=== PATIENT | female | born 1960 | race Two or more races ===

== ENCOUNTER → 2020-06-29 15:37 | Outpatient (BNVA) | payer MEDICAID, SELFPAY | PROVIDERS: PCP Nurse Practitioner Family; Referring Provider Nurse Practitioner Family; Visit Provider Nurse Practitioner | DX: Z76.89 Persons encountering health services in other specified circumstances (principal) | CPT/HCPCS: 99213 ==

== ENCOUNTER 2020-06-30 14:38 | Outpatient (REF) | payer MEDICAID, SELFPAY ==
[2020-06-30 15:57] LABS: Anion Gap 14 (12-20); Blood Urea Nitrogen 25 mg/dL (9-16); C Reactive Protein 0.94 mg/dL (< or = 0.50); Carbon Dioxide 29 mmol/L (22-29); Chloride 101 mmol/L (96-108); Estimated Glomerular Filt Rate > 60; Glucose Random 116 mg/dL (60-115); Potassium 4.1 mmol/l (3.3-5.1); Sodium 140 mmol/L (135-145)
[2020-06-30 16:19] LABS: Thyroid Stimulating Hormone 0.96 mIU/mL (0.32-4.0)
[2020-06-30 16:48] LABS: Erythrocyte Sedimentation Rate 19 MM/HR (0-20)
== END 2020-06-30 14:39 | disposition home or self-care (01) ==
LOC: HO.LAB 14:38
PROVIDERS: Visit Provider Psychiatry & Neurology Neurology
DX: G62.9 Polyneuropathy, unspecified (principal)
CPT/HCPCS: 36415; 80051; 82550; 82565; 82947; 84443; 84520; 85652; 86140

== ENCOUNTER 2020-07-09 20:34 | Emergency (ER) | payer MEDICAID, SELFPAY ==
--- NOTE | 2020-07-09 | ECG_ITS ---
Test Reason : CHEST PAIN Blood Pressure : / mmHG Vent. Rate : 061 BPM Atrial Rate : 061 BPM P-R Int : 160 ms QRS Dur : 084 ms QT Int : 454 ms P-R-T Axes : 026 043 034 degrees QTc Int : 457 ms Normal sinus rhythm Nonspecific ST abnormality Abnormal ECG When compared with ECG of 20-NOV-2014 05:20, No significant change was found Referred By: Eran Yanes Electronically Signed By:CURLY SANZ MD
[2020-07-09 21:04] VITALS: BP 119/56; PULSE 54; RESP 16; TEMP 36.6; O2SAT 99; BMI 39.7
--- NOTE | 2020-07-09 21:46 | ED_ITS ---
HPI - Chest Pain General Chief Complaint: Chest Pain Stated Complaint: CHEST PAIN Time Seen by Provider: 07/09/20 21:46 Source: patient Mode of arrival: ambulatory Limitations: no limitations History of Present Illness HPI narrative: while cooking dinner patient developed sharp chest pain. the pain lasted 30 minutes. MD complaint: chest pain Onset (ago): hour(s) Pain location: substernal Severity: mild Quality: sharp Related Data Home Medications Medication Instructions Recorded Confirmed hydrochlorothiazide 25 mg tablet 25 mg PO DAILY 06/29/20 06/29/20 levothyroxine 50 mcg tablet 50 mcg PO DAILY 06/29/20 06/29/20 lisinopril 40 mg tablet 40 mg PO DAILY 06/29/20 06/29/20 Previous Rx's Medication Instructions Recorded sennosides 8.6 mg capsule 17.2 mg PO BEDTIME 30 Days #60 cap 06/29/20 simethicone 180 mg capsule 180 mg PO TID-QID #120 cap 06/29/20 Allergies Allergy/AdvReac Type Severity Reaction Status Date / Time Penicillins [PENICILLINS] Allergy Intermediate RASH, Unverified 06/11/20 18:23 SWELLING penicillin V Allergy Unknown swelling Unverified 05/21/20 00:00 Review of Systems Constitutional: Constitutional: Reports no additional constitutional complaints Eyes: Eyes: Reports no additional eye complaints ENT: Denies dizziness Cardiovascular: Cardiovascular: Reports no additional cardiovascular complaints Respiratory: Respiratory: Reports as per HPI Gastrointestinal: Gastrointestinal: Reports no additional gastrointestinal complaints Genitourinary: Genitourinary: Reports no additional female genitourinary complaints Musculoskeletal: Musculoskeletal: Reports no additional musculoskeletal complaints Integumentary/Breasts: Skin/Breast: Denies rash Neurologic: Reports system reviewed and no additional complaints, except as documented, Denies dizziness and Denies Sensory deficit (Neuro) Psychiatric: Psychiatric: Denies anxiety [facility] Past Medical History Medical History (Updated 06/29/20 @ 16:22 by DON Lynn) Esophageal candidiasis H/O coronary angiogram History of diverticulitis Pruritus ani Rectal bleeding Surgical History (Updated 06/26/20 @ 10:53 by DON Lynn) H/O cerebral aneurysm repair H/O section H/O left breast biopsy History of hernia repair History of left-sided carotid endarterectomy Family History Family History (Updated 06/26/20 @ 10:56 by DON Lynn) Father Skin cancer Prostate cancer Mother CHF (congestive heart failure) Hypertension NIDDY (non-insulin dependent diabetes mellitus in young) Sister Thyroid cancer Social History Social History (Updated 06/26/20 @ 10:56 by DON Lynn) Alcohol intake: never Smoking Status: Never smoker Use of substances other than those prescribed or required for medical reasons: No Advance Directives: No Advance Directives Information Provided: Yes Physical Exam Vital Signs: Vital Signs: Vital Signs Temp Pulse Resp BP Pulse Ox 07/09/20 21:04 98 F 54 16 119/56 L 99 Body Mass Index 39.7 Const: General: healthy appearing Nutritional Appearance: average body habitus Orientation/consciousness: oriented to person and patient oriented x3 Limitations: no limitations HENMT: Head: Yes normal to inspection Ears: external ears normal General nose exam: Normal external nose present Mouth: Normal oral and palatal mucosa present and oropharynx normal Throat: Yes posterior oropharynx normal Eyes: General: appearance normal, both eyes and all related structures Neck: Other: supple Neck: Yes normal visual inspection Chest: Chest palpation & inspection: normal inspection of the chest Resp: Auscultation: clear to auscultation bilaterally Cardio: Jugular venous distension: no JVD Rate: regular rate Rhythm: regular rhythm Heart sounds: S1 normal heart sound present and S2 normal heart sound present GI: Inspection: Yes normal to inspection Palpation (GI): Soft to palpation, nontender and No hepatosplenomegaly present Auscultation: normal bowel sounds : General: Yes no CVA tenderness Back/Spine/Pelvis: Back: no CVA tenderness Skin: General skin exam: no rashes or lesions noted Neuro: General: oriented to person and patient oriented x3 Cranial nerves: Yes CN's II-XII intact bilaterally Motor exam (neuro): 5/5 motor strength present throughout Sensory Exam: No Sensory deficit (Neuro) Extrem: General: Yes normal to inspection Psych: Appearance: grossly normal Course Course Course Narrative: resting comfortably MDM - Chest Pain MDM Narrative Medical decision making narrative: impression is atypical chest pain Differential Diagnosis Differential diagnosis: Likely atypical chest pain Lab Data Result diagrams: 07/09/20 22:27 07/09/20 22:27 Labs: Lab Results 07/09/20 07/09/20 07/09/20 Range/Units 22:27 22:27 22:27 WBC 8.0 (4.8-10.8) X10*3/uL RBC 4.54 (4.20-5.50) X10*6/uL Hgb 12.3 (12.0-16.0) g/dl Hct 38.0 (37-47) % MCV 83.7 (80-98) fL MCH 27.1 (27.0-33.0) pg MCHC 32.4 (31.0-35.0) g/dl RDW 15.4 (11.0-16.0) % Plt Count 339 (160-400) X10*3/uL MPV 9.1 L (9.4-12.3) fL Immature Gran % (Auto) 0.4 (0.0-0.4) % Neut % (Auto) 67.6 (45-73) % Lymph % (Auto) 25.5 (20-40) % [place] % (Auto) 5.5 (2-11) % Eos % (Auto) 0.6 (0-4) % Baso % (Auto) 0.4 (0-2) % Lymph # (Auto) 2.0 (1.2-4.9) X10*3/uL [place] # (Auto) 0.4 (0.1-1.2) X10*3/uL Eos # (Auto) 0.1 (0.0-0.4) X10*3/uL Baso # (Auto) 0.0 (0.0-0.2) X10*3/uL Abs Immat Gran (auto) 0.03 (0.00-0.03) X10*3/uL Absolute Neuts (auto) 5.4 (2.0-8.3) X10*3/uL Absolute Nucleated RBC 0.000 (0.0-0.012) X10*3/uL Nucleated RBC % (auto) 0.0 (0.0-0.2) /100WBC Sodium 139 (135-145) mmol/L Potassium 4.0 (3.3-5.1) mmol/l Chloride 102 (96-108) mmol/L Carbon Dioxide 29 (22-29) mmol/L Anion Gap 12 (12-20) BUN 25 H (9-16) mg/dL Creatinine 0.90 (0.5-1.4) mg/dL Estim Creat Clear Calc 66.3 Estimated GFR > 60 Random Glucose 106 (60-115) mg/dL Calcium 8.7 (8.4-10.2) mg/dL Troponin I High Sens 4.4 (<3.5-17.0) ng/L ECG Data ECG #1: Interpretation: normal sinus no st or twave changes, rate of 60 Discharge Plan Discharge Patient Disposition: Home, Self-Care Instructions: Chest Pain (ED) Additional Instructions: follow up with your doctor in the next couple of days Prescriptions: No Action levothyroxine 50 mcg tablet 50 mcg PO DAILY RF: 0 lisinopril 40 mg tablet 40 mg PO DAILY RF: 0 hydrochlorothiazide 25 mg tablet 25 mg PO DAILY RF: 0 senna 8.6 mg capsule 17.2 mg PO BEDTIME 30 Days Qty: 60 RF: 3 simethicone [Gas Relief (simethicone)] 180 mg capsule 180 mg PO TID-QID Qty: 120 RF: 3
[2020-07-09 22:31] LABS: MANUAL DIFF FLAG NO
[2020-07-09 22:34] LABS: Basophils Percent Auto 0.4 % (0-2); Eosinophils Absolute Auto 0.1 X10*3/uL (0.0-0.4); Eosinophils Percent Auto 0.6 % (0-4); Hemoglobin 12.3 g/dl (12.0-16.0); Imm Gran Abs Auto 0.03 X10*3/uL (0.00-0.03); Imm Gran Pct Auto 0.4 % (0.0-0.4); Lymphocytes Percent Auto 25.5 % (20-40); Mean Corpuscular HGB Conc 32.4 g/dl (31.0-35.0); Mean Corpuscular Hemoglobin 27.1 pg (27.0-33.0); Mean Corpuscular Volume 83.7 fL (80-98); Mean Platelet Volume 9.1 fL (9.4-12.3); Monocytes Absolute Auto 0.4 X10*3/uL (0.1-1.2); Monocytes Percent Auto 5.5 % (2-11); Neutrophils Absolute Auto 5.4 X10*3/uL (2.0-8.3); Neutrophils Percent Auto 67.6 % (45-73); Platelet Count 339 X10*3/uL (160-400); Red Blood Count 4.54 X10*6/uL (4.20-5.50); Red Cell Distribution Width 15.4 % (11.0-16.0)
[2020-07-09 23:07] LABS: Anion Gap 12 (12-20); Blood Urea Nitrogen 25 mg/dL (9-16); Calcium 8.7 mg/dL (8.4-10.2); Carbon Dioxide 29 mmol/L (22-29); Chloride 102 mmol/L (96-108); Creatinine Clr Calc Pharmacy 66.3; Estimated Glomerular Filt Rate > 60; Glucose Random 106 mg/dL (60-115); Sodium 139 mmol/L (135-145)
[2020-07-09 23:14] LABS: Troponin-I High Sensitivity 4.4 ng/L (<3.5-17.0)
== END 2020-07-09 23:41 | disposition home or self-care (01) ==
PROVIDERS: Emergency Provider Emergency Medicine; PCP Nurse Practitioner Family
DX: R07.9 Chest pain, unspecified (principal)
CPT/HCPCS: 36415; 80048; 84484; 85025; 93005; 99284

== ENCOUNTER 2020-07-21 11:18 | Day surgery (SDC) | payer MEDICAID, SELFPAY ==
[2020-07-16 11:44] VITALS: BMI 39.7
--- NOTE | 2020-07-16 15:07 | P.CONAN_ITS ---
Documented by User: Rayna Kiah 07/20/20 11:59 HPI - Anesthesia Eval Consult details Narrative: 60yo F for EGD Seen in ED for atypical CP 06/2020. ACS ruled out/neg w/u and discharged home. Seen by cardiology with stable testing 05/2020. [facility]LY [facility], [facility] Past Medical History Medical History (Updated 07/21/20 @ 12:50 by Shana Nash) Esophageal candidiasis H/O coronary angiogram History of diverticulitis Hx of renal calculi Hypertension Lab test negative for COVID-19 virus Lab test positive for detection of COVID-19 virus Pruritus ani Rectal bleeding Thyroid disease Family History Family History (Updated 06/26/20 @ 10:56 by DON Lynn) Father Skin cancer Prostate cancer Mother CHF (congestive heart failure) Hypertension NIDDY (non-insulin dependent diabetes mellitus in young) Sister Thyroid cancer Surgical History Surgical History (Updated 07/16/20 @ 11:56 by Brisa Myers) H/O cerebral aneurysm repair H/O section H/O colonoscopy H/O left breast biopsy History of hernia repair Hx of lithotripsy Social History Social History (Updated 06/26/20 @ 10:56 by DON Lynn) Alcohol intake: never Smoking Status: Former smoker Smoked in Last 30 Days: No Smoking Quit Date: 2015 Use of substances other than those prescribed or required for medical reasons: No Advance Directives Information Provided: No Recently lost weight without trying: No Meds Allergies Allergy/AdvReac Type Severity Reaction Status Date / Time Penicillins [PENICILLINS] Allergy Intermediate RASH, Verified 07/16/20 11:56 SWELLING Home Medications Medication Instructions Recorded Confirmed Type hydrochlorothiazide 25 mg tablet 25 mg PO DAILY 06/29/20 07/16/20 History levothyroxine 50 mcg tablet 50 mcg PO DAILY 06/29/20 07/16/20 History lisinopril 40 mg tablet 40 mg PO DAILY 06/29/20 07/16/20 History cholecalciferol (vitamin D3) 50 mcg PO DAILY 07/16/20 07/16/20 History [Vitamin D3] famotidine [Pepcid] 40 mg PO DAILY 07/16/20 07/16/20 History gabapentin 100 mg PO BEDTIME 07/16/20 07/16/20 History Exam Exam Date and Time: July 16, 2020 1507 Height,Weight and Vital Signs: Height 4 ft 11 in Weight 89.358 kg Pertinent Lab Results Pertinent Lab Results: Laboratory Tests 07/09/20 07/09/20 07/09/20 22:27 22:27 22:27 WBC 8.0 Hgb 12.3 Hct 38.0 Plt Count 339 Sodium 139 Potassium 4.0 Chloride 102 Carbon Dioxide 29 BUN 25 H Creatinine 0.90 Troponin I High Sens 4.4 Narrative Narrative: EKG 07/09/20: NSR@61, Nonspecific ST abn ECHO: 05/2020: Nml LV func, EF 60-65%, nml diastolic filling patter, mild pulm htn Carotid US 05/2020: Right ICA plaque complex and irregular, Right ICA 16-49% stenosis, L ICA 0-15% Assessment and Plan Assessment Anesthesia Assessment: Chart Reviewed Documented by User: Shana Nash 07/21/20 13:16 [facility] Past Medical History Medical History (Updated 07/21/20 @ 12:50 by Shana Nash) Esophageal candidiasis H/O coronary angiogram History of diverticulitis Hx of renal calculi Hypertension Lab test negative for COVID-19 virus Lab test positive for detection of COVID-19 virus Pruritus ani Rectal bleeding Thyroid disease Family History Family History (Updated 06/26/20 @ 10:56 by DON Lynn) Father Skin cancer Prostate cancer Mother CHF (congestive heart failure) Hypertension NIDDY (non-insulin dependent diabetes mellitus in young) Sister Thyroid cancer Family history of problems with anesthesia: No Surgical History Surgical History (Updated 07/16/20 @ 11:56 by Brisa Myers) H/O cerebral aneurysm repair H/O section H/O colonoscopy H/O left breast biopsy History of hernia repair Hx of lithotripsy History of Problems with Anesthesia: No Social History Social History (Updated 06/26/20 @ 10:56 by DON Lynn) Alcohol intake: never Smoking Status: Former smoker Smoked in Last 30 Days: No Smoking Quit Date: 2015 Use of substances other than those prescribed or required for medical reasons: No Advance Directives Information Provided: No Recently lost weight without trying: No Meds Allergies Allergy/AdvReac Type Severity Reaction Status Date / Time Penicillins [PENICILLINS] Allergy Intermediate RASH, Verified 07/16/20 11:56 SWELLING Home Medications Medication Instructions Recorded Confirmed Type hydrochlorothiazide 25 mg tablet 25 mg PO DAILY 06/29/20 07/16/20 History levothyroxine 50 mcg tablet 50 mcg PO DAILY 06/29/20 07/16/20 History lisinopril 40 mg tablet 40 mg PO DAILY 06/29/20 07/16/20 History cholecalciferol (vitamin D3) 50 mcg PO DAILY 07/16/20 07/16/20 History [Vitamin D3] famotidine [Pepcid] 40 mg PO DAILY 07/16/20 07/16/20 History gabapentin 100 mg PO BEDTIME 07/16/20 07/16/20 History Exam Height,Weight and Vital Signs: Vital Signs Temp Pulse Resp BP Pulse Ox 07/21/20 12:11 97.1 F 58 16 146/65 H 99 Airway Mallampati Class: II TM Dist: >3cm Neck ROM: Full Loose/Missing/Broken Teeth: Yes (Broken, loose bottom) Heart: RRR Lungs: CTAB Assessment and Plan Assessment Anesthesia Assessment: Anesthesia Plan Discussed and Chart Reviewed Final Anesthetic Review NPO: Yes ASA Class: III Final Preanesthetic Review: No Changes in Pt Med Stat, Meds/Allgs Chart Reviewed, Consent Obtained/Reviewed and Anes Risks/Benef Reviewed Patient Risk: Intermediate Procedure Risk: Low Anesthetic Plan Anesthetic Plan: MAC: Disposition: Standard PACU
[2020-07-21 12:11] VITALS: BP 146/65; PULSE 58; RESP 16; TEMP 36.2; O2SAT 99
[2020-07-21] MEDS: Lactated Ringers 1,000 ML 100 ML IVCONT (12:22)
--- NOTE | 2020-07-21 15:38 | PM.PROC ---
Brief Operative Note Date of procedure: 07/21/20 Pre-op diagnosis: ABDOMINAL PAIN Post-op diagnosis: other (GASTRIC ULCER, ANTRAL; HIATAL HERNIA) Procedure: EGD WITH BX Anesthesia: MAC (KEVIN PABLO) Surgeon: Nela Leblanc Estimated blood loss (mL): 5 Pathology: other (RANDOM GASTRIC BX) Condition: stable Disposition: PACU
[2020-07-21 15:39] VITALS: BP 116/67; PULSE 78; RESP 12; TEMP 36.2; O2SAT 97
[2020-07-21 15:54] VITALS: BP 123/71; PULSE 57; RESP 16; O2SAT 96
--- NOTE | 2020-07-21 17:13 | OP_ITS ---
SURGEON: Nela Leblanc MD PROCEDURE PERFORMED: EGD with biopsy. ESTIMATED BLOOD LOSS: Minimal blood loss. COMPLICATIONS: No complications. ANESTHESIA: Monitored. ANESTHESIOLOGIST: Royer Robertson CRNA. ASSISTANTS: No teachers' assistant. SPECIMENS: Specimens removed; random gastric. PREOPERATIVE DIAGNOSES: Abdominal pain, mid epigastrium, has been present purportedly since COVID infection which she had in December. She has a tendency for constipation. POSTOPERATIVE DIAGNOSES: Gastric ulcer surrounding superficial gastritis, small hiatal hernia. CARDROOM WORKER: Dr. Leblanc. FINDINGS: Video endoscope was introduced without difficulty. It was navigated into the posterior pharynx and into the esophagus. Esophageal mucosa was normal down to the level of the GE junction. Distal to this, was a small hiatal hernia. On entering the stomach, fundus and upper body appeared normal. There was a mildly edematous fold in the pre-pyloric area of the antrum. Directly under the fold, was 0.5 cm gastric ulcer with smooth perimeter. I was able to intubate the pylorus. Duodenal bulb and duodenum appeared endoscopically normal with endoscopically normal villi. Random gastric biopsies were obtained. PLAN AND CURRENT RECOMMENDATIONS: Will be dictated by Histology. We will increase her acid blockade to twice daily and if there is evidence for H pylori that will be treated as well. She will be followed up in our office as previously scheduled. GRAFT OR IMPLANTS: No grafts or implants. CONDITION: Postprocedure, stable. MD KAMERON Yang/ALTAGRACIA / [phone] [facility]
== END 2020-07-21 16:30 | disposition home or self-care (01) ==
PROVIDERS: PCP Nurse Practitioner Family; Visit Provider Internal Medicine Gastroenterology
PROC: 0DJ08ZZ Inspection of Upper Intestinal Tract, Via Natural or Artificial Opening Endoscopic (ICD-10-PCS; CPT 43235; principal; 2020-07-21 12:30)
DX: K25.9 Gastric ulcer, unspecified as acute or chronic, without hemorrhage or perforation (principal); K29.30 Chronic superficial gastritis without bleeding; K44.9 Diaphragmatic hernia without obstruction or gangrene; K21.9 Gastro-esophageal reflux disease without esophagitis; K75.81 Nonalcoholic steatohepatitis (NASH); I10 Essential (primary) hypertension; Z79.899 Other long term (current) drug therapy; Z88.0 Allergy status to penicillin; Z88.8 Allergy status to other drugs, medicaments and biological substances; Z86.19 Personal history of other infectious and parasitic diseases; Z87.891 Personal history of nicotine dependence
CPT/HCPCS: 43239; 88305; 88342; J3010

== ENCOUNTER → 2020-07-28 15:21 | Outpatient (BNVA) | payer MEDICAID, SELFPAY | PROVIDERS: PCP Nurse Practitioner Family; Referring Provider Nurse Practitioner Family; Visit Provider Nurse Practitioner | DX: K21.9 Gastro-esophageal reflux disease without esophagitis (principal); K59.04 Chronic idiopathic constipation; K75.81 Nonalcoholic steatohepatitis (NASH); R14.0 Abdominal distension (gaseous); K64.0 First degree hemorrhoids; R10.10 Upper abdominal pain, unspecified; K25.9 Gastric ulcer, unspecified as acute or chronic, without hemorrhage or perforation; Z87.891 Personal history of nicotine dependence; Z86.19 Personal history of other infectious and parasitic diseases; Z79.899 Other long term (current) drug therapy | CPT/HCPCS: 99212 ==

== ENCOUNTER 2020-08-10 08:24 | Outpatient (REF) | payer MEDICAID, SELFPAY ==
--- NOTE | 2020-08-10 08:29 | US_ITS ---
EXAMINATION: US ABDOMEN LIMITED CLINICAL INFORMATION: VELARDE. COMPARISON: Abdominal ultrasound dated 10/16/2019. Renal ultrasound dated 09/30/2019. TECHNIQUE: Real-time imaging of the right upper quadrant abdominal viscera. FINDINGS: PANCREAS: Normal. LIVER: The liver is normal in size. The liver contour is normal. There is diffuse increased liver parenchymal echogenicity, consistent with hepatic steatosis. There are areas of focal fatty sparing. No focal hepatic lesion. There is no intrahepatic biliary duct dilatation seen. GALLBLADDER: Normal. The gallbladder is physiologically distended without evidence of stones, sludge, polyps, wall thickening or pericholecystic fluid. COMMON BILE DUCT: Normal in caliber measuring 0.5 cm in diameter. RIGHT KIDNEY: No hydronephrosis. No focal parenchymal lesions. The kidney measures 12.9 cm in maximum dimension. Small foci of increased echogenicity with clinical artifact suggesting tiny calculi at the lower and mid pole. FREE FLUID: None. US/US abdomen limited IMPRESSION: Hepatic steatosis. No focal liver lesion. Suspect tiny renal calculi.
== END 2020-08-10 08:25 | disposition home or self-care (01) ==
LOC: HO.US 08:24
PROVIDERS: Visit Provider Nurse Practitioner
DX: K75.81 Nonalcoholic steatohepatitis (NASH) (principal)
CPT/HCPCS: 76705

== ENCOUNTER → 2020-08-12 15:16 | Outpatient (BNVA) | payer MEDICAID, SELFPAY | PROVIDERS: PCP Nurse Practitioner Family; Referring Provider Nurse Practitioner Family; Visit Provider Nurse Practitioner Family | DX: M54.16 Radiculopathy, lumbar region (principal); M53.3 Sacrococcygeal disorders, not elsewhere classified | CPT/HCPCS: 99202 ==

== ENCOUNTER 2020-08-19 15:51 | Outpatient (REF) | payer MEDICAID, SELFPAY ==
--- NOTE | 2020-08-19 15:56 | MR_ITS ---
EXAMINATION: MR LUMBAR SPINE WITHOUT CONTRAST CLINICAL INFORMATION: Lower back pain. Bilateral leg pain and numbness. COMPARISON: Lumbar spine radiographs dated 05/25/2020. TECHNIQUE: MRI of the lumbar spine was obtained using routine sequences without contrast. FINDINGS: VERTEBRAL BODIES AND PARASPINAL STRUCTURES: Normal vertebral body alignment. The lumbar lordosis is maintained. No acute fracture or subluxation. No loss of vertebral body height. Loss of intervertebral disc height with disc desiccation at L2-L3. Additional disc desiccation at L4-L5. No abnormal marrow signal. The visualized paraspinal soft tissues are unremarkable. CONUS MEDULLARIS AND CAUDA EQUINA: Normal, terminating at the level of the L1-L2 intervertebral disc. SPINAL LEVELS: T12-L1: No significant disc bulge. No central canal or neural foraminal stenosis. L1-L2: No significant disc bulge. No central canal or neural foraminal stenosis. L2-L3: Broad-based disc bulge with mild bilateral facet arthropathy. No significant central canal or neural foraminal stenosis. L3-L4: No significant disc bulge. Bilateral facet arthropathy without significant central canal or neural foraminal stenosis. L4-L5: Shallow broad-based disc bulge with a superimposed left subarticular disc protrusion which abuts the exiting left L4 nerve root. Bilateral facet arthropathy with moderate left and mild right neural foraminal stenosis. L5-S1: No significant disc bulge. Bilateral facet arthropathy. No significant central canal or neural foraminal stenosis. MR/MR lumbar spine wo con IMPRESSION: 1. L4-L5 shallow broad-based disc bulge with superimposed left subarticular disc protrusion which abuts the exiting left L4 nerve root. Bilateral facet arthropathy with moderate left and mild right neural foraminal stenosis. 2. L2-L3 broad-based disc bulge with mild bilateral facet arthropathy. No central canal or neural foraminal stenosis. 3. Bilateral facet arthropathy at L3-L4 and L5-S1 without significant central canal or neural foraminal stenosis.
== END 2020-08-19 15:52 | disposition home or self-care (01) ==
LOC: HO.MRI 15:51
PROVIDERS: Visit Provider Anesthesiology
DX: M54.16 Radiculopathy, lumbar region (principal)
CPT/HCPCS: 72148

== ENCOUNTER 2020-08-24 16:29 | Outpatient (REF) | payer MEDICAID, SELFPAY ==
--- NOTE | 2020-08-24 16:45 | MR_ITS ---
EXAMINATION: MR PELVIS WITHOUT CONTRAST CLINICAL INFORMATION: Sacral coccygeal disorder. Low back pain. Bilateral leg pain and numbness. Age 60. COMPARISON: MRI lumbar spine noncontrast 08/19/2020, CT abdomen and pelvis with contrast 03/14/2017 TECHNIQUE: MRI of the pelvis is performed in sagittal images as well as oblique coronal images probably old to long axis sacrum. Exam is performed without contrast. FINDINGS: There is normal marrow signal. The sacrum and coccyx show no fracture or destructive process. The SI joints show no bone marrow edema or erosive change. There is no bony destructive process or presacral coccygeal mass or soft tissue swelling. The sacral canal appears normal. Lower thecal sac ends at lower aspect of S2. There is no intrasacral meningocele or Tarlov cyst. Neural foramina are unremarkable. The visualized bowel is unremarkable. There is no obstruction or pelvic ascites. There is a ventral hernia approximately 7 cm superior to the umbilicus with mild signal change in the fat at the hernia orifice measuring 3.6 x 2.6 cm in diameter. The uterus is anteverted and measures 3.2 x 3.8 x 8.4 cm. There is normal endometrial stripe and normal junctional zone. A 0.9 cm intramural fibroid is present anterior uterine body. There is a 0.9 cm nabothian cyst upper cervix. Exophytic cyst right adnexa measures approximately 3.7 x 3.1 x 2.5 cm. Cyst is homogeneous high signal T2 with visible internal septation or solid component. The left ovary is unremarkable. No pelvic ascites. MR/MR pelvis wo con IMPRESSION: 1. Normal sacrum coccyx. No sacroiliitis, intrasacral meningocele, or Tarlov cyst. 2. Right adnexal cyst 3.7 cm. No pelvic ascites. Subcentimeter fibroid. 3. Fat-containing supraumbilical ventral hernia.
== END 2020-08-24 16:30 | disposition home or self-care (01) ==
LOC: HO.MRI 16:29
PROVIDERS: Visit Provider Anesthesiology
DX: M53.3 Sacrococcygeal disorders, not elsewhere classified (principal)
CPT/HCPCS: 72195

== ENCOUNTER 2020-09-01 07:02 | Outpatient (REF) | payer MEDICAID, SELFPAY ==
--- NOTE | 2020-09-01 07:45 | FL_ITS ---
EXAMINATION: XR FLUOROSCOPY WITH IMAGES CLINICAL INFORMATION: Sacrococcygeal disorders. COMPARISON: None. TECHNIQUE: Fluoroscopy performed by Suzi Dueñas NP. Fluoroscopy time: 0.1 minutes DAP: 0.699 Gycm2 Images: 1 FINDINGS: There is a single image of the right SI joint with the needle positioned into the joint space and contrast seen adjacent to the joint. FL/FL guidance in treatment room IMPRESSION: Single image of right SI joint was obtained for pain management.
== END 2020-09-01 07:03 | disposition home or self-care (01) ==
LOC: HO.RADIR 07:02
PROVIDERS: Visit Provider Anesthesiology
DX: M53.3 Sacrococcygeal disorders, not elsewhere classified (principal); M54.16 Radiculopathy, lumbar region
CPT/HCPCS: 27096; J3300; Q9967

== ENCOUNTER → 2020-09-08 10:43 | Outpatient (BNVA) | payer MEDICAID, SELFPAY | PROVIDERS: PCP Nurse Practitioner Family; Referring Provider Nurse Practitioner Family; Visit Provider Surgery Vascular Surgery | DX: I83.11 Varicose veins of right lower extremity with inflammation (principal); K25.9 Gastric ulcer, unspecified as acute or chronic, without hemorrhage or perforation; K64.9 Unspecified hemorrhoids; K21.9 Gastro-esophageal reflux disease without esophagitis; K59.04 Chronic idiopathic constipation; K75.81 Nonalcoholic steatohepatitis (NASH); R14.0 Abdominal distension (gaseous) | CPT/HCPCS: 99202 ==

== ENCOUNTER 2020-09-21 13:04 | Outpatient (REF) | payer MEDICAID, SELFPAY ==
--- NOTE | 2020-09-21 13:13 | US_ITS ---
EXAMINATION: RIGHT and LEFT LOWER EXTREMITY VENOUS ULTRASOUND (Reflux Exam) CLINICAL INDICATION: leg pain and varicose veins. COMPARISON: None. TECHNIQUE: Color flow triplex imaging and compression Doppler was performed to evaluate both the deep and the superficial systems bilaterally. To evaluate the superficial system, the examination was performed in the upright position. Color-flow Doppler ultrasound and compression ultrasound were utilized. In addition, maneuvers were utilized to demonstrate reflux. FINDINGS: 1. DEEP VENOUS ULTRASOUND OF THE RIGHT LOWER EXTREMITY: Respiratory variation, normal compression and augmented flow are noted in the right common femoral vein as well as the right popliteal vein and there is no evidence of deep venous thrombosis at these locations. There is no evidence of reflux in the deep system in either the common femoral vein or the popliteal vein. There is no evidence of a Monae's cyst. 2. SUPERFICIAL ULTRASOUND WITH DOPPLER OF RIGHT LOWER EXTREMITY: The right great saphenous vein at the saphenofemoral junction measures 7 mm, at the mid thigh 5 mm, [id number]-[id number]-lcus 5 mm, [id number] 4 mm, at mid calf 3 mm and at the ankle measures 3 mm. There is a lateral accessory greater saphenous vein that measures 4 mm and does not demonstrate reflux. There is no reflux demonstrated in the right great saphenous vein. The right small saphenous vein measures 2-4 mm and shows no reflux. There are varicosities in the thigh and calf that communicate with the greater saphenous vein measuring maximum 4-5 mm that do not demonstrate reflux. There is a varicosity off the lesser saphenous vein that measures 3 mm and does not demonstrate reflux. There is a spectrograph operator in the proximal calf that measures 2 mm and does not demonstrate reflux. 3. DEEP VENOUS ULTRASOUND OF THE LEFT LOWER EXTREMITY: Respiratory variation, normal compression and augmented flow are noted in the left common femoral vein as well as the left popliteal vein and there is no evidence of deep venous thrombosis at these locations. There is no evidence of reflux in the deep system in either the common femoral vein or the popliteal vein. . There is no evidence of a Monae's cyst. 4. SUPERFICIAL ULTRASOUND WITH DOPPLER OF LEFT LOWER EXTREMITY: Left great saphenous vein at the saphenofemoral junction measures 5 mm, at the mid thigh 4 mm, [id number] 4 mm, [id number] 3 mm, at mid calf 3 mm and at the ankle measures 3 mm. There is a lateral accessory greater saphenous vein that measures 4 mm and does not demonstrate reflux. There is no reflux demonstrated in the left great saphenous vein. The left small saphenous vein measures 3-6 mm and shows no reflux. There is a spectrograph operator in the mid thigh that measures 3 mm in the proximal calf that measures 2 mm and does not demonstrate reflux. There are varicosities in the thigh measuring maximum 4 mm that do not demonstrate reflux. US/US venous duplex LE BI IMPRESSION: 1. No evidence of reflux or thrombus in the common femoral veins or popliteal veins bilaterally. 2. The saphenous systems are competent bilaterally.
== END 2020-09-21 13:05 | disposition home or self-care (01) ==
LOC: HO.US 13:04
PROVIDERS: PCP Nurse Practitioner Family; Visit Provider Surgery Vascular Surgery
DX: I83.893 Varicose veins of bilateral lower extremities with other complications (principal); M79.662 Pain in left lower leg; M79.661 Pain in right lower leg
CPT/HCPCS: 93970

== ENCOUNTER 2020-09-23 14:14 | Outpatient (REF) | payer MEDICAID, SELFPAY ==
[2020-09-23 16:30] LABS: Hematocrit 40.4 % (37-47); Hemoglobin 12.9 g/dl (12.0-16.0); Mean Corpuscular HGB Conc 31.9 g/dl (31.0-35.0); Mean Corpuscular Hemoglobin 27.3 pg (27.0-33.0); Mean Corpuscular Volume 85.6 fL (80-98); Platelet Count 326 X10*3/uL (160-400); Red Blood Count 4.72 X10*6/uL (4.20-5.50); Red Cell Distribution Width 14.9 % (11.0-16.0); White Blood Count 7.8 X10*3/uL (4.8-10.8)
[2020-09-23 16:42] LABS: Estimated Average Glucose 126 mg/dL
[2020-09-23 17:04] LABS: Alanine Aminotransferase 18 U/L (0-31); Albumin Level 3.9 g/dL (3.5-5.0); Alkaline Phosphatase 119 U/L (39-117); Anion Gap 9 (12-20); Aspartate Amino Transferase 12 U/L (5-31); Bilirubin Total 0.4 mg/dL (0.0-1.0); Blood Urea Nitrogen 18 mg/dL (9-16); Calcium 8.7 mg/dL (8.4-10.2); Carbon Dioxide 33 mmol/L (22-29); Chloride 103 mmol/L (96-108); Cholesterol 197 mg/dL; Estimated Glomerular Filt Rate > 60; Glucose Random 87 mg/dL (60-115); HDL Cholesterol 38 mg/dL; LDL Cholesterol Calculated 143 mg/dl; Potassium 3.9 mmol/l (3.3-5.1); Sodium 141 mmol/L (135-145); Total Protein 6.7 g/dL (6.5-8.0); Triglycerides 81 mg/dL
[2020-09-23 17:22] LABS: Thyroid Stimulating Hormone 1.15 uIU/mL (0.32-4.0); Vitamin D 25-OH Total 46.4 ng/mL (>30)
[2020-09-24 10:17] LABS: BV Int Neg Control Negative (Negative); BV Int Pos Control Positive (Positive)
[2020-09-26 08:47] LABS: C. trachomatis RNA TMA NOT DETECTED (NOT DETECTED); N. gonorrhoeae RNA TMA NOT DETECTED (NOT DETECTED)
[2020-09-29 21:12] LABS: HPV mRNA E6/E7 rflx Not Detected (Not Detected)
== END 2020-09-23 14:15 | disposition home or self-care (01) ==
LOC: HO.LAB 14:14
PROVIDERS: Absent Provider Nurse Practitioner Family; PCP Nurse Practitioner Family; Visit Provider Advanced Practice Midwife
DX: Z12.4 Encounter for screening for malignant neoplasm of cervix (principal); N93.9 Abnormal uterine and vaginal bleeding, unspecified; E03.9 Hypothyroidism, unspecified; E55.9 Vitamin D deficiency, unspecified; I10 Essential (primary) hypertension; K25.9 Gastric ulcer, unspecified as acute or chronic, without hemorrhage or perforation; N20.0 Calculus of kidney; R73.03 Prediabetes; Z71.89 Other specified counseling
CPT/HCPCS: 36415; 58100; 80053; 80061; 82306; 83036; 84443; 85027; 87480; 87491; 87510; 87591; 87624; 87660; 88142; 99212

== ENCOUNTER → 2020-10-06 13:34 | Outpatient (BNVA) | payer MEDICAID, SELFPAY | PROVIDERS: PCP Nurse Practitioner Family; Visit Provider Surgery Vascular Surgery | DX: I83.11 Varicose veins of right lower extremity with inflammation (principal) | CPT/HCPCS: 99212 ==

== ENCOUNTER → 2020-10-07 14:11 | Outpatient (BNVA) | payer MEDICAID, SELFPAY | PROVIDERS: PCP Nurse Practitioner Family; Visit Provider Anesthesiology | DX: Z76.89 Persons encountering health services in other specified circumstances (principal) ==

== ENCOUNTER → 2020-10-08 14:12 | Outpatient (BNVA) | payer MEDICAID, SELFPAY | PROVIDERS: PCP Nurse Practitioner Family; Visit Provider Obstetrics & Gynecology | DX: N95.0 Postmenopausal bleeding (principal) | CPT/HCPCS: 99212 ==

== ENCOUNTER → 2020-10-12 14:06 | Outpatient (BNVA) | payer MEDICAID, SELFPAY | PROVIDERS: Visit Provider Advanced Practice Midwife ==

== ENCOUNTER 2020-10-15 14:03 | Outpatient (REF) | payer MEDICAID, SELFPAY ==
--- NOTE | 2020-10-15 14:08 | US_ITS ---
EXAMINATION: US PELVIS COMPLETE US PELVIS TRANSVAGINAL CLINICAL INFORMATION: Postmenopausal bleeding. COMPARISON: Pelvic MRI dated 08/24/2020 TECHNIQUE: Transabdominal and transvaginal imaging was performed. FINDINGS: The uterus is of normal size and echogenicity measuring 7.8 x 3 x 3.4 cm. Within the anterior uterine body, there is a probable fibroid measuring 0.8 x 0.7 x 0.6 cm. A regular homogeneous endometrium is identified measuring 0.4 cm. Nabothian cysts. Both ovaries are of normal size and echogenicity. The right measures 3 x 1.6 x 1.4 cm for a volume of 3.5 mL. Adjacent to the right ovary is a septated cyst measuring 4.2 x 2.6 x 3.3 cm, likely corresponding to the right adnexal cyst on the recent MRI which measured 3.7 cm. This may represent an exophytic ovarian cyst. The left measures 1.4 x 1.5 x 2.5 cm for a volume of 2.7 mL. There is no pelvic free fluid. US/US pelvic complete IMPRESSION: 1. Anterior uterine body probable fibroid measuring 0.8 cm. No additional myometrial lesion. Unremarkable endometrium. 2. Right adnexal septated cyst measuring 4.2 cm, corresponding to the cyst on the recent MRI which measured 3.7 cm. This may represent an exophytic ovarian cyst. 3. Sonographically unremarkable left ovary.
--- NOTE | 2020-10-15 14:08 | US_ITS ---
EXAMINATION: US PELVIS COMPLETE US PELVIS TRANSVAGINAL CLINICAL INFORMATION: Postmenopausal bleeding. COMPARISON: Pelvic MRI dated 08/24/2020 TECHNIQUE: Transabdominal and transvaginal imaging was performed. FINDINGS: The uterus is of normal size and echogenicity measuring 7.8 x 3 x 3.4 cm. Within the anterior uterine body, there is a probable fibroid measuring 0.8 x 0.7 x 0.6 cm. A regular homogeneous endometrium is identified measuring 0.4 cm. Nabothian cysts. Both ovaries are of normal size and echogenicity. The right measures 3 x 1.6 x 1.4 cm for a volume of 3.5 mL. Adjacent to the right ovary is a septated cyst measuring 4.2 x 2.6 x 3.3 cm, likely corresponding to the right adnexal cyst on the recent MRI which measured 3.7 cm. This may represent an exophytic ovarian cyst. The left measures 1.4 x 1.5 x 2.5 cm for a volume of 2.7 mL. There is no pelvic free fluid. US/US transvaginal IMPRESSION: 1. Anterior uterine body probable fibroid measuring 0.8 cm. No additional myometrial lesion. Unremarkable endometrium. 2. Right adnexal septated cyst measuring 4.2 cm, corresponding to the cyst on the recent MRI which measured 3.7 cm. This may represent an exophytic ovarian cyst. 3. Sonographically unremarkable left ovary.
== END 2020-10-15 14:04 | disposition home or self-care (01) ==
LOC: HO.US 14:03
PROVIDERS: Visit Provider Obstetrics & Gynecology
DX: N95.0 Postmenopausal bleeding (principal); N20.0 Calculus of kidney; N39.41 Urge incontinence
CPT/HCPCS: 76830; 76856; 99212

== ENCOUNTER 2020-10-22 13:50 | Outpatient (RCR) | payer MEDICAID, SELFPAY | END 2020-12-03 15:26 | disposition other institution (70) | LOC: HO.PT 13:50 | PROVIDERS: PCP Internal Medicine Geriatric Medicine; Visit Provider Anesthesiology | DX: M54.16 Radiculopathy, lumbar region (principal) | CPT/HCPCS: 97162; 97163 ==

== ENCOUNTER → 2020-10-29 12:02 | Outpatient (BNVA) | payer MEDICAID, SELFPAY | PROVIDERS: PCP Internal Medicine Geriatric Medicine; Visit Provider Obstetrics & Gynecology ==

== ENCOUNTER 2020-12-29 17:02 | Outpatient (REF) | payer MEDICAID, SELFPAY ==
[2020-12-30 12:37] LABS: CT PCR NOT DETECTED (Not Detect.); NG PCR NOT DETECTED (Not Detect.)
[2020-12-31 06:12] LABS: CA-125 15 U/mL (<35)
== END 2020-12-29 17:03 | disposition home or self-care (01) ==
LOC: HO.LAB 17:02
PROVIDERS: Advanced Practice Midwife; PCP Nurse Practitioner Family; Visit Provider Obstetrics & Gynecology
DX: Z11.3 Encounter for screening for infections with a predominantly sexual mode of transmission (principal); N93.9 Abnormal uterine and vaginal bleeding, unspecified; N83.291 Other ovarian cyst, right side
CPT/HCPCS: 36415; 86304; 87491; 87591

== ENCOUNTER 2021-02-11 11:28 | Outpatient (REF) | payer OTHER, SELFPAY ==
--- NOTE | ~2021-02-11 | US_ITS ---
EXAMINATION: US EXTRACRANIAL CAROTID DUPLEX, BILATERAL CLINICAL INFORMATION: This a 60-year-old female with tobacco use, hypertension, CVA. Carotid artery disease. COMPARISON: None TECHNIQUE: Real-time ultrasound and Doppler techniques (integrating B-mode 2-D vascular images, Doppler spectral analysis and color-flow Doppler imaging) were utilized to interrogate the extracranial carotid arteries, the vertebral arteries and proximal subclavian arteries bilaterally. The degree of stenosis is determined by criteria similar to NASCET. FINDINGS: Right Side: 1. There is minimal atherosclerotic plaque seen in the bifurcation/proximal ICA region. 2. The common carotid artery PSV proximally is 116 cm/s and distally 112 cm/s. 3. The proximal internal carotid artery velocities are 89 cm/s systolic and 26 cm/s diastolic. 4. The proximal external carotid artery PSV is 101 cm/s. 5. The vertebral artery shows antegrade flow. 6. The subclavian artery waveforms are normal. Left Side: 1. There is minimal atherosclerotic plaque seen in the bifurcation/proximal ICA region. 2. The common carotid artery PSV proximally is 135 cm/s and distally 86 cm/s. 3. The proximal internal carotid artery velocities are 66 cm/s systolic and 22 cm/s diastolic. 4. The proximal external carotid artery PSV is 82 cm/s. 5. The vertebral artery shows antegrade flow. 6. The subclavian artery waveforms are normal. US/US carotid duplex BI IMPRESSION: 1. RIGHT: Minimal, non-hemodynamically significant stenosis of the proximal right internal carotid artery corresponding to a 0-49% stenosis by velocity criteria. 2. LEFT: Minimal, non-hemodynamically significant stenosis of the proximal left internal carotid artery corresponding to a 0-49% stenosis by velocity criteria.
== END 2021-02-11 11:29 | disposition home or self-care (01) ==
LOC: HO.US 11:28
PROVIDERS: Visit Provider Internal Medicine Rheumatology
DX: I10 Essential (primary) hypertension (principal)
CPT/HCPCS: 93880

== ENCOUNTER 2021-09-07 11:36 | Outpatient (REF) | payer OTHER, SELFPAY ==
[2021-09-07 12:16] LABS: COVID-19 Test Negative (Negative); IDNOW Serial# 16C4AD1C
== END 2021-09-07 11:37 | disposition home or self-care (01) ==
LOC: HO.LAB 11:36
PROVIDERS: Visit Provider Internal Medicine
DX: Z20.822 Contact with and (suspected) exposure to COVID-19 (principal)
CPT/HCPCS: 36415; 87635; C9803

== ENCOUNTER 2021-11-02 14:00 | Outpatient (RCR) | payer OTHER, SELFPAY ==
[2021-09-29 14:02] VITALS: BP 139/64; PULSE 56
--- NOTE | 2021-09-29 15:07 | MHC.PT.EP ---
[facility] [place] Office [place] Office [place] Office [address] Vishnu Monteiro [address] [phone] F: [phone] F: [phone] F: [phone] F: [phone] Physical Therapy Plan of Care Date of Evaluation: Date of Surgery: 11/03/2020 Diagnosis: Low back pain Assessment: Evelia is a 61 year old female who is referred to PT for low back pain . Pt reports of having low back pain for a year following a tumor removal surgery from her upper back. She denies any trauma or fall. On PT examination she presented with TTP from T2 to T6 and L3 to L5, 8/10 with prolonged sitting, standing, bending and walking, decreased lumbar ROM, decreased muscle strength, impaired posture and gait. Due to this she is needing assistance from her to perform ADLS like dressing, showering, cleaning, cooking and grocery. She would benefit from skilled PT to address the aforementioned impairments and improve tolerance to functional activities. Frequency and Duration: The patient will be seen 2/week for 5 weeks Short Term Goals: 1.Pt will have 50% decrease in pain which will enable her to sit and eat her meals with a pain no more than 2/10 in 2 weeks. 2.Pt will be able to move trunk through all planes of motion without pain which will enable her to dress and wash her lower body in 3 weeks. Skilled Nursing Goals: 1. Pt will demonstrate an increase in muscle strength by 1 grade which will enable her to participate more in cooking, grocery and cleaning in 4 weeks. 2. Pt will be independent with all HEPs for symptom management and maintenance following d/c in 5 weeks. Treatment Plan: Modalities to reduce pain, spasms and effusion. Manual therapy to restore motion and function. Therapeutic exercise to improve strength and flexibility. Neuromuscular re-education for posture and balance. Therapeutic activities to return to functional activities of daily living. Electronically signed by: Rosie Ladd PT DPT Please sign and return to therapist. Thank you for your referral.
--- NOTE | 2021-11-04 16:01 | MHC.PT.DC ---
[facility] [place] Office [place] Office [place] Office [address] Vishnu Monteiro [address] [phone] F: [phone] F: [phone] F: [phone] F: [phone] Physical Therapy Discharge Report Diagnosis: Low back pain Date of Surgery: 11/03/2020 Date of Evaluation: 09/29/21 Date of Discharge: 11/04/21 Treatments to Date: 4 Cancellations to Date: 6 No Shows to Date: 2 Discharge Status: Visit Non-compliance Discharge Summary: Evelia no showed for her appointment today- 11/04/21. She has had 6 cancellation and 2 no shows. Pt d/c from therapy due to non compliance. Electronically signed by: Rosie Ladd PT DPT Please sign and return to therapist. Thank you for your referral.
== END 2021-11-04 16:02 | disposition home or self-care (01) ==
LOC: HO.PT 14:00
PROVIDERS: PCP Internal Medicine; Visit Provider Internal Medicine
DX: M54.50 Low back pain, unspecified (principal)
CPT/HCPCS: 97110; 97112; 97161; 97530

== ENCOUNTER → 2021-11-11 12:57 | Outpatient (BNVA) | payer OTHER, SELFPAY | PROVIDERS: Visit Provider Advanced Practice Midwife ==

== ENCOUNTER 2021-11-17 14:48 | Outpatient (REF) | payer OTHER, SELFPAY ==
--- NOTE | ~2021-11-17 | MM_ITS ---
EXAMINATION: MM SCREENING DIGITAL BREAST TOMOSYNTHESIS, BILATERAL CLINICAL INFORMATION: Screening. Asymptomatic. The lifetime risk of breast cancer based on the Tyrer-Cuzick Model is 6%. COMPARISON: Mammography: 03/12/2020, 01/31/2019, 01/17/2018 TECHNIQUE: Digital breast tomosynthesis is performed in both the craniocaudal and mediolateral oblique views along with computer-aided detection (CAD). Synthesized 2D images are generated from the tomosynthesis. Additional left CC and bilateral MLO views are provided. FINDINGS: There are scattered areas of fibroglandular density (ACR BI-RADS breast composition Category b). Parenchymal pattern is similar to prior studies. There is fine fibronodular parenchymal pattern similar to prior studies. There is no developing density or architectural abnormality. Biopsy clip marker again noted mid 9:00 left breast. The axilla and skin contours are unremarkable. No significant changes. MM/MM tomosynthesis screening BI IMPRESSION: No significant changes from prior exams. ASSESSMENT: BI-RADS 2: Benign RECOMMENDATION: Routine annual mammography screening. This patient's information was entered into a reminder system with a target due date for their next mammogram.
== END 2021-11-17 14:49 | disposition home or self-care (01) ==
LOC: HO.MAMMO 14:48
PROVIDERS: PCP Internal Medicine; Visit Provider Internal Medicine
DX: Z12.31 Encounter for screening mammogram for malignant neoplasm of breast (principal)
CPT/HCPCS: 77063; 77067

== ENCOUNTER 2021-11-24 14:13 | Outpatient (REF) | payer OTHER, SELFPAY ==
--- NOTE | ~2021-11-24 | US_ITS ---
EXAMINATION: US PELVIS CLINICAL INFORMATION: History of left ovarian cyst COMPARISON: October 15, 2020. MRI of August 25, 2020 TECHNIQUE: Ultrasound of the pelvis is performed using both transabdominal and transvaginal transducers along with Doppler. Transvaginal imaging is performed due to inadequate visualization transabdominally. FINDINGS: Uterus: The uterus is anteverted and measures 6.5 x 3.2 x 3.5 cm. Nabothian cysts are seen within the cervix with no suspicious cervical lesions. The double wall endometrial thickness is 3 mm. There is slight increase in size of an anterior heterogeneous echotexture uterine body fibroid now measuring 1.8 x 0.8 x 1.1 cm in size compared with 0.8 x 0.7 x 0.6 cm on previous study of October 15, 2020. Adnexa: Both ovaries are visualized. There is normal color flow to the adnexa. There is no ovarian torsion. There is no pelvic ascites or fluid collection. Right ovary measures 2.1 x 1.6 x 2.3 cm. Adjacent to the right ovary there is a complex hypoechoic region with some increased through sound transmission and question of solid component measuring 5.0 x 2.0 x 4.2 cm in size. This previously measured 4.2 x 2.6 x 3.3 cm in size. This was also evident on MRI of August 24, 2020. Left ovary measures 2.2 x 1.6 x 2.7 cm. No left ovarian abnormality is appreciated. US/US pelvic and transvaginal IMPRESSION: Slight increase in size of anterior uterine body 1.5 cm fibroid. Complex right adnexal cyst slightly larger than on prior study of October 15, 2020 and MRI of July 28, 2020.
== END 2021-11-24 14:14 | disposition home or self-care (01) ==
LOC: HO.HMGCX 14:13
PROVIDERS: PCP Internal Medicine; Visit Provider Advanced Practice Midwife
DX: N83.299 Other ovarian cyst, unspecified side (principal)
CPT/HCPCS: 76830; 76856

== ENCOUNTER → 2021-12-03 11:44 | Outpatient (BNVA) | payer OTHER, SELFPAY | PROVIDERS: Visit Provider Advanced Practice Midwife ==

== ENCOUNTER 2021-12-08 15:44 | Outpatient (REF) | payer OTHER, SELFPAY ==
[2021-12-08 16:47] LABS: Alanine Aminotransferase 21 U/L (0-31); Albumin Level 4.1 g/dL (3.5-5.0); Alkaline Phosphatase 107 U/L (39-117); Anion Gap 13 (12-20); Aspartate Amino Transferase 15 U/L (5-31); Bilirubin Total 0.5 mg/dL (0.0-1.0); Blood Urea Nitrogen 20 mg/dL (9-16); Calcium 9.4 mg/dL (8.4-10.2); Carbon Dioxide 27 mmol/L (22-29); Chloride 105 mmol/L (96-108); Cholesterol 209 mg/dL; Estimated Glomerular Filt Rate > 60; Glucose Fasting 126 mg/dL (60-99); HDL Cholesterol 38 mg/dL; LDL Cholesterol Calculated 139 mg/dl; Potassium 3.7 mmol/L (3.3-5.1); Sodium 141 mmol/L (135-145); Total Protein 7.2 g/dL (6.5-8.0); Triglycerides 160 mg/dL
[2021-12-08 17:07] LABS: Free T4 (Free Thyroxine) 1.15 ng/dL (0.71-1.85)
[2021-12-08 18:46] LABS: Creatinine Urine 193.42 mg/dL; Microalbum/Creatinine Ratio Ur 7.2 ug/mg cr
[2021-12-09 09:41] LABS: Thyroglobulin Antibodies <1 IU/mL (< or = 1); Thyroid Peroxidase Antibodies 1 IU/mL (<9)
[2021-12-10 13:41] LABS: CA 125 New Method 9 U/mL (<35); CA-125 9 U/mL (<35)
[2021-12-14 18:21] LABS: Vitamin D 25-OH, D2 <4 ng/mL; Vitamin D 25-OH, D3 39 ng/mL; Vitamin D 25-OH, Total 39 ng/mL (30-100)
== END 2021-12-08 15:45 | disposition home or self-care (01) ==
LOC: HO.LAB 15:44
PROVIDERS: PCP Internal Medicine; Visit Provider Advanced Practice Midwife
DX: E78.5 Hyperlipidemia, unspecified (principal); E03.9 Hypothyroidism, unspecified; E55.9 Vitamin D deficiency, unspecified; K21.9 Gastro-esophageal reflux disease without esophagitis; E11.9 Type 2 diabetes mellitus without complications
CPT/HCPCS: 36415; 80053; 80061; 82043; 82306; 84439; 84443; 86304; 86376; 86800

== ENCOUNTER 2021-12-27 11:50 | Outpatient (REF) | payer OTHER, SELFPAY ==
[2021-12-27 13:15] LABS: Alanine Aminotransferase 17 U/L (0-31); Albumin Level 4.2 g/dL (3.5-5.0); Alkaline Phosphatase 112 U/L (39-117); Anion Gap 13 (12-20); Aspartate Amino Transferase 12 U/L (5-31); Bilirubin Total 0.9 mg/dL (0.0-1.0); Blood Urea Nitrogen 16 mg/dL (9-16); Calcium 9.5 mg/dL (8.4-10.2); Carbon Dioxide 30 mmol/L (22-29); Chloride 102 mmol/L (96-108); Cholesterol 204 mg/dL; Estimated Glomerular Filt Rate > 60; Glucose Fasting 114 mg/dL (60-99); HDL Cholesterol 38 mg/dL; LDL Cholesterol Calculated 146 mg/dl; Potassium 3.8 mmol/L (3.3-5.1); Sodium 141 mmol/L (135-145); Total Protein 7.4 g/dL (6.5-8.0); Triglycerides 101 mg/dL
[2021-12-27 13:22] LABS: Thyroid Stimulating Hormone 2.65 uIU/mL (0.32-4.0)
== END 2021-12-27 11:51 | disposition home or self-care (01) ==
LOC: HO.LAB 11:50
PROVIDERS: PCP Internal Medicine; Visit Provider Internal Medicine
DX: I10 Essential (primary) hypertension (principal); E78.5 Hyperlipidemia, unspecified; E03.9 Hypothyroidism, unspecified
CPT/HCPCS: 36415; 80053; 80061; 84443

== ENCOUNTER → 2022-03-21 14:37 | Outpatient (BNVA) | payer OTHER, SELFPAY | PROVIDERS: PCP Internal Medicine; Visit Provider Internal Medicine Rheumatology | DX: R76.8 Other specified abnormal immunological findings in serum (principal); M54.50 Low back pain, unspecified; M51.36 Other intervertebral disc degeneration, lumbar region | CPT/HCPCS: 99212 ==

== ENCOUNTER 2022-04-13 08:32 | Outpatient (REF) | payer OTHER, SELFPAY ==
[2022-04-13 14:17] LABS: CT PCR NOT DETECTED (Not Detect.); NG PCR NOT DETECTED (Not Detect.)
[2022-04-14 12:33] LABS: BV Int Neg Control Negative (Negative); BV Int Pos Control Positive (Positive)
== END 2022-04-13 08:33 | disposition home or self-care (01) ==
LOC: HO.LAB 08:32
PROVIDERS: PCP Internal Medicine; Visit Provider Advanced Practice Midwife
DX: R10.2 Pelvic and perineal pain (principal); N94.10 Unspecified dyspareunia
CPT/HCPCS: 81003; 87480; 87491; 87510; 87591; 87660; 99212

== ENCOUNTER 2022-04-22 15:00 | Outpatient (RCR) | payer OTHER, SELFPAY ==
--- NOTE | 2022-03-23 15:35 | MHC.PT.EP ---
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 She presents with current impairments in decreased LE strength, decreased endurance, decreased balance, and impaired gait. Sensation and proprioception intact B LEs. She is challenged with balance activities involving narrow RICCARDO and on airex. She is limited functionally by walking in open spaces, prolonged standing/walking, walking on uneven surfaces, and stair navigation. She is an excellent candidate for skilled PT in order to address current impairments to facilitate return to PLOF. She will be seen 2x/week for 4 weeks and will be reassessed at that time. Frequency and Duration: The patient will be seen 2x/week for 4 weeks Short Term Goals: Pt will be I with HEP to promote self management of symptoms Pt will improve standing on airex for 60 sec with minimal to no LOB [employer] Goals: Pt will demonstrate ability to ambulate on even and uneven surfaces with LRAD for 20 min without LOB Pt will demonstrate improvements in balance as evidenced by statistically significant improvement in Activity Specific Balance Confidence Scale Treatment Plan: Modalities to reduce pain, spasms and effusion. Manual therapy to restore motion and function. Therapeutic exercise to improve strength and flexibility. Neuromuscular re-education for posture and balance. Therapeutic activities to return to functional activities of daily living. Electronically signed by: Alesha Monique, PT, DPT Please sign and return to therapist. Thank you for your referral.
--- NOTE | 2022-04-26 13:59 | MHC.PT.DC ---
[facility] [place] Office [place] Office [place] Office [address] Vishnu Monteiro [address] [phone] F: [phone] F: [phone] F: [phone] F: [phone] Physical Therapy Discharge Report Diagnosis: other abnormalities of gait and mobility Date of Surgery: October 2020 Date of Evaluation: 03/23/22 Date of Discharge: 04/26/22 Treatments to Date: 8 Cancellations to Date: 1 No Shows to Date: 0 Discharge Status: Achieved Goals Improved Function Independent with HEP Discharge Summary: Pt was seen for PT from 03/23/22-04/22/22. Her last attended appointment was 04/22/22. She made good progress since SOC. She has improved her LE strength and her balance. She ambulates safely without AD. She has improved her static and dynamic balance. Pt is I with HEP. She is being D/C from skilled PT at this time. Electronically signed by: Alesha Monique, PT, DPT Please sign and return to therapist. Thank you for your referral.
--- NOTE | 2022-04-26 15:02 | MHC.PT.DC ---
[facility] [place] Office [place] Office [place] Office [address] Vishnu Monteiro 140 [facility] [phone] F: [phone] F: [phone] F: [phone] F: [phone] Physical Therapy Discharge Report Diagnosis: other abnormalities of gait and mobility Date of Surgery: October 2020 Date of Evaluation: 03/23/22 Date of Discharge: 04/26/22 Treatments to Date: 8 Cancellations to Date: 1 No Shows to Date: 0 Discharge Status: Achieved Goals Improved Function Independent with HEP Discharge Summary: Pt was seen for PT from 03/23/22-04/22/22. Her last attended appointment was 04/22/22. She made good progress since SOC. She has met her STGs and made good progress toward her LTGs. She has improved her LE strength. She ambulates safely without AD. She has improved her static and dynamic balance. Pt is I with HEP. She is being D/C from skilled PT at this time. Electronically signed by: Alesha Monique, PT, DPT Please sign and return to therapist. Thank you for your referral.
== END 2022-04-26 14:00 | disposition home or self-care (01) ==
LOC: HO.PT 15:00
PROVIDERS: PCP Internal Medicine; Visit Provider Internal Medicine
DX: R26.89 Other abnormalities of gait and mobility (principal)
CPT/HCPCS: 97110; 97112; 97162; 97530

== ENCOUNTER 2022-05-02 08:40 | Outpatient (REF) | payer OTHER, SELFPAY ==
[2022-05-02 09:54] LABS: Alanine Aminotransferase 19 U/L (0-31); Albumin Level 4.1 g/dL (3.5-5.0); Alkaline Phosphatase 131 U/L (39-117); Anion Gap 14 (12-20); Aspartate Amino Transferase 13 U/L (5-31); Bilirubin Total 0.6 mg/dL (0.0-1.0); Blood Urea Nitrogen 18 mg/dL (9-16); Carbon Dioxide 29 mmol/L (22-29); Chloride 103 mmol/L (96-108); Cholesterol 172 mg/dL; Estimated Glomerular Filt Rate > 60; Glucose Fasting 124 mg/dL (60-99); HDL Cholesterol 39 mg/dL; LDL Cholesterol Calculated 115 mg/dl; Potassium 4.1 mmol/L (3.3-5.1); Sodium 142 mmol/L (135-145); Total Protein 7.2 g/dL (6.5-8.0); Triglycerides 94 mg/dL
[2022-05-02 10:17] LABS: Thyroid Stimulating Hormone 1.97 uIU/mL (0.32-4.0); Vitamin D 25-OH Total 44.1 ng/mL (>30)
[2022-05-04 08:53] LABS: CA-125 10 U/mL (<35)
== END 2022-05-02 08:41 | disposition home or self-care (01) ==
LOC: HO.LAB 08:40
PROVIDERS: Advanced Practice Midwife; PCP Internal Medicine; Visit Provider Internal Medicine
DX: N83.299 Other ovarian cyst, unspecified side (principal); E78.00 Pure hypercholesterolemia, unspecified; E03.9 Hypothyroidism, unspecified; E78.5 Hyperlipidemia, unspecified; E55.9 Vitamin D deficiency, unspecified
CPT/HCPCS: 36415; 80053; 80061; 82306; 84443; 86304

== ENCOUNTER 2022-10-26 09:47 | Outpatient (REF) | payer OTHER, SELFPAY ==
[2022-10-26 10:51] LABS: Alanine Aminotransferase 16 U/L (0-31); Alkaline Phosphatase 148 U/L (39-117); Anion Gap 12 (12-20); Aspartate Amino Transferase 13 U/L (5-31); Bilirubin Total 0.8 mg/dL (0.0-1.0); Blood Urea Nitrogen 16 mg/dL (9-16); Calcium 8.8 mg/dL (8.4-10.2); Carbon Dioxide 28 mmol/L (22-29); Chloride 108 mmol/L (96-108); Cholesterol 131 mg/dL; Estimated Glomerular Filt Rate > 60; Glucose Fasting 118 mg/dL (60-99); HDL Cholesterol 37 mg/dL; LDL Cholesterol Calculated 79 mg/dl; Potassium 3.6 mmol/L (3.3-5.1); Sodium 144 mmol/L (135-145); Total Protein 6.7 g/dL (6.5-8.0); Triglycerides 76 mg/dL
[2022-10-26 11:04] LABS: Thyroid Stimulating Hormone 1.47 uIU/mL (0.32-4.0)
== END 2022-10-26 09:48 | disposition home or self-care (01) ==
LOC: HO.LAB 09:47
PROVIDERS: PCP Internal Medicine; Visit Provider Internal Medicine
DX: E03.9 Hypothyroidism, unspecified (principal); E78.5 Hyperlipidemia, unspecified; I10 Essential (primary) hypertension
CPT/HCPCS: 36415; 80053; 80061; 84443

== ENCOUNTER 2022-11-23 14:52 | Outpatient (REF) | payer OTHER, SELFPAY ==
--- NOTE | ~2022-11-23 | MM_ITS ---
EXAMINATION: MM SCREENING DIGITAL BREAST TOMOSYNTHESIS, BILATERAL CLINICAL INFORMATION: Screening. Asymptomatic. The lifetime risk of breast cancer based on the Tyrer-Cuzick Model is 6.7%. COMPARISON: Mammography: November 17, 2021 and studies dating back to June 21, 2016 TECHNIQUE: Digital breast tomosynthesis is performed in both the craniocaudal and mediolateral oblique views along with computer-aided detection (CAD). Synthesized 2D images are generated from the tomosynthesis. FINDINGS: The breasts are almost entirely fatty (ACR BI-RADS breast composition Category a). There are no significant masses, abnormal calcifications, or other abnormalities. MM/MM tomosynthesis screening BI IMPRESSION: No significant changes from prior exam. ASSESSMENT: BI-RADS 1: Negative RECOMMENDATION: Routine annual mammography screening. This patient's information was entered into a reminder system with a target due date for their next mammogram.
== END 2022-11-23 14:53 | disposition home or self-care (01) ==
LOC: HO.MAMMO 14:52
PROVIDERS: PCP Internal Medicine; Visit Provider Internal Medicine
DX: Z12.31 Encounter for screening mammogram for malignant neoplasm of breast (principal)
CPT/HCPCS: 77063; 77067

== ENCOUNTER 2022-11-25 12:44 | Outpatient (REF) | payer OTHER, SELFPAY ==
--- NOTE | ~2022-11-25 | US_ITS ---
EXAMINATION: US RETROPERITONEAL LIMITED (RENAL ONLY) CLINICAL INFORMATION: Calculus of kidney. COMPARISON: Ultrasound abdomen limited 08/10/2020. Ultrasound abdomen complete 10/16/2019. X-ray KUB 01/09/2018 and 12/27/2017. CT abdomen and pelvis 03/14/2017. TECHNIQUE: Real-time imaging of the kidneys. FINDINGS: RIGHT KIDNEY: 12.8 x 4.6 x 4.7 cm (SAG x AP x TRV). The kidney is normal in size, contour, and echogenicity. Renal cortical thickness is normal. Probable duplex collecting system as can be seen on the 2017 CT abdomen. Two echogenic foci consistent with calculi are seen measuring 5 mm in the mid kidney and 4 mm at the lower pole. No focal parenchymal lesions or hydronephrosis. LEFT KIDNEY: 10.1 x 5.6 x 4.5 cm (SAG x AP x TRV). The kidney is normal in size, contour, and echogenicity. Renal cortical thickness is normal. There is a lower pole 5 mm echogenic focus seen consistent with a nonobstructing stone. No focal parenchymal lesions or hydronephrosis. US/US renal BI IMPRESSION: Nonobstructing bilateral renal calculi.
== END 2022-11-25 12:45 | disposition home or self-care (01) ==
LOC: HO.US 12:44
PROVIDERS: PCP Internal Medicine; Visit Provider Internal Medicine
DX: N20.0 Calculus of kidney (principal)
CPT/HCPCS: 76775

== ENCOUNTER 2022-12-26 09:53 | Outpatient (REF) | payer OTHER, SELFPAY ==
--- NOTE | ~2022-12-26 | FL_ITS ---
EXAMINATION: FL BARIUM SWALLOW CLINICAL INFORMATION: Dysphagia. COMPARISON: None available. TECHNIQUE: Barium swallow examination is performed using fluoroscopic evaluation in addition to multiple fluoroscopic spot views. The patient is imaged both upright and prone and using both thick and thin sulfate along with effervescent granules. Fluoroscopy time: 2.1 minutes. DAP: 14.37 Gy-cm2. Images: 56. FINDINGS: Following oral administration of thick barium and and barium-coated turkey, there is normal propagation of bolus from the oral cavity through the pharynx and esophagus and into the stomach without any obstruction or narrowing. A prominent cricoesophageal sphincter is noted throughout the exam. The mucosal pattern of esophagus is normal. On placing patient supine and prone lying and oral administration of thin barium, there is good distention of the esophagus without any intrinsic lesion or extrinsic compression. There is a small sliding hiatal hernia with mild gastroesophageal reflux. FL/FL barium swallow IMPRESSION: Prominent cricoesophageal sphincter without obstruction. There is a small sliding hiatal hernia in supine and prone positions. There is mild gastroesophageal reflux seen.
== END 2022-12-26 09:54 | disposition home or self-care (01) ==
LOC: HO.XRAY 09:53
PROVIDERS: Visit Provider Internal Medicine
DX: R13.10 Dysphagia, unspecified (principal)
CPT/HCPCS: 74220

== ENCOUNTER 2023-01-12 12:57 | Outpatient (REF) | payer OTHER, SELFPAY ==
[2023-01-12 16:16] LABS: Urine Cytology See Pathology rpt
== END 2023-01-12 12:58 | disposition home or self-care (01) ==
LOC: HO.LAB 12:57
PROVIDERS: Urology; PCP Internal Medicine; Visit Provider Nurse Practitioner
DX: Z01.818 Encounter for other preprocedural examination (principal); R31.0 Gross hematuria; N20.0 Calculus of kidney; M54.50 Low back pain, unspecified; Z87.891 Personal history of nicotine dependence; R13.12 Dysphagia, oropharyngeal phase; K25.9 Gastric ulcer, unspecified as acute or chronic, without hemorrhage or perforation
CPT/HCPCS: 88112; 99202; 99212

== ENCOUNTER 2023-02-16 10:44 | Outpatient (REF) | payer OTHER, SELFPAY ==
--- NOTE | ~2023-02-16 | CT_ITS ---
EXAMINATION: CT ABDOMEN AND PELVIS WITHOUT AND WITH CONTRAST CLINICAL INFORMATION: Gross hematuria. COMPARISON: CTA abdomen and pelvis 03/14/2017. TECHNIQUE: Multidetector volumetric imaging was performed of the abdomen and pelvis before and after the IV administration of 85 mL of Omnipaque 350 intravenous contrast. Sagittal and coronal reformatted images were obtained on the technologist's workstation. This CT examination was performed using dose optimization techniques as appropriate, variously including the following: *Automated exposure control *Adjustment of mA and/or kV according to patient size (this includes techniques or standardized protocols for targeted exams where dose is matched to indication/reason for exam; i.e. extremities or head) *Use of iterative reconstruction technique DLP: 976 mGy-cm FINDINGS: LUNG BASES: Minimal atelectatic changes are seen in the left lung base. LIVER, GALLBLADDER, AND BILIARY TREE: The liver is normal in size, shape, and attenuation. No focal hepatic lesion or biliary ductal dilatation is present. The gallbladder is unremarkable with no evidence of radiopaque gallstones, gallbladder wall thickening, or obvious pericholecystic inflammatory changes. PANCREAS: Unremarkable. SPLEEN: Unremarkable. ADRENAL GLANDS: Unremarkable. KIDNEYS AND URETERS: Kidneys are normal size, shape and position. There is a 5 mm nonobstructive radiopaque calculus mid pole right kidney. There is 2 mm additional small radiopaque calculus midpole right kidney better visualized on coronal images. Postcontrast, there are normal bilateral cortical nephrograms. There is a nonenhancing 6 mm hypodensity midpole right kidney probable cyst. The left kidney measures 10.0 cm in length with a small nonenhancing hypodense 8 mm lesion upper pole left kidney probable cyst. There is no caliectasis. The right kidney measures 12.1 cm in length and appears unremarkable. BLADDER: The bladder is unremarkable. GASTROINTESTINAL TRACT: There is scattered stool, diverticula, and gas seen throughout the colon. There is mild mural thickening proximal sigmoid colon with mild fat stranding suggestive of early diverticulitis. The rest the colon is nondistended. The small bowel loops are normal caliber. ABDOMINAL WALL: There is anterior abdominal wall mesh from previous hernia repair. LYMPH NODES: Normal. VASCULAR: Unremarkable. PELVIC VISCERA: The uterus is anteverted and appears unremarkable. No adnexal mass or free fluid seen. OSSEOUS STRUCTURES: There is mild ventral spondylosis lower dorsal and mid lumbar spine. No aggressive lytic or sclerotic process seen. CT/CT abdomen pelvis wo/w IV con IMPRESSION: Right renal calculi without caliectasis or hydronephrosis. Probable bilateral renal cysts. Unremarkable urinary bladder. Sigmoid colon diverticulosis with diverticulitis. No obstruction or extraluminal fluid collection or abscess. Mild constipation. Fleischner guidelines were followed.
[2023-02-16] MEDS: iohexoL 350 MG/ML 100 ML INFUS..BTL IV (11:27)
[2023-02-16 13:29] LABS: Creatinine POC 0.7 mg/dL (0.5-1.4); GFR POC > 60
== END 2023-02-16 10:45 | disposition home or self-care (01) ==
LOC: HO.CT 10:44
PROVIDERS: PCP Internal Medicine; Visit Provider Urology
DX: R31.0 Gross hematuria (principal)
CPT/HCPCS: 74178; 82565; Q9967

== ENCOUNTER → 2023-02-23 13:29 | Outpatient (BNVA) | payer OTHER, SELFPAY | PROVIDERS: PCP Internal Medicine; Visit Provider Urology | DX: R31.9 Hematuria, unspecified (principal); N20.0 Calculus of kidney | CPT/HCPCS: 51701; 52000; 99212 ==

== ENCOUNTER 2023-03-16 11:04 | Outpatient (REF) | payer OTHER, SELFPAY ==
[2023-03-16 11:58] LABS: Appearance Urine Clear; Color Urine Yellow; Glucose Urine UA Negative (Negative); Leukocyte Esterase Urine Small (1+) (Negative); Nitrite Urine Negative (Negative); PH 5.5 (5.0-9.0); Specific Gravity - Urine 1.015 (1.005-1.025); UMIC TRIGGER UA YES; Urine Blood Negative (Negative); Urine Ketones Negative (Negative); Urine Protein Negative (Neg-Trace)
[2023-03-16 12:09] LABS: Bacteria Urine None Seen (None Seen); Hyaline Casts Urine 0-2 /LPF (0-2); WBC Urine 0-5 /HPF (0-5)
[2023-03-16 12:52] LABS: Thyroid Stimulating Hormone 2.21 uIU/mL (0.32-4.0)
== END 2023-03-16 11:05 | disposition home or self-care (01) ==
LOC: HO.LAB 11:04
PROVIDERS: Absent Provider Internal Medicine; PCP Internal Medicine; Visit Provider Urology
DX: R35.0 Frequency of micturition (principal); E03.9 Hypothyroidism, unspecified; E55.9 Vitamin D deficiency, unspecified
CPT/HCPCS: 36415; 81001; 82306; 84443; 87086

== ENCOUNTER 2023-03-29 07:41 | Day surgery (SDC) | payer OTHER, SELFPAY ==
[2023-03-24 09:12] VITALS: BMI 36.6
--- NOTE | 2023-03-27 09:30 | HO.ANESPROP2 ---
Documented by User: Rayna Dupont NP 03/27/23 09:31 HPI - Anesthesia Eval Consult details Narrative: 63yo F for Right ESWL PMFSH Active Problems Active Problems: All Active Problems (Updated 02/23/23 @ 14:46 by Iva Gusman) Hematuria (Acute) Pre-op examination (Acute) Oropharyngeal dysphagia (Acute) History of nicotine use (Acute) Gross hematuria (Acute) Screen for colon cancer (Acute) Lumbar pain (Acute) Dysphagia (Acute) Physical exam (Acute) Encounter for annual routine gynecological examination (Acute) Hypovitaminosis D (Acute) Pure hypercholesterolemia (Acute) RODY positive (Acute) Low back pain (Acute) Essential hypertension (Acute) Complex cyst of right ovary (Acute) Urge incontinence (Acute) Postmenopausal bleeding (Acute) Disc degeneration, lumbar (Acute) Abnormal uterine bleeding (AUB) (Acute) Gastric ulcer (Acute) Hemorrhoids (Acute) Smoker (Acute) Obesity (Acute) Hypothyroid (Acute) Nephrolithiasis (Acute) GERD (gastroesophageal reflux disease) (Acute) Chronic idiopathic constipation (Acute) VELARDE (nonalcoholic steatohepatitis) (Acute) Past Medical History Medical History RODY positive Chronic idiopathic constipation Disc degeneration, lumbar Esophageal candidiasis Essential hypertension H/O coronary angiogram History of diverticulitis Hx of renal calculi Hypertension Lab test negative for COVID-19 virus Lab test positive for detection of COVID-19 virus Low back pain Pruritus ani Pure hypercholesterolemia Rectal bleeding Thyroid disease Urge incontinence Family History Family History Father Skin cancer Prostate cancer Mother CHF (congestive heart failure) Hypertension Diabetes Sister Thyroid cancer Family/Other Mental health disorder Unknown Uterus cancer Family history of problems with anesthesia: No Surgical History Surgical History H/O cerebral aneurysm repair H/O section H/O colonoscopy H/O left breast biopsy History of esophagogastroduodenoscopy (EGD) History of hernia repair History of hysterectomy History of salpingo-oophorectomy History of thoracic surgery Hx of lithotripsy History of Problems with Anesthesia: No Social History Social History Household Members: Spouse Housing: Apartment Alcohol intake: current Alcohol intake frequency: holidays/special occasions only Alcohol type: wine Patient Tobacco Use Status: Former Tobacco user Tobacco use type: Cigarette e-Cigarette/Vaping Use: Never Used Second Hand Smoke Exposure: No Use of substances other than those prescribed or required for medical reasons: No Are you DNR?: No Advance Directives: No Advance Directives Information Provided: Yes service: No Current occupational status: unemployed Sexual orientation: Straight/Heterosexual Gender identity: Female Cognitive needs: No Hearing needs: No Vision needs: Yes Meds Allergies Allergy/AdvReac Type Severity Reaction Status Date / Time Penicillins [PENICILLINS] Allergy Intermediate RASH, Verified 03/16/23 10:45 SWELLING diphenhydramine Allergy Facial Verified 03/16/23 10:45 Swelling gabapentin AdvReac Intermediate leg Verified 03/16/23 10:45 swelling Exam Exam Date and Time: March 27, 2023 0930 Height,Weight and Vital Signs: Height 4 ft 11 in Weight 82.1 kg Pertinent Lab Results Pertinent Lab Results: Laboratory Tests 09/23/20 10/26/22 16:10 09:54 WBC 7.8 Hgb 12.9 Hct 40.4 Plt Count 326 Sodium 144 Potassium 3.6 Chloride 108 Carbon Dioxide 28 BUN 16 Creatinine 0.87 Assessment and Plan Assessment Anesthesia Assessment: Chart Reviewed Final Anesthetic Review Family History of Problems with Anesthesia: No History of Problems with Anesthesia: No Documented by User: Jah Mendez MD 03/29/23 08:50 PMFSH Past Medical History Medical History RODY positive Chronic idiopathic constipation Disc degeneration, lumbar Esophageal candidiasis Essential hypertension H/O coronary angiogram History of diverticulitis Hx of renal calculi Hypertension Lab test negative for COVID-19 virus Lab test positive for detection of COVID-19 virus Low back pain Pruritus ani Pure hypercholesterolemia Rectal bleeding Thyroid disease Urge incontinence Family History Family History Father Skin cancer Prostate cancer Mother CHF (congestive heart failure) Hypertension Diabetes Sister Thyroid cancer Family/Other Mental health disorder Unknown Uterus cancer Surgical History Surgical History H/O cerebral aneurysm repair H/O section H/O colonoscopy H/O left breast biopsy History of esophagogastroduodenoscopy (EGD) History of hernia repair History of hysterectomy History of salpingo-oophorectomy History of thoracic surgery Hx of lithotripsy Social History Social History Household Members: Spouse Housing: Apartment Alcohol intake: current Alcohol intake frequency: holidays/special occasions only Alcohol type: wine Patient Tobacco Use Status: Former Tobacco user Tobacco use type: Cigarette e-Cigarette/Vaping Use: Never Used Second Hand Smoke Exposure: No Use of substances other than those prescribed or required for medical reasons: No Are you DNR?: No Advance Directives: No Advance Directives Information Provided: Yes service: No Current occupational status: unemployed Sexual orientation: Straight/Heterosexual Gender identity: Female Cognitive needs: No Hearing needs: No Vision needs: Yes Meds Allergies Allergy/AdvReac Type Severity Reaction Status Date / Time Penicillins [PENICILLINS] Allergy Intermediate RASH, Verified 03/16/23 10:45 SWELLING diphenhydramine Allergy Facial Verified 03/16/23 10:45 Swelling gabapentin AdvReac Intermediate leg Verified 03/16/23 10:45 swelling Exam Airway Mallampati Class: II TM Dist: <=3cm Neck ROM: Full Partial: Upper and Lower Heart: ok Lungs: ok Assessment and Plan Assessment Anesthesia Assessment: Anesthesia Plan Discussed Final Anesthetic Review NPO: Yes ASA Class: III Final Preanesthetic Review: No Changes in Pt Med Stat, Consent Obtained/Reviewed and Anes Risks/Benef Reviewed Patient Risk: Intermediate Procedure Risk: Low Anesthetic Plan Anesthetic Plan: GA and Agree w/ Assess. and Plan Disposition: Standard PACU
[2023-03-29 08:09] VITALS: BP 147/64; PULSE 56; RESP 18; TEMP 36.1; O2SAT 98; BMI 36.6
--- NOTE | 2023-03-29 09:29 | MHC.SHP ---
Pre-Procedural Eval Section A Date of Service: 03/29/23 The patient is an INPATIENT: No The History & Physical has been completed within 30 days and I have reviewed it.: No Section B Chief Complaint: Calculus of kidney Details of Present Illness: Evelia is a 63 year old bengali speaking female with right nephrolithiasis Relevant Family History (Specify if Yes): No Allergies: Allergies Allergy/AdvReac Type Severity Reaction Status Date / Time Penicillins [PENICILLINS] Allergy Intermediate RASH, Verified 03/16/23 10:45 SWELLING diphenhydramine Allergy Facial Verified 03/16/23 10:45 Swelling gabapentin AdvReac Intermediate leg Verified 03/16/23 10:45 swelling Review of Systems Review of Systems Comment: 10 point ROS negative other than noted in HPI Exam Surgical H&P Exam: Normal: HEENT, Normal: Heart, Normal: Lungs and Normal: Neurological Plan Diagnosis/Plan: Unchanged I have reviewed the history and physical and performed a pertinent physical examination on my patient. No changes have occurred unless specified. Right ESWL. Discussed risks to include but not limited to, blood in the urine, bruising to the skin, kidney hematoma, possible need for another procedure if a stone fragment obstructs the ureter while passing, possible need to repeat procedure if stone is not completely fragmented. Time Spent With Patient Time: Total time managing care of this patient today ____ minutes.
--- NOTE | 2023-03-29 10:30 | W.PM.OPN ---
Operative Note Operative Note Date of Service: 03/29/23 Narrative: PreOperative Diagnosis:? ? Right Renal stone Post Operative Diagnosis:?Right? Renal stone Procedure:?Right? ESWL Surgeon:?Dr Camila Gonzalez Anesthesia:? General Indications for procedure: The patient understands ESWL may be a staged procedure and subsequent intervention may be required based on imaging after ESWL.? They also understand? there is a risk of bleeding to the kidney, infection, damage to adjacent organs, and stone migration following the procedure. - Imaging 5 mm mid pole stone Procedure: After informed consent was verified the patient was brought to the operating room and placed in a supine position.? Anesthesia was performed per protocol. Safety pause time-out was performed. Imaging was displayed in the room and laterality confirmed. ESWL was performed.?The stone was visualized on ultrasound.? Shockwave lithotripsy was performed, after the first 300 shocks a pause for 3 minutes.? A total of 2500 shocks to a maximum of power of 18 with a maximum rate of 120 hertz.? Some fragmentation of the stone was appreciated. The patient tolerated the procedure well and was transferred to the recovery area upon completion. Complications: None
[2023-03-29 10:41] VITALS: BP 123/69; PULSE 62; RESP 16; TEMP 36.3; O2SAT 96
[2023-03-29 10:46] VITALS: BP 128/71; PULSE 55; RESP 16; O2SAT 94
[2023-03-29 10:51] VITALS: BP 121/66; PULSE 53; RESP 16; O2SAT 97
[2023-03-29 10:56] VITALS: BP 128/65; PULSE 52; RESP 16; O2SAT 96
[2023-03-29 11:11] VITALS: BP 164/78; PULSE 65; RESP 16; TEMP 36.2; O2SAT 96
== END 2023-03-29 11:37 | disposition home or self-care (01) ==
PROVIDERS: PCP Internal Medicine; Visit Provider Urology
PROC: (CPT 50590; principal; 2023-03-29 09:10)
DX: N20.0 Calculus of kidney (principal); R31.9 Hematuria, unspecified; Z87.442 Personal history of urinary calculi; M54.50 Low back pain, unspecified; N39.41 Urge incontinence; I10 Essential (primary) hypertension; E78.00 Pure hypercholesterolemia, unspecified; Z88.0 Allergy status to penicillin; Z88.8 Allergy status to other drugs, medicaments and biological substances; Z86.16 Personal history of COVID-19; Z87.891 Personal history of nicotine dependence
CPT/HCPCS: 50590; 74018; J0131; J1100; J1940; J1956; J2250; J2370; J2371; J2405; J3010

== ENCOUNTER 2023-04-14 11:37 | Outpatient (AMB) | payer OTHER, SELFPAY ==
--- NOTE | 2023-04-14 06:59 | MHC.OFFVIS ---
Intake Intake Visit Reasons: 3 wk follow up/ urine Intake Note: Patient presents today for a 3 weeks Post Op Lithotripsy follow-up: Meds- None Allergies to Antibiotic- Penicillin Blood Thinner- Aspirin Bed Maker Required: No Accompanied by: Self / Same As Patient Allergies Penicillins [PENICILLINS] Allergy (Intermediate, Verified 06/21/23 13:04) RASH, SWELLING diphenhydramine Allergy (Verified 06/21/23 13:04) Facial Swelling gabapentin Adverse Reaction (Intermediate, Verified 06/21/23 13:04) leg swelling HPI HPI Comments History of Present Illness Details Evelia is a 63-year-old female who presents today to the office for a follow-up. 04/14/2023-- The patient is status post right ESWL on 03/29/23. She states that she did pass some reji fragments, but did not bring in to the office. She denies any symptoms post the procedure of pain or hematuria. She states that she did the 24hoursurine collection. I do not see the results in her chart. CTAP results reviewed?02/16/23-- Kidney stones in the right kidney. The CAT scan is yet to be officially transcribed by the radiologist. Plan: Prescribed vitamin B6 100 mg daily. We will check with [facility] regarding her 24-hour urine results. Follow up in 4 months, KUB prior. PFSH Medical History Pure hypercholesterolemia RUBINA positive Low back pain Essential hypertension Urge incontinence Disc degeneration, lumbar Chronic idiopathic constipation Thyroid disease Hx of renal calculi Lab test negative for COVID-19 virus Lab test positive for detection of COVID-19 virus H/O coronary angiogram Rectal bleeding Pruritus ani Esophageal candidiasis History of diverticulitis Hypertension Surgical History History of hysterectomy History of salpingo-oophorectomy History of thoracic surgery History of esophagogastroduodenoscopy (EGD) H/O colonoscopy Hx of lithotripsy H/O cerebral aneurysm repair History of hernia repair H/O left breast biopsy H/O section Family History Father Skin cancer Prostate cancer Mother CHF (congestive heart failure) Hypertension Diabetes Sister Thyroid cancer Family/Other Mental health disorder Unknown Uterus cancer Family/Other No problems noted. Social History Household Members: Spouse Housing: Apartment Alcohol intake: current Alcohol intake frequency: holidays/special occasions only Alcohol type: wine Patient Tobacco Use Status: Former Tobacco user Tobacco use type: Cigarette e-Cigarette/Vaping Use: Never Used Second Hand Smoke Exposure: No service: No Current occupational status: unemployed Sexual orientation: Straight/Heterosexual Gender identity: Female Cognitive needs: No Hearing needs: No Vision needs: Yes Female Reproductive History Menstrual Age of Menarche: 14 Review of Systems Const All systems reviewed & are unremarkable except as noted in HPI and below Reports no additional complaints Eyes Reports no additional complaints ENT Reports no additional complaints Card Denies dyspnea Resp Denies cough and Denies dyspnea GI Reports no additional complaints Reports no additional complaints Musc Reports no additional complaints Skin/Breast Denies rash and Denies unusual bruising Neuro Reports no additional complaints Psych Reports no additional complaints Endo Reports no additional complaints Solitario/Lymph Reports no additional complaints Aller/Immun Reports no additional complaints Results AMB Urinalysis, Automated UA Leukoctes 15 Ariana/uL Last Edit by JANNETTE Burton on 04/14/23 12:08 UA Nitrite Negative Last Edit by JANNETTE Burton on 04/14/23 12:08 UA Urobilinogen 0.2 mg/dL Last Edit by JANNETTE Burton on 04/14/23 12:08 UA Protein 15 mg/dL Last Edit by JANNETTE Burton on 04/14/23 12:08 UA pH 6.0 Last Edit by JANNETTE Burton on 04/14/23 12:08 UA Blood 0 Ronen/uL Last Edit by JANNETTE Burton on 04/14/23 12:08 UA Specific Mcfarland 1.025 Last Edit by JANNETTE Burton on 04/14/23 12:08 UA Ketone Positive Last Edit by JANNETTE Burton on 04/14/23 12:08 5mg Jorge Jimenez 04/14/23 12:08 UA Bilirubin 0 mg/dL Last Edit by JANNETTE Burton on 04/14/23 12:08 UA Glucose 0 mg/dL Last Edit by JANNETTE Burton on 04/14/23 12:08 Results Reviewed Results Reviewed: Laboratory Last Values Urine pH (Auto) 6.0 04/14/23 12:07 Specific Mcfarland (Auto) 1.025 04/14/23 12:07 Urine Protein (Auto) 15 mg/dL 04/14/23 12:07 Glucose (UA)(Auto) 0 mg/dL 04/14/23 12:07 Urine Ketones (Auto) Positive 04/14/23 12:07 Urine Blood (Auto) 0 Ronen/uL 04/14/23 12:07 Urine Nitrite (Auto) Negative 04/14/23 12:07 Urine Bilirubin (Auto) 0 mg/dL 04/14/23 12:07 Urine Urobilinogen (Auto) 0.2 mg/dL 04/14/23 12:07 Leukocyte Esterase (Auto) 15 Ariana/uL 04/14/23 12:07 Assessment & Plan Assessment & Plan (1) Nephrolithiasis: Code(s): N20.0 - Calculus of kidney Plan Prescribed vitamin B6 100 mg daily. We will check with [facility] lab regarding her 24-hour urine results. Follow up in 4 months, KUB prior. Orders: Orders AMB Urinalysis Automated 04/14/23 Z13.9 - Encounter for screening, unspecified Medications: New pyridoxine (vitamin B6) 100 mg PO DAILY 90 tabs 3RF Patient Instructions: The patient had an opportunity to ask questions regarding treatment plan. All questions were answered. Imaging, Laboratory studies and physical exam results were discussed and reviewed in detail. No major barriers to understanding were identified. The patient expressed understanding and agreement with the above treatment plan. The patient is aware they should contact our office by phone for worsening of their current condition or the appearance of new symptoms. Compliance is encouraged with any medications and followup testing that is ordered. It is a privilege to be allowed the opportunity to participate in the urologic care of your patient. If you have any questions or concerns regarding treatment for the above conditions please do not hesitate to contact me. The office telephone contact is [phone]. This note is constructed in part using voice recognition software. While every effort has been made to ensure accuracy game programer errors may have been included. Yours sincerely, Camila Gonzalez MD Coding Level of Care Code Global (93376) Diagnoses Nephrolithiasis N20.0
== END 2023-04-14 12:20 | disposition home or self-care (01) ==
PROVIDERS: PCP Internal Medicine; Visit Provider Urology
DX: N20.0 Calculus of kidney (principal)
CPT/HCPCS: 99024

== ENCOUNTER → 2023-04-14 11:37 | Outpatient (BNVA) | payer OTHER, SELFPAY | PROVIDERS: PCP Internal Medicine; Visit Provider Urology ==

== ENCOUNTER 2023-06-21 12:57 | Outpatient (AMB) | payer OTHER, SELFPAY ==
--- NOTE | 2023-06-21 13:02 | MHC.OFFVIS ---
Intake Vital Signs 06/21/23 13:04 Height 4 ft 11 in Weight 177 lb BMI 35.7 BP 112/70 Intake Visit Reasons: Annual/keep 30 mins per KM Intake Note: The patient agreed to use of a medical technologist chief during this encounter. Scribed for BELLA Martinez by Ny Dowell medical technologist chief, on 06/21/2023 at 1:25 pm EST. Director Of Retail Operations Required: Yes Director Of Retail Operations Language: Manager Land Name: Nery Information Interpreted: non-clinical & clinical Emergency Room Specialist: Emergency Room Specialist Present (Nery) Allergies Penicillins [PENICILLINS] Allergy (Intermediate, Verified 06/21/23 13:04) RASH, SWELLING diphenhydramine Allergy (Verified 06/21/23 13:04) Facial Swelling gabapentin Adverse Reaction (Intermediate, Verified 06/21/23 13:04) leg swelling HPI HPI Comments History of Present Illness Details She is a postmenopausal woman presenting for annual exam. Doing well with no gynecology teacher concerns. Patient admits she tries to eat a healthy diet including Calcium and Vitamin D. She stays active with exercise. Currently sexually active. Denies vaginal itching and irritation. Reports vaginal dryness. STD screening offered; she declines. Denies family hx of breast, colon and ovarian cancer. Last pap smear 09/23/20. Last mammogram 11/23/22. UTD on colonoscopy. [facility] Medical History Pure hypercholesterolemia RUBINA positive Low back pain Essential hypertension Urge incontinence Disc degeneration, lumbar Chronic idiopathic constipation Thyroid disease Hx of renal calculi Lab test negative for COVID-19 virus Lab test positive for detection of COVID-19 virus H/O coronary angiogram Rectal bleeding Pruritus ani Esophageal candidiasis History of diverticulitis Hypertension Surgical History History of hysterectomy History of salpingo-oophorectomy History of thoracic surgery History of esophagogastroduodenoscopy (EGD) H/O colonoscopy Hx of lithotripsy H/O cerebral aneurysm repair History of hernia repair H/O left breast biopsy H/O section Family History Father Skin cancer Prostate cancer Mother CHF (congestive heart failure) Hypertension Diabetes Sister Thyroid cancer Family/Other Mental health disorder Unknown Uterus cancer Family/Other No problems noted. Social History Household Members: Spouse Housing: Apartment Alcohol intake: current Alcohol intake frequency: holidays/special occasions only Alcohol type: wine Patient Tobacco Use Status: Former Tobacco user Tobacco use type: Cigarette e-Cigarette/Vaping Use: Never Used Second Hand Smoke Exposure: No service: No Current occupational status: unemployed Sexual orientation: Straight/Heterosexual Gender identity: Female Cognitive needs: No Hearing needs: No Vision needs: Yes Female Reproductive History Menstrual Age of Menarche: 14 Menopause type: surgical Total pregnancies: 3 Full term: 2 Number of Living Children: 2 Ab spontaneous: 1 Date of last pap smear: 09/23/20 (neg pap and hpv) Date of Mammogram: 11/23/22 (Birad 1) Physical Exam Vital Signs: Last Vital Signs BP 112/70 06/21/23 13:04 BMI result Body Mass Index 35.7 Const General: cooperative, healthy appearing, no acute distress, well developed and alert Orientation/consciousness: patient oriented x3 HEENT Head: Yes normal to inspection Eyes General: appearance normal, both eyes and all related structures Neck Neck: Yes normal visual inspection Thyroid: Thyroid normal Chest Chest palpation & inspection: normal inspection of the chest Breast/axilla inspection: normal inspection of the breasts (no puckering, dimpling, peau de orange, retraction, discharge, masses) Breast/axilla palpation: normal palpation of the breasts Resp Effort & Inspection: normal respiratory effort GI Inspection: Yes normal to inspection and Yes obesity Palpation (GI): Soft to palpation (to palpation) Rectal Exam - Female: deferred General: Yes bladder normal to inspection External Female Exam: normal external appearance and normal appearance of the urethra Speculum Exam - Vagina: normal appearance of the vagina, normal palpation and vagina atrophic Speculum Exam - Cervix: normal appearance of the cervix and normal palpation Bimanual exam- vagina & uterus: normal palpation and normal palpation Bimanual Exam- Adnexa, other: normal adnexae and no masses Skin General skin exam: no rashes or lesions noted Neuro General: patient oriented x3 Cognition (Neuro): normal cognition Extrem General: Yes normal to inspection Psych Attitude: cooperative Thought process: Normal thought process present Assessment & Plan Assessment & Plan (1) Encounter for annual routine gynecological examination: Code(s): Z01.419 - Encounter for gynecological examination (general) (routine) without abnormal findings Plan: Discussed: Current recommendations for pap smears per ASCCP guidelines. Breast awareness and periodic self breast exams. Encouraged yearly mammograms. Maintaining a healthy lifestyle including a well balanced diet including Calcium and Vitamin D and routine exercise. Contact office with any PMB. All of her questions and concerns were addressed to the best of my ability. RTO in 1 year for AG. (2) Menopausal vaginal dryness: Code(s): N95.1 - Menopausal and female climacteric states Plan: Recommend Replens, [place] jelly, Astroglide or coconut oil for vaginal dryness. Coding Level of Care Code Est Pt Prev Care 40-64y(02628) Diagnoses Encounter for annual routine gynecological examination Z01.419 Menopausal vaginal dryness N95.1
[2023-06-21 13:04] VITALS: BP 112/70; BMI 35.7
== END 2023-06-21 13:35 | disposition home or self-care (01) ==
PROVIDERS: Visit Provider Advanced Practice Midwife
DX: Z01.419 Encounter for gynecological examination (general) (routine) without abnormal findings (principal); N95.1 Menopausal and female climacteric states
CPT/HCPCS: 99396

== ENCOUNTER → 2023-06-21 12:57 | Outpatient (BNVA) | payer OTHER, SELFPAY | PROVIDERS: Visit Provider Advanced Practice Midwife | DX: Z01.419 Encounter for gynecological examination (general) (routine) without abnormal findings (principal); N95.1 Menopausal and female climacteric states | CPT/HCPCS: 99396 ==

== ENCOUNTER 2023-08-10 07:47 | Day surgery (SDC) | payer OTHER, SELFPAY ==
[2023-08-08 09:32] VITALS: BMI 36.6
--- NOTE | 2023-08-09 10:01 | P.CONAN_ITS ---
Documented by User: Rayna Dupont NP 08/09/23 10:06 HPI - Anesthesia Eval Consult details Narrative: 63yo F for Upper Endoscopy and Colonoscopy Follows [facility] Cardiology for HTN, Carotid ds. Stable at last office visit 04/2023 COUNTS INCLUDE 234 BEDS AT THE [facility] Active Problems Active Problems: All Active Problems (Updated 05/30/23 @ 13:53 by Rody Duenas MD) Allergic reaction (Acute) Hematuria (Acute) Pre-op examination (Acute) Oropharyngeal dysphagia (Acute) History of nicotine use (Acute) Gross hematuria (Acute) Screen for colon cancer (Acute) Lumbar pain (Acute) Dysphagia (Acute) Physical exam (Acute) Encounter for annual routine gynecological examination (Acute) Hypovitaminosis D (Acute) Pure hypercholesterolemia (Acute) RODY positive (Acute) Low back pain (Acute) Essential hypertension (Acute) Complex cyst of right ovary (Acute) Urge incontinence (Acute) Postmenopausal bleeding (Acute) Disc degeneration, lumbar (Acute) Abnormal uterine bleeding (AUB) (Acute) Gastric ulcer (Acute) Hemorrhoids (Acute) Smoker (Acute) Obesity (Acute) Hypothyroid (Acute) Nephrolithiasis (Acute) GERD (gastroesophageal reflux disease) (Acute) Chronic idiopathic constipation (Acute) VELARDE (nonalcoholic steatohepatitis) (Acute) Past Medical History Medical History Pure hypercholesterolemia RODY positive Low back pain Essential hypertension Urge incontinence Disc degeneration, lumbar Chronic idiopathic constipation Thyroid disease Hx of renal calculi Lab test negative for COVID-19 virus Lab test positive for detection of COVID-19 virus H/O coronary angiogram Rectal bleeding Pruritus ani Esophageal candidiasis History of diverticulitis Hypertension Family History Family History Father Skin cancer Prostate cancer Mother CHF (congestive heart failure) Hypertension Diabetes Sister Thyroid cancer Family/Other Mental health disorder Unknown Uterus cancer Family/Other No problems noted. Family history of problems with anesthesia: No Surgical History Surgical History History of hysterectomy History of salpingo-oophorectomy History of thoracic surgery History of esophagogastroduodenoscopy (EGD) H/O colonoscopy Hx of lithotripsy H/O cerebral aneurysm repair History of hernia repair H/O left breast biopsy H/O section History of Problems with Anesthesia: No Social History Social History Household Members: Spouse Housing: Apartment Alcohol intake: current Alcohol intake frequency: holidays/special occasions only Alcohol type: wine Patient Tobacco Use Status: Former Tobacco user Tobacco use type: Cigarette e-Cigarette/Vaping Use: Never Used Second Hand Smoke Exposure: No service: No Current occupational status: unemployed Sexual orientation: Straight/Heterosexual Gender identity: Female Cognitive needs: No Hearing needs: No Vision needs: Yes Meds Allergies Allergy/AdvReac Type Severity Reaction Status Date / Time Penicillins [PENICILLINS] Allergy Intermediate RASH, Verified 06/21/23 13:04 SWELLING diphenhydramine Allergy Facial Verified 06/21/23 13:04 Swelling gabapentin AdvReac Intermediate leg Verified 06/21/23 13:04 swelling Exam Exam Date and Time: August 09, 2023 1001 Height,Weight and Vital Signs: Height 4 ft 11 in Weight 82.1 kg Narrative Narrative: Carotid US 05/2023 R ICA: 16-49% L ICA: 0-15% Assessment and Plan Assessment Anesthesia Assessment: Chart Reviewed Final Anesthetic Review Family History of Problems with Anesthesia: No History of Problems with Anesthesia: No Documented by User: Chandan Li MD 08/10/23 14:07 COUNTS INCLUDE 234 BEDS AT THE [facility] Past Medical History Medical History Pure hypercholesterolemia RDOY positive Low back pain Essential hypertension Urge incontinence Disc degeneration, lumbar Chronic idiopathic constipation Thyroid disease Hx of renal calculi Lab test negative for COVID-19 virus Lab test positive for detection of COVID-19 virus H/O coronary angiogram Rectal bleeding Pruritus ani Esophageal candidiasis History of diverticulitis Hypertension Family History Family History Father Skin cancer Prostate cancer Mother CHF (congestive heart failure) Hypertension Diabetes Sister Thyroid cancer Family/Other Mental health disorder Unknown Uterus cancer Family/Other No problems noted. Surgical History Surgical History History of hysterectomy History of salpingo-oophorectomy History of thoracic surgery History of esophagogastroduodenoscopy (EGD) H/O colonoscopy Hx of lithotripsy H/O cerebral aneurysm repair History of hernia repair H/O left breast biopsy H/O section Social History Social History Household Members: Spouse Housing: Apartment Alcohol intake: current Alcohol intake frequency: holidays/special occasions only Alcohol type: wine Patient Tobacco Use Status: Former Tobacco user Tobacco use type: Cigarette e-Cigarette/Vaping Use: Never Used Second Hand Smoke Exposure: No service: No Current occupational status: unemployed Sexual orientation: Straight/Heterosexual Gender identity: Female Cognitive needs: No Hearing needs: No Vision needs: Yes Meds Allergies Allergy/AdvReac Type Severity Reaction Status Date / Time Penicillins [PENICILLINS] Allergy Intermediate RASH, Verified 06/21/23 13:04 SWELLING diphenhydramine Allergy Facial Verified 06/21/23 13:04 Swelling gabapentin AdvReac Intermediate leg Verified 06/21/23 13:04 swelling Assessment and Plan Assessment Anesthesia Assessment: Anesthesia Plan Discussed Final Anesthetic Review NPO: Yes ASA Class: III Final Preanesthetic Review: No Changes in Pt Med Stat, Meds/Allgs Chart Reviewed, Consent Obtained/Reviewed and Anes Risks/Benef Reviewed Patient Risk: Intermediate Procedure Risk: Low Anesthetic Plan Anesthetic Plan: MAC: Disposition: Standard PACU
[2023-08-10 08:11] VITALS: BMI 36.3
[2023-08-10 08:12] VITALS: BMI 36.2
--- NOTE | 2023-08-10 08:23 | MHC.SHP ---
Pre-Procedural Eval Section A Date of Service: 08/10/23 Section B Chief Complaint: dysphagia and screening colonoscopy Relevant Family History (Specify if Yes): No Relevant Social History: None Present Medications: see Short Stay Collaborative assessment Medical History: Significant History (Pure hypercholesterolemia RUBINA positive Low back pain Essential hypertension Urge incontinence Disc degeneration, lumbar Chronic idiopathic constipation Thyroid disease Hx of renal calculi Lab test negative for COVID-19 virus Lab test positive for detection of COVID-19 virus H/O coronary angiogram Re) History of Previous Operations: Relevant previous surgery/procedure and date(s) (History of hysterectomy History of salpingo-oophorectomy History of thoracic surgery History of esophagogastroduodenoscopy (EGD) H/O colonoscopy Hx of lithotripsy H/O cerebral aneurysm repair History of hernia repair H/O left breast biopsy H/O section) Allergies: Allergies Allergy/AdvReac Type Severity Reaction Status Date / Time Penicillins [PENICILLINS] Allergy Intermediate RASH, Verified 06/21/23 13:04 SWELLING diphenhydramine Allergy Facial Verified 06/21/23 13:04 Swelling gabapentin AdvReac Intermediate leg Verified 06/21/23 13:04 swelling Review of Systems Sugical H&P ROS: Negative: Constitution, Cardiovascular, Respiratory, Neurological, Psychiatric, Hem-Onc, Allergic/Immunologic, Gastrointestinal, Genitourinary, Musculoskeletal, Integumentary, Endocrine and Eyes/Ears/Nose/Throat Exam Surgical H&P Exam: Normal: HEENT, Normal: Heart, Normal: Lungs, Normal: Extremities, Normal: Abdomen, Normal: Skin and Normal: Neurological Plan Diagnosis/Plan: Unchanged I have reviewed the history and physical and performed a pertinent physical examination on my patient. No changes have occurred unless specified. Time Spent With Patient Time: Total time managing care of this patient today ____ minutes.
[2023-08-10 08:25] VITALS: BP 137/57; PULSE 55; RESP 16; TEMP 37; O2SAT 99
[2023-08-10] MEDS: Lactated Ringers 1,000 ML 100 ML IVCONT (09:02)
--- NOTE | 2023-08-10 09:28 | W.PM.OPN ---
Operative Note Operative Note Date of Service: 08/10/23 Narrative: Operative Information Procedure Description: EGD, Colonoscopy Indication: dysphagia and screening colonoscopy Anesthesia: MAC FLEXIBLE TRANSORAL UPPER GASTROINTESTINAL ENDOSCOPY AND COLONOSCOPY PROCEDURE NOTE UPPER ENDOSCOPY Consent: Indications for the procedure and potential complications of bleeding, perforation, reaction to medications and missed diagnosis were discussed with the patient and informed consent was obtained. Instrument: Olympus GIF H 190 J mid size upper endoscope Monitoring: Vital signs and clinical assessment, continuous EKG monitoring, Pulse oximetry, Carbon Dioxide monitoring and blood pressure monitoring were done throughout the procedure. Procedure: The patient was placed in the left lateral decubitis position and pre-procedure medications were administered and a bite block was placed. The endoscope was inserted into the mouth and advanced under direct vision to the third part of duodenum. A careful inspection was made as the upper endoscope was withdrawn including a retroflexed examination of the proximal stomach; Findings and interventions are described below. Findings: Larynx:normal Esophagus: GE junction at 35 cm, diaphragm hiatus at 35 cm, dilation done at UES and LES to 19 mm, no tears seen. bx taken from GEJ, proximal and distal esophagus Stomach: 10 mm ulcer seen in pre antral area with heaped edges. Biopsies were obtained from around ulcer and random stomach. Grade 2 flap valve on retroflexed examination of the cardia. Duodenum: Normal bulb and descending duodenum, Intervention: Biopsies as noted above, balloon dilation COLONOSCOPY Instrument: Olympus variable stiffness pediatric scope 190L Colonoscopy Monitoring: Vital signs and clinical assessment, continuous EKG monitoring, Pulse oximetry, Carbon Dioxide monitoring and blood pressure monitoring were done throughout the procedure. Colon withdrawal time was 6 minutes. Procedure: The patient was placed in the left lateral decubitis position and pre-procedure medications were administered. After a digital rectal examination of the ano-rectum, the video colonoscope was inserted into the rectum and advanced through the colon to the cecum/TI. The colonoscope was slowly withdrawn in a retrograde panoramic fashion and the colon mucosa was carefully examined including a retroflexed view of the rectum. Findings and interventions are described below. Procedure Difficulty:easy Findings: Melanosis coli noted Terminal Ileum-normal Cecum:normal Ascending Colon: normal Transverse Colon -normal Descending Colon:normal Sigmoid Colon:moderate severe diverticulosis Rectum: Retroflexion with small internal hemorrhoids, grade I Anorectum - normal Colon preparation: [place] Bowel Preparation Scale Right colon; 2 Transverse colon: 3 Left colon; 3 (0 = Unprepared colon segment with mucosa not seen due to solid stool that cannot be cleared. 1 = Portion of mucosa of the colon segment seen, but other areas of the colon segment not well seen due to staining, residual stool and/or opaque liquid. 2 = Minor amount of residual staining, small fragments of stool and/or opaque liquid, but mucosa of colon segment seen well. 3 = Entire mucosa of colon segment seen well with no residual staining, small fragments of stool or opaque liquid) Impression and Post Procedure Diagnosis: Endoscopy Findings: gastric ulcer Colonoscopy Findings: internal hemorrhoids diverticular disease melanosis coli Plan: Await Pathology results Repeat Colonoscopy in 10 years or earlier if clinically indicated High fiber diet leaflet avoid straining at stool, epsom salts and sitz bath, anusol supps or cream Repeat EGD in 3 months to make sure ulcer healed, ensure compliance with omeprazole, add carafate, try to stop nsaids except aspirin Above findings were reviewed with the patient and relevant handouts were provided if indicated.
[2023-08-10 10:22] VITALS: BP 103/46; PULSE 56; RESP 16; TEMP 36.1; O2SAT 96
[2023-08-10 10:37] VITALS: BP 134/65; PULSE 57; RESP 14; TEMP 36.1; O2SAT 97
== END 2023-08-10 11:33 | disposition home or self-care (01) ==
PROVIDERS: PCP Internal Medicine; Visit Provider Internal Medicine Gastroenterology
PROC: (CPT 43249; principal; 2023-08-10 09:20)
DX: R13.12 Dysphagia, oropharyngeal phase (principal); K21.9 Gastro-esophageal reflux disease without esophagitis; K25.9 Gastric ulcer, unspecified as acute or chronic, without hemorrhage or perforation; Z12.11 Encounter for screening for malignant neoplasm of colon; K57.30 Diverticulosis of large intestine without perforation or abscess without bleeding; K64.0 First degree hemorrhoids; K63.89 Other specified diseases of intestine; I10 Essential (primary) hypertension; E78.00 Pure hypercholesterolemia, unspecified; K59.04 Chronic idiopathic constipation; K75.81 Nonalcoholic steatohepatitis (NASH); E66.9 Obesity, unspecified; Z68.37 Body mass index [BMI] 37.0-37.9, adult; Z87.891 Personal history of nicotine dependence
CPT/HCPCS: 43249; 43239; 45378; 88305; 88342; C1726; J2704

== ENCOUNTER → 2023-08-10 07:47 | Outpatient (BNV) | payer OTHER, SELFPAY | PROVIDERS: PCP Internal Medicine; Visit Provider Internal Medicine Gastroenterology | DX: Z12.11 Encounter for screening for malignant neoplasm of colon (principal); K25.9 Gastric ulcer, unspecified as acute or chronic, without hemorrhage or perforation; K64.0 First degree hemorrhoids | CPT/HCPCS: 43249; 45378 ==

== ENCOUNTER 2023-08-15 14:01 | Outpatient (REF) | payer OTHER, SELFPAY ==
--- NOTE | ~2023-08-15 | XR_ITS ---
EXAMINATION: XR ABDOMEN KUB CLINICAL INFORMATION: Calculus of kidney. COMPARISON: March 29, 2023 radiograph of the abdomen. February 16, 2023 CT abdomen and pelvis. TECHNIQUE: Two AP views of the abdomen. FINDINGS: Large amount of stool in the colon. Nonobstructive bowel gas pattern. Redemonstration of postsurgical changes characteristic of hernia repair. Redemonstration of small stone overlying the right kidney. Visualization of the bilateral kidneys remains limited due to overlying bowel. XR/XR KUB IMPRESSION: Redemonstration of small stone overlying right kidney. Visualization of the bilateral kidneys remains limited due to overlying bowel.
== END 2023-08-15 14:02 | disposition home or self-care (01) ==
LOC: HO.XRAY 14:01
PROVIDERS: Visit Provider Urology
DX: N20.0 Calculus of kidney (principal)
CPT/HCPCS: 74018

== ENCOUNTER 2023-08-24 10:55 | Outpatient (AMB) | payer OTHER, SELFPAY ==
[2023-08-24 11:02] VITALS: BP 118/58; PULSE 51; BMI 36.6
--- NOTE | 2023-08-24 11:02 | A.OFFVIS_ITS ---
Intake Vital Signs 08/24/23 11:02 Height 4 ft 11 in Weight 181 lb 3.52 oz BMI 36.6 BP 118/58 L Blood Pressure Location Lt brachial Position Sitting Pulse 51 Intake Visit Reasons: S/P Nunda and EGD; Dr. Boss Intake Note: Patient presents to in office visit today in follow up of colonoscopy and EGD. CC: She reports doing good and denies having any new concerns. She states she has been taking the Carafate BID. Allergies Penicillins [PENICILLINS] Allergy (Intermediate, Verified 08/24/23 11:07) RASH, SWELLING diphenhydramine Allergy (Verified 08/24/23 11:07) Facial Swelling gabapentin Adverse Reaction (Intermediate, Verified 08/24/23 11:07) leg swelling HPI S/P Nunda and EGD; Dr. Boss HPI Details Assessment & Plan (1) Oropharyngeal dysphagia: Code(s): R13.12 - Dysphagia, oropharyngeal phase Plan: [place]inese #[id number] She has been going through a lot of situations, but I'm ok now. I ask about her GI status, and she tells me that she has been choking when she eats and the PCP sent her for a barium swallow and told her its because I have a hernia and acid. I see that study, but it shows only a very small HH, to this is not the problem. she does have prominence of the cricopharyngeal area. Sometimes this could impinge on the esophagus and cause problems but it is of uncertain clinical significance overall. She has trouble eating meat that gets stuck in the oropharyngeal phase above/at the sternal notch. This started after a molar extraction and has become less severe since. It has happened mostly with meat, but at times also happened with liquids - which indicates more of a swallowing coordination problems However, she is due for a colonoscopy, so we will get and EGD to be thorough. I suspect she may actually need an ENT or speech therapy eval going forward. She does have a history of GERD constipation that her managed by her primary care provider. She tolerated her last scope well. There are no prior problems with anesthesia or sedation. She denies any cardiac or respiratory problems. She denies any infectious disease problems. Her sister had polyps removed, no know hx of crc. ROV after procedures (2) Pre-op examination: Code(s): Z01.818 - Encounter for other preprocedural examination (3) Gastric ulcer: Comment: 06/2020 EGD, no HP, ulcer non active on biopsy Code(s): K25.9 - Gastric ulcer, unspecified as acute or chronic, without hemorrhage or perforation Medications: New peg 3350-electroly charisse 236-22.74-6.74 -5.86 gram (Golyt hong) until feca l effluent is duke r; do not exceed a total volume of 2 ,000 mL 240 mL PO Q10M 1 day 4,000 mL 0RF Z12.11 - Encounter for screening for malignant neoplas m of colon EGD/COLONOSCOPY 08/10/23 Findings: Larynx:normal Esophagus: GE junction at 35 cm, diaphragm hiatus at 35 cm, dilation done at UES and LES to 19 mm, no tears seen. bx taken from GEJ, proximal and distal esophagus Stomach: 10 mm ulcer seen in pre antral area with heaped edges. Biopsies were obtained from around ulcer and random stomach. Grade 2 flap valve on retroflexed examination of the cardia. Duodenum: Normal bulb and descending duodenum, Findings: Melanosis coli noted Terminal Ileum-normal Cecum:normal Ascending Colon: normal Transverse Colon -normal Descending Colon:normal Sigmoid Colon:moderate severe diverticulosis Rectum: Retroflexion with small internal hemorrhoids, grade I Anorectum - normal Impression and Post Procedure Diagnosis: Endoscopy Findings: gastric ulcer Colonoscopy Findings: internal hemorrhoids diverticular disease melanosis coli Plan: Await Pathology results Repeat Colonoscopy in 10 years or earlier if clinically indicated High fiber diet leaflet avoid straining at stool, epsom salts and sitz bath, anusol supps or cream Repeat EGD in 3 months to make sure ulcer healed, ensure compliance with omeprazole, add carafate, try to stop nsaids except aspirin BIOPSY Received: 08/10/23 Diagnosis A. Gastric ulcer, biopsy: Superficial fragments gastric mucosa with hyperplasia and focal minimal chronic inactive inflammation; negative for H pylori, intestinal metaplasia and dysplasia. B. Stomach, random, biopsy: Gastric body mucosa with focal minimal chronic inactive inflammation and one fragment of hyperplastic superficial gastric mucosa; negative for H pylori, intestinal metaplasia and dysplasia. C. Gastroesophageal junction, biopsy: Columnar mucosa with mild chronic inactive inflammation; negative for intestinal metaplasia and dysplasia; no squamous component present. D. Esophagus, distal, biopsy: Squamous mucosa with no specific change; no columnar mucosa present. E. Esophagus, proximal, biopsy: Squamous mucosa with no specific change; no columnar mucosa present TODAY'S VISIT [place] #Vianney Malcolm The she tolerated the procedure well and we review all the results and biopsies. She is taking the omeprazole every day as instructed, and she did received the prescription for the Carafate is taking that without problem. She is not having any abdominal pain she is tolerating the medication regimen well. She is agreeable to a 3 month follow-up so that we can assess healing of the ulcer. I let know that there was no severe abnormality found in her soft a guess causing her dysphagia but they did dilated and she says that this resolved the problem she was having with her swallowing. She was again educated to avoid NSAID with the caveats that she continues her aspirin which she takes for any aneurysm. She is able to repeat verbalize good understanding of this. She also has senna available in case she becomes constipated. I will set her up for 6 month visit with me for her chronic follow-up and of course I will see her after the 3 month repeat of the endoscopy. [facility] Medical History Pure hypercholesterolemia RUBINA positive Low back pain Essential hypertension Urge incontinence Disc degeneration, lumbar Chronic idiopathic constipation Thyroid disease Hx of renal calculi Lab test negative for COVID-19 virus Lab test positive for detection of COVID-19 virus H/O coronary angiogram Rectal bleeding Pruritus ani Esophageal candidiasis History of diverticulitis Hypertension Surgical History History of hysterectomy History of salpingo-oophorectomy History of thoracic surgery History of esophagogastroduodenoscopy (EGD) H/O colonoscopy Hx of lithotripsy H/O cerebral aneurysm repair History of hernia repair H/O left breast biopsy H/O section Family History Father Skin cancer Prostate cancer Mother CHF (congestive heart failure) Hypertension Diabetes Sister Thyroid cancer Family/Other Mental health disorder Unknown Uterus cancer Family/Other No problems noted. Social History Household Members: Spouse Housing: Apartment Alcohol intake: current Alcohol intake frequency: holidays/special occasions only Alcohol type: wine Patient Tobacco Use Status: Former Tobacco user Tobacco use type: Cigarette e-Cigarette/Vaping Use: Never Used Second Hand Smoke Exposure: No service: No Current occupational status: unemployed Sexual orientation: Straight/Heterosexual Gender identity: Female Cognitive needs: No Hearing needs: No Vision needs: Yes Female Reproductive History Menstrual Age of Menarche: 14 Review of Systems Const Denies fatigue, Denies fever(s), Denies night sweats, Denies poor appetite and Denies weight loss ENT Reports Normal hearing present, Denies dental pain, Denies dysphagia, Denies hearing loss, Denies mouth pain, Denies odynophagia, Denies throat swelling, Denies tongue swelling and Reports other (Dentition adequate) Card Reports no additional complaints Resp Reports no additional complaints GI Denies abdominal pain, Denies melena, Denies bloating, Denies hematochezia, Denies constipation, Denies GI cramping, Denies dysphagia, Denies excessive flatus, Denies early satiety, Reports heartburn, Denies diarrhea, Denies nausea, Denies odynophagia, Denies vomiting and Denies hematemesis Skin/Breast Denies pruritus, Denies lesions, Denies rash and Denies jaundice Neuro Reports Normal hearing present and Denies Abnormal speech present Endo Denies fatigue Aller/Immun Denies throat swelling and Denies tongue swelling Physical Exam Vital Signs: Last Vital Signs Pulse 51 08/24/23 11:02 BP 118/58 L 08/24/23 11:02 BMI result Body Mass Index 36.6 Const General: cooperative, no acute distress, well developed and well groomed Nutritional Appearance: well nourished and obese Orientation/consciousness: oriented to person, oriented to place and oriented to time Limitations: language barrier HEENT Head: Yes normocephalic and Yes atraumatic Eyes General: appearance normal, both eyes and all related structures Pupils: Equal, round and reactive pupils present Neck Neck: Yes normal visual inspection and Yes no lymphadenopathy Thyroid: Thyroid normal Resp Effort & Inspection: normal respiratory effort and able to speak in complete sentences Auscultation: clear to auscultation bilaterally Cardio Rate: regular rate Rhythm: regular rhythm Heart sounds: Normal, physiologic split S2 sound present Peripheral pulses: radial pulses present and posterior tibial pulses present GI Inspection: No distended and Yes Abdominal panniculus present Palpation (GI): Soft to palpation, nontender, no guarding, not rigid and No hepatosplenomegaly present Percussion: Yes normal to percussion Auscultation: normal bowel sounds Rectal Exam - Female: deferred Skin General skin exam: no rashes or lesions noted, turgor normal, skin not dry, no jaundice, No spider nevi and no striae Rashes: no rashes Nails: normal Neuro General: oriented to person, oriented to place and oriented to time Cranial nerves: Yes Equal, round and reactive pupils present and Yes Normal hearing present Speech: No Abnormal speech present Extrem General: Yes normal to inspection, No clubbing, No cyanosis and No edema Psych Appearance: grossly normal and well kempt Mental Status: mental status grossly normal Speech and movement: Normal speech and movement present Affect: normal affect Attitude: cooperative Thought process: Normal thought process present and not confabulating Thought content: Normal thought content present Insight: Limited insight present (Psych) Judgement: Limited judgement present (Psych) Assessment & Plan Assessment & Plan (1) Gastric ulcer: Comment: 07/2023 also an EGD again inactive by biopsy; 06/2020 EGD, no HP, ulcer non active on biopsy Code(s): K25.9 - Gastric ulcer, unspecified as acute or chronic, without hemorrhage or perforation (2) Dysphagia: Code(s): R13.10 - Dysphagia, unspecified (3) GERD (gastroesophageal reflux disease): Code(s): K21.9 - Gastro-esophageal reflux disease without esophagitis (4) Chronic idiopathic constipation: Code(s): K59.04 - Chronic idiopathic constipation Plan [place] #Vianney Live The she tolerated the procedure well and we review all the results and biopsies. She is taking the omeprazole every day as instructed, and she did received the prescription for the Carafate is taking that without problem. She is not having any abdominal pain she is tolerating the medication regimen well. She is agreeable to a 3 month follow-up so that we can assess healing of the ulcer. I let know that there was no severe abnormality found in her soft a guess causing her dysphagia but they did dilated and she says that this resolved the problem she was having with her swallowing. She was again educated to avoid NSAID with the caveats that she continues her aspirin which she takes for any aneurysm. She is able to repeat verbalize good understanding of this. She also has senna available in case she becomes constipated. I will set her up for 6 month visit with me for her chronic follow-up and of course I will see her after the 3 month repeat of the endoscopy. Coding Level of Care Code Est Pt Level 3 (50930) Diagnoses Gastric ulcer K25.9 Dysphagia R13.10 GERD (gastroesophageal reflux disease) K21.9 Chronic idiopathic constipation K59.04
== END 2023-08-24 11:22 | disposition home or self-care (01) ==
PROVIDERS: PCP Internal Medicine; Visit Provider Nurse Practitioner
DX: K25.9 Gastric ulcer, unspecified as acute or chronic, without hemorrhage or perforation (principal); R13.10 Dysphagia, unspecified; K21.9 Gastro-esophageal reflux disease without esophagitis; K59.04 Chronic idiopathic constipation
CPT/HCPCS: 99213

== ENCOUNTER → 2023-08-24 10:55 | Outpatient (BNVA) | payer OTHER, SELFPAY | PROVIDERS: PCP Internal Medicine; Visit Provider Nurse Practitioner | DX: K21.9 Gastro-esophageal reflux disease without esophagitis (principal); K59.04 Chronic idiopathic constipation; K25.9 Gastric ulcer, unspecified as acute or chronic, without hemorrhage or perforation; R13.10 Dysphagia, unspecified | CPT/HCPCS: 99212 ==

== ENCOUNTER 2023-09-08 13:38 | Outpatient (AMB) | payer OTHER, SELFPAY ==
--- NOTE | 2023-09-08 13:56 | A.OFFVIS_ITS ---
Intake Vital Signs 09/08/23 13:58 Height 4 ft 11 in Weight 183 lb BMI 37.0 BP 148/70 H Blood Pressure Location Lt brachial Position Sitting Respiration 18 Pulse 64 Pulse Source Pulse Oximeter Pulse Oximetry (%) 97 Oxygen Delivery Method Room Air Intake Visit Reasons: Ongoing Chronic Back Pain Allergies Penicillins [PENICILLINS] Allergy (Intermediate, Verified 08/24/23 11:07) RASH, SWELLING diphenhydramine Allergy (Verified 08/24/23 11:07) Facial Swelling gabapentin Adverse Reaction (Intermediate, Verified 08/24/23 11:07) leg swelling PFSH Medical History Pure hypercholesterolemia RUBINA positive Low back pain Essential hypertension Urge incontinence Disc degeneration, lumbar Chronic idiopathic constipation Thyroid disease Hx of renal calculi Lab test negative for COVID-19 virus Lab test positive for detection of COVID-19 virus H/O coronary angiogram Rectal bleeding Pruritus ani Esophageal candidiasis History of diverticulitis Hypertension Surgical History History of hysterectomy History of salpingo-oophorectomy History of thoracic surgery History of esophagogastroduodenoscopy (EGD) H/O colonoscopy Hx of lithotripsy H/O cerebral aneurysm repair History of hernia repair H/O left breast biopsy H/O section Family History Father Skin cancer Prostate cancer Mother CHF (congestive heart failure) Hypertension Diabetes Sister Thyroid cancer Family/Other Mental health disorder Unknown Uterus cancer Family/Other No problems noted. Social History Household Members: Spouse Housing: Apartment Alcohol intake: current Alcohol intake frequency: holidays/special occasions only Alcohol type: wine Patient Tobacco Use Status: Former Tobacco user Tobacco use type: Cigarette e-Cigarette/Vaping Use: Never Used Second Hand Smoke Exposure: No service: No Current occupational status: unemployed Sexual orientation: Straight/Heterosexual Gender identity: Female Cognitive needs: No Hearing needs: No Vision needs: Yes Female Reproductive History Menstrual Age of Menarche: 14 Physical Exam Vital Signs: Last Vital Signs Pulse 64 09/08/23 13:58 Resp 18 09/08/23 13:58 BP 148/70 H 09/08/23 13:58 Pulse Ox 97 09/08/23 13:58 Oxygen Delivery Method Room Air 09/08/23 13:58 BMI result Body Mass Index 37.0 Coding
[2023-09-08 13:58] VITALS: BP 148/70; PULSE 64; RESP 18; O2SAT 97; BMI 37.0
--- NOTE | 2023-09-08 13:58 | A.OFFVIS_ITS ---
Intake Vital Signs 09/08/23 13:58 Height 4 ft 11 in Weight 183 lb BMI 37.0 BP 148/70 H Blood Pressure Location Lt brachial Position Sitting Respiration 18 Pulse 64 Pulse Source Pulse Oximeter Pulse Oximetry (%) 97 Oxygen Delivery Method Room Air Intake Visit Reasons: Ongoing Chronic Back Pain Allergies Penicillins [PENICILLINS] Allergy (Intermediate, Verified 08/24/23 11:07) RASH, SWELLING diphenhydramine Allergy (Verified 08/24/23 11:07) Facial Swelling gabapentin Adverse Reaction (Intermediate, Verified 08/24/23 11:07) leg swelling HPI HPI Comments History of Present Illness Details Evelia is a very pleasant Emirati-speaking only 63-year-old female who presents the office today for evaluation management of her right lower back pain. Visit is completed with Emir[place] interpretation with Sherlyn # [id number]. Patient reports that she has been suffering with right lower back pain for approximately 3 years. 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 Pain is worse with sitting and with lying on her right side. Patient denies radiation of the pain down either leg. She denies numbness, tingling or weakness of the lower extremities. Patient denies red flag symptoms including loss of bowel, bladder or saddle anesthesia. Patient has undergone diagnostic sacroiliac joint injection in May of 2022 that did not provider her relief. Patient is currently undergoing treatment at [facility] were she had right L3 through L5 facet medial branch radiofrequency ablation on 07/11/2023 which did not provide any relief. They have scheduled her for right sacroiliac joint steroid injection but patient states that she has not been called with the date of the injection yet. Patient of tried nonsteroidal anti-inflammatory medications, she had stop taking these due to gastric ulcer. She is currently taking prescribed opioid medications as needed. She is also on Lyrica. Pain today is rated as a 10/10, constant. Condition is described as stabbing, sharp, dull. Pain is negatively impacting patient's sleep and walking. 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 [facility] Medical History Pure hypercholesterolemia RUBINA positive Low back pain Essential hypertension Urge incontinence Disc degeneration, lumbar Chronic idiopathic constipation Thyroid disease Hx of renal calculi Lab test negative for COVID-19 virus Lab test positive for detection of COVID-19 virus H/O coronary angiogram Rectal bleeding Pruritus ani Esophageal candidiasis History of diverticulitis Hypertension Surgical History History of hysterectomy History of salpingo-oophorectomy History of thoracic surgery History of esophagogastroduodenoscopy (EGD) H/O colonoscopy Hx of lithotripsy H/O cerebral aneurysm repair History of hernia repair H/O left breast biopsy H/O section Family History Father Skin cancer Prostate cancer Mother CHF (congestive heart failure) Hypertension Diabetes Sister Thyroid cancer Family/Other Mental health disorder Unknown Uterus cancer Family/Other No problems noted. Social History Household Members: Spouse Housing: Apartment Alcohol intake: current Alcohol intake frequency: holidays/special occasions only Alcohol type: wine Patient Tobacco Use Status: Former Tobacco user Tobacco use type: Cigarette e-Cigarette/Vaping Use: Never Used Second Hand Smoke Exposure: No service: No Current occupational status: unemployed Sexual orientation: Straight/Heterosexual Gender identity: Female Cognitive needs: No Hearing needs: No Vision needs: Yes Female Reproductive History Menstrual Age of Menarche: 14 Review of Systems Const All systems reviewed & are unremarkable except as noted in HPI and below Physical Exam Vital Signs: Last Vital Signs Pulse 64 09/08/23 13:58 Resp 18 09/08/23 13:58 BP 148/70 H 09/08/23 13:58 Pulse Ox 97 09/08/23 13:58 Oxygen Delivery Method Room Air 09/08/23 13:58 BMI result Body Mass Index 37.0 General: awake, alert, oriented. Answers questions appropriately. Fully engaged in examination. Skin: warm, dry, intact HEENT: Normocephalic. Hearing intact. Cardiac: External chest normal in appearance. Respiratory: No cough, audible wheezing or stridor. Abdomen: without gross distension. MS: No obvious swelling or deformities. Able to stand on bilateral tiptoes and bilateral heels.? Able to transition from sit to stand unassisted. Ambulates with bilaterally normal heel strike and toe off Tender to palpation over right posterior superior iliac spine SLR with without dorsiflexion negative bilaterally Gaenslen positive on the right Thigh thrust positive on the right SI compression positive on the right Neurological: Oriented to person, place, time and situation. Thought process intact. No gait abnormalities appreciated. Psychiatric: Appropriate mood and affect. Good judgment and insight. Assessment & Plan Assessment & Plan (1) Sacroiliac joint dysfunction of right side: Code(s): M53.3 - Sacrococcygeal disorders, not elsewhere classified (2) Disc degeneration, lumbar: Code(s): M51.36 - Other intervertebral disc degeneration, lumbar region Plan Evelia presented to the office today for evaluation and management of her right lower back pain. History, physical exam and provocative testing consistent with right sacroiliac joint dysfunction. Order placed for PT eval and treat. Lidocaine patches 5%, we then most painful area up to 12 hours daily Diclofenac sodium 3% topical, apply to most painful area twice daily as needed. Patient advised not to use diclofenac and lidocaine cream at the same time. Patient has otherwise exhausted conservative therapy, she has tried prescription medications, nonsteroidal anti-inflammatory medications, home exercise program and injections without improvement of her pain. Discussed options for treatment including diagnostic interventional testing, steroid injections, peripheral nerve stimulation with Sprint, RFA and more permanent neuromodulation. Patient aware that we offer similar interventional strategies as [facility], she prefers to cancel follow-up appointments at [facility] and transition all her care or to our office. Will schedule her for fluoroscopy guided diagnostic right sacroiliac joint injection with local anesthetic. All questions and concerns have been answered and patient agrees with the plan. Follow up after injections and sooner if needed. Orders: Orders PT Evaluation and Treatment Today M53.3 - Sacrococcygeal disorders, not elsewhere classified Medications: New diclofenac sodium 3% apply to most painful area twice daily as needed 1 appl topical BID 100 grams 0RF lidocaine 5% leave on most painful area for up to 12 hrs 1 patch topical DAILY 30 ea 0RF Coding Level of Care Code New Pt Level 4 (15187) Diagnoses Sacroiliac joint dysfunction of right side M53.3 Disc degeneration, lumbar M51.36
== END 2023-09-08 15:01 | disposition home or self-care (01) ==
PROVIDERS: PCP Internal Medicine; Visit Provider Registered Nurse Emergency
DX: M53.3 Sacrococcygeal disorders, not elsewhere classified (principal); M51.36 Other intervertebral disc degeneration, lumbar region
CPT/HCPCS: 99204

== ENCOUNTER → 2023-09-08 13:38 | Outpatient (BNVA) | payer OTHER, SELFPAY | PROVIDERS: PCP Internal Medicine; Visit Provider Registered Nurse Emergency | DX: M53.3 Sacrococcygeal disorders, not elsewhere classified (principal); M51.36 Other intervertebral disc degeneration, lumbar region | CPT/HCPCS: 99202 ==

== ENCOUNTER 2023-09-22 13:34 | Outpatient (AMB) | payer OTHER, SELFPAY ==
--- NOTE | 2023-09-22 13:35 | A.OFFVIS_ITS ---
Intake Intake Visit Reasons: 4m follow up/KUB/[facility] Intake Note: Patient presents today for a 4 month follo-up with KUB Results: Meds- Vitamib B6 Allergies to Antibiotic- Penicillin Blood Thinner- Aspirin Egg Breaker Required: No Accompanied by: Self / Same As Patient Allergies Penicillins [PENICILLINS] Allergy (Intermediate, Verified 09/22/23 13:37) RASH, SWELLING diphenhydramine Allergy (Verified 09/22/23 13:37) Facial Swelling gabapentin Adverse Reaction (Intermediate, Verified 09/22/23 13:37) leg swelling HPI HPI Comments History of Present Illness Details Evelia is a 63-year-old female who presents today to the office for a follow-up. LV--04/14/2023-- 09/22/23-- Here for FU had KUB prior and 24 hour urine. She states she is doing well. She does complain of urinary urgency she states she was on Myrbetriq in the past prescribed by another urologist, she states it helped with her bladder symptoms. Past medical history includes hypertension, chronic low back pain The patient has been followed for right nephrolithiasis. The patient underwent right ESWL on 03/29/2023. I reviewed KUB 08/15/23--Redemonstration of small stone overlying the right kidney. Discussed 24 hour urine results: 03/22/23--Total volume 1.6 L, Calcium 136 mg; Oxalate 30 mg, Sodium 192, Citrate 298 mg. Instructed on importance of fluid intake, Low oxalate diet, low sodium diet. Increase citrate in diet. Review of chart: Right ESWL on 03/29/23. CTAP results reviewed?02/16/23-- Kidney stones in the right kidney. Plan: vitamin B6 100 mg daily. Low sodium diet Myrbetriq 50 mg Monitor kidneys renal ultrasound 1 year [facility] Medical History (Updated 09/22/23 @ 14:53 by Camila Gonzalez MD) Nephrolithiasis Pure hypercholesterolemia RUBINA positive Low back pain Essential hypertension Urge incontinence Disc degeneration, lumbar Chronic idiopathic constipation Thyroid disease Hx of renal calculi Lab test negative for COVID-19 virus Lab test positive for detection of COVID-19 virus H/O coronary angiogram Rectal bleeding Pruritus ani Esophageal candidiasis History of diverticulitis Hypertension Surgical History History of hysterectomy History of salpingo-oophorectomy History of thoracic surgery History of esophagogastroduodenoscopy (EGD) H/O colonoscopy Hx of lithotripsy H/O cerebral aneurysm repair History of hernia repair H/O left breast biopsy H/O section Family History Father Skin cancer Prostate cancer Mother CHF (congestive heart failure) Hypertension Diabetes Sister Thyroid cancer Family/Other Mental health disorder Unknown Uterus cancer Family/Other No problems noted. Social History Household Members: Spouse Housing: Apartment Alcohol intake: current Alcohol intake frequency: holidays/special occasions only Alcohol type: wine Patient Tobacco Use Status: Former Tobacco user Tobacco use type: Cigarette e-Cigarette/Vaping Use: Never Used Second Hand Smoke Exposure: No service: No Current occupational status: unemployed Sexual orientation: Straight/Heterosexual Gender identity: Female Cognitive needs: No Hearing needs: No Vision needs: Yes Female Reproductive History Menstrual Age of Menarche: 14 Review of Systems Const All systems reviewed & are unremarkable except as noted in HPI and below Reports no additional complaints Eyes Reports no additional complaints ENT Reports no additional complaints Card Denies dyspnea Resp Denies cough and Denies dyspnea GI Reports no additional complaints Reports no additional complaints Musc Reports no additional complaints Skin/Breast Denies rash and Denies unusual bruising Neuro Reports no additional complaints Psych Reports no additional complaints Endo Reports no additional complaints Solitario/Lymph Reports no additional complaints Aller/Immun Reports no additional complaints Results AMB Urinalysis, Automated UA Leukoctes 0 Ariana/uL Last Edit by JANNETTE Burton on 09/22/23 14:15 UA Nitrite Negative Last Edit by JANNETTE Burton on 09/22/23 14:15 UA Urobilinogen 0.2 mg/dL Last Edit by Jorge Jimenez A on 09/22/23 14:1 5 UA Protein 15 mg/dL Last Edit by Jorge Jimenez A on 09/22/23 14:15 UA pH 6.0 Last Edit by Jorge Jimenez, A on 09/22/23 14:15 UA Blood 0 Ronen/uL Last Edit by Jorge Jimenez A on 09/22/23 14:15 UA Specific [place]avia 1.020 Last Edit by Jorge Jimenez, A on 09/22/23 14: 15 UA Ketone Negative Last Edit by Jorge Jimenez A on 09/22/23 14:15 UA Bilirubin 0 mg/dL Last Edit by Jorge Jimenez A on 09/22/23 14:15 UA Glucose 0 mg/dL Last Edit by Jorge Jimenez A on 09/22/23 14:15 Results Reviewed Results Reviewed: Laboratory Last Values Urine pH (Auto) 6.0 09/22/23 14:04 Specific Ravia (Auto) 1.020 09/22/23 14:04 Urine Protein (Auto) 15 mg/dL 09/22/23 14:04 Glucose (UA)(Auto) 0 mg/dL 09/22/23 14:04 Urine Ketones (Auto) Negative 09/22/23 14:04 Urine Blood (Auto) 0 Ronen/uL 09/22/23 14:04 Urine Nitrite (Auto) Negative 09/22/23 14:04 Urine Bilirubin (Auto) 0 mg/dL 09/22/23 14:04 Urine Urobilinogen (Auto) 0.2 mg/dL 09/22/23 14:04 Leukocyte Esterase (Auto) 0 Ariana/uL 09/22/23 14:04 Date of Service: 08/15/23 EXAMINATION: XR ABDOMEN KUB CLINICAL INFORMATION: Calculus of kidney. COMPARISON: March 29, 2023 radiograph of the abdomen. February 16, 2023 CT abdomen and pelvis. TECHNIQUE: Two AP views of the abdomen. FINDINGS: Large amount of stool in the colon. Nonobstructive bowel gas pattern. Redemonstration of postsurgical changes characteristic of hernia repair. Redemonstration of small stone overlying the right kidney. Visualization of the bilateral kidneys remains limited due to overlying bowel. IMPRESSION: Redemonstration of small stone overlying right kidney. Visualization of the bilateral kidneys remains limited due to overlying bowel. Assessment & Plan Assessment & Plan (1) Nephrolithiasis: Code(s): N20.0 - Calculus of kidney (2) OAB (overactive bladder): Code(s): N32.81 - Overactive bladder Plan vitamin B6 100 mg daily. Low sodium diet Myrbetriq 50 mg Monitor kidneys renal ultrasound 1 year Orders: Orders US renal BI 10 Months N20.0 - Calculus of kidney AMB Urinalysis Automated Today Z13.9 - Encounter for screening, unspecified Medications: New mirabegron ER (Myrbetriq) 50 mg PO DAILY 90 tabs 3RF Refilled pyridoxine (vitamin B6) 100 mg PO DAILY 90 tabs 3RF Patient Instructions: The patient had an opportunity to ask questions regarding treatment plan. All questions were answered. Imaging, Laboratory studies and physical exam results were discussed and reviewed in detail. No major barriers to understanding were identified. The patient expressed understanding and agreement with the above treatment plan. The patient is aware they should contact our office by phone for worsening of their current condition or the appearance of new symptoms. Compliance is encouraged with any medications and followup testing that is ordered. It is a privilege to be allowed the opportunity to participate in the urologic care of your patient. If you have any questions or concerns regarding treatment for the above conditions please do not hesitate to contact me. The office telephone contact is [phone]. This note is constructed in part using voice recognition software. While every effort has been made to ensure accuracy salon customer experience specialist errors may have been included. Yours sincerely, Camila Gonzalez MD Coding Level of Care Code Est Pt Level 4 (91950) Diagnoses Nephrolithiasis N20.0 OAB (overactive bladder) N32.81
== END 2023-09-22 14:48 | disposition home or self-care (01) ==
PROVIDERS: PCP Internal Medicine; Visit Provider Urology
DX: N20.0 Calculus of kidney (principal); N32.81 Overactive bladder; Z13.9 Encounter for screening, unspecified
CPT/HCPCS: 99214

== ENCOUNTER → 2023-09-22 13:34 | Outpatient (BNVA) | payer OTHER, SELFPAY | PROVIDERS: PCP Internal Medicine; Visit Provider Urology | DX: N20.0 Calculus of kidney (principal); N32.81 Overactive bladder | CPT/HCPCS: 81003; 99212 ==

== ENCOUNTER 2023-11-13 15:41 | Outpatient (AMB) | payer OTHER, SELFPAY ==
[2023-11-13 15:49] VITALS: BP 130/80; BMI 36.1
--- NOTE | 2023-11-13 15:49 | A.OFFPC_ITS ---
Vital Signs 11/13/23 15:49 Height 4 ft 11 in Weight 179 lb BMI 36.1 BP 130/80 Blood Pressure Location Lt brachial Position Sitting Intake Visit Reasons: PE Intake Note: Patient here for a physical exam Marketing Specialist Required: No Accompanied by: Self / Same As Patient Allergies Penicillins [PENICILLINS] Allergy (Intermediate, Verified 11/13/23 15:50) RASH, SWELLING diphenhydramine Allergy (Verified 11/13/23 15:50) Facial Swelling gabapentin Adverse Reaction (Intermediate, Verified 11/13/23 15:50) leg swelling Medication List - Last Reconciled 11/13/23 by Rody Duenas MD aspirin (Adult Low Dose Aspirin) 81 mg PO DAILY 90 days atorvastatin 20 mg PO BEDTIME 90 days cholecalciferol (vitamin D3) 25 mcg PO DAILY 90 days diclofenac sodium 3% 1 appl topical BID hydrochlorothiazide 25 mg PO DAILY 90 days levothyroxine 50 mcg PO DAILY 90 days lidocaine 5% 1 patch topical ONCE 30 days lisinopril 40 mg PO DAILY 90 days mirabegron ER (Myrbetriq) 50 mg PO DAILY omeprazole 40 mg PO DAILY pregabalin (Lyrica) 75 mg PO DAILY 30 days pyridoxine (vitamin B6) 100 mg PO DAILY [rubber bathmat As directed] sennosides (senna) 17.2 mg (2 x 8.6 mg) PO BEDTIME sucralfate (Carafate) 10 mL PO BID tramadol 50 mg PO DAILY 30 days vitamin B complex (B Complex-Vitamin B12 tablet) 1 tab PO DAILY 90 days Tobacco use date assessed: 11/13/23 Dental Screening Dental Screen Date: 11/13/23 Did you have a dental visit in the last 12 months?: Yes Did you have a dental problem in the last 6 months where you did not have access to dental care?: No Was dental information given to patient?: Patient has dentist HPI HPI Comments History of Present Illness Details This is a 63-year-old female that comes for her physical exam. Last mammogram was 2022. Last colonoscopy was 2022. Last Pap smear was 2020 and then in 2021 she had a hysterectomy. No chest pain or shortness of breath. She is obese with a BMI of 36.2 and was advised to diet and exercise to reach BMI goal less than 30. Complains of chronic neck and low back pain. Would like breast reduction surgery but I told her that she needs a BMI less than 30 in order to be refer. [facility] Medical History Nephrolithiasis Pure hypercholesterolemia RODY positive Low back pain Essential hypertension Urge incontinence Disc degeneration, lumbar Chronic idiopathic constipation Thyroid disease Hx of renal calculi Lab test negative for COVID-19 virus Lab test positive for detection of COVID-19 virus H/O coronary angiogram Rectal bleeding Pruritus ani Esophageal candidiasis History of diverticulitis Hypertension Surgical History History of hysterectomy History of salpingo-oophorectomy History of thoracic surgery History of esophagogastroduodenoscopy (EGD) H/O colonoscopy Hx of lithotripsy H/O cerebral aneurysm repair History of hernia repair H/O left breast biopsy H/O section Family History Father Skin cancer Prostate cancer Mother CHF (congestive heart failure) Hypertension Diabetes Sister Thyroid cancer Family/Other Mental health disorder Unknown Uterus cancer Family/Other No problems noted. Social History Household Members: Spouse Housing: Apartment Alcohol intake: current Alcohol intake frequency: holidays/special occasions only Alcohol type: wine Patient Tobacco Use Status: Former Tobacco user Tobacco use type: Cigarette e-Cigarette/Vaping Use: Never Used Second Hand Smoke Exposure: No service: No Current occupational status: unemployed Sexual orientation: Straight/Heterosexual Gender identity: Female Cognitive needs: No Hearing needs: No Vision needs: Yes Female Reproductive History Menstrual Age of Menarche: 14 Questionnaire PHQ-9 Over the last 2 weeks, how often have you been bothered by any of the following problems? 1. Little interest or pleasure in doing things: not at all 2. Feeling down, depressed, or hopeless: not at all 3. Trouble falling or staying asleep, or sleeping too much: not at all 4. Feeling tired or having little energy: not at all 5. Poor appetite or overeating: not at all 6. Feeling bad about yourself - or that you are a failure or have let yourself or your family down: not at all 7. Trouble concentrating on things, such as reading the newspaper or watching television: not at all 8. Moving or speaking so slowly that other people could have noticed. Or the opposite - being so fidgety or restless that you have been moving around a lot more than usual: not at all 9. Thoughts that you would be better off or of hurting yourself in some way: not at all Total score: 0 Depression Screening Interpretation: Negative Depression Screening Done: Yes 85887 - PHQ-9 Billing: Yes Source: Developed by Drs. Musa Castillo, Alexia Szymanski, Keyur Rosa and colleagues, with an educational devyn from [employer]. Thrive Questionnaire Date Thrive assessed: 11/13/23 I am a: Patient What is your living situation today?: I have a steady place to live Within the past 12 months, did the food you bought not last and you didn't have the money to get more?: Never true Within the past 12 months, did you worry whether your food would run out before you got money to buy more?: Never true Do you have trouble paying for medicines?: No Do you have trouble getting transportation to medical appointments?: No Do you have trouble paying your heating and electricity bill?: No Do you have trouble taking care of your child, family member or friend?: No Do you have trouble with day-to-day activities such as bathing, preparing meals, shopping, managing finances, etc.?: No Are you currently unemployed and looking for a job?: No Are you interested in more education?: No Please select the resources that you would like help with: None Currently or been in a relationship where the following occur: no concerns reported THRIVE Score: 0 AUDIT C Alcohol Use Questionnaire (AUDIT-C) 1. How often do you have a drink containing alcohol?: Never Total Score: 0 MERT-7 AMB Questionnaire MERT-7 Date MERT - 7 assessed: 11/13/23 Feeling nervous, anxious, or on edge: 0 = Not at all Not being able to stop or control worryin = Not at all Worrying too much about different things: 0 = Not at all Trouble relaxin = Not at all Being so restless that it is hard to sit still: 0 = Not at all Becoming easily annoyed or irritable: 0 = Not at all Feeling afraid as if something awful might happen: 0 = Not at all Total MERT-7 score (0-4 normal; 5-9 mild; 10-14 moderate; 15-21 severe): 0 Source: Developed by Drs. Musa Castillo, Alexia Szymanski, Keyur Rosa and colleagues, with an educational devyn from [employer]. MERT-7 Assessment Billing MERT-7 Assessment Tool: MERT-7 Assessment 59925 Review of Systems Const All systems reviewed & are unremarkable except as noted in HPI and below Eyes Reports no additional complaints, Denies change in vision and Denies other visual disturbances Card Denies chest pain at rest, Denies chest pain with activity, Denies edema, Denies irregular heart rhythm, Denies claudication, Denies dyspnea, Denies dyspnea on exertion, Denies orthopnea, Denies paroxysmal nocturnal dyspnea and Denies slow heart rate Resp Denies cough, Denies dyspnea and Denies dyspnea on exertion GI Denies abdominal pain, Denies change in bowel habits, Denies excessive flatus, Denies nausea and Denies vomiting Denies urinary incontinence, Denies urinary hesitancy and Denies urinary urgency Musc Denies abnormal gait, Denies atrophy, Denies deformity and Denies limited range of motion Skin/Breast Denies bleeding lesions, Denies changing lesions and Denies rash Neuro Denies abnormal gait, Denies behavioral changes, Denies confusion and Denies lack of coordination Psych Denies behavioral changes and Denies confusion Physical exam (Primary Care) Vital Signs: Last Vital Signs BP 130/80 11/13/23 15:49 BMI result Body Mass Index 36.1 Tobacco/Smoking Status: Tobacco use Status Tobacco use date assessed 11/13/23 11/13/23 15:56 Patient Tobacco Use Status Former Tobacco user 11/13/23 15:56 Tobacco use type Cigarette 11/13/23 15:56 e-Cigarette/Vaping Use Never Used 11/13/23 15:56 PHQ-9: PHQ-9 Score PHQ-9: Total score 0 11/13/23 15:56 Depression Screening Interpretation: Negative Thrive Assessment: Date of Thrive Assessment Date Thrive assessed 11/13/23 11/13/23 15:56 Currently or been in a relationship where the following occur: no concerns reported Const General: No confusion Orientation/consciousness: patient oriented x3 and No confusion HENMT Head: Yes normal to inspection, Yes normocephalic and Yes atraumatic Ears: external ears normal Eyes General: appearance normal, both eyes and all related structures Eyelids: Yes eyelids normal Conjunctivae: conjunctivae normal Neck Neck: Yes normal visual inspection and Yes supple Resp Effort & Inspection: normal respiratory effort Auscultation: clear to auscultation bilaterally Cardio Jugular venous distension: no JVD Rate: regular rate Rhythm: regular rhythm Heart sounds: S1 normal heart sound present and S2 normal heart sound present GI Inspection: Yes normal to inspection Palpation (GI): Soft to palpation and nontender Auscultation: normal bowel sounds Skin General skin exam: no rashes or lesions noted Neuro General: patient oriented x3, no focal motor deficits and No confusion Extrem General: Yes full ROM Psych Appearance: grossly normal Assessment and Plan Assessment & Plan (1) Physical exam: Code(s): Z00.00 - Encounter for general adult medical examination without abnormal findings Plan: Repeat in a year. Orders: Orders Vitamin D 25-OH Total Today E55.9 - Vitamin D deficiency, unspecified Lipid Panel Today E78.5 - Hyperlipidemia, unspecified Thyroid Stimulating Hormone Today E03.9 - Hypothyroidism, unspecified Comprehensive [place]. Panel Fast Today N20.0 - Calculus of kidney Medications: Resumed aspirin (Adult Low Dose Aspirin) 81 mg PO DAILY 90 days 90 tabs 3RF aspirin (Adult Low Dose Aspirin) 81 mg PO DAILY 90 days 90 tabs 3RF Coding Level of Care Code Est Pt Prev Care 40-64y(18143) Diagnoses Physical exam Z00.00 Additional Codes MERT-7 Assessment Billing - MERT-7 Assessment Tool: MERT-7 Assessment 88419 ( [id number]) Time Spent (min) 34
== END 2023-11-13 16:23 | disposition home or self-care (01) ==
PROVIDERS: Visit Provider Internal Medicine
DX: Z00.00 Encounter for general adult medical examination without abnormal findings (principal)
CPT/HCPCS: 99396

== ENCOUNTER 2023-11-23 08:06 | Day surgery (SDC) | payer OTHER, SELFPAY ==
[2023-11-21 14:13] VITALS: BMI 36.1
--- NOTE | 2023-11-22 10:22 | P.CONAN_ITS ---
Documented by User: Rayna Dupont NP 11/22/23 10:23 HPI - Anesthesia Eval Consult details Narrative: 63yo F for Upper Endoscopy s/p EGD and Arvilla 07/2023 with MAC Follows [facility] for HTN, Carotid ds. Stable at last office visit 04/2023 COUNT INCLUDES THE [facility] Active Problems Active Problems: All Active Problems (Updated 11/21/23 @ 14:09 by Brisa Myers RN) OAB (overactive bladder) (Acute) Sacroiliac joint dysfunction of right side (Acute) Allergic reaction (Acute) Hematuria (Acute) Pre-op examination (Acute) Oropharyngeal dysphagia (Acute) History of nicotine use (Acute) Gross hematuria (Acute) Screen for colon cancer (Acute) Lumbar pain (Acute) Dysphagia (Acute) Physical exam (Acute) Encounter for annual routine gynecological examination (Acute) Hypovitaminosis D (Acute) Complex cyst of right ovary (Acute) Postmenopausal bleeding (Acute) Abnormal uterine bleeding (AUB) (Acute) Gastric ulcer (Acute) Hemorrhoids (Acute) VELARDE (nonalcoholic steatohepatitis) (Acute) Chronic idiopathic constipation (Acute) GERD (gastroesophageal reflux disease) (Acute) Hypothyroid (Acute) Obesity (Acute) Smoker (Acute) Nephrolithiasis (Acute) Pure hypercholesterolemia (Acute) RUBINA positive (Acute) Low back pain (Acute) Essential hypertension (Acute) Urge incontinence (Acute) Disc degeneration, lumbar (Acute) Past Medical History Medical History Pure hypercholesterolemia RUBINA positive Low back pain Essential hypertension Urge incontinence Disc degeneration, lumbar Chronic idiopathic constipation Thyroid disease Hx of renal calculi H/O coronary angiogram Rectal bleeding Pruritus ani Esophageal candidiasis History of diverticulitis Nephrolithiasis Hypertension Family History Family History Father Skin cancer Prostate cancer Mother CHF (congestive heart failure) Hypertension Diabetes Sister Thyroid cancer Family/Other Mental health disorder Unknown Uterus cancer Family/Other No problems noted. Family history of problems with anesthesia: No Surgical History Surgical History History of hysterectomy History of salpingo-oophorectomy History of thoracic surgery History of esophagogastroduodenoscopy (EGD) H/O colonoscopy Hx of lithotripsy H/O cerebral aneurysm repair History of hernia repair H/O left breast biopsy H/O section History of Problems with Anesthesia: No Social History Social History Household Members: Spouse Housing: Apartment Alcohol intake: current Alcohol intake frequency: does not drink Alcohol type: wine Patient Tobacco Use Status: Former Tobacco user Tobacco use type: Cigarette e-Cigarette/Vaping Use: Never Used Second Hand Smoke Exposure: No Are you DNR?: No Advance Directives: No Advance Directives Information Provided: Yes service: No Current occupational status: unemployed Sexual orientation: Straight/Heterosexual Gender identity: Female Cognitive needs: No Hearing needs: No Vision needs: Yes Meds Allergies Allergy/AdvReac Type Severity Reaction Status Date / Time Penicillins [PENICILLINS] Allergy Intermediate RASH, Verified 11/13/23 15:50 SWELLING diphenhydramine Allergy Facial Verified 11/13/23 15:50 Swelling gabapentin AdvReac Intermediate leg Verified 11/13/23 15:50 swelling Exam Height,Weight and Vital Signs: Height 4 ft 11 in Weight 81.193 kg Narrative Narrative: Carotid US 05/2023 R ICA: 16-49% L ICA: 0-15% Assessment and Plan Assessment Anesthesia Assessment: Chart Reviewed Final Anesthetic Review Family History of Problems with Anesthesia: No History of Problems with Anesthesia: No Documented by User: Shana Nash MD 11/23/23 10:14 COUNT INCLUDES THE [facility] Active Problems Active Problems: All Active Problems (Updated 11/23/23 @ 09:10 by Shana Nash MD) OAB (overactive bladder) (Acute) Sacroiliac joint dysfunction of right side (Acute) Allergic reaction (Acute) Hematuria (Acute) Pre-op examination (Acute) Oropharyngeal dysphagia (Acute) History of nicotine use (Acute) Gross hematuria (Acute) Screen for colon cancer (Acute) Lumbar pain (Acute) Dysphagia (Acute) Physical exam (Acute) Encounter for annual routine gynecological examination (Acute) Hypovitaminosis D (Acute) Complex cyst of right ovary (Acute) Postmenopausal bleeding (Acute) Abnormal uterine bleeding (AUB) (Acute) Gastric ulcer (Acute) Hemorrhoids (Acute) VELARDE (nonalcoholic steatohepatitis) (Acute) Chronic idiopathic constipation (Acute) GERD (gastroesophageal reflux disease) (Acute) Hypothyroid (Acute) Obesity (Acute) Smoker (Acute) Nephrolithiasis (Acute) Pure hypercholesterolemia (Acute) RUBINA positive (Acute) Low back pain (Acute) Essential hypertension (Acute) Urge incontinence (Acute) Disc degeneration, lumbar (Acute) Past Medical History Medical History Pure hypercholesterolemia RUBINA positive Low back pain Essential hypertension Urge incontinence Disc degeneration, lumbar Chronic idiopathic constipation Thyroid disease Hx of renal calculi H/O coronary angiogram Rectal bleeding Pruritus ani Esophageal candidiasis History of diverticulitis Nephrolithiasis Hypertension Family History Family History Father Skin cancer Prostate cancer Mother CHF (congestive heart failure) Hypertension Diabetes Sister Thyroid cancer Family/Other Mental health disorder Unknown Uterus cancer Family/Other No problems noted. Family history of problems with anesthesia: No Surgical History Surgical History History of hysterectomy History of salpingo-oophorectomy History of thoracic surgery History of esophagogastroduodenoscopy (EGD) H/O colonoscopy Hx of lithotripsy H/O cerebral aneurysm repair History of hernia repair H/O left breast biopsy H/O section History of Problems with Anesthesia: No Social History Social History Household Members: Spouse Housing: Apartment Alcohol intake: current Alcohol intake frequency: does not drink Alcohol type: wine Patient Tobacco Use Status: Former Tobacco user Tobacco use type: Cigarette e-Cigarette/Vaping Use: Never Used Second Hand Smoke Exposure: No Are you DNR?: No Advance Directives: No Advance Directives Information Provided: Yes service: No Current occupational status: unemployed Sexual orientation: Straight/Heterosexual Gender identity: Female Cognitive needs: No Hearing needs: No Vision needs: Yes Meds Allergies Allergy/AdvReac Type Severity Reaction Status Date / Time Penicillins [PENICILLINS] Allergy Intermediate RASH, Verified 11/13/23 15:50 SWELLING diphenhydramine Allergy Facial Verified 11/13/23 15:50 Swelling gabapentin AdvReac Intermediate leg Verified 11/13/23 15:50 swelling Exam Height,Weight and Vital Signs: Height 4 ft 11 in Weight 81.193 kg Vital Signs Temp Pulse Resp BP Pulse Ox O2 Del Method 97 F 51 18 154/59 H 96 Room Air 11/23/23 08:41 11/23/23 08:41 11/23/23 08:41 11/23/23 08:41 11/23/23 08:41 11/23/23 08:41 Airway Mallampati Class: III TM Dist: >3cm Neck ROM: Full Partial: Upper and Lower Loose/Missing/Broken Teeth: Yes (Partials. Denies broken or loose teeth) Heart: RRR Lungs: CTAB Assessment and Plan Assessment Anesthesia Assessment: Anesthesia Plan Discussed and Chart Reviewed Final Anesthetic Review Family History of Problems with Anesthesia: No History of Problems with Anesthesia: No NPO: Yes ASA Class: III Final Preanesthetic Review: No Changes in Pt Med Stat, Meds/Allgs Chart Reviewed, Consent Obtained/Reviewed and Anes Risks/Benef Reviewed Patient Risk: Intermediate Procedure Risk: Low Assessment/Block/Sedation in SS: Assess/Block/Sedation-SS Anesthetic Plan Anesthetic Plan: MAC: and TIVA Disposition: Standard PACU
[2023-11-23 08:41] VITALS: BP 154/59; PULSE 51; RESP 18; TEMP 36.1; O2SAT 96; BMI 36.3
--- NOTE | 2023-11-23 08:54 | MHC.SHP ---
Pre-Procedural Eval Section A - 24 Hr Update-Section A only Date of Service: 11/23/23 Section B - Complete if H&P > 30 days Chief Complaint: Gastric ulcer, unspecified as acute or chronic, wi Details of Present Illness: also c/o dysphagia Relevant Family History (Specify if Yes): No Relevant Social History: None Present Medications: see Short Stay Collaborative assessment Medical History: Significant History ( Pure hypercholesterolemia RUBINA positive Low back pain Essential hypertension Urge incontinence Disc degeneration, lumbar Chronic idiopathic constipation Thyroid disease Hx of renal calculi H/O coronary angiogram Rectal bleeding Pruritus ani Esophageal candidiasis History of diverticulitis Nephrolith) History of Previous Operations: Relevant previous surgery/procedure and date(s) (History of hysterectomy History of salpingo-oophorectomy History of thoracic surgery History of esophagogastroduodenoscopy (EGD) H/O colonoscopy Hx of lithotripsy H/O cerebral aneurysm repair History of hernia repair H/O left breast biopsy H/O section) Allergies: Allergies Allergy/AdvReac Type Severity Reaction Status Date / Time Penicillins [PENICILLINS] Allergy Intermediate RASH, Verified 11/13/23 15:50 SWELLING diphenhydramine Allergy Facial Verified 11/13/23 15:50 Swelling gabapentin AdvReac Intermediate leg Verified 11/13/23 15:50 swelling Review of Systems Sugical H&P ROS: Negative: Constitution, Cardiovascular, Respiratory, Neurological, Psychiatric, Hem-Onc, Allergic/Immunologic, Gastrointestinal, Genitourinary, Musculoskeletal, Integumentary, Endocrine and Eyes/Ears/Nose/Throat Exam Surgical H&P Exam: Normal: HEENT, Normal: Heart, Normal: Lungs, Normal: Extremities, Normal: Abdomen, Normal: Skin and Normal: Neurological Plan Diagnosis/Plan: Unchanged I have reviewed the history and physical and performed a pertinent physical examination on my patient. No changes have occurred unless specified. EGD with bx and balloon dilation Time Spent With Patient Time: Total time managing care of this patient today ____ minutes.
[2023-11-23] MEDS: Lactated Ringers 1,000 ML 50 ML IVCONT (08:57)
--- NOTE | 2023-11-23 09:30 | W.PM.OPN ---
Operative Note Operative Note Date of Service: 11/23/23 Narrative: Procedure Description: EGD Indication: hx of gastric ulcer, dysphagia Anesthesia: MAC FLEXIBLE TRANSORAL UPPER GASTROINTESTINAL ENDOSCOPY UPPER ENDOSCOPY Consent: Indications for the procedure and potential complications of bleeding, perforation, reaction to medications and missed diagnosis were discussed with the patient and informed consent was obtained. Instrument: Olympus GIF H 190 J mid size upper endoscope Monitoring: Vital signs and clinical assessment, continuous EKG monitoring, Pulse oximetry, Carbon Dioxide monitoring and blood pressure monitoring were done throughout the procedure. Procedure: The patient was placed in the left lateral decubitis position and pre-procedure medications were administered and a bite block was placed. The endoscope was inserted into the mouth and advanced under direct vision to the third part of duodenum. A careful inspection was made as the upper endoscope was withdrawn including a retroflexed examination of the proximal stomach; Findings and interventions are described below. Findings: Larynx:normal Esophagus: GE junction at 35 cm, diaphragm hiatus at 35 cm, mild esophagitis at the GEJ, dilation done at UES and LES to 20 mm, no tears seen. bx taken from GEJ, proximal and distal esophagus Stomach: 10 mm erosion seen in pre antral area-site of previous ulcer, still not fully healed. Biopsies were obtained from around erosion and random stomach. Grade 2 flap valve on retroflexed examination of the cardia. Duodenum: Normal bulb and descending duodenum, Intervention: Biopsies as noted above, balloon dilation Impression/Findings: erosive gastritis esophagitis PLAN: ensure compliance with PPI, avoid nsaid for meantime if H pylori pos then treat consider repeat EGD in 3-6 months
[2023-11-23 10:04] VITALS: BP 106/55; PULSE 57; RESP 16; TEMP 36.6; O2SAT 97
[2023-11-23 10:19] VITALS: BP 131/74; PULSE 58; RESP 16; TEMP 36.6; O2SAT 97
== END 2023-11-23 11:25 | disposition home or self-care (01) ==
PROVIDERS: PCP Internal Medicine; Visit Provider Internal Medicine Gastroenterology
PROC: 0DJ08ZZ Inspection of Upper Intestinal Tract, Via Natural or Artificial Opening Endoscopic (ICD-10-PCS; CPT 43235; principal; 2023-11-23 10:00)
DX: K29.60 Other gastritis without bleeding (principal); K20.80 Other esophagitis without bleeding; R13.12 Dysphagia, oropharyngeal phase; I10 Essential (primary) hypertension
CPT/HCPCS: 43249; 43239; 88305; 88313; 88342; C1726; J1596; J2704

== ENCOUNTER → 2023-11-23 08:06 | Outpatient (BNV) | payer OTHER, SELFPAY | PROVIDERS: PCP Internal Medicine; Visit Provider Internal Medicine Gastroenterology | DX: K20.90 Esophagitis, unspecified without bleeding (principal); K29.70 Gastritis, unspecified, without bleeding | CPT/HCPCS: 43239 ==

== ENCOUNTER 2023-11-27 14:38 | Outpatient (REF) | payer OTHER, SELFPAY ==
--- NOTE | ~2023-11-27 | MM_ITS ---
EXAMINATION: MM SCREENING DIGITAL BREAST TOMOSYNTHESIS, BILATERAL CLINICAL INFORMATION: Screening. Asymptomatic. COMPARISON: Mammography: This study is compared with prior exams dating back to 2019. TECHNIQUE: Digital breast tomosynthesis is performed in both the craniocaudal and mediolateral oblique views along with computer-aided detection (CAD). Synthesized 2D images are generated from the tomosynthesis. FINDINGS: There are scattered areas of fibroglandular density (ACR BI-RADS breast composition Category b). There are no significant masses, abnormal calcifications, or other abnormalities. There is a tissue marker present in the upper inner quadrant of the left breast from prior benign percutaneous biopsy. MM/MM tomosynthesis screening BI IMPRESSION: No mammographic evidence of malignancy. ASSESSMENT: BI-RADS BI-RADS 2 - Benign Findings RECOMMENDATION: Routine annual mammography screening. 1 year F/U This examination should not preclude the clinical evaluation of a suspicious palpable abnormality. This patient's information was entered into a reminder system with a target due date for their next mammogram.
== END 2023-11-27 14:39 | disposition home or self-care (01) ==
LOC: HO.MAMMO 14:38
PROVIDERS: PCP Internal Medicine; Visit Provider Internal Medicine
DX: Z12.31 Encounter for screening mammogram for malignant neoplasm of breast (principal)
CPT/HCPCS: 77063; 77067

== ENCOUNTER → 2023-11-27 15:00 | Outpatient (BNV) | payer OTHER, SELFPAY | PROVIDERS: PCP Internal Medicine; Visit Provider Radiology Diagnostic Radiology | DX: Z12.31 Encounter for screening mammogram for malignant neoplasm of breast (principal) | CPT/HCPCS: 77063; 77067 ==

== ENCOUNTER 2023-12-06 13:00 | Outpatient (RCR) | payer OTHER, SELFPAY ==
--- NOTE | 2023-10-19 16:56 | MHC.PT.EP ---
[facility] [place] [facility] [place] Office [place] [facility] [address] Vishnu Monteiro [address] [phone] F: [phone] F: [phone] F: [phone] F: [phone] Physical Therapy Plan of Care Date of Evaluation: 10/19/23 Date of Surgery: Diagnosis: sacrococcygeal disorders (MD Dx) sacroiliac joint dysfunction RIGHT side (MD Dx) MRI 2020: L4-L5 disc bulge with L protrusion, abuts L L4 nerve root Bilat facet arthropathy with Mod L and mild R neural foraminal stenosis L2-L3 disc bulge with mild bilat facet arthropathy No central canal or neural foraminal stenosis. Bilateral facet arthropathy at L3-L4 and L5-S1 Assessment: Patient is a y.o. who is referred to PT by EMELYN Nicole with Dx of sacrococcygeal disorders, sacroiliac joint dysfunction RIGHT side. MRI 2020: L4-L5 disc bulge with L protrusion, abuts L L4 nerve root. Bilat facet arthropathy with Mod L and mild R neural foraminal stenosis L2-L3 disc bulge with mild bilat facet arthropathy. No central canal or neural foraminal stenosis. Bilateral facet arthropathy at L3-L4 and L5-S1. Patient impairments include pain, poor posture, limited ROM, weakness in LEs, antalgic gait. Patient current functional limitations are prolonged sitting, difficulty lying down, prolonged standing, prolonged walking, lift/carry grandchild, vacuuming, laundry, difficulty descending stairs, putting on shoes/socks. Patient will benefit from skilled PT to address aforementioned impairments and functional limitations to meet established goals. Frequency and Duration: The patient will be seen 2x/week for 4 weeks Short Term Goals: 2 weeks Patient demonstrates consistency and independence with HEP to self manage symptoms. Multimedia Developer Goals: 4 weeks She presents with increased lumbar spine flexion 80 degrees to improve mobility for bending and performing lower body dressing. She presents with increased hip flexion 4+/5 to be able to ascend/descend stairs for home. Treatment Plan: Modalities to reduce pain, spasms and effusion. Manual therapy to restore motion and function. Therapeutic exercise to improve strength and flexibility. Neuromuscular re-education for posture and balance. Therapeutic activities to return to functional activities of daily living. Electronically signed by: Lanre Tate PT, DPT Please sign and return to therapist. Thank you for your referral.
--- NOTE | 2024-02-21 09:50 | MHC.PT.DC ---
[facility] [place] Office [place] Office [place] Office [address] Vishnu Monteiro [address] [phone] F: [phone] F: [phone] F: [phone] F: [phone] Physical Therapy Discharge Report Diagnosis: sacrococcygeal disorders (MD Otto) sacroiliac joint dysfunction RIGHT side (MD Otto) MRI 2020: L4-L5 disc bulge with L protrusion, abuts L L4 nerve root Bilat facet arthropathy with Mod L and mild R neural foraminal stenosis L2-L3 disc bulge with mild bilat facet arthropathy No central canal or neural foraminal stenosis. Bilateral facet arthropathy at L3-L4 and L5-S1 Date of Surgery: Date of Evaluation: 10/19/23 Date of Discharge: 02/21/24 Treatments to Date: 9 Cancellations to Date: No Shows to Date: Discharge Status: Improved Function Independent with HEP Patient Elected to Stop Discharge Summary: Patient completed course of PT. During her last PT session on 12/06/23 the assessment reads, Continued with exercise program to focus on strengthening and endurance for core and postural musculature to reduce strain on low back. Reduced tension in resistance band to reduce any strain. She tends to compensate UE exercises with upper trapezius muscle activation, needed cues to reduce this throughout the session. She c/o continues soreness in her entire back end of session points to UT down to sacrum so heat was utilized. She is therefore discharged from PT at this time. Electronically signed by: Lanre Tate, PT, DPT Please sign and return to therapist. Thank you for your referral.
== END 2024-02-21 09:51 | disposition home or self-care (01) ==
LOC: HO.PT 13:00
PROVIDERS: PCP Internal Medicine; Visit Provider Registered Nurse Emergency
DX: M53.3 Sacrococcygeal disorders, not elsewhere classified (principal)
CPT/HCPCS: 97014; 97110; 97140; 97162

== ENCOUNTER 2024-02-22 10:19 | Outpatient (AMB) | payer OTHER, SELFPAY ==
[2024-02-22 10:23] VITALS: BP 116/58; PULSE 50; BMI 37.6
--- NOTE | 2024-02-22 10:23 | A.OFFVIS_ITS ---
Vital Signs 02/22/24 10:23 Height 4 ft 11 in Weight 186 lb 1.122 oz BMI 37.6 BP 116/58 L Blood Pressure Location Lt brachial Position Sitting Pulse 50 Intake Visit Reasons: s/p egd Intake Note: Evelia presents to in office follow up s/p EGD. CC: Patient states that when she eats or when laying down she feels a lot of movement from her abdomen.Denies other GI symptoms today. Scheduling Specialist Required: Yes Accompanied by: Self / Same As Patient Allergies Penicillins [PENICILLINS] Allergy (Intermediate, Verified 02/22/24 10:26) RASH, SWELLING diphenhydramine Allergy (Verified 02/22/24 10:26) Facial Swelling gabapentin Adverse Reaction (Intermediate, Verified 02/22/24 10:26) leg swelling Medication List - Last Reconciled 02/22/24 by DON Lynn aspirin (Adult Low Dose Aspirin) 81 mg PO DAILY 90 days atorvastatin 20 mg PO BEDTIME 90 days celecoxib (Celebrex) 100 mg PO BID cholecalciferol (vitamin D3) 25 mcg PO DAILY 90 days diclofenac sodium 3% 1 appl topical BID hydrochlorothiazide 25 mg PO DAILY 90 days levothyroxine 50 mcg PO DAILY 90 days lidocaine 5% 1 patch topical ONCE 30 days lisinopril 40 mg PO DAILY 90 days omeprazole 40 mg PO DAILY 90 days pregabalin (Lyrica) 75 mg PO DAILY 30 days pyridoxine (vitamin B6) 100 mg PO DAILY [rubber bathmat As directed] sennosides (senna) 17.2 mg (2 x 8.6 mg) PO BEDTIME sucralfate (Carafate) 10 mL PO BID PRN tramadol 50 mg PO DAILY 30 days vitamin B complex (B Complex-Vitamin B12 tablet) 1 tab PO DAILY 90 days HPI HPI s/p egd: Details: Assessment & Plan (1) Gastric ulcer: Comment: 07/2023 also an EGD again inactive by biopsy; 06/2020 EGD, no HP, ulcer non active on biopsy Code(s): K25.9 - Gastric ulcer, unspecified as acute or chronic, without hemorrhage or perforation (2) Dysphagia: Code(s): R13.10 - Dysphagia, unspecified (3) GERD (gastroesophageal reflux disease): Code(s): K21.9 - Gastro-esophageal reflux disease without esophagitis (4) Chronic idiopathic constipation: Code(s): K59.04 - Chronic idiopathic constipation Plan Japanese #Vianney Fowler The she tolerated the procedure well and we review all the results and biopsies. She is taking the omeprazole every day as instructed, and she did received the prescription for the Carafate is taking that without problem. She is not having any abdominal pain she is tolerating the medication regimen well. She is agr eeable to a 3 month follow-up so that we can assess healing of the ulcer. I let know that there was no severe abnormality found in her soft a guess causing her dysphagia but they did dilated and she says that this resolved the problem she was having with her swallowing. She was again educated to avoid NSAID with the caveats that she continues her aspirin which she takes for any aneurysm. She is able to repeat verbalize good understanding of this. She also has senna available in case she becomes constipated. I will set her up for 6 month visit with me for her chronic follow-up and of susan loredo I will see her after the 3 month repeat of the endoscopy. TODAY'S VISIT Japanese #Malcolm Addison She continues to do well on her GI regimen. She continues omeprazole 40 mg senna needed bedtime and sucralfate. She has only occasional dysphagia and no abd pain. She is using the sucralafte intermittently.. She says she is having a sensation of something moving across the upper abd at times when she eats. This leads me to expalin the path of the colon to ease her concerns. She asks if she has to repeat the EGD, and I advise her this is optional depending on how she is feeling. If the sx return or persist we can consider this - for now she defers. SHe asks about VELARDE monitoring. Her labs are largely normal, so this likely does not need repeat survey by GI but will get some more since it has not been assessed since last summer. ROV 6 mos. [facility] Medical History Smoker Abnormal uterine bleeding (AUB) Postmenopausal bleeding Encounter for annual routine gynecological examination Physical exam Screen for colon cancer Hematuria Pre-op examination History of nicotine use Pure hypercholesterolemia RUBINA positive Low back pain Essential hypertension Urge incontinence Disc degeneration, lumbar Chronic idiopathic constipation Thyroid disease Hx of renal calculi H/O coronary angiogram Rectal bleeding Pruritus ani Esophageal candidiasis History of diverticulitis Nephrolithiasis Hypertension Surgical History History of hysterectomy History of salpingo-oophorectomy History of thoracic surgery History of esophagogastroduodenoscopy (EGD) H/O colonoscopy Hx of lithotripsy H/O cerebral aneurysm repair History of hernia repair H/O left breast biopsy H/O section Family History Father Skin cancer Prostate cancer Mother CHF (congestive heart failure) Hypertension Diabetes Sister Thyroid cancer Family/Other Mental health disorder Unknown Uterus cancer Family/Other No problems noted. Social History Household Members: Spouse Housing: Apartment Alcohol intake: current Alcohol intake frequency: does not drink Alcohol type: wine Patient Tobacco Use Status: Former Tobacco user Tobacco use type: Cigarette e-Cigarette/Vaping Use: Never Used Second Hand Smoke Exposure: No service: No Current occupational status: unemployed Sexual orientation: Straight/Heterosexual Gender identity: Female Cognitive needs: No Hearing needs: No Vision needs: Yes Female Reproductive History Menstrual Age of Menarche: 14 Review of Systems Const Denies fatigue, Denies fever(s), Denies night sweats, Denies poor appetite and Denies weight loss Eyes Details: glasses Reports requires corrective lenses ENT Reports Normal hearing present, Denies dental pain, Reports dysphagia, Denies hearing loss, Denies mouth pain, Denies odynophagia, Denies throat swelling, Denies tongue swelling and Reports other (Dentition adequate) Card Reports no additional complaints Resp Reports no additional complaints GI Details: Denies abdominal pain, Denies melena, Denies bloating, Denies hematochezia, Denies constipation, Denies GI cramping, Reports dysphagia, Denies excessive flatus, Denies early satiety, Reports heartburn, Denies diarrhea, Denies nausea, Denies odynophagia, Denies vomiting and Denies hematemesis Skin/Breast Denies pruritus, Denies lesions, Denies rash and Denies jaundice Neuro Reports Normal hearing present and Denies Abnormal speech present Endo Denies fatigue Aller/Immun Denies throat swelling and Denies tongue swelling Physical Exam Vital Signs: Last Vital Signs Pulse 50 02/22/24 10:23 BP 116/58 L 02/22/24 10:23 BMI result Body Mass Index 37.6 Const General: cooperative, no acute distress, well developed and well groomed Nutritional Appearance: well nourished and obese Orientation/consciousness: oriented to person, oriented to place and oriented to time Limitations: language barrier HEENT Head: Yes normocephalic and Yes atraumatic Eyes General: appearance normal, both eyes and all related structures Pupils: Equal, round and reactive pupils present Neck Neck: Yes normal visual inspection and Yes no lymphadenopathy Thyroid: Thyroid normal Resp Effort & Inspection: normal respiratory effort and able to speak in complete sentences Auscultation: clear to auscultation bilaterally Cardio Rate: regular rate Rhythm: regular rhythm Heart sounds: Normal, physiologic split S2 sound present Peripheral pulses: radial pulses present and posterior tibial pulses present GI Inspection: No distended, Yes Abdominal panniculus present and Yes obesity Palpation (GI): Soft to palpation, nontender, no guarding, not rigid and No hepatosplenomegaly present Percussion: Yes normal to percussion Auscultation: normal bowel sounds Rectal Exam - Female: deferred Skin General skin exam: no rashes or lesions noted, turgor normal, skin not dry, no jaundice, No spider nevi and no striae Rashes: no rashes Nails: normal Neuro General: oriented to person, oriented to place and oriented to time Cranial nerves: Yes Equal, round and reactive pupils present and Yes Normal hearing present Speech: No Abnormal speech present Extrem General: Yes normal to inspection, No clubbing, No cyanosis and No edema Psych Appearance: grossly normal and well kempt Mental Status: mental status grossly normal Speech and movement: Normal speech and movement present Affect: normal affect Attitude: cooperative Thought process: Normal thought process present and not confabulating Thought content: Normal thought content present Insight: Limited insight present (Psych) Judgement: Limited judgement present (Psych) Assessment & Plan Assessment & Plan (1) Gastric ulcer: Comment: 07/2023 also an EGD again inactive by biopsy; 06/2020 EGD, no HP, ulcer non active on biopsy Code(s): K25.9 - Gastric ulcer, unspecified as acute or chronic, without hemorrhage or perforation Category: Medical (2) Chronic idiopathic constipation: Code(s): K59.04 - Chronic idiopathic constipation Category: Medical (3) GERD (gastroesophageal reflux disease): Code(s): K21.9 - Gastro-esophageal reflux disease without esophagitis Category: Medical (4) Oropharyngeal dysphagia: Code(s): R13.12 - Dysphagia, oropharyngeal phase Category: Medical (5) VELARDE (nonalcoholic steatohepatitis): Comment: LABS; 05/2020 HP stool is negative, liver panel was normal except mildly elevated alk phos of 132, AFP 1.6, 09/2018 autoimmune workup is negative, ferritin is normal at 60, hepatitis a B and C are negative. * ULTRASOUND OF THE ABDOMEN 07/2020 IMPRESSION: Hepatic steatosis. No focal liver lesion. Suspect tiny renal calculi Code(s): K75.81 - Nonalcoholic steatohepatitis (VELARDE) Category: Medical Plan Japanese #Malcolm Addison She continues to do well on her GI regimen. She continues omeprazole 40 mg senna needed bedtime and sucralfate. She has only occasional dysphagia and no abd pain. She is using the sucralafte intermittently.. She says she is having a sensation of something moving across the upper abd at times when she eats. This leads me to explain the path of the colon to ease her concerns. She asks if she has to repeat the EGD, and I advise her this is optional depending on how she is feeling. If the sx return or persist we can consider this - for now she defers. She asks about VELARDE monitoring. Her labs are largely normal, so this likely does not need repeat survey by GI but will get some more since it has not been assessed since last summer. ROV 6 mos. Orders: Orders Alpha Fetoprotein Today K75.81 - Nonalcoholic steatohepatitis (VELARDE) Comprehensive Met. Panel Today K75.81 - Nonalcoholic steatohepatitis (VELARDE) Gamma Glutamyl Transpeptidase Today K75.81 - Nonalcoholic steatohepatitis (VELARDE) US abdomen complete Today K75.81 - Nonalcoholic steatohepatitis (VELARDE) Medications: Changed From sucralfate (Carafate) 10 mL PO BID PRN K25.9 - Gastric ulcer, unspecified as acute or chronic, without hemorrhage or perforation To sucralfate (Carafate) 10 mL PO BID 1,000 mL 3RF K25.9 - Gastric ulcer, unspecified as acute or chronic, without hemorrhage or perforation Refilled omeprazole 40 mg PO DAILY 90 caps 1RF 90 days K25.9 - Gastric ulcer, unspecified as acute or chronic, without hemorrhage or perforation sennosides (senna) 17.2 mg (2 x 8.6 mg) PO BEDTIME 60 tabs 2RF K59.04 - Chronic idiopathic constipation Coding Level of Care Code Est Pt Level 3 (79712) Diagnoses Gastric ulcer K25.9 Chronic idiopathic constipation K59.04 GERD (gastroesophageal reflux disease) K21.9 Oropharyngeal dysphagia R13.12 VELARDE (nonalcoholic steatohepatitis) K75.81
== END 2024-02-22 10:47 | disposition home or self-care (01) ==
PROVIDERS: PCP Internal Medicine; Visit Provider Nurse Practitioner
DX: K25.9 Gastric ulcer, unspecified as acute or chronic, without hemorrhage or perforation (principal); K59.04 Chronic idiopathic constipation; K21.9 Gastro-esophageal reflux disease without esophagitis; R13.12 Dysphagia, oropharyngeal phase; K75.81 Nonalcoholic steatohepatitis (NASH)
CPT/HCPCS: 99213

== ENCOUNTER → 2024-02-22 10:19 | Outpatient (BNVA) | payer OTHER, SELFPAY | PROVIDERS: PCP Internal Medicine; Visit Provider Nurse Practitioner | DX: K25.9 Gastric ulcer, unspecified as acute or chronic, without hemorrhage or perforation (principal); K59.04 Chronic idiopathic constipation; K21.9 Gastro-esophageal reflux disease without esophagitis; R13.12 Dysphagia, oropharyngeal phase; K75.81 Nonalcoholic steatohepatitis (NASH) | CPT/HCPCS: 99212 ==

== ENCOUNTER 2024-03-06 09:07 | Outpatient (REF) | payer OTHER, SELFPAY ==
--- NOTE | ~2024-03-06 | US_ITS ---
EXAMINATION: US ABDOMEN COMPLETE CLINICAL INFORMATION: Nonalcoholic steatohepatitis (VELARDE). COMPARISON: X-ray abdomen KUB 08/15/2023 and 03/29/2023. CT abdomen and pelvis 02/16/2023. Renal ultrasound 11/25/2022. Ultrasound abdomen limited 08/10/2020. TECHNIQUE: Real-time imaging of the abdominal viscera. Limited visualization due to bowel gas. FINDINGS: PANCREAS: Limited visualization of pancreatic tail and head. Imaged portion of pancreatic body is unremarkable. ABDOMINAL AORTA: Limited visualization with poor visualization of the distal abdominal aorta. INFERIOR VENA CAVA: Unremarkable. LIVER: Right hepatic lobe measures 13.8 cm in sagittal dimension. Increased hepatic parenchymal heterogeneity and echogenicity could be associated with hepatocellular disease/hepatic steatosis and substantially limits visualization. Correlation with liver function tests and clinical exam recommended to determine further management. GALLBLADDER: No gallstones. No gallbladder wall thickening. COMMON BILE DUCT: Normal in caliber measuring 0.2 cm in diameter. RIGHT KIDNEY: 0.7 cm right renal lower pole cyst with benign features. There is no indication for follow-up imaging. Limited visualization. No hydronephrosis or renal calculi. The kidney measures 12.7 cm in maximum dimension. LEFT KIDNEY: 1.0 cm upper pole cyst with benign features. There is no indication for follow-up imaging. Limited visualization. No hydronephrosis or renal calculi. The kidney measures 11.3 cm in maximum dimension. SPLEEN: Normal. The spleen measures 8.5 cm in maximum dimension. FREE FLUID: None. US/US abdomen complete IMPRESSION: Increased hepatic parenchymal heterogeneity and echogenicity could be associated with hepatocellular disease/hepatic steatosis and substantially limits visualization. Correlation with liver function tests and clinical exam recommended to determine further management.
[2024-03-06 10:37] LABS: Alanine Aminotransferase 23 U/L (0-31); Albumin Level 3.8 g/dL (3.5-5.0); Alkaline Phosphatase 131 U/L (39-117); Anion Gap 10 (12-20); Aspartate Amino Transferase 17 U/L (5-31); Bilirubin Total 0.5 mg/dL (0.0-1.0); Blood Urea Nitrogen 26 mg/dL (9-16); Calcium 9.2 mg/dL (8.4-10.2); Carbon Dioxide 32 mmol/L (22-29); Chloride 103 mmol/L (96-108); Estimated Glomerular Filt Rate 58; Gamma Glutamyl Transpeptidase 23 U/L (7-33); Glucose Random 116 mg/dL (60-115); Potassium 3.6 mmol/L (3.3-5.1); Sodium 141 mmol/L (135-145); Total Protein 7.2 g/dL (6.5-8.0)
[2024-03-08 13:19] LABS: Alpha Fetoprotein 1.9 ng/mL
== END 2024-03-06 09:08 | disposition home or self-care (01) ==
LOC: HO.US 09:07
PROVIDERS: Absent Provider Internal Medicine; PCP Internal Medicine; Visit Provider Nurse Practitioner
DX: K75.81 Nonalcoholic steatohepatitis (NASH) (principal)
CPT/HCPCS: 36415; 76700; 80053; 82105; 82977

== ENCOUNTER 2024-03-13 14:00 | Outpatient (REF) | payer OTHER, SELFPAY ==
[2024-03-13 15:56] LABS: MANUAL DIFF FLAG NO
[2024-03-13 16:26] LABS: Appearance Urine Cloudy; Color Urine Yellow; Glucose Urine UA Negative (Negative); Leukocyte Esterase Urine Negative (Negative); Nitrite Urine Negative (Negative); PH 6.5 (5.0-9.0); Specific Gravity - Urine 1.015 (1.005-1.025); Urine Blood Negative (Negative); Urine Ketones Negative (Negative); Urine Protein Negative (Neg-Trace)
[2024-03-13 16:35] LABS: Basophils Percent Auto 0.4 % (0-2); Eosinophils Absolute Auto 0.1 X10*3/uL (0.0-0.4); Eosinophils Percent Auto 0.7 % (0-4); Hematocrit 40.6 % (37.0-47.0); Hemoglobin 13.4 g/dl (12.0-16.0); Imm Gran Abs Auto 0.04 X10*3/uL (0.00-0.03); Imm Gran Pct Auto 0.4 % (0.0-0.4); Lymphocytes Absolute Auto 1.6 X10*3/uL (1.2-4.9); Lymphocytes Percent Auto 17.3 % (20-40); Mean Corpuscular Hemoglobin 27.7 pg (27.0-33.0); Mean Corpuscular Volume 83.9 fL (80.0-98.0); Monocytes Absolute Auto 0.5 X10*3/uL (0.1-1.2); Monocytes Percent Auto 5.3 % (2-11); Neutrophils Percent Auto 75.9 % (45-73); Platelet Count 340 X10*3/uL (160-400); Red Blood Count 4.84 X10*6/uL (4.20-5.50); White Blood Count 9.2 X10*3/uL (4.8-10.8)
[2024-03-13 16:56] LABS: Bacteria Urine 4+ (None Seen); Hyaline Casts Urine 0-2 /LPF (0-2); RBC Urine 0-2 /HPF (0-2); Squamous Epithelial Cell Urine >20 /HPF (0-2); WBC Urine 0-5 /HPF (0-5)
[2024-03-13 17:30] LABS: Erythrocyte Sedimentation Rate 19 MM/HR (0-20)
[2024-03-13 17:53] LABS: Alanine Aminotransferase 27 U/L (0-31); Albumin Level 4.2 g/dL (3.5-5.0); Alkaline Phosphatase 143 U/L (39-117); Anion Gap 13 (12-20); Aspartate Amino Transferase 22 U/L (5-31); Bilirubin Total 0.7 mg/dL (0.0-1.0); Blood Urea Nitrogen 15 mg/dL (9-16); C Reactive Protein 0.54 mg/dL (< or = 0.50); Calcium 9.2 mg/dL (8.4-10.2); Carbon Dioxide 29 mmol/L (22-29); Chloride 102 mmol/L (96-108); Estimated Glomerular Filt Rate > 60; Glucose Random 107 mg/dL (60-115); Potassium 3.6 mmol/L (3.3-5.1); Sodium 140 mmol/L (135-145); Total Protein 7.8 g/dL (6.5-8.0)
[2024-03-14 21:13] LABS: Anti DNA DS Antibody 3 IU/mL
[2024-03-14 22:18] LABS: Complement C3 174 mg/dL (83-193)
[2024-03-15 14:09] LABS: Anti Nuclear Antibody Screen NEGATIVE (NEGATIVE)
[2024-03-15 21:34] LABS: Prot Elec - Alpha1 0.3 g/dL (0.2-0.3); Prot Elec - Alpha2 0.9 g/dL (0.5-0.9); Prot Elec - Beta 1 0.5 g/dL (0.4-0.6); Prot Elec - Beta 2 0.5 g/dL (0.2-0.5); Prot Elec - Gamma 1.3 g/dL (0.8-1.7); Prot Elec - Total Protein 7.5 g/dL (6.1-8.1)
[2024-03-18 16:14] LABS: Anti-Centromere B Antibodies <1.0 NEG AI (<1.0 NEG)
[2024-03-18 21:18] LABS: IgA 238 mg/dL (70-320); IgG 1403 mg/dL (600-1540); IgM 95 mg/dL (50-300)
== END 2024-03-13 14:01 | disposition home or self-care (01) ==
LOC: HO.LAB 14:00
PROVIDERS: PCP Internal Medicine; Visit Provider Nurse Practitioner Family
DX: M15.9 Polyosteoarthritis, unspecified (principal); M51.36 Other intervertebral disc degeneration, lumbar region; R76.8 Other specified abnormal immunological findings in serum; M54.50 Low back pain, unspecified; M77.8 Other enthesopathies, not elsewhere classified; G89.29 Other chronic pain
CPT/HCPCS: 36415; 80053; 81001; 82784; 84165; 85025; 85652; 86038; 86140; 86160; 86225; 86235; 86334; 99212

== ENCOUNTER 2024-03-13 14:00 | Outpatient (AMB) | payer OTHER, SELFPAY ==
--- NOTE | 2024-03-13 14:50 | A.OFFVIS_ITS ---
Vital Signs 03/13/24 14:50 Weight 187 lb 13.341 oz Intake Visit Reasons: Hand Pain/CM Allergies Penicillins [PENICILLINS] Allergy (Intermediate, Verified 02/22/24 10:26) RASH, SWELLING diphenhydramine Allergy (Verified 02/22/24 10:26) Facial Swelling gabapentin Adverse Reaction (Intermediate, Verified 02/22/24 10:26) leg swelling HPI Comments Details: Ms. Moon 63yoF returns to Rheumatology for follow of her osteoarthritis. The visit is facilitated with the use of the telephone registered nurse surgical services. She had last seen rheumatology here back in 2021 and at that was determined not to hae an autoimmune or inflammatory process. About 3 months ago, she started with hand pain, back pain. The tramadol helps her back and the Celebrex offers very little help. The lower back/hip pain is worse when sitting down because it radiates down to the left thigh;also when walking. She saw pain management and received injections - June 2023; PT in Sep 2023. 03/21/2022: Dr. Wade The patient returns to Rheumatology for evaluation of her positive RUBINA. The visit is facilitated with the use of the telephone registered nurse surgical services. She had last seen rheumatology here back in 2019. At that time there was back pain and knee pain. She was thought to have degenerative arthritis. There were no significant signs to suggest an active autoimmune disease. However the back pain became more problematic in the thoracic region. This was accompanied by weakness and numbness in the legs. 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 This was treated with surgery and radiation. She had great difficulty walking for a number of months and had to be cared for in a bed. However after surgery and RT she said she was sent to rehab and has improved considerably for walking strength and stamina. She has noted a bit more knee pain than usual in the past few months. The knees are occasionally swollen. She gets lower back pain at this point. She did have a recent MRI apparently and plans to see her radiation therapist tomorrow. I was I not able to find much documentation of her surgery for the tumor and the radiation since it was done at [facility]. [facility] Medical History (Updated 03/13/24 @ 15:20 by EMELYN Curry-GRACIELA) Tendinitis of flexor tendon of right hand Smoker Abnormal uterine bleeding (AUB) Postmenopausal bleeding Encounter for annual routine gynecological examination Physical exam Screen for colon cancer Hematuria Pre-op examination History of nicotine use Pure hypercholesterolemia RUBINA positive Low back pain Essential hypertension Urge incontinence Disc degeneration, lumbar Chronic idiopathic constipation Thyroid disease Hx of renal calculi H/O coronary angiogram Rectal bleeding Pruritus ani Esophageal candidiasis History of diverticulitis Nephrolithiasis Hypertension Surgical History History of hysterectomy History of salpingo-oophorectomy History of thoracic surgery History of esophagogastroduodenoscopy (EGD) H/O colonoscopy Hx of lithotripsy H/O cerebral aneurysm repair History of hernia repair H/O left breast biopsy H/O section Family History Father Skin cancer Prostate cancer Mother CHF (congestive heart failure) Hypertension Diabetes Sister Thyroid cancer Family/Other Mental health disorder Unknown Uterus cancer Family/Other No problems noted. Social History Household Members: Spouse Housing: Apartment Alcohol intake: current Alcohol intake frequency: does not drink Alcohol type: wine Patient Tobacco Use Status: Former Tobacco user Tobacco use type: Cigarette e-Cigarette/Vaping Use: Never Used Second Hand Smoke Exposure: No service: No Current occupational status: unemployed Sexual orientation: Straight/Heterosexual Gender identity: Female Cognitive needs: No Hearing needs: No Vision needs: Yes Female Reproductive History Menstrual Age of Menarche: 14 Review of Systems Const All systems reviewed & are unremarkable except as noted in HPI and below Physical Exam APPEARANCE: Patient in no acute distress EYES no redness, eyelids normal. No temporal artery tenderness, redness or swelling. EARS: External ear normal, canal clear and tympanic membrane normal. NOSE/SINUS: Airflow through both nares, no nasal discharge, no bleeding THROAT: Oral mucosa moist, no ulcerations NECK: No thyromegaly or masses, no adenopathy, trachea midline. HEART: Regulrar rhythm, S1-S2 heard, no murmurs, rubs or gallops. LUNG: Clear to percussion and auscultation ABD: Normal bowel sounds, no organomegaly, masses or tenderness. EXTREMITIES: No edema, no calf tenderness, normal peripheral pulses. NEURO: Oriented and alert x3. No focal weakness. Reflexes symmetric. There is slight decrease in sensation over the soles of the feet. She is somewhat unsteady with walking with a wide-based gait.. SKIN: No inflammatory or neoplastic lesions. Normal color and turgor JOINT EXAM:?? Cervical Spine:.? Full range of motion without pain; no tenderness. Thoracic Spine:.? No scoliosis.? No tenderness on palpation. Lumbar Spine:.? Alignment normal.? Mild pain with extremes of motion. no tenderness. Chest Wall:.? No tenderness, swelling, increased warmth or erythema. Hands:.? Normal pain-free range of motion with tenderness to right 2nd flexor tendon, but no swelling, increased warmth or erythema. Able to make a full fist and has a good account advisor strength. Wrists:.? Normal pain-free range of motion without tenderness, swelling, increased warmth or erythema. Elbows:. Normal pain-free range of motion without tenderness, swelling, increased warmth or erythema. Shoulders:.?? Full range of motion without pain. No tenderness, weakness, swelling, increased warmth or erythema. Hips:.? Full range of motion with some pain to left buttocks and left lower back on palpation Hip bursa:.? mild tenderness. Knees:.?? Normal pain-free range of motion with mild patellofemoral crepitus. Bilaterally there is mild medial compartment tenderness but no effusion, soft tissue swelling, increased warmth or erythema.? Ankles:.? Normal pain-free range of motion without tenderness, swelling, increased warmth or erythema. Feet:.? Normal pain-free range of motion with mild 1st MTP bony enlargement bilaterally but no tenderness, soft tissue swelling, increased warmth or erythema. Tender points:.? No tenderness to digital palpation at the occiput, trapezius, second rib, lateral epicondyle, knees, greater trochanter and gluteal area bilaterally. ? Office Procedures Tendon Injection Tendon Injection Details: right 3rd flexor tendon [id number] Tendon Sheath Injection All charges added?: Procedure code (CPT) selection complete Assessment & Plan Assessment & Plan (1) Disc degeneration, lumbar: Code(s): M51.36 - Other intervertebral disc degeneration, lumbar region Category: Medical (2) RUBINA positive: Comment: 2020: 1:40; Anti MEERA negative, ds DNA indeterminate, SS-A neg, SS-B pos Code(s): R76.8 - Other specified abnormal immunological findings in serum Category: Medical (3) Generalized osteoarthritis of multiple sites: Code(s): M15.9 - Polyosteoarthritis, unspecified (4) Tendinitis of flexor tendon of right hand: Code(s): M77.8 - Other enthesopathies, not elsewhere classified Category: Medical Plan #Flexor Tendon Tendinitis/Trigger Finger: She does not have generalized hand pain However, the 2nd flexor tendon is tender with trigger . Gave Kenalog injection today. Gave her aftercare instructions. #Lumbar DD/OA/Left Sciatica pain: The patient's current set of symptoms are most consistent with osteoarthritis involving the lumbar spine. I do not think it is likely to be an inflammatory disease. I encouraged the patient to continue the PT exercises at home. She can also use the topical like the Voltaren gel and Aspercreme to help with the sciatica mainly felt on the left. She should also continue with pain management. #+RUBINA: She does not present as having an active rheumatic disease, but we will update the labs given her RUBINA was flagged as positive with no tither value, uindeterminate dsDNA and +SSB back in 2019. I spent 35 minutes reviewing history, evaluating patient and documenting. Follow-up in 6 weeks Orders: Orders Erythrocyte Sedimentation Rate 03/13/24 G89.29 - Other chronic pain, M15.9 - Polyosteoarthritis, unspecified, M54.50 - Low back pain, unspecified, R76.8 - Other specified abnormal immunological findings in serum RUBINA Reflex Titer and Pattern 03/13/24 G89.29 - Other chronic pain, M15.9 - Polyosteoarthritis, unspecified, M54.50 - Low back pain, unspecified, R76.8 - Other specified abnormal immunological findings in serum Anti DNA DS Antibody 03/13/24 G89.29 - Other chronic pain, M15.9 - Polyosteoarthritis, unspecified, M54.50 - Low back pain, unspecified, R76.8 - Other specified abnormal immunological findings in serum Complement C3 03/13/24 G89.29 - Other chronic pain, M15.9 - Polyosteoarthritis, unspecified, M54.50 - Low back pain, unspecified, R76.8 - Other specified abnormal immunological findings in serum Complement C4 03/13/24 G89.29 - Other chronic pain, M15.9 - Polyosteoarthritis, unspecified, M54.50 - Low back pain, unspecified, R76.8 - Other specified abnormal immunological findings in serum Immunofixation Pnl, Serum 03/13/24 G89.29 - Other chronic pain, M15.9 - Polyosteoarthritis, unspecified, M54.50 - Low back pain, unspecified, R76.8 - Other specified abnormal immunological findings in serum AMB Injection-Tendon 03/13/24 M77.8 - Other enthesopathies, not elsewhere classified Anti-Centromere B Antibodies 03/13/24 G89.29 - Other chronic pain, M15.9 - Polyosteoarthritis, unspecified, M54.50 - Low back pain, unspecified, R76.8 - Other specified abnormal immunological findings in serum Complete Blood Count Auto Diff 03/13/24 G89.29 - Other chronic pain, M15.9 - Polyosteoarthritis, unspecified, M54.50 - Low back pain, unspecified, R76.8 - Other specified abnormal immunological findings in serum Comprehensive Met. Panel 03/13/24 G89.29 - Other chronic pain, M15.9 - Gab yosteoarthritis, unspecified, M54.50 - Low back pain, unspecified, R76.8 - Other specified abnormal immunological findings in serum C Reactive Protein 03/13/24 G89.29 - Other chronic pain, M15.9 - Polyosteoarthritis, unspecified, M54.50 - Low back pain, unspecified, R76.8 - Other specified abnormal immunological findings in serum Immunoglobulins,IgG IgA IgM 03/13/24 G89.29 - Other chronic pain, M15.9 - Polyosteoarthritis, unspecified, M54.50 - Low back pain, unspecified, R76.8 - Other specified abnormal immunological findings in serum Protein Electrophoresis, Serum 03/13/24 G89.29 - Other chronic pain, M15.9 - Polyosteoarthritis, unspecified, M54.50 - Low back pain, unspecified, R76.8 - Other specified abnormal immunological findings in serum UA w Microscopic 03/13/24 G89.29 - Other chronic pain, M15.9 - Polyosteoarthritis, unspecified, M54.50 - Low back pain, unspecified, R76.8 - Other specified abnormal immunological findings in serum Coding Level of Care Code Est Pt Level 4 (49854) Complex EM visit Add On G2211 Diagnoses Disc degeneration, lumbar M51.36 RUBINA positive R76.8 Generalized osteoarthritis of multiple sites M15.9 Tendinitis of flexor tendon of right hand M77.8 CPT Codes Tendon Injection - Tendon Injection 1: [id number] Tendon Sheath Injection ([id number])
== END 2024-03-13 15:24 | disposition home or self-care (01) ==
PROVIDERS: PCP Internal Medicine; Visit Provider Nurse Practitioner Family
DX: M65.331 Trigger finger, right middle finger (principal); R76.8 Other specified abnormal immunological findings in serum; M77.8 Other enthesopathies, not elsewhere classified; M51.36 Other intervertebral disc degeneration, lumbar region; M15.9 Polyosteoarthritis, unspecified
CPT/HCPCS: 20550; 99214

== ENCOUNTER 2024-04-30 15:34 | Outpatient (AMB) | payer OTHER, SELFPAY ==
--- NOTE | 2024-04-30 15:44 | MHC.OFFVIS ---
Vital Signs 04/30/24 15:47 Height 4 ft 11 in Weight 187 lb 13.341 oz BMI 37.9 BP 124/72 Blood Pressure Location Rt brachial Position Sitting Pulse 60 Pulse Source Pulse Oximeter Pulse Oximetry (%) 99 Oxygen Delivery Method Room Air Intake Visit Reasons: OA/Tenosynovitis and +SSB/cm Intake Note: Patient presents for OA/Tenosynovitis and +SSB. Commercial Subcontractor Required: Yes Commercial Subcontractor Services: Commercial Subcontractor Present Commercial Subcontractor Name: Parminder [email or web address] Information Interpreted: non-clinical & clinical Allergies Penicillins [PENICILLINS] Allergy (Intermediate, Verified 02/22/24 10:26) RASH, SWELLING diphenhydramine Allergy (Verified 02/22/24 10:26) Facial Swelling gabapentin Adverse Reaction (Intermediate, Verified 02/22/24 10:26) leg swelling Medication List - Last Reconciled 04/30/24 by Fidencio Hurley MD aspirin (Adult Low Dose Aspirin) 81 mg PO DAILY 90 days atorvastatin 20 mg PO BEDTIME 90 days celecoxib (Celebrex) 100 mg PO BID cholecalciferol (vitamin D3) 25 mcg PO DAILY 90 days diclofenac sodium 3% 1 appl topical BID hydrochlorothiazide 25 mg PO DAILY 90 days levothyroxine 50 mcg PO DAILY 90 days lidocaine 5% 1 patch topical ONCE 30 days lisinopril 40 mg PO DAILY 90 days omeprazole 40 mg PO DAILY 90 days pregabalin (Lyrica) 75 mg PO DAILY 30 days pyridoxine (vitamin B6) 100 mg PO DAILY [rubber bathmat As directed] sennosides (senna) 17.2 mg (2 x 8.6 mg) PO BEDTIME sucralfate (Carafate) 10 mL PO BID tramadol 50 mg PO DAILY 30 days vitamin B complex (B Complex-Vitamin B12 tablet) 1 tab PO DAILY 90 days HPI Comments Details: This is a 64-year-old female who presents for follow-up. Patient was evaluated by Rheumatology back in 2019 for a positive RUBINA, subsequent serologies showed a positive SSB in high titers. Patient however did not fulfill any criteria for an underlying autoimmune rheumatic disease, she was monitored periodically. She presented last visit with right 3rd finger triggering, she had an injection by Mireya Hope. She states that the injection was very helpful. Denies any further triggering. She states that she has intermittent dry mouth but does not take anything for it. She has dry eyes and uses artificial tears twice a day. She denies being on any other eyedrops such as Restasis for her dry eyes [facility] Medical History Tendinitis of flexor tendon of right hand Smoker Abnormal uterine bleeding (AUB) Postmenopausal bleeding Encounter for annual routine gynecological examination Physical exam Screen for colon cancer Hematuria Pre-op examination History of nicotine use Pure hypercholesterolemia RUBINA positive Low back pain Essential hypertension Urge incontinence Disc degeneration, lumbar Chronic idiopathic constipation Thyroid disease Hx of renal calculi H/O coronary angiogram Rectal bleeding Pruritus ani Esophageal candidiasis History of diverticulitis Nephrolithiasis Hypertension Surgical History History of hysterectomy History of salpingo-oophorectomy History of thoracic surgery History of esophagogastroduodenoscopy (EGD) H/O colonoscopy Hx of lithotripsy H/O cerebral aneurysm repair History of hernia repair H/O left breast biopsy H/O section Family History Father Skin cancer Prostate cancer Mother CHF (congestive heart failure) Hypertension Diabetes Sister Thyroid cancer Family/Other Mental health disorder Unknown Uterus cancer Family/Other No problems noted. Social History Household Members: Spouse Housing: Apartment Alcohol intake: current Alcohol intake frequency: does not drink Alcohol type: wine Patient Tobacco Use Status: Former Tobacco user Tobacco use type: Cigarette e-Cigarette/Vaping Use: Never Used Second Hand Smoke Exposure: No service: No Current occupational status: unemployed Sexual orientation: Straight/Heterosexual Gender identity: Female Cognitive needs: No Hearing needs: No Vision needs: Yes Female Reproductive History Menstrual Age of Menarche: 14 Review of Systems Const Reports weakness Eyes Reports dry eyes ENT Reports dry mouth Musc Reports myalgias Neuro Reports weakness Physical Exam Vital Signs: Last Vital Signs Pulse 60 04/30/24 15:47 BP 124/72 04/30/24 15:47 Pulse Ox 99 04/30/24 15:47 Oxygen Delivery Method Room Air 04/30/24 15:47 BMI result Body Mass Index 37.9 Const General: cooperative, healthy appearing and comfortable Nutritional Appearance: obese morbidly obese Orientation/consciousness: patient oriented x3 Limitations: no limitations HEENT Head: Yes normocephalic and Yes atraumatic Mouth: moist mucous membranes Resp Effort & Inspection: normal respiratory effort and able to speak in complete sentences Auscultation: clear to auscultation bilaterally Skin General skin exam: no rashes or lesions noted Neuro General: patient oriented x3 Extrem Other: Minimal synovial thickening of the left 2nd MCP, slightly tender No active synovitis otherwise Assessment & Plan Assessment & Plan (1) RUBINA positive: Comment: 2019: 1:40; Anti MEERA negative, ds DNA indeterminate, SS-A neg, +++SSb Code(s): R76.8 - Other specified abnormal immunological findings in serum Category: Medical Plan: This is a 64-year-old female who presents for follow-up. This is her 1st visit with me. Patient was evaluated by Rheumatology back in 2019 for a positive RUBINA, subsequent serologies showed a positive SSB in high titers. Patient however did not fulfill any criteria for an underlying autoimmune rheumatic disease, she was monitored periodically. Upon evaluation today I do not see any evidence of an autoimmune rheumatic disease. Inflammatory markers are normal with normal dsDNA. Re-evaluate in 1 year (2) Generalized osteoarthritis of multiple sites: Code(s): M15.9 - Polyosteoarthritis, unspecified (3) Tendinitis of flexor tendon of right hand: Code(s): M77.8 - Other enthesopathies, not elsewhere classified Category: Medical Plan: Right 3rd finger, injected by Mireya 11/2023 with resolution. Advised patient to return to clinic if it recurs Plan I spent 17 minutes reviewing patient's chart, evaluating patient, counseling patient and documenting in the chart Coding Level of Care Code Est Pt Level 3 (42913) Diagnoses RUBINA positive R76.8 Generalized osteoarthritis of multiple sites M15.9 Tendinitis of flexor tendon of right hand M77.8
[2024-04-30 15:47] VITALS: BP 124/72; PULSE 60; O2SAT 99; BMI 37.9
== END 2024-04-30 16:11 | disposition home or self-care (01) ==
PROVIDERS: PCP Internal Medicine; Visit Provider Student in an Organized Health Care Education/Training Program
DX: R76.8 Other specified abnormal immunological findings in serum (principal); M15.9 Polyosteoarthritis, unspecified; M77.8 Other enthesopathies, not elsewhere classified
CPT/HCPCS: 99213

== ENCOUNTER → 2024-04-30 15:34 | Outpatient (BNVA) | payer OTHER, SELFPAY | PROVIDERS: PCP Internal Medicine; Visit Provider Student in an Organized Health Care Education/Training Program | DX: M15.9 Polyosteoarthritis, unspecified (principal); M77.8 Other enthesopathies, not elsewhere classified; R76.8 Other specified abnormal immunological findings in serum | CPT/HCPCS: 99212 ==

== ENCOUNTER 2024-05-13 13:19 | Outpatient (AMB) | payer OTHER, SELFPAY ==
--- NOTE | 2024-05-13 13:23 | MHC.PC.OV ---
Vital Signs 05/13/24 13:24 Height 4 ft 11 in Weight 187 lb BMI 37.8 BP 130/72 Blood Pressure Location Lt brachial Position Sitting Intake Visit Reasons: lipids Intake Note: Patient here for a follow up lipids Monitor Car Operator Required: No Accompanied by: Self / Same As Patient Allergies Penicillins [PENICILLINS] Allergy (Intermediate, Verified 05/13/24 13:41) RASH, SWELLING diphenhydramine Allergy (Verified 05/13/24 13:41) Facial Swelling gabapentin Adverse Reaction (Intermediate, Verified 05/13/24 13:41) leg swelling Medication List - Last Reconciled 05/13/24 by Rody Duenas MD aspirin (Adult Low Dose Aspirin) 81 mg PO DAILY 90 days atorvastatin 20 mg PO BEDTIME 90 days celecoxib (Celebrex) 100 mg PO BID cholecalciferol (vitamin D3) 25 mcg PO DAILY 90 days diclofenac sodium 3% 1 appl topical BID hydrochlorothiazide 25 mg PO DAILY 90 days levothyroxine 50 mcg PO DAILY 90 days lidocaine 5% 1 patch topical ONCE 30 days lisinopril 40 mg PO DAILY 90 days omeprazole 40 mg PO DAILY 90 days pregabalin (Lyrica) 75 mg PO DAILY 30 days pyridoxine (vitamin B6) 100 mg PO DAILY [rubber bathmat As directed] sennosides (senna) 17.2 mg (2 x 8.6 mg) PO BEDTIME sucralfate (Carafate) 10 mL PO BID tramadol 50 mg PO DAILY 30 days vitamin B complex (B Complex-Vitamin B12 tablet) 1 tab PO DAILY 90 days Tobacco use date assessed: 11/13/23 Dental Screening Dental Screen Date: 11/13/23 HPI HPI Comments History of Present Illness Details This is a 64-year-old female with hypertension, pure hypercholesterolemia, chronic idiopathic constipation and GERD that comes today for follow-up on her conditions. Blood pressure stable. On statins for cholesterol and reports no side effects. Constipation stable with Colace as needed. GERD stable with PPIs. Has hypothyroidism and TSH will be done today. No chest pain or shortness on breath. Complains of low back pain that has been well controlled with Lyrica and tramadol. [facility] Medical History (Updated 05/13/24 @ 13:52 by Rody Dueans MD) Tendinitis of flexor tendon of right hand Smoker Abnormal uterine bleeding (AUB) Postmenopausal bleeding Encounter for annual routine gynecological examination Physical exam Screen for colon cancer Hematuria Pre-op examination History of nicotine use Pure hypercholesterolemia RODY positive Low back pain Essential hypertension Urge incontinence Disc degeneration, lumbar Chronic idiopathic constipation Thyroid disease Hx of renal calculi H/O coronary angiogram Rectal bleeding Pruritus ani Esophageal candidiasis History of diverticulitis Nephrolithiasis Hypertension Surgical History History of hysterectomy History of salpingo-oophorectomy History of thoracic surgery History of esophagogastroduodenoscopy (EGD) H/O colonoscopy Hx of lithotripsy H/O cerebral aneurysm repair History of hernia repair H/O left breast biopsy H/O section Family History Father Skin cancer Prostate cancer Mother CHF (congestive heart failure) Hypertension Diabetes Sister Thyroid cancer Family/Other Mental health disorder Unknown Uterus cancer Family/Other No problems noted. Social History Household Members: Spouse Housing: Apartment Alcohol intake: current Alcohol intake frequency: does not drink Alcohol type: wine Patient Tobacco Use Status: Former Tobacco user Tobacco use type: Cigarette e-Cigarette/Vaping Use: Never Used Second Hand Smoke Exposure: No service: No Current occupational status: unemployed Sexual orientation: Straight/Heterosexual Gender identity: Female Cognitive needs: No Hearing needs: No Vision needs: Yes Female Reproductive History Menstrual Age of Menarche: 14 Questionnaire Thrive Questionnaire Date Thrive assessed: 11/13/23 MERT-7 AMB Questionnaire MERT-7 Date MERT - 7 assessed: 11/13/23 Source: Developed by Drs. Musa Castillo, Alexia Szymanski, Keyur Rosa and colleagues, with an educational devyn from [employer]. Review of Systems Const All systems reviewed & are unremarkable except as noted in HPI and below Card Denies chest pain at rest, Denies chest pain with activity, Denies edema, Denies irregular heart rhythm, Denies claudication, Denies dyspnea, Denies dyspnea on exertion, Denies orthopnea, Denies paroxysmal nocturnal dyspnea and Denies slow heart rate Resp Denies cough, Denies dyspnea and Denies dyspnea on exertion GI Denies abdominal pain, Denies change in bowel habits, Denies excessive flatus, Denies nausea and Denies vomiting Denies urinary incontinence, Denies urinary hesitancy and Denies urinary urgency Musc Denies abnormal gait, Denies atrophy, Denies deformity and Denies limited range of motion Skin/Breast Denies bleeding lesions, Denies changing lesions and Denies rash Neuro Denies abnormal gait and Denies lack of coordination Physical exam (Primary Care) Vital Signs: Last Vital Signs BP 130/72 05/13/24 13:24 BMI result Body Mass Index 37.8 BMI Assessment/Plan discussion: High BMI High, discussed plan: lifestyle, weight reduction, dietary and physical activity Tobacco/Smoking Status: Tobacco use Status Tobacco use date assessed 11/13/23 05/13/24 13:30 Patient Tobacco Use Status Former Tobacco user 05/13/24 13:30 Tobacco use type Cigarette 05/13/24 13:30 e-Cigarette/Vaping Use Never Used 05/13/24 13:30 Thrive Assessment: Date of Thrive Assessment Date Thrive assessed 11/13/23 05/13/24 13:30 Resp Effort & Inspection: normal respiratory effort Auscultation: clear to auscultation bilaterally Cardio Jugular venous distension: no JVD Rate: regular rate Rhythm: regular rhythm Heart sounds: S1 normal heart sound present and S2 normal heart sound present Extrem General: Yes full ROM Assessment and Plan Assessment & Plan (1) Essential hypertension: Code(s): I10 - Essential (primary) hypertension Plan: Continue lisinopril. Blood pressure goal is equal or less than 130/80. (2) Chronic idiopathic constipation: Code(s): K59.04 - Chronic idiopathic constipation Plan: Continue docusate as needed for constipation. Advised to follow a high-fiber diet. (3) GERD (gastroesophageal reflux disease): Code(s): K21.9 - Gastro-esophageal reflux disease without esophagitis Qualifiers: Esophagitis presence: esophagitis presence not specified Qualified Code(s): K21.9 - Gastro-esophageal reflux disease without esophagitis Plan: Continue PPIs. (4) Hypothyroid: Code(s): E03.9 - Hypothyroidism, unspecified Qualifiers: Hypothyroidism type: unspecified Qualified Code(s): E03.9 - Hypothyroidism, unspecified Plan: Continue levothyroxine. Monitor TSH. (5) Pure hypercholesterolemia: Code(s): E78.00 - Pure hypercholesterolemia, unspecified Plan: Continue statins. Orders: Orders Thyroid Stimulating Hormone Today E03.9 - Hypothyroidism, unspecified Coding Level of Care Code Est Pt Level 4 (53428) Complex EM visit Add On G2211 Diagnoses Essential hypertension I10 Chronic idiopathic constipation K59.04 Gastroesophageal reflux disease, unspecified whether esophagitis present K21.9 Esophagitis presence: esophagitis presence not specified Hypothyroidism, unspecified type E03.9 Hypothyroidism type: unspecified Pure hypercholesterolemia E78.00 Time Spent (min) 22
[2024-05-13 13:24] VITALS: BP 130/72; BMI 37.8
== END 2024-05-13 13:49 | disposition home or self-care (01) ==
PROVIDERS: PCP Internal Medicine; Visit Provider Internal Medicine
DX: I10 Essential (primary) hypertension (principal); K59.04 Chronic idiopathic constipation; K21.9 Gastro-esophageal reflux disease without esophagitis; E03.9 Hypothyroidism, unspecified; E78.00 Pure hypercholesterolemia, unspecified
CPT/HCPCS: 99214; G2211

== ENCOUNTER 2024-05-13 13:57 | Outpatient (REF) | payer OTHER, SELFPAY ==
[2024-05-13 15:22] LABS: Alanine Aminotransferase 23 U/L (0-31); Albumin Level 3.9 g/dL (3.5-5.0); Alkaline Phosphatase 130 U/L (39-117); Anion Gap 13 (12-20); Aspartate Amino Transferase 20 U/L (5-31); Bilirubin Total 0.6 mg/dL (0.0-1.0); Blood Urea Nitrogen 15 mg/dL (9-16); Calcium 9.6 mg/dL (8.4-10.2); Carbon Dioxide 30 mmol/L (22-29); Chloride 104 mmol/L (96-108); Cholesterol 131 mg/dL (<200); Estimated Glomerular Filt Rate > 60; Glucose Fasting 121 mg/dL (60-99); HDL Cholesterol 46 mg/dL (>40); LDL Cholesterol Calculated 66 mg/dL (<100); Potassium 3.6 mmol/L (3.3-5.1); Sodium 143 mmol/L (135-145); Total Protein 7.2 g/dL (6.5-8.0); Triglycerides 99 mg/dL (<150)
[2024-05-13 15:38] LABS: Vitamin D 25-OH Total 36.3 ng/mL (>30)
== END 2024-05-13 13:58 | disposition home or self-care (01) ==
LOC: HO.LAB 13:57
PROVIDERS: PCP Internal Medicine; Visit Provider Internal Medicine
DX: E55.9 Vitamin D deficiency, unspecified (principal); E78.5 Hyperlipidemia, unspecified; E03.9 Hypothyroidism, unspecified; N20.0 Calculus of kidney
CPT/HCPCS: 36415; 80053; 80061; 82306; 84443

== ENCOUNTER 2024-06-25 13:24 | Outpatient (AMB) | payer OTHER, SELFPAY ==
--- NOTE | 2024-06-25 13:32 | A.OFFVIS_ITS ---
Vital Signs 06/25/24 13:35 Height 4 ft 11 in Weight 180 lb BMI 36.4 BP 120/80 Intake Visit Reasons: LICENSED PHYSICAL THERAPIST ASSISTANT annual exam/30 mins Dementia Program Director Required: Yes Dementia Program Director Language: Elementary Math Tutor Name: Honey [id number] Information Interpreted: non-clinical & clinical Automation And Control Engineer: Automation And Control Engineer Present (Carlyn) Allergies Penicillins [PENICILLINS] Allergy (Intermediate, Verified 06/25/24 13:35) RASH, SWELLING diphenhydramine Allergy (Verified 06/25/24 13:35) Facial Swelling gabapentin Adverse Reaction (Intermediate, Verified 06/25/24 13:35) leg swelling HPI Comments Details: She is a postmenopausal woman presenting for her annual recorder gravity prospecting examination. She is doing well with concerns: External irritation itching over the last few days, denies any odor, discharge, pelvic pain or urinary symptoms. Attempting to eat a healthy diet with calcium and vitamin D and stays active with exercise. Currently not sexually active. Last pap smear; 2019. Last mammogram; 2023. Colonoscopy is UTD. Denies any family history of breast, ovarian or colon cancer. [facility] Medical History (Updated 06/25/24 @ 14:01 by Celia Sandoval CNM) Tendinitis of flexor tendon of right hand Smoker Encounter for annual routine gynecological examination Physical exam Screen for colon cancer Hematuria Pre-op examination History of nicotine use Pure hypercholesterolemia RUBINA positive Low back pain Essential hypertension Urge incontinence Disc degeneration, lumbar Chronic idiopathic constipation Thyroid disease Hx of renal calculi H/O coronary angiogram Rectal bleeding Pruritus ani Esophageal candidiasis History of diverticulitis Nephrolithiasis Hypertension Surgical History History of hysterectomy History of salpingo-oophorectomy History of thoracic surgery History of esophagogastroduodenoscopy (EGD) H/O colonoscopy Hx of lithotripsy H/O cerebral aneurysm repair History of hernia repair H/O left breast biopsy H/O section Family History Father Skin cancer Prostate cancer Mother CHF (congestive heart failure) Hypertension Diabetes Sister Thyroid cancer Family/Other Mental health disorder Unknown Uterus cancer Family/Other No problems noted. Social History Household Members: Spouse Housing: Apartment Alcohol intake: current Alcohol intake frequency: does not drink Alcohol type: wine Patient Tobacco Use Status: Former Tobacco user Tobacco use type: Cigarette e-Cigarette/Vaping Use: Never Used Second Hand Smoke Exposure: No service: No Current occupational status: unemployed Sexual orientation: Straight/Heterosexual Gender identity: Female Cognitive needs: No Hearing needs: No Vision needs: Yes Female Reproductive History Menstrual Age of Menarche: 14 Total pregnancies: 3 Full term: 2 Number of Living Children: 2 Ab spontaneous: 1 Date of last pap smear: 09/23/20 (neg pap and hpv) Date of Mammogram: 11/27/23 (Birad 2) Review of Systems Const All systems reviewed & are unremarkable except as noted in HPI and below Reports as per HPI Eyes Reports no additional complaints ENT Reports no additional complaints Card Reports no additional complaints Resp Reports no additional complaints GI Reports as per HPI and Reports no additional complaints Reports as per HPI Musc Reports no additional complaints Skin/Breast Reports as per HPI Neuro Reports no additional complaints Psych Reports no additional complaints Endo Reports no additional complaints Solitario/Lymph Reports no additional complaints Aller/Immun Reports no additional complaints Physical Exam Vital Signs: Last Vital Signs BP 120/80 06/25/24 13:35 BMI result Body Mass Index 36.4 Const General: cooperative, healthy appearing, no acute distress, well developed and alert Orientation/consciousness: patient oriented x3 HEENT Head: Yes normal to inspection Eyes General: appearance normal, both eyes and all related structures Neck Neck: Yes normal visual inspection Thyroid: Thyroid normal Chest Chest palpation & inspection: normal inspection of the chest and other (no puckering, dimpling, peau de orange, retraction, discharge, masses) Breast/axilla inspection: normal inspection of the breasts Breast/axilla palpation: normal palpation of the breasts Resp Effort & Inspection: normal respiratory effort GI Inspection: Yes normal to inspection Palpation (GI): Soft to palpation Rectal Exam - Female: deferred Other: External: Slight erythema in the labia minora region General: Yes bladder normal to palpation External Female Exam: normal external appearance and normal appearance of the urethra Speculum Exam - Vagina: normal appearance of the vagina, normal palpation, normal vaginal discharge and vagina atrophic Speculum Exam - Cervix: normal appearance of the cervix and normal palpation Bimanual exam- vagina & uterus: normal bimanual exam, normal palpation, bladder normal to palpation, normal palpation and uterus absent Bimanual Exam- Adnexa, other: no masses Skin General skin exam: no rashes or lesions noted Rashes: no rashes Neuro General: patient oriented x3 Cognition (Neuro): normal cognition Extrem General: Yes normal to inspection Psych Attitude: cooperative Thought process: Normal thought process present Assessment & Plan Assessment & Plan (1) Encounter for well woman exam with routine gynecological exam: Code(s): Z01.419 - Encounter for gynecological examination (general) (routine) without abnormal findings Category: Medical (2) Vulvar itching: Code(s): L29.2 - Pruritus vulvae Plan Discussed: Current recommendations for pap smears per ASCCP guidelines. Breast awareness, periodic self breast exams and yearly mammogram. Maintain a healthy lifestyle, well balanced diet including Calcium 1,200 mg and Vitamin D 600 IU daily, and routine exercise. Instructions: Clean with warm water, no soaps, scented products. Use a cool cloth to the area several times a day if swollen and/or uncomfortable. Wear loose, cotton underclothes, avoid tight outer clothing. Air when possible. Complete all medications as prescribed. Await final pending results for any changes in the plan of care. Call the office if there is no improvement in 24-48hrs., or if worsening symptoms. Contact the office with any postmenopausal bleeding. Patient verbalizes understanding and agrees to the plan of care. She was given opportunity to ask questions and all questions were answered to the best of my ability. RTO in 1 year for annual recorder gravity prospecting exam. This note is constructed using voice recognition software. While every effort has been made to ensure accuracy, greenhouse florist errors may have been included. Orders: Orders Bacterial Vaginosis Panel Today N89.8 - Other specified noninflammatory disorders of vagina Medications: New clotrimazole-betamethasone 1-0.05 % apply externally a thin coat to the area 1 appl topical BID 7 days 45 grams 0RF itching Coding Level of Care Code Est Pt Prev Care 40-64y(33643) Diagnoses Encounter for well woman exam with routine gynecological exam Z01.419 Vulvar itching L29.2
[2024-06-25 13:35] VITALS: BP 120/80; BMI 36.4
== END 2024-06-25 14:05 | disposition home or self-care (01) ==
LOC: HO.HWS 13:24
PROVIDERS: PCP Internal Medicine; Visit Provider Advanced Practice Midwife
DX: Z01.419 Encounter for gynecological examination (general) (routine) without abnormal findings (principal); L29.2 Pruritus vulvae
CPT/HCPCS: 99396

== ENCOUNTER 2024-06-25 13:24 | Outpatient (REF) | payer OTHER, SELFPAY ==
[2024-06-26 09:34] LABS: Bacterial Vaginosis PCR NEGATIVE (Negative); Candida Group PCR NOT DETECTED (Not Detect); Candida glab krusei PCR DETECTED (Not Detect); Trichomonas vaginalis PCR NOT DETECTED (Not Detect)
== END 2024-06-25 13:25 | disposition home or self-care (01) ==
LOC: HO.LAB 13:24
PROVIDERS: PCP Internal Medicine; Visit Provider Advanced Practice Midwife
DX: Z01.419 Encounter for gynecological examination (general) (routine) without abnormal findings (principal); N89.8 Other specified noninflammatory disorders of vagina; L29.2 Pruritus vulvae
CPT/HCPCS: 0352U; 99396

== ENCOUNTER 2024-07-17 15:20 | Outpatient (AMB) | payer OTHER, SELFPAY ==
--- NOTE | 2024-07-17 15:21 | MHC.OFFVIS ---
Vital Signs 07/17/24 15:32 Height 4 ft 11 in Weight 189 lb 4 oz BMI 38.2 BP 142/66 H Blood Pressure Location Lt brachial Position Sitting Respiration 16 Pulse 60 Pulse Source Pulse Oximeter Pulse Oximetry (%) 98 Oxygen Delivery Method Room Air Intake Visit Reasons: Medication review Intake Note: Patient comes in for medication review. Reports pain 8/10. Software Engineering Associate Manager Required: Yes Software Engineering Associate Manager Services: Software Engineering Associate Manager Present Software Engineering Associate Manager Name: Sherlyncassie Portillo Allergies Penicillins [PENICILLINS] Allergy (Intermediate, Verified 07/17/24 15:35) RASH, SWELLING diphenhydramine Allergy (Verified 07/17/24 15:35) Facial Swelling gabapentin Adverse Reaction (Intermediate, Verified 07/17/24 15:35) leg swelling HPI Comments Details: Evelia is a very pleasant Kyrgyz-speaking only 63-year-old female who presents the office today for evaluation management of her right lower back pain. Visit is completed with Kyrgyz interpretation with Sherlyn Portillo our office machines teacher who is certified it professional. Patient reports that she has been suffering with right lower back pain for approximately 3 years. 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 Pain is worse with sitting and with lying on her right side. Patient denies radiation of the pain down either leg. She denies numbness, tingling or weakness of the lower extremities. Patient denies red flag symptoms including loss of bowel, bladder or saddle anesthesia. Patient has undergone diagnostic sacroiliac joint injection in May of 2022 that did not provider her relief. Patient is currently undergoing treatment at [facility] were she had right L3 through L5 facet medial branch radiofrequency ablation on 07/11/2023 which did not provide any relief. They have scheduled her for right sacroiliac joint diagnostic injection but patient states that she has not been called with the date of the injection yet. Patient of tried nonsteroidal anti-inflammatory medications, she had stop taking these due to gastric ulcer. She is also on Lyrica and tramadol which helped her pain minimally to moderately. She was referred in the past to perform right-sided therapeutic sacroiliac joint injection. However she went for physical therapy instead. Unfortunately physical therapy did not help. We will schedule her for therapeutic sacroiliac joint injection to be performed in our facility.. [facility] Medical History (Updated 06/25/24 @ 14:01 by Celia Sandoval CNM) Tendinitis of flexor tendon of right hand Smoker Encounter for annual routine gynecological examination Physical exam Screen for colon cancer Hematuria Pre-op examination History of nicotine use Pure hypercholesterolemia RUBINA positive Low back pain Essential hypertension Urge incontinence Disc degeneration, lumbar Chronic idiopathic constipation Thyroid disease Hx of renal calculi H/O coronary angiogram Rectal bleeding Pruritus ani Esophageal candidiasis History of diverticulitis Nephrolithiasis Hypertension Surgical History History of hysterectomy History of salpingo-oophorectomy History of thoracic surgery History of esophagogastroduodenoscopy (EGD) H/O colonoscopy Hx of lithotripsy H/O cerebral aneurysm repair History of hernia repair H/O left breast biopsy H/O section Family History Father Skin cancer Prostate cancer Mother CHF (congestive heart failure) Hypertension Diabetes Sister Thyroid cancer Family/Other Mental health disorder Unknown Uterus cancer Family/Other No problems noted. Social History Household Members: Spouse Housing: Apartment Alcohol intake: current Alcohol intake frequency: does not drink Alcohol type: wine Patient Tobacco Use Status: Former Tobacco user Tobacco use type: Cigarette e-Cigarette/Vaping Use: Never Used Second Hand Smoke Exposure: No service: No Current occupational status: unemployed Sexual orientation: Straight/Heterosexual Gender identity: Female Cognitive needs: No Hearing needs: No Vision needs: Yes Female Reproductive History Menstrual Age of Menarche: 14 Review of Systems Const All systems reviewed & are unremarkable except as noted in HPI and below Physical Exam Vital Signs: Last Vital Signs Pulse 60 07/17/24 15:32 Resp 16 07/17/24 15:32 BP 142/66 H 07/17/24 15:32 Pulse Ox 98 07/17/24 15:32 Oxygen Delivery Method Room Air 07/17/24 15:32 BMI result Body Mass Index 38.2 General: awake, alert, oriented. Answers questions appropriately. Fully engaged in examination. Skin: warm, dry, intact HEENT: Normocephalic. Hearing intact. Cardiac: External chest normal in appearance. Respiratory: No cough, audible wheezing or stridor. Abdomen: without gross distension. MS: No obvious swelling or deformities. Able to stand on bilateral tiptoes and bilateral heels.? Able to transition from sit to stand unassisted. Ambulates with bilaterally normal heel strike and toe off Tender to palpation over right posterior superior iliac spine SLR with without dorsiflexion negative bilaterally [place] positive on the right Thigh thrust positive on the right SI compression positive on the right Neurological: Oriented to person, place, time and situation. Thought process intact. No gait abnormalities appreciated. Psychiatric: Appropriate mood and affect. Good judgment and insight. Assessment & Plan Assessment & Plan (1) Sacroiliac joint dysfunction of right side: Code(s): M53.3 - Sacrococcygeal disorders, not elsewhere classified Category: Medical (2) Disc degeneration, lumbar: Code(s): M51.36 - Other intervertebral disc degeneration, lumbar region Category: Medical Plan Evelia has otherwise exhausted conservative therapy, she has tried prescription medications, nonsteroidal anti-inflammatory medications, physical therapy home exercise program and injections without improvement of her pain. In the past we discussed options for treatment including diagnostic interventional testing, steroid injections, peripheral nerve stimulation with Sprint, RFA and more permanent neuromodulation. I will schedule her for diagnostic sacroiliac joint injection on the right. I will see her after the injection. She requested me to prescribe lidocaine patch 5% to her. I explained to her that she will be better off if she will obtain [id number] lidocaine salon Pas patch 4%. . Coding Level of Care Code Est Pt Level 3 (22548) Diagnoses Sacroiliac joint dysfunction of right side M53.3 Disc degeneration, lumbar M51.36
[2024-07-17 15:32] VITALS: BP 142/66; PULSE 60; RESP 16; O2SAT 98; BMI 38.2
== END 2024-07-17 16:03 | disposition home or self-care (01) ==
PROVIDERS: PCP Internal Medicine; Visit Provider Anesthesiology
DX: M53.3 Sacrococcygeal disorders, not elsewhere classified (principal); M51.369 Other intervertebral disc degeneration, lumbar region without mention of lumbar back pain or lower extremity pain
CPT/HCPCS: 99213

== ENCOUNTER → 2024-07-17 15:20 | Outpatient (BNVA) | payer OTHER, SELFPAY | PROVIDERS: PCP Internal Medicine; Visit Provider Anesthesiology | DX: M53.3 Sacrococcygeal disorders, not elsewhere classified (principal); M51.360 Other intervertebral disc degeneration, lumbar region with discogenic back pain only | CPT/HCPCS: 99212 ==

== ENCOUNTER 2024-07-23 15:48 | Outpatient (REF) | payer OTHER, SELFPAY | END 2024-07-23 15:49 | disposition home or self-care (01) | LOC: HO.US 15:48 | PROVIDERS: PCP Internal Medicine; Visit Provider Urology | DX: N20.0 Calculus of kidney (principal) | CPT/HCPCS: 76775 ==

== ENCOUNTER 2024-09-11 15:15 | Outpatient (AMB) | payer OTHER, SELFPAY ==
--- NOTE | 2024-09-11 15:17 | MHC.OFFVIS ---
Vital Signs 09/11/24 15:33 Height 4 ft 11 in Weight 190 lb 14.725 oz BMI 38.6 BP 138/56 L Blood Pressure Location Lt brachial Position Sitting Pulse 59 Intake Visit Reasons: 6 mnth f/u Intake Note: Evelia presents in 6 months follow up of US and labs. CC: Patient states that she learned recently the her sister was found to have cancerous polyps. 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 Accompanied by: Self / Same As Patient Allergies Penicillins [PENICILLINS] Allergy (Intermediate, Verified 09/11/24 15:48) RASH, SWELLING diphenhydramine Allergy (Verified 09/11/24 15:48) Facial Swelling gabapentin Adverse Reaction (Intermediate, Verified 09/11/24 15:48) leg swelling HPI HPI 6 mnth f/u: Details: Assessment & Plan (1) Gastric ulcer: Comment: 07/2023 also an EGD again inactive by biopsy; 06/2020 EGD, no HP, ulcer non active on biopsy Code(s): K25.9 - Gastric ulcer, unspecified as acute or chronic, without hemorrhage or perforation Category: Medical (2) Chronic idiopathic constipation: Code(s): K59.04 - Chronic idiopathic constipation Category: Medical (3) GERD (gastroesophageal reflux disease): Code(s): K21.9 - Gastro-esophageal reflux disease without esophagitis Category: Medical (4) Oropharyngeal dysphagia: Code(s): R13.12 - Dysphagia, oropharyngeal phase Category: Medical (5) VELARDE (nonalcoholic steatohepatitis): Comment: LABS; 05/2020 HP stool is negative, liver panel was normal except mildly elevated alk phos of 132, AFP 1.6, 09/2018 autoimmune workup is negative, ferritin is normal at 60, hepatitis a B and C are negative. * ULTRASOUND OF THE ABDOMEN 07/2020 IMPRESSION: Hepatic steatosis. No focal liver lesion. Suspect tiny renal calculi Code(s): K75.81 - Nonalcoholic steatohepatitis (VELARDE) Category: Medical Plan [place]ian #Cyn, Live She continues to do well on her GI regimen. She continues omeprazole 40 mg senna needed bedtime and sucralfate. She has only occasional dysphagia and no abd pain. She is using the sucralafte intermittently.. She says she is having a sensation of something moving across the upper abd at times when she eats. This leads me to explain the path of the colon to ease her concerns. She asks if she has to repeat the EGD, and I advise her this is optional depending on how she is feeling. If the sx return or persist we can consider this - for now she defers. She asks about VELARDE monitoring. Her labs are largely normal, so this likely does not need repeat survey by GI but will get some more since it has not been assessed since last summer. ROV 6 mos. Orders: Orders Alpha Fetoprotein Today K75.81 - Nonalcoholic steatohepatitis (VELARDE) Comprehensive Met. Panel Today K75.81 - Nonalcoholic steatohepatitis (VELARDE) Gamma Glutamyl Transpeptidase Today K75.81 - Nonalcoholic steatohepatitis (VELARDE) US abdomen complete Today K75.81 - Nonalcoholic steatohepatitis (VELARDE) Medications: Changed From sucralfate (Carafate) 10 mL PO BID PRN K25.9 - Gastric ulcer, unspecified as acute or chronic, without hemorrhage or perforation To sucralfate (Carafate) 10 mL PO BID 1,000 mL 3RF K25.9 - Gastric ulcer, unspecified as acute or chronic, without hemorrhage or perforation Refilled omeprazole 40 mg PO DAILY 90 caps 1RF 90 days K25.9 - Gastric ulcer, unspecified as acute or chronic, without hemorrhage or perforation sennosides (senna) 17.2 mg (2 x 8.6 mg) PO BEDTIME 60 tabs 2RF K59.04 - Chronic idiopathic constipation LABS Laboratory Tests 03/06/24 03/13/24 05/13/24 09:22 15:45 14:03 Total Bilirubin 0.7 0.6 GGT 23 AST 22 20 ALT 27 23 Alkaline Phosphatase 143 H 130 H Alpha Fetoprotein 1.9 TSH 2.00 Laboratory Tests 03/15/19 03/13/24 14:40 15:45 RODY Screen NEGATIVE Anti-Smooth Muscle Ab <20 US OF ABD FINDINGS: PANCREAS: Limited visualization of pancreatic tail and head. Imaged portion of pancreatic body is unremarkable. ABDOMINAL AORTA: Limited visualization with poor visualization of the distal abdominal aorta. INFERIOR VENA CAVA: Unremarkable. LIVER: Right hepatic lobe measures 13.8 cm in sagittal dimension. Increased hepatic parenchymal heterogeneity and echogenicity could be associated with hepatocellular disease/hepatic steatosis and substantially limits visualization. Correlation with liver function tests and clinical exam recommended to determine further management. GALLBLADDER: No gallstones. No gallbladder wall thickening. COMMON BILE DUCT: Normal in caliber measuring 0.2 cm in diameter. RIGHT KIDNEY: 0.7 cm right renal lower pole cyst with benign features. There is no indication for follow-up imaging. Limited visualization. No hydronephrosis or renal calculi. The kidney measures 12.7 cm in maximum dimension. LEFT KIDNEY: 1.0 cm upper pole cyst with benign features. There is no indication for follow-up imaging. Limited visualization. No hydronephrosis or renal calculi. The kidney measures 11.3 cm in maximum dimension. SPLEEN: Normal. The spleen measures 8.5 cm in maximum dimension. FREE FLUID: None. US/US abdomen complete IMPRESSION: Increased hepatic parenchymal heterogeneity and echogenicity could be associated with hepatocellular disease/hepatic steatosis and substantially limits visualization. Correlation with liver function tests and clinical exam recommended to determine further management. TODAY'S VISIT [place] #Rody We reviewed the labs and despite her elevated alk-phos with a negative SMA RODY and mitochondrial antibody it is very unlikely that this is anything other than a normal variant. Because she has no transaminitis or elevated bilirubin I think this does not need to be followed by Gastroenterology and I will turn this back over to her primary care provider to follow with normal monitoring. Should there be any other concerning symptoms were rise in her transaminases then she can consider referring back to our services. She DID stop the carafate which was for healing of her PUD. She continues on o2o and is using senna for CIC with good success. She is agreeable to scheduling the repeat EGD to assess healing. She denies any current cardiac or respiratory problems. There are no prior problems with anesthesia or sedation. There are no infectious disease problems. ROV 6 mos. [facility] Medical History (Updated 09/11/24 @ 17:16 by DON Lynn) Pre-op examination Gastric ulcer Allergic reaction Low back pain Lumbar pain Dysphagia VELARDE (nonalcoholic steatohepatitis) Encounter for well woman exam with routine gynecological exam Tendinitis of flexor tendon of right hand Smoker Encounter for annual routine gynecological examination Physical exam Screen for colon cancer Hematuria History of nicotine use Pure hypercholesterolemia RODY positive Essential hypertension Urge incontinence Disc degeneration, lumbar Chronic idiopathic constipation Thyroid disease Hx of renal calculi H/O coronary angiogram Rectal bleeding Pruritus ani Esophageal candidiasis History of diverticulitis Nephrolithiasis Hypertension Surgical History History of hysterectomy History of salpingo-oophorectomy History of thoracic surgery History of esophagogastroduodenoscopy (EGD) H/O colonoscopy Hx of lithotripsy H/O cerebral aneurysm repair History of hernia repair H/O left breast biopsy H/O section Family History Father Skin cancer Prostate cancer Mother CHF (congestive heart failure) Hypertension Diabetes Sister Thyroid cancer Adenomatous polyps Family/Other Mental health disorder Unknown Uterus cancer Family/Other No problems noted. Social History Household Members: Spouse Housing: Apartment Alcohol intake: current Alcohol intake frequency: does not drink Alcohol type: wine Patient Tobacco Use Status: Former Tobacco user Tobacco use type: Cigarette e-Cigarette/Vaping Use: Never Used Second Hand Smoke Exposure: No service: No Current occupational status: unemployed Sexual orientation: Straight/Heterosexual Gender identity: Female Cognitive needs: No Hearing needs: No Vision needs: Yes Female Reproductive History Menstrual Age of Menarche: 14 Review of Systems Const Denies fatigue, Denies fever(s), Denies night sweats, Denies poor appetite and Denies weight loss Eyes Details: glasses Reports requires corrective lenses ENT Reports Normal hearing present, Denies dental pain, Denies dysphagia, Denies hearing loss, Denies mouth pain, Denies odynophagia, Denies throat swelling, Denies tongue swelling and Reports other (Dentition adequate) Card Reports no additional complaints Resp Reports no additional complaints GI Details: Denies abdominal pain, Denies melena, Denies bloating, Denies hematochezia, Reports constipation, Denies GI cramping, Denies dysphagia, Denies excessive flatus, Denies early satiety, Reports heartburn, Denies diarrhea, Denies nausea, Denies odynophagia, Denies vomiting and Denies hematemesis Skin/Breast Denies pruritus, Denies lesions, Denies rash and Denies jaundice Neuro Reports Normal hearing present and Denies Abnormal speech present Endo Denies fatigue Aller/Immun Denies throat swelling and Denies tongue swelling Physical Exam Vital Signs: Last Vital Signs Pulse 59 09/11/24 15:33 BP 138/56 L 09/11/24 15:33 BMI result Body Mass Index 38.6 Const General: cooperative, no acute distress, well developed and well groomed Nutritional Appearance: well nourished and obese Orientation/consciousness: oriented to person, oriented to place and oriented to time Limitations: language barrier HEENT Head: Yes normocephalic and Yes atraumatic Eyes General: appearance normal, both eyes and all related structures Pupils: Equal, round and reactive pupils present Neck Neck: Yes normal visual inspection and Yes no lymphadenopathy Thyroid: Thyroid normal Resp Effort & Inspection: normal respiratory effort and able to speak in complete sentences Auscultation: clear to auscultation bilaterally Cardio Rate: regular rate Rhythm: regular rhythm Heart sounds: Normal, physiologic split S2 sound present Peripheral pulses: radial pulses present and posterior tibial pulses present GI Inspection: No distended, Yes Abdominal panniculus present and Yes obesity Palpation (GI): Soft to palpation, nontender, no guarding, not rigid and No hepatosplenomegaly present Percussion: Yes normal to percussion Auscultation: normal bowel sounds Rectal Exam - Female: deferred Skin General skin exam: no rashes or lesions noted, turgor normal, skin not dry, no jaundice, No spider nevi and no striae Rashes: no rashes Nails: normal Neuro General: oriented to person, oriented to place and oriented to time Cranial nerves: Yes Equal, round and reactive pupils present and Yes Normal hearing present Speech: No Abnormal speech present Extrem General: Yes normal to inspection, No clubbing, No cyanosis and No edema Psych Appearance: grossly normal and well kempt Mental Status: mental status grossly normal Speech and movement: Normal speech and movement present Affect: normal affect Attitude: cooperative Thought process: Normal thought process present and not confabulating Thought content: Normal thought content present Insight: Limited insight present (Psych) Judgement: Limited judgement present (Psych) Assessment & Plan Assessment & Plan (1) GERD (gastroesophageal reflux disease): Code(s): K21.9 - Gastro-esophageal reflux disease without esophagitis Category: Medical Qualifiers: Esophagitis presence: esophagitis presence not specified Qualified Code(s): K21.9 - Gastro-esophageal reflux disease without esophagitis (2) Chronic idiopathic constipation: Code(s): K59.04 - Chronic idiopathic constipation Category: Medical (3) Gastric ulcer: Comment: 07/2023 also an EGD again inactive by biopsy; 06/2020 EGD, no HP, ulcer non active on biopsy Code(s): K25.9 - Gastric ulcer, unspecified as acute or chronic, without hemorrhage or perforation Category: Medical (4) Pre-op examination: Code(s): Z01.818 - Encounter for other preprocedural examination Category: Medical (5) Elevated alkaline phosphatase level: Comment: Laboratory Tests 03/06/2406 [id number]:2215:[id number] Total Bilirubin 0.7 0.6 GGT 23 AST 22 20 ALT 27 23 Alkaline Phosphatase 143 H 130 H Alpha Fetoprotein 1.9 TSH 2.00 Laboratory Tests 03/15/1906/19/24 14:4015:45 RODY Screen NEGATIVE Anti-Smooth Muscle Ab <20 AMA ALSO NEGATIVE US OF ABD FINDINGS: PANCREAS: Limited visualization of pancreatic tail and head. Imaged portion of pancreatic body is unremarkable. ABDOMINAL AORTA: Limited visualization with poor visualization of the distal abdominal aorta. INFERIOR VENA CAVA: Unremarkable. LIVER: Right hepatic lobe measures 13.8 cm in sagittal dimension. Increased hepatic parenchymal heterogeneity and echogenicity could be associated with hepatocellular disease/hepatic steatosis and substantially limits visualization. Correlation with liver function tests and clinical exam recommended to determine further management. GALLBLADDER: No gallstones. No gallbladder wall thickening. COMMON BILE DUCT: Normal in caliber measuring 0.2 cm in diameter. RIGHT KIDNEY: 0.7 cm right renal lower pole cyst with benign features. There is no indication for follow-up imaging. Limited visualization. No hydronephrosis or renal calculi. The kidney measures 12.7 cm in maximum dimension. LEFT KIDNEY: 1.0 cm upper pole cyst with benign features. There is no indication for follow-up imaging. Limited visualization. No hydronephrosis or renal calculi. The kidney measures 11.3 cm in maximum dimension. SPLEEN: Normal. The spleen measures 8.5 cm in maximum dimension. FREE FLUID: None. US/US abdomen complete IMPRESSION: Increased hepatic parenchymal heterogeneity and echogenicity could be associated with hepatocellular disease/hepatic steatosis and substantially limits visualization. Correlation with liver function tests and clinical exam recommended to determine further management. Code(s): R74.8 - Abnormal levels of other serum enzymes Category: Medical Plan [place] #Rody We reviewed the labs and despite her elevated alk-phos with a negative SMA RODY and mitochondrial antibody it is very unlikely that this is anything other than a normal variant. Because she has no transaminitis or elevated bilirubin I think this does not need to be followed by Gastroenterology and I will turn this back over to her primary care provider to follow with normal monitoring. Should there be any other concerning symptoms were rise in her transaminases then she can consider referring back to our services. Certainly her primary care provider should consider whether the alk-phos is a bone elevation and could be a sign of Paget's disease. She DID stop the carafate which was for healing of her PUD. She continues on o2o and is using senna for CIC with good success. She is agreeable to scheduling the repeat EGD to assess healing. She denies any current cardiac or respiratory problems. There are no prior problems with anesthesia or sedation. There are no infectious disease problems. ROV 6 mos. Orders: Orders EGD - GI Use Only Today K25.9 - Gastric ulcer, unspecified as acute or chronic, without hemorrhage or perforation Medications: Refilled omeprazole 40 mg PO DAILY 90 caps 1RF K25.9 - Gastric ulcer, unspecified as acute or chronic, without hemorrhage or perforation sennosides (senna) 17.2 mg (2 x 8.6 mg) PO BEDTIME 180 tabs 1RF K59.04 - Chronic idiopathic constipation Coding Level of Care Code Est Pt Level 4 (45494) Diagnoses Gastroesophageal reflux disease, unspecified whether esophagitis present K21.9 Esophagitis presence: esophagitis presence not specified Chronic idiopathic constipation K59.04 Gastric ulcer K25.9 Pre-op examination Z01.818 Elevated alkaline phosphatase level R74.8
[2024-09-11 15:33] VITALS: BP 138/56; PULSE 59; BMI 38.6
== END 2024-09-11 16:43 | disposition home or self-care (01) ==
PROVIDERS: PCP Internal Medicine; Visit Provider Nurse Practitioner
DX: K21.9 Gastro-esophageal reflux disease without esophagitis (principal); K59.04 Chronic idiopathic constipation; K25.9 Gastric ulcer, unspecified as acute or chronic, without hemorrhage or perforation; R74.8 Abnormal levels of other serum enzymes
CPT/HCPCS: 99214

== ENCOUNTER → 2024-09-11 15:15 | Outpatient (BNVA) | payer OTHER, SELFPAY | PROVIDERS: PCP Internal Medicine; Visit Provider Nurse Practitioner | DX: Z01.818 Encounter for other preprocedural examination (principal); K21.9 Gastro-esophageal reflux disease without esophagitis; K59.04 Chronic idiopathic constipation; K25.9 Gastric ulcer, unspecified as acute or chronic, without hemorrhage or perforation; R74.8 Abnormal levels of other serum enzymes | CPT/HCPCS: 99212 ==

== ENCOUNTER 2024-09-20 13:02 | Outpatient (AMB) | payer OTHER, SELFPAY ==
--- NOTE | 2024-09-20 13:07 | MHC.OFFVIS ---
Intake Visit Reasons: 1y follow up-PVR Intake Note: Patient presents today for a 1Y F/U PVR Meds- Vitamib B6,VITAMIN B12 Allergies to Antibiotic- Penicillins,GABAPENTIN Blood Thinner- Aspirin TODAY'S PVR:0ML'S Pet Sitter Required: Yes Pet Sitter Language: Lead Pourer Name: [id number] Information Interpreted: non-clinical & clinical Accompanied by: Self / Same As Patient Allergies Penicillins [PENICILLINS] Allergy (Intermediate, Verified 09/20/24 13:09) RASH, SWELLING diphenhydramine Allergy (Verified 09/20/24 13:09) Facial Swelling gabapentin Adverse Reaction (Intermediate, Verified 09/20/24 13:09) leg swelling HPI Comments Details: 09/20/24--Evelia is a 63-year-old female who presents today to the office for a follow-up. LV--09/22/23-- Here for FU had renal US. discussed results. Stable right renal stones. She states she is doing well. She was on Myrbetriq stopped caused headaches problems with glaucoma. kegels, bladder retraining. Cont vit b6 fu one year Past medical history includes hypertension, chronic low back pain The patient has been followed for right nephrolithiasis. The patient underwent right ESWL on 03/29/2023. Evelia is a 63-year-old female who presents today to the office for a follow-up. LV--04/14/2023-- 09/22/23-- Here for FU had KUB prior and 24 hour urine. She states she is doing well. She does complain of urinary urgency she states she was on Myrbetriq in the past prescribed by another urologist, she states it helped with her bladder symptoms. Past medical history includes hypertension, chronic low back pain The patient has been followed for right nephrolithiasis. The patient underwent right ESWL on 03/29/2023. I reviewed KUB 08/15/23--Redemonstration of small stone overlying the right kidney. Discussed 24 hour urine results: 03/22/23--Total volume 1.6 L, Calcium 136 mg; Oxalate 30 mg, Sodium 192, Citrate 298 mg. Instructed on importance of fluid intake, Low oxalate diet, low sodium diet. Increase citrate in diet. Review of chart: Right ESWL on 03/29/23. CTAP results reviewed?02/16/23-- Kidney stones in the right kidney. Plan: vitamin B6 100 mg daily. Low sodium diet Myrbetriq 50 mg Monitor kidneys renal ultrasound 1 year [facility] Medical History Pre-op examination Gastric ulcer Allergic reaction Low back pain Lumbar pain Dysphagia VELARDE (nonalcoholic steatohepatitis) Encounter for well woman exam with routine gynecological exam Tendinitis of flexor tendon of right hand Smoker Encounter for annual routine gynecological examination Physical exam Screen for colon cancer Hematuria History of nicotine use Pure hypercholesterolemia RUBINA positive Essential hypertension Urge incontinence Disc degeneration, lumbar Chronic idiopathic constipation Thyroid disease Hx of renal calculi H/O coronary angiogram Rectal bleeding Pruritus ani Esophageal candidiasis History of diverticulitis Nephrolithiasis Hypertension Surgical History History of hysterectomy History of salpingo-oophorectomy History of thoracic surgery History of esophagogastroduodenoscopy (EGD) H/O colonoscopy Hx of lithotripsy H/O cerebral aneurysm repair History of hernia repair H/O left breast biopsy H/O section Family History Father Skin cancer Prostate cancer Mother CHF (congestive heart failure) Hypertension Diabetes Sister Thyroid cancer Adenomatous polyps Family/Other Mental health disorder Unknown Uterus cancer Family/Other No problems noted. Social History Household Members: Spouse Housing: Apartment Alcohol intake: current Alcohol intake frequency: does not drink Alcohol type: wine Patient Tobacco Use Status: Former Tobacco user Tobacco use type: Cigarette e-Cigarette/Vaping Use: Never Used Second Hand Smoke Exposure: No service: No Current occupational status: unemployed Sexual orientation: Straight/Heterosexual Gender identity: Female Cognitive needs: No Hearing needs: No Vision needs: Yes Female Reproductive History Menstrual Age of Menarche: 14 Review of Systems Const All systems reviewed & are unremarkable except as noted in HPI and below Reports no additional complaints Eyes Reports no additional complaints ENT Reports no additional complaints Card Reports no additional complaints Resp Reports no additional complaints GI Reports no additional complaints Reports as per HPI Musc Reports no additional complaints Skin/Breast Reports system reviewed and no additional complaints, except as documented Neuro Reports no additional complaints Psych Reports no additional complaints Endo Reports no additional complaints Solitario/Lymph Reports no additional complaints Aller/Immun Reports no additional complaints Office Procedures Post Void Residual Post Residual Void Post Void Residual (PVR): [id number] Void Residual by ultrasound Results AMB Urinalysis, Automated UA Leukoctes 0 Ariana/uL Last Edit by Serenity Arroyo CCM on 09/20/24 13:18 UA Nitrite Negative Last Edit by Serenity Arroyo [facility] on 09/20/24 13:18 UA Urobilinogen 0.2 mg/dL Last Edit by Serenity Arroyo [facility] on 09/20/24 13:18 UA Protein 0 mg/dL Last Edit by Serenity Arroyo [facility] on 09/20/24 13:18 UA pH 5.5 Last Edit by Serenity Arroyo [facility] on 09/20/24 13:18 UA Blood 0 Ronen/uL Last Edit by Serenity Arroyo [facility] on 09/20/24 13:18 UA Specific Electra 1.030 Last Edit by Serenity Arroyo [facility] on 09/20/24 13:18 UA Ketone Negative Last Edit by Serenity Arroyo [facility] on 09/20/24 13:18 UA Bilirubin 0 mg/dL Last Edit by Serenity Arroyo [facility] on 09/20/24 13:18 UA Glucose 0 mg/dL Last Edit by Serenity Arroyo [facility] on 09/20/24 13:18 Results Reviewed Results Reviewed: Laboratory Last Values Urine pH (Auto) 5.5 09/20/24 13:17 Specific Electra (Auto) 1.030 09/20/24 13:17 Urine Protein (Auto) 0 mg/dL 09/20/24 13:17 Glucose (UA)(Auto) 0 mg/dL 09/20/24 13:17 Urine Ketones (Auto) Negative 09/20/24 13:17 Urine Blood (Auto) 0 Ronen/uL 09/20/24 13:17 Urine Nitrite (Auto) Negative 09/20/24 13:17 Urine Bilirubin (Auto) 0 mg/dL 09/20/24 13:17 Urine Urobilinogen (Auto) 0.2 mg/dL 09/20/24 13:17 Leukocyte Esterase (Auto) 0 Ariana/uL 09/20/24 13:17 Date of Service: 07/23/24 US RETROPERITONEAL LIMITED (RENAL ONLY) CLINICAL INFORMATION: Calculus of kidney. COMPARISON: Ultrasound abdomen complete 03/06/2024. X-ray KUB 08/15/2023 and 03/29/2023. CT abdomen and pelvis 02/16/2023. Renal ultrasound 11/25/2022. TECHNIQUE: Real-time imaging of the kidneys. FINDINGS: RIGHT KIDNEY: 12.7 x 5.5 x 5.0 cm (SAG x AP x TRV). The kidney is normal in size, contour, and echogenicity. Renal cortical thickness is normal. 2 adjacent mid renal echogenic foci present measuring 3 and 4 mm in size with twinkle artifact consistent with nonobstructing calculi. Identical findings can be seen on the prior CT scan (5:268). No hydronephrosis. A benign lower pole 0.6 cm Bosniak class I renal cyst is noted which requires no additional imaging or follow up. No solid renal masses are seen. LEFT KIDNEY: 10.6 x 5.2 x 4.8 cm (SAG x AP x TRV). The kidney is normal in size, contour, and echogenicity. Renal cortical thickness is normal. No renal calculi or hydronephrosis. A benign upper pole 0.6 cm Bosniak class I renal cyst is noted which requires no additional imaging or follow up. No solid renal masses are seen. IMPRESSION: Nonobstructing right renal calculi. Date of Service: 08/15/23 EXAMINATION: XR ABDOMEN KUB CLINICAL INFORMATION: Calculus of kidney. COMPARISON: March 29, 2023 radiograph of the abdomen. February 16, 2023 CT abdomen and pelvis. TECHNIQUE: Two AP views of the abdomen. FINDINGS: Large amount of stool in the colon. Nonobstructive bowel gas pattern. Redemonstration of postsurgical changes characteristic of hernia repair. Redemonstration of small stone overlying the right kidney. Visualization of the bilateral kidneys remains limited due to overlying bowel. IMPRESSION: Redemonstration of small stone overlying right kidney. Visualization of the bilateral kidneys remains limited due to overlying bowel. Assessment & Plan Assessment & Plan (1) Nephrolithiasis: Code(s): N20.0 - Calculus of kidney Category: Medical (2) Right renal stone: Code(s): N20.0 - Calculus of kidney Category: Medical Plan vitamin B6 100 mg daily. Low sodium diet Monitor kidneys renal ultrasound 1 year Orders: Orders US renal BI 11 Months N20.0 - Calculus of kidney AMB Urinalysis Automated Today Z13.9 - Encounter for screening, unspecified Medications: Refilled pyridoxine (vitamin B6) 100 mg PO DAILY 90 tabs 3RF Coding Level of Care Code Est Pt Level 4 (46314) Diagnoses Nephrolithiasis N20.0 Right renal stone N20.0 CPT Codes Post Residual Void - PVR CPT Code: 91953-Ofam Void Residual by ultrasound ([id number])
== END 2024-09-20 13:48 | disposition home or self-care (01) ==
PROVIDERS: PCP Internal Medicine; Visit Provider Urology
DX: Z13.9 Encounter for screening, unspecified (principal)

== ENCOUNTER → 2024-09-20 13:02 | Outpatient (BNVA) | payer OTHER, SELFPAY | PROVIDERS: PCP Internal Medicine; Visit Provider Urology | DX: N20.0 Calculus of kidney (principal); N39.41 Urge incontinence; I10 Essential (primary) hypertension; M54.50 Low back pain, unspecified | CPT/HCPCS: 51798; 81003; 99212 ==

== ENCOUNTER 2024-10-22 14:48 | Outpatient (REF) | payer OTHER, SELFPAY ==
[2024-10-22 15:23] LABS: Appearance Urine Cloudy; Color Urine Dark Yellow; Glucose Urine UA Negative (Negative); Leukocyte Esterase Urine Trace (Negative); Nitrite Urine Negative (Negative); PH 5.5 (5.0-9.0); Specific Gravity - Urine >= 1.030 (1.005-1.025); UMIC TRIGGER UA YES; Urine Blood Negative (Negative); Urine Ketones Trace mg/dL (Negative); Urine Protein Negative (Neg-Trace)
--- OUTSIDE RECORDS SUMMARY | 2024-10-22 15:47 | XMS_ITS | Encounter Summary ---
Author Organization [facility] Address [address] [place] [address] Care Team Providers Care Tool Hardener Name Role Phone Unavailable Primary Care Provider Unavailabl e Encounter Details Date Type Department Care Team (Late Contact Info) Description 11/24/2022 Abstract [facility] ADULT DENTAL [address] [place] [address] Osman Carrizales DMD [address] [place] [address] Social History Tobacco Use Types Packs/Day Years Used Date Smoking Tobacco: Never Passive Smoke Exposure: Never Smokeless Tobacco: Never Alcohol Use Standard Drinks/Week Comments Never 0 (1 standard drink = 0.6 oz pur e alcohol) Comments Unknown Sex and Gender Information Value Date Recorded Sex Assigned at Female 07/25/2022 10:22 AM EDT Legal Sex Female 10:22 AM EDT Gender Identity Female 07/25/2022 10:22 AM EDT Sexual Orientation Don't know 07/25/2022 10 :22 AM EDT COVID-19 Exposure Response Date Recorded In the last 10 days, have yo u been in contact with someone who was confirmed or suspected to have Coronavirus/COVID-19? No / Unsure 11/17/2022 9:53 AM EST documented as of this encounter Plan of Treatment Upcoming Encounters Date Type Department Care Team (Late st Contact Info) Description 12/30/2024 1:00 PM EDT Office Visit [facility] ADULT DENTAL [address] [place] [address] Jiang, Chuyita documented as of this encounter Visit Diagnoses Not on filedocumented in this encounter
--- OUTSIDE RECORDS SUMMARY | 2024-10-22 15:47 | XMS_ITS | Clinical Summary ---
Author Organization [facility] Address [address] [place] [address] [address] [place] [address] Care Team Providers Care Director Of Music Therapy Name Role Phone Unavailable Primary Care Provider Unavailabl e Allergies Active Allergy Reactions Criticality Noted Date Comments Diphenhydramine 02/24/2019 Other reaction(s): Tongue swelling Gabapentin Diarrhea,Dizziness 09/14/2020 Other reaction(s): Blurred VIsion, swollen legs Penicillin G Swelling 09/28/2022 Penicillins Rash,Swelling Low 02/25/2013 throat Medications Aspirin Low Dose 81 MG EC tablet Take 81 mg by mouth Once per day. Active atorvastatin (Lipitor) 20 MG tablet Take 20 mg by mouth at bedtime. 04/22/2024 Active celecoxib (CeleBREX) 100 MG capsule Take 100 mg by mouth 2 times daily. 02/01/2024 Active D3-1000 25 MCG (1000 UT) capsule 05/06/2024 Active levothyroxine (Synthroid, Levoxyl) 50 MCG tablet Take 50 mcg by mouth Once per day. Active lidocaine (Lidoderm) 5 % patch 05/06/2024 Active omeprazole (PriLOSEC) [address] capsule Take 40 mg by mouth Once per day. Active pregabalin (Lyrica) 75 MG capsule Take 75 mg by mouth Once per day. Active pyridoxine (Vitamin B-6) 100 MG tablet 05/06/2024 Activ e Carafate 1 GM/10ML suspension GIVE 10 ML BY MOUTH TWICE DAILY 04/08/2024 Active traMADol (Ultram) 50 MG tablet Take 50 mg by mouth Once per day. 04/11/2024 Active sennosides (Senokot) 8.6 MG tablet Take 2 tablets by mouth at bedtime. Active lisinopril 40 MG tablet Take 40 mg by mouth Once per day. 05/26/2020 Active Active Problems No known active problems Encounters Date Type Department Care Team Description 08/30/2024 1:30 PM EST Office Visit [facility] ADULT [facility]AL [address] [facility] [place] [address] Osman Carrizales DMD 08/23/2024 Travel from Last 3 Months Immunizations Name Administration Dates Next Due Hep A, Adult 01/23/2014,04/02/2013 Hep B, adult 07/08/2014,01/23/2014,04/02/2013 Influenza injectable quadriv alent IIV4 with preservative 06/26/2018,06/21/2016,06/15/2015 Influenza injectable quadriv alent preservative free 08/31/2021,10/08/2019 Influenza, IIV3, injectable 07/08/2014 Influenza, Split (incl. cornelius fied surface antigen) 06/11/2012 Pfizer Covid-19 Vaccine 12+ Bivalent 11/17/2022 Tdap 06/11/2012 Zoster, Recombinant 02/09/2023,05/05/2020 Social History Tobacco Use Types Packs/Day Years Used Date Smoking Tobacco: Never Passive Smoke Exposure: Never Smokeless Tobacco: Never Tobacco Cessation:Counseling Given: Not Answered Alcohol Use Standard Drinks/Week Comments Never 0 (1 standard drink = 0.6 oz pur e alcohol) Comments Unknown Sex and Gender Information Value Date Recorded Sex Assigned at Female 07/25/2022 10:22 AM EDT Legal Sex Female 10:22 AM EDT Gender Identity Female 07/25/2022 10:22 AM EDT Sexual Orientation Don't know 07/25/2022 10 :22 AM EDT Last Filed Vital Signs Vital Sign Reading Time Taken Comments Blood Pressure 138/70 05/10/2024 10:29 AM EDT Pulse 67 2023 1:31 PM EDT Temperature - - Respiratory Rate - - Oxygen Saturation - - Inhaled Oxygen Concentration - - Weight 90 kg (198 lb 6.4 oz) 11/22/2019 12:02 AM EST Height 151.1 cm (4' 11.5 ) 11/22/2019 12:[address] Body Mass Index 39.4 11/22/2019 12:02 AM EST Plan of Treatment Upcoming Encounters Date Type Department Care Team (Late st Contact Info) Description 12/30/2024 1:00 PM EDT Office Visit [facility] [address] [facility] [place] [address] Chuyita Jiang Health Maintenance Due Date Last Done Comments CT Colonography 1962 Colonoscopy 1962 Colorectal Cancer Screening 1962 Depression Screening 1962 FIT DNA/Cologuard 1962 FIT 1962 FOBT 1962 HIV Screening 1962 Lipid Panel 1962 SDOH Screening 1962 Sigmoidoscopy 1962 Alcohol/Substance Use Screening 1974 Hepatitis C Screening 1980 Pap Smear 1983 Cervical Cancer Screening 1992 HPV/Cotest 1992 Mammogram 03/13/2022 03/13/2020, 01/23, 01/18/2018 RSV Patients and Patients Aged 60 years or older (1 - Risk 60-74 years 1-dose series) 2022 COVID-19 Vaccine ( season) 2024 11/17/2022, 09/16/2021, 12/30/2020 Influenza Vaccine (#1) 2024 , 10/08/2019, 06/26/2018, Additional history exists Dental Oral Exam 11/11/2024 05/10/2024 Dental Prophylaxis 12/31/2024 07/01/2024 Dental X-Ray: Bitewings 05/11/2025 05/10/2024 Tobacco Screening 08/30/2025 08/30/2024 Dental X-Ray: Full Mouth 05/11/2027 05/10/2024 DTaP/Tdap/Td Vaccines (3 - Td or Tdap) 03/07/2033 03/07/2023, 06/11/2012 Hepatitis A Vaccines Completed 01/23/2014, 04/02/20 13 Hepatitis B Vaccines Completed 07/08/2014, 01/23/2014, 04/02/2013 Zoster Vaccines Completed 02/09/2023, 05/05/2020 HIB Vaccines Aged Out No longer eligi ble based on patient's age to complete this topic HPV Vaccines Aged Out No longer eligi ble based on patient's age to complete this topic IPV Vaccines Aged Out No longer eligi ble based on patient's age to complete this topic Meningococcal Vaccine Aged Out No cheryl jesús eligible based on patient's age to complete this topic Pneumococcal Vaccine: Pediatrics (0 to 5 Years) and At-Risk Patients (6 to 64 Years) Aged Out No longer eligible based on patient's age to complete this topic RSV under 20 months Aged Out No longe r eligible based on patient's age to complete this topic Rotavirus Vaccines Aged Out No longer eligible based on patient's age to complete this topic Procedures Procedure Name Priority Date/Time Associated Diagnosis Comments DENTURE ADJUSTMENT Routine 08/30/2024 1: 30 PM EST PROPHYLAXIS - ADULT Routine 07/01/2024 2 :00 PM EDT Dental plaque Dental calculus DIAGNOSTIC - DIAGNOSTIC IMAGING - INTRAORAL - COMPREHENSIVE SERIES OF RADIOGRAPHIC IMAGES Routine 05/10/2024 10:00 AM EDT PERIODIC ORAL EVALUATION - ESTABLISHED PATIENT Routine 05/10/2024 10:00 AM EDT BI MAMMOGRAM SCREENING BILATERAL Routine 03/13/2020 2:26 PM EDT from Last 3 Months or Most Recently Relevant to Health Maintenance Results * 3D DIGITAL PIPE SCR MAMMO 1 (03/13/2020 2:26 PM EDT) Anatomical Region Laterality Modality Breast Bilateral Mammography 03/13/2020 2:26 PM EDT Narrative 03/13/2020 2:54 PM EDT Refer to the Notes tab for result details Legacy Procedure: 3D DIGITAL PIPE SCR MAMMO 1 Procedure Note Provider, MD Tri - 12/17/2022 Refer to the Notes tab for result details Legacy Procedure: 3D DIGITAL PIPE SCR MAMMO 1 Racheal Sky NP IMG BI PROCEDURES Final Result from Last 3 Months or Most Recently Relevant to Health Maintenance Insurance * Guarantor: Gris Thomasonarita Account Type Relation to Patient Date of Phone Billing Address Personal/Family Self [address] [place]
--- OUTSIDE RECORDS SUMMARY | 2024-10-22 15:47 | XMS_ITS | Clinical Summary ---
Author Organization [facility] Address [address] [place] [address] Care Team Providers Care Facility Engineer Name Role Phone Racheal Sky NP Primary Care Provider [phone] Social History Tobacco Use Types Packs/Day Years Used Date Smoking Tobacco: Never Assessed Sex and Gender Information Value Date Recorded Sex Assigned at Not on file Gender Identity Not on file Sexual Orientation Not on file Plan of Treatment Health Maintenance Due Date Last Done Comments Hepatitis C Screening 1962 COVID-19 Vaccine (#1) 1962 Depression Screening 1974 Preventative Health Evaluation 1980 DTap / Tdap / Td (1 - Tdap) 1981 Cervical Cancer Screening (P ap Smear) 1983 Colon Cancer Screening (Colonoscopy) 2007 Breast Cancer Screening (Mammogram) 2012 Shingrix-Zoster Vaccine (1 of 2) 2012 Influenza Vaccine (#1) 2024 RSV Adult > 60+ Yrs or Pregn ant (1 - 1-dose 75+ series) 2037 Hepatitis B Vaccines Aged Out No long er eligible based on patient's age to complete this topic Pneumococcal Vaccine Aged Out No long er eligible based on patient's age to complete this topic RSV Ped < 20 months Aged Out No longe r eligible based on patient's age to complete this topic Care Teams Facility Engineer Relationship Specialty Start Date End Date Racheal Sky NP [address] [place] [address] PCP - General Family Medicine 10/24/18
--- OUTSIDE RECORDS SUMMARY | 2024-10-22 15:47 | XMS_ITS | Clinical Summary ---
Author Organization [facility] Address [address] [place] [phone] Phone Care Team Providers Care Kosher Dietary Service Manager Name Role Phone Rody Duenas MD Primary Care Provider [phone] Allergies Active Allergy Reactions Criticality Noted Date Comments Diphenhydramine 02/24/2019 Other reaction(s): Tongue swelling Gabapentin Diarrhea,Dizziness 09/14/2020 Other reaction(s): Blurred VIsion, swollen legs Penicillins Rash,Swelling Medium 02/25/2013 throat Medications Medication Sig Dispensed Refills Start Date End Date Status acetaminophen (TYLENOL) 325 mg tablet Take 2 tablets (650 mg total) by mouth. 02/20/2019 Active aspirin 81 mg EC tablet Take 1 tablet (81 mg total) by mouth 1 (one) time each day. Active atorvastatin (LIPITOR) 20 mg tablet Take 1 tablet (20 mg total) by mouth. at bedtime. 07/15/2024 Active celecoxib (CeleBREX) 100 mg capsule Take 1 capsule (100 mg total) by mouth 2 times daily. 02/01/2024 Active chlorhexidine (PERIDEX) 0.12 % solution RINSE 15 ML IN MOUTH AND SPIT OUT THREE TIMES DAILY IN THE MORNING, AT NOON, AND AT BEDTIME NEEDED FOR UP TO 5 DAYS 05/10/2024 Active cholecalciferol (VITAMIN D-3) 50 mcg (2,000 unit) tablet Take by mouth 1 (one) time each day. Active clotrimazole-betame thasone (LOTRISONE) 1-0.05 % cream APPLY TOPICALLY TO THE AFFECTED AREA(S) TWICE DAILY FOR ITCHING FOR 7 DAYS 06/25/2024 Active cyanocobalamin (VITAMIN B-12) 2,500 mcg tablet Take 1 tablet (2,500 mcg total) by mouth. Active hydroCHLOROthiazide (HYDRODIURIL) 25 mg tablet Take 1 tablet (25 mg total) by mouth 1 (one) time each day. Active levothyroxine (SYNTHROID, LEVOTHROID) 50 mcg tablet Take 1 tablet (50 mcg total) by mouth 1 (one) time each day. Active lidocaine (LIDODERM) 5 % patch APPLY 1 PATCH TOPICALLY TO SKIN, LEAVE ON FOR 12 HOURS AND OFF FOR 12 HOURS DIRECTED Active lisinopril (PRINIVIL,ZESTRIL) 40 mg tablet Take 1 tablet (40 mg total) by mouth 1 (one) time each day. Active miconazole (MONISTAT 7) 2 % vaginal cream INSERT 1 APPLICATORFUL VAGINALLY EVERY DAY AT BEDTIME FOR 7 DAYS 06/27/2024 Active Myrbetriq 50 mg tablet extended release 24 hr 24 hr tablet Take 1 tablet (50 mg total) by mouth 1 (one) time each day. 07/15/2024 Active omeprazole (PriLOSEC) [address] capsule Take 1 capsule (40 mg total) by mouth daily. Active pregabalin (LYRICA) 75 mg capsule Take 1 capsule (75 mg total) by mouth 1 (one) time each day. Active pyridoxine (B-6) 100 mg tablet Take 1 tablet (100 mg total) by mouth 1 (one) time each day. Active senna 8.6 mg tablet Take 2 tablets (17.2 mg total) by mouth. at bedtime Active Carafate 100 mg/mL suspension GIVE 10 ML BY MOUTH TWICE DAILY 04/08/2024 Active traMADoL (ULTRAM) 50 mg tablet Take 1 tablet (50 mg total) by mouth 1 (one) time each day. Active Active Problems Problem Noted Date Diagnosed Date Meningioma, spinal 08/12/2024 Cancer Staging:Clinical:WHO G1(cM0, Modified Wong: M0) - Signed by Jose John MD on 08/12/2024 Sacroiliitis 04/08/2022 Overview (08/09/2024): Last Assessment & Plan: This exam was done in conjunction with [facility] language services staff interpreter Abida #[id number]. Ms. Shoemaker was referred back for ongoing right buttock pain that she describes as feeling like she was hit there . This is worse with sitting and only somewhat relieved by lying down. She is unable to lie on either side as both positions provoke right buttock and right hip pain. On exam, she is acutely tender at the right SI joint. Seated SLR is negative, strength 5/5, sensation light touch intact, gait is steady. Review of the lumbar spine MRI with and without gadolinium at [facility] from 03/18/2022 shows a very healthy lumbar spine with no significant degenerative changes and no tumor. There is no apparent source of radiculopathy on the lumbar MRI and I suspect this is really due to sacroiliitis. She is agreed to try a right SI joint injection and we will make the arrangements at [facility]. 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 Cerebral arterial aneurysm 11/26/2018 Encounters Date Type Department Care Team Description 08/16/2024 Telephone Neurosurgery [facility] [address] [place] [phone] Brigitte Petersen MD 08/15/2024 10:45 AM EST - 08/15/2024 11:59 PM [facility] Hospital Encounter [facility] Radiation Oncology [address] 2nd [place] [address] Jose John MD Meningioma, spinal (CMS/HCC) (Primary Dx) Discharge Disposition: Home or Self Care 08/09/2024 9:08 AM EST - 08/09/2024 11:59 PM [facility] Hospital Encounter [facility] MRI [address] [place] [phone] Benign neoplasm of spinal meninges (CMS/HCC) Discharge Disposition: Home or Self Care from Last 3 Months Immunizations Name Administration Dates Next Due Hepatitis A Adult (Havrix; V aqta) 19yo and older 01/23/2014,04/02/2013 Hepatitis B (Bwmlmat-J-Anvpu , Recombivax HB-Adult) 19yo and older 07/08/2014,01/23/2014,04/02/2013 Influenza Quadrivalent, 0.5m l, preservative free (Fluarix; FluLaval; Fluzone) ages 6mo and older (Afluria) 3yo and older 08/31/2021,10/08/2019 Influenza Quadrivalent, with preservative (Fluzone; Afluria) 6mo and older 06/26/2018,06/21/2016,06/15/2015 Influenza Split 06/11/2012 Influenza trivalent, with pr eservative (Fluzone; Afluria) 6mo and older 07/08/2014 Tdap Tetanus diptheria acell ular pertussis (Boostrix; Adacel) 7yo and older 03/07/2023,06/11/2012 Zoster recombinant (Shingrix ) 19yo and older 02/09/2023,05/05/2020 Medical History Medical History Date Comments Hypothyroidism DX:Hypothyroidis m Diverticulitis DX:Diverticuliti s Renal calculi DX:Renal calculi Essential hypertension DX:Essent ial hypertension Pre-diabetes DX:Pre-diabetes Social History Tobacco Use Types Packs/Day Years Used Date Smoking Tobacco: Never Smokeless Tobacco: Never Tobacco Cessation:Counseling Given: Not Answered Sex and Gender Information Value Date Recorded Sex Assigned at Not on file Gender Identity Not on file Sexual Orientation Not on file Job Start Date Occupation Industry Not on file Not on file Not on file Obstetrics History Last Filed Vital Signs Vital Sign Reading Time Taken Comments Blood Pressure 159/70 08/15/2024 11:01 AM EST Pulse 58 08/15/2024 11:01 AM EST Temperature - - Respiratory Rate - - Oxygen Saturation 98% 08/15/2024 11:01 AM EST Inhaled Oxygen Concentration - - Weight 87.1 kg (192 lb) 08/15/2024 11:01 AM EST Height 149.9 cm (4' 11 ) 04/08/2022 2:18 PM EDT Body Mass Index 38.78 04/08/2022 2:18 PM EDT Plan of Treatment Upcoming Encounters Date Type Department Care Team (Late st Contact Info) Description 08/15/2025 1:30 PM EST Appointment [facility] Radiation Oncology [address] [phone] Jose John MD [address] [place] [address] Health Maintenance Due Date Last Done Comments Cervical Cancer Screening: Pap Smear 1983 Breast Cancer Screening 03/13/2022 03/13/2020 Colorectal Cancer Screening: Colonoscopy 08/28/2022 Depression Screening 08/28/2022 HIV Screening 08/28/2022 Hepatitis C Screening 08/28/2022 Social Influencers of Health Screening 08/28/2022 COVID-19 Vaccine (3 - season) 2024 11/17/2022, 09/16/2021 Influenza Vaccine (#1) 2024 , 10/08/2019, 06/26/2018, Additional history exists DTaP,Tdap,and Td Vaccines (3 - Td or Tdap) 03/07/2033 03/07/2023, 06/11/2012 RSV Immunization Patients 60+ Years Old (1 - 1-dose 75+ series) 2037 Hepatitis A Vaccines Aged Out 01/23/2014, 04/02/20 13 No longer eligible based on patient's age to complete this topic Hepatitis B Vaccines Completed 07/08/2014, 01/23/2014, 04/02/2013 Zoster Vaccines Completed 02/09/2023, 05/05/2020 HIB Vaccines Aged Out No longer eligi ble based on patient's age to complete this topic HPV Vaccines Aged Out No longer eligi ble based on patient's age to complete this topic IPV Vaccines Aged Out No longer eligi ble based on patient's age to complete this topic MMR Vaccines Aged Out No longer eligi ble based on patient's age to complete this topic Meningococcal ACWY Vaccine Aged Out N o longer eligible based on patient's age to complete this topic Pneumococcal Vaccine: Pediatrics (0 to 5 Years) and At-Risk Patients (6 to 64 Years) Aged Out No longer eligible based on patient's age to complete this topic RSV Immunization Patients Under 20 months Aged Out No longer eligible based on patient's age to complete this topic Varicella Vaccines Aged Out No longer eligible based on patient's age to complete this topic Procedures Procedure Name Priority Date/Time Associated Diagnosis Comments MR THORACIC SPINE WO AND W CONTRAST Routine 08/09/2024 10:50 AM EST Benign neoplasm of spinal meninges (CMS/HCC) from Last 3 Months Results * MR Thoracic Spine wo and w Contrast (08/09/2024 10:50 AM EST) Anatomical Region Laterality Modality T-spine, Spine Magnetic Resonan ce 08/09/2024 12:3 4 PM EST Impressions 08/09/2024 1:40 PM EST Postsurgical changes in the upper thoracic region at the site of a reported meningioma resection. ??No findings to suggest a recurrent meningioma. -------- FINAL REPORT -------- Dictated By: Isaias Decker Dictated Date: 08/09/2024 12:34 ET Assigned Physician: Iasias Decker Reviewed and Electronically Signed By: Isaias Decker Signed Date: 08/09/2024 13:40 ET Workstation ID: [id number] Transcribed By: Self Edit Transcribed Date: 08/09/2024 13:15 ET Narrative 08/09/2024 1:40 PM EST MRI of the thoracic spine dated 08/09/2024. HISTORY: Thoracic meningioma follow-up. COMPARISON: 07/28/2023. ??08/01/2022. TECHNIQUE: Sagittal and axial multisequence MRI of the thoracic spine with and without intravenous contrast. IV contrast dose: 17 mL Dotarem administered from a 20 mL vial with 3 mL discarded. FINDINGS: There is postsurgical scarring in the right paraspinous soft tissues in the upper thoracic region. ??No other paraspinous soft tissue findings. Alignment is normal. ??No compression deformity. ??No concerning marrow infiltrative lesion. The posterior elements are absent from T2 through T4. Posterior ligamentous hypertrophy and hypertrophic changes of the facet joints at T5-6, with mild narrowing AP diameter of the spinal canal but without significant spinal stenosis. ??There are less prominent degenerative changes of the lower thoracic facet joints as well. ??Minimal diffuse endplate irregularity of the thoracic vertebral bodies. ??No significant spinal or foraminal stenosis. The cord is normal in caliber, contour, and signal. ??There is no abnormal cord enhancement. ??No enhancing mass to suggest a recurrent meningioma. Procedure Note Isaias Decker MD - 08/09/2024 MRI of the thoracic spine dated 08/09/2024. HISTORY: Thoracic meningioma follow-up. COMPARISON: 07/28/2023. 08/01/2022. TECHNIQUE: Sagittal and axial multisequence MRI of the thoracic spine withand without intravenous contrast. IV contrast dose: 17 mL Dotarem administered from a 20 mL vial with 3 mLdiscarded. FINDINGS: There is postsurgical scarring in the right paraspinous soft tissues inthe upper thoracic region. No other paraspinous soft tissue findings. Alignment is normal. No compression deformity. No concerning marrowinfiltrative lesion. The posterior elements are absent from T2 through T4. Posterior ligamentous hypertrophy and hypertrophic changes of the facetjoints at T5-6, with mild narrowing AP diameter of the spinal canal butwithout significant spinal stenosis. There are less prominentdegenerative changes of the lower thoracic facet joints as well. Minimaldiffuse endplate irregularity of the thoracic vertebral bodies. Nosignificant spinal or foraminal stenosis. The cord is normal in caliber, contour, and signal. There is no abnormalcord enhancement. No enhancing mass to suggest a recurrent meningioma. IMPRESSION: Postsurgical changes in the upper thoracic region at the site of areported meningioma resection. No findings to suggest a recurrentmeningioma. -------- FINAL REPORT -------- Dictated By: Isaias Decker Dictated Date: 08/09/2024 12:34 ET Assigned Physician: Isaias Decker Reviewed and Electronically Signed By: Isaias Decker Signed Date: 08/09/2024 13:40 ET Workstation ID: [id number] Transcribed By: Self Edit Transcribed Date: 08/09/2024 13:15 ET Arnold Parker MD IMG MRI PROCEDURES from Last 3 Months Care Teams Kosher Dietary Service Manager Relationship Specialty Start Date End Date Rody Duenas MD [address], [address] [facility] D[facility]A: [facility] JASWINDER Romeo PCP - General Internal Medicine 04/08/22
--- OUTSIDE RECORDS SUMMARY | 2024-10-22 15:47 | XMS_ITS | Encounter Summary ---
Author Organization [facility] Address [address]t [place] [address] Care Team Providers Care Water Taxi Ferry Operator Name Role Phone Unavailable Primary Care Provider Unavailabl e Reason for Visit * Reason Onset Date Comments Appointment 12/15/2022 Encounter Details Date Type Department Care Team ([facility] st Contact Info) Description 12/15/2022 Telephone [facility] ADULT DENTAL [address] [place] [address] Osman Carrizales, DMD [address] [place] [address] Appointment Social History Tobacco Use Types Packs/Day Years [...] suspected to have Coronavirus/COVID-19? No / Unsure 12/13/2022 10:17 AM EDT documented as of this encounter Miscellaneous Notes * Telephone Encounter - Barbara Huynh - 12/15/2022 1:07 PM EDT Partials are bothering patient and unable to wear them. No room on PAR side for scheduling. DR documented in this encounter Plan of Treatment Upcoming Encounters Date Type Department Care Team (Late st Contact Info) Description 12/30/2024 1:00 PM EDT Office Visit [facility] ADULT DENTAL [address] [place] [address] Chuyita Jiang documented as of this encounter Visit Diagnoses Not on filedocumented in this encounter
--- OUTSIDE RECORDS SUMMARY | 2024-10-22 15:47 | XMS_ITS | Encounter Summary ---
Author Organization [facility] Address [address] [place] [address] Care Team Providers Care Public Policy Analyst Name Role Phone Unavailable Primary Care Provider Unavailabl e Encounter Details Date Type Department Care Team (Latest Contact Info) Description 10/25/2021 Abstract [facility] CONVERSIONS Dental, Provider, DDS Social History Tobacco Use Types Packs/Day Years Used Date Smoking Tobacco: Never Assessed Comments Unknown Sex and Gender Information Value Date Recorded Sex Assigned at Female 07/25/2022 10:22 AM EDT Legal Sex Female 10:22 AM EDT Gender Identity Female 07/25/2022 10:22 AM EDT Sexual Orientation Don't know 07/25/2022 10 :22 AM EDT documented as of this encounter Plan of Treatment Upcoming Encounters Date Type Department Care Team (Late st Contact Info) Description 12/30/2024 1:00 PM EDT Office Visit [facility] ADULT DENTAL [address] [place] [address] Chuyita Jiang documented as of this encounter Visit Diagnoses Not on filedocumented in this encounter
[2024-10-22 16:05] LABS: Bacteria Urine Trace (None Seen); Hyaline Casts Urine 0-2 /LPF (0-2); RBC Urine 0-2 /HPF (0-2); WBC Urine 0-5 /HPF (0-5)
== END 2024-10-22 14:49 | disposition home or self-care (01) ==
LOC: HO.LAB 14:48
PROVIDERS: Visit Provider Urology
DX: N20.0 Calculus of kidney (principal); N32.81 Overactive bladder; N39.41 Urge incontinence
CPT/HCPCS: 81001; 87086

== ENCOUNTER 2024-11-05 21:28 | Emergency (ER) | payer OTHER, SELFPAY ==
--- NOTE | ~2024-11-05 | CT_ITS ---
EXAMINATION: CT ABDOMEN PELVIS WITHOUT IV CONTRAST HISTORY: R flank pain COMPARISON: Comparison is made with the prior examination dated 02/16/2023. TECHNIQUE: CT scan of the abdomen and pelvis was performed without contrast using standard departmental protocol. Coronal and sagittal reformatted images were generated and reviewed. Oral contrast material was not administered per department protocol. This CT exam was performed with one or more of the following dose reduction techniques: automated exposure control, adjustment of the mA and/or kV according to patient size, use of iterative reconstruction technique. DLP: 741 mGy-cm FINDINGS: LOWER CHEST: The visualized lung bases are clear. There is no pleural effusion. CARDIOVASCULATURE: The heart is normal in size. There is no pericardial effusion. LIVER: The liver is normal in size and contour. The liver has an unremarkable unenhanced appearance. GALLBLADDER / BILE DUCTS: The gallbladder is unremarkable. There is no intra or extrahepatic biliary ductal dilatation. SPLEEN: The spleen is normal in size and has an unremarkable unenhanced appearance. PANCREAS: The pancreas has an unremarkable unenhanced appearance. ADRENAL GLANDS: Unremarkable. KIDNEYS/RETROPERITONEUM: There is a 2 mm nonobstructing calculus at the upper pole of the right kidney and an additional 2 mm nonobstructing calculus at the lower pole. There is a partially duplicated right renal collecting system. There is mild right hydronephrosis and perinephric soft tissue stranding. There is mild dilatation of the right ureter to the level of a 2-3 mm UVJ calculus. No left renal or ureteral calculi are identified. LYMPH NODES: No retroperitoneal lymphadenopathy is identified in the abdomen or pelvis. VASCULATURE: The abdominal aorta demonstrates atherosclerotic calcification, but is normal in caliber. MESENTERY/PERITONEUM: No free fluid. No masses. There is no free intraperitoneal gas. An anterior abdominal wall mesh is again seen in place. STOMACH: The stomach is collapsed, limiting evaluation. SMALL BOWEL: The small bowel is normal in caliber. COLON: There is diverticulosis of the descending and sigmoid colon, without evidence of diverticulitis. APPENDIX: Normal. URINARY BLADDER/PELVIC ORGANS: The urinary bladder is unremarkable. The uterus has an unremarkable unenhanced appearance. BONES / SOFT TISSUES: No suspicious bony or soft tissue abnormalities. CT/CT abdomen pelvis wo IV con IMPRESSION: 1. Mild right hydroureteronephrosis to the level of a 2-3 mm UVJ calculus. Right nephrolithiasis as described. 2. Diverticulosis of the descending and sigmoid colon, without evidence of diverticulitis. Electronically signed by: Musa Rivera MD 11/06/2024 08:54 AM [facility]
[2024-11-05 21:34] VITALS: BP 148/41; PULSE 57; RESP 20; TEMP 36.9; O2SAT 100; BMI 39.1
[2024-11-05 22:07] LABS: Basophils Percent Auto 0.5 % (0-2); Eosinophils Absolute Auto 0.2 X10*3/uL (0.0-0.4); Hematocrit 38.4 % (37.0-47.0); Hemoglobin 12.8 g/dl (12.0-16.0); Imm Gran Abs Auto 0.02 X10*3/uL (0.00-0.03); Imm Gran Pct Auto 0.3 % (0.0-0.4); Lymphocytes Absolute Auto 1.7 X10*3/uL (1.2-4.9); Lymphocytes Percent Auto 22.8 % (20-40); MANUAL DIFF FLAG NO; Mean Corpuscular HGB Conc 33.3 g/dl (31.0-35.0); Mean Corpuscular Hemoglobin 27.8 pg (27.0-33.0); Mean Corpuscular Volume 83.3 fL (80.0-98.0); Monocytes Absolute Auto 0.5 X10*3/uL (0.1-1.2); Monocytes Percent Auto 7.2 % (2-11); Neutrophils Percent Auto 67.2 % (45-73); Platelet Count 280 X10*3/uL (160-400); Red Blood Count 4.61 X10*6/uL (4.20-5.50); Red Cell Distribution Width 15.7 % (11.0-16.0); White Blood Count 7.5 X10*3/uL (4.8-10.8)
[2024-11-05 22:10] LABS: Appearance Urine Clear; Color Urine Orange; Glucose Urine UA Negative (Negative); Leukocyte Esterase Urine Small (1+) (Negative); Nitrite Urine Positive (Negative); Specific Gravity - Urine 1.025 (1.005-1.025); UMIC TRIGGER UACC YES; Urine Blood Moderate (2+) (Negative); Urine Ketones Negative (Negative); Urine Protein Trace mg/dL (Neg-Trace)
[2024-11-05 22:18] LABS: Bacteria Urine None Seen (None Seen); Hyaline Casts Urine 0-2 /LPF (0-2); RBC Urine >20 /HPF (0-2); Squamous Epithelial Cell Urine 0-2 /HPF (0-2); UACC Culture Trigger YES; WBC Urine 0-5 /HPF (0-5)
[2024-11-05 22:21] LABS: Alanine Aminotransferase 40 U/L (0-31); Alkaline Phosphatase 143 U/L (39-117); Anion Gap 15 (12-20); Aspartate Amino Transferase 26 U/L (5-31); Bilirubin Total 0.4 mg/dL (0.0-1.0); Blood Urea Nitrogen 20 mg/dL (9-16); Calcium 8.5 mg/dL (8.4-10.2); Carbon Dioxide 25 mmol/L (22-29); Chloride 106 mmol/L (96-108); Creatinine Clr Calc Pharmacy 49.3; Estimated Glomerular Filt Rate 48; Glucose Random 120 mg/dL (60-115); Lipase 22 U/L (8-78); Potassium 3.7 mmol/L (3.3-5.1); Sodium 142 mmol/L (135-145); Total Protein 7.6 g/dL (6.5-8.0)
[2024-11-06 00:58] VITALS: BP 151/45; PULSE 60; RESP 17; TEMP 36.6; O2SAT 99
[2024-11-06 06:03] VITALS: BP 146/46; PULSE 57; RESP 18; TEMP 37.1; O2SAT 98
--- OUTSIDE RECORDS SUMMARY | 2024-11-06 07:09 | XMS_ITS | Encounter Summary ---
Author Organization [facility] Address [address] [place] [address] Care Team Providers Care Hazmat Cdl A Driver Name Role Phone Unavailable Primary Care Provider Unavailabl e Encounter Details Date Type Department Care Team (Late Contact Info) Description 11/24/2022 Abstract [facility] ADULT DENTAL [address] [place] [address] Osman Carrizales DMD [address] [place] [address] Social History Tobacco Use Types Packs/Day Years [...] Description 12/30/2024 1:00 PM EDT Office Visit [facility] ADULT DENTAL [address] [place] [address] Jiang, Chuyita documented as of this encounter Visit Diagnoses Not on filedocumented in this encounter
--- OUTSIDE RECORDS SUMMARY | 2024-11-06 07:09 | XMS_ITS | Encounter Summary ---
Author Organization [facility] Address [address] [place] [address] Care Team Providers Care Wildlife Refuge Specialist Name Role Phone Unavailable Primary Care Provider Unavailabl e Reason for Visit * Reason Onset Date Comments Appointment 12/15/2022 Encounter Details Date Type Department Care Team ([facility] st Contact Info) Description 12/15/2022 Telephone [facility] ADULT DENTAL [address] [place] [address] Osman Carrizales, DMD [address] [place] [address] Appointment Social History Tobacco Use Types Packs/Day [...] Description 12/30/2024 1:00 PM EDT Office Visit [facility] ADULT DENTAL [address] [place] [address] Chuyita Jiang documented as of this encounter Visit Diagnoses Not on filedocumented in this encounter
--- OUTSIDE RECORDS SUMMARY | 2024-11-06 07:09 | XMS_ITS | Encounter Summary ---
Author Organization [facility] Address [address] [place] [address] Care Team Providers Care Residential Glazier Name Role Phone Unavailable Primary Care Provider Unavailabl e Encounter Details Date Type Department Care Team (Latest Contact Info) Description 10/25/2021 Abstract [facility] CONVERSIONS Dental, Provider, DDS Social History [...] Description 12/30/2024 1:00 PM EDT Office Visit [facility] ADULT DENTAL [address] [place] [address] Chuyita Jiang documented as of this encounter Visit Diagnoses Not on filedocumented in this encounter
--- OUTSIDE RECORDS SUMMARY | 2024-11-06 07:09 | XMS_ITS | Clinical Summary ---
Author Organization [facility] Address [address] [place] [address] Care Team Providers Care Institute Scientist Name Role Phone Unavailable Primary Care Provider [...] Description 08/30/2024 1:30 PM EST Office Visit [facility] ADULT DENTAL [address] [place] [address] Osman Carrizales DMD 08/23/2024 Travel from Last [...] 12/30/2024 1:00 PM EDT Office Visit [facility] ADULT DENTAL [address] [place] [address] Chuyita Jiang Health Maintenance Due Date Last Done Comments CT Colonography 1962 Colonoscopy 1962 Colorectal Cancer Screening 1962 Depression Screening 1962 FIT DNA/Cologuard 1962 FIT 1962 FOBT 1962 HIV Screening 1962 Lipid Panel 1962 SDOH Screening 1962 Sigmoidoscopy 1962 Alcohol/Substance Use Screening 1974 Hepatitis C Screening 1980 Pap Smear 1983 Cervical Cancer Screening 1992 HPV/Cotest 1992 Pneumococcal Vaccine: 50+ Years (1 of 1 - PCV) 2012 Mammogram 03/13/2022 03/13/2020, 01/23, 01/18/2018 RSV Patients and Patients Aged 60 years or older (1 - Risk 60-74 years 1-dose series) 2022 COVID-19 Vaccine (2023- season) 2024 11/17/2022, 09/16/2021, 12/30/2020 Influenza Vaccine [...] 5 Years) and At-Risk Patients (6 to 49) Years) Aged Out No longer eligible based [...]
[2024-11-06] MEDS: levoFLOXacin 750 MG TABLET PO (07:55)
--- NOTE | 2024-11-06 08:00 | ED.FEMALEGU ---
HPI - Female Genitourinary General Chief complaint: Urogenital-Female Stated complaint: ?UTI Time Seen by Provider: 11/06/24 07:03 Source: patient, family, old records reviewed and president educational institution (declined) Mode of arrival: ambulatory Limitations: no limitations History of Present Illness ED Provider: KAREN HAMMOND Narrative: 64 yo female with PMH of renal colic, UTI, GERD, PUD, HTN, HLD just had recent UTI treated with macrobid 2 weeks ago notes she still has urinary pain and dysuria with some nausea. She has R flank pain as well. She denies vomiting/fevers. She denies any other issues at this time. She is able to eat and drink. MD elicited complaint: dysuria and UTI Pertinent past history: recurrent UTIs Onset (ago): week(s) Location of symptoms: suprapubic Severity: moderate Female Urogenital Radiation: Non-Radiating Quality of pain: burning Consistency: intermittent Vaginal discharge: none Vaginal bleeding: none Urinary symptoms: Dysuria, Urgency, Frequency and Flank Pain Exacerbating factors: urination Relieving factors: none Associated symptoms: nausea Treatment prior to arrival: none Related Data Previous Rx's ?Medication ?Instructions ?Recorded vitamin B complex (B 1 tab PO DAILY 90 days #90 tabs 10/20/21 Complex-Vitamin B12 tablet) rubber bathmat #1 ea 12/06/22 diclofenac sodium 3 % topical gel 1 appl topical BID #100 grams 10/10/23 lidocaine 5 % topical patch 1 patch topical ONCE 30 days #30 11/08/23 patches aspirin 81 mg tablet,delayed 81 mg PO DAILY 90 days #90 tabs 11/13/23 release (Adult Low Dose Aspirin) celecoxib 100 mg capsule (Celebrex) 100 mg PO BID #60 caps 11/23/23 cholecalciferol (vitamin D3) 25 25 mcg PO DAILY 90 days #90 caps 02/01/24 mcg (1,000 unit) capsule levothyroxine 50 mcg tablet 50 mcg PO DAILY 90 days #90 tabs 04/10/24 clotrimazole-betamethasone 1 1 appl topical BID itching 7 days 06/25/24 %-0.05 % topical cream #45 grams miconazole nitrate 2 % vaginal 1 appful vaginal BEDTIME 7 days 06/27/24 cream (Monistat 7) #45 grams atorvastatin 20 mg tablet 20 mg PO BEDTIME 90 days #90 tabs 07/14/24 hydrochlorothiazide 25 mg tablet 25 mg PO DAILY 90 days #90 tabs 07/28/24 omeprazole 40 mg capsule,delayed 40 mg PO DAILY #90 caps 09/11/24 release sennosides 8.6 mg tablet (senna) 17.2 mg (2 x 8.6 mg) PO BEDTIME 09/11/24 #180 tabs pyridoxine (vitamin B6) 100 mg 100 mg PO DAILY #90 tabs 09/20/24 tablet pregabalin 75 mg capsule (Lyrica) 75 mg PO DAILY 30 days #30 caps 10/16/24 tramadol 50 mg tablet 50 mg PO DAILY 30 days #30 tabs 10/16/24 nitrofurantoin 100 mg PO BID 7 days #14 caps 10/25/24 monohydrate/macrocrystals 100 mg capsule (Macrobid) lisinopril 40 mg tablet 40 mg PO DAILY 90 days #90 tabs 10/28/24 hydrocodone 5 mg-acetaminophen 325 1 tab PO Q6H PRN pain #10 tabs 11/06/24 mg tablet levofloxacin 500 mg tablet 500 mg PO DAILY #6 tabs 11/06/24 tamsulosin 0.4 mg capsule 0.4 mg PO DAILY 7 days #7 caps 11/06/24 Allergies Allergy/AdvReac Type Severity Reaction Status Date / Time Penicillins [PENICILLINS] Allergy Intermediate RASH, Verified 11/05/24 21:39 SWELLING diphenhydramine Allergy Facial Verified 11/05/24 21:39 Swelling gabapentin AdvReac Intermediate leg Verified 11/05/24 21:39 swelling Review of Systems Review of Systems: Constitutional : No Fever, No Chills, No Fatigue ENT/Mouth : No sore throat, No Rhinorrhea Eyes: No Eye Pain, No Swelling, No Redness Cardiovascular : No Chest Pain, No SOB, No Dyspnea on Exertion Respiratory : No Cough, No Sputum Gastrointestinal : pos Nausea, No Vomiting, No Diarrhea, No abdominal Pain Genitourinary : pos Dysuria, pos Urinary Frequency, No Hematuria, Musculoskeletal : No joint pain, No Myalgias, No Joint Swelling Skin : No Skin Lesions, No rash Neuro : No Weakness, No Numbness, No Dizziness, no Headache All other systems reviewed and are negative PMFSH Past Medical History Attestation statement: The following information was validated with the patient. Source: old records reviewed Medical History Pre-op examination Gastric ulcer Allergic reaction Low back pain Lumbar pain Dysphagia VELARDE (nonalcoholic steatohepatitis) Encounter for well woman exam with routine gynecological exam Tendinitis of flexor tendon of right hand Smoker Encounter for annual routine gynecological examination Physical exam Screen for colon cancer Hematuria History of nicotine use Pure hypercholesterolemia RUBINA positive Essential hypertension Urge incontinence Disc degeneration, lumbar Chronic idiopathic constipation Thyroid disease Hx of renal calculi H/O coronary angiogram Rectal bleeding Pruritus ani Esophageal candidiasis History of diverticulitis Nephrolithiasis Hypertension Surgical History History of hysterectomy History of salpingo-oophorectomy History of thoracic surgery History of esophagogastroduodenoscopy (EGD) H/O colonoscopy Hx of lithotripsy H/O cerebral aneurysm repair History of hernia repair H/O left breast biopsy H/O section Family History Family History Father Skin cancer Prostate cancer Mother CHF (congestive heart failure) Hypertension Diabetes Sister Thyroid cancer Adenomatous polyps Family/Other Mental health disorder Unknown Uterus cancer Family/Other No problems noted. Social History Social History Household Members: Spouse Housing: Apartment Alcohol intake: current Alcohol intake frequency: does not drink Alcohol type: wine Patient Tobacco Use Status: Former Tobacco user Tobacco use type: Cigarette e-Cigarette/Vaping Use: Never Used Second Hand Smoke Exposure: No Advance Directives: No Advance Directives Information Provided: Yes Do you have a plan to hurt others: No Plan service: No Current occupational status: unemployed Sexual orientation: Straight/Heterosexual Gender identity: Female Cognitive needs: No Hearing needs: No Vision needs: Yes Physical Exam Vital Signs: Vital Signs: Last Vital Signs Temp 98.7 F 11/06/24 06:03 Pulse 57 11/06/24 06:03 Resp 18 11/06/24 06:03 BP 146/46 H 11/06/24 06:03 Pulse Ox 98 11/06/24 06:03 O2 Del Method Room Air 11/06/24 06:03 BMI result Body Mass Index 39.1 Appearance: Alert. Oriented X3. No acute distress. Eyes: Pupils equal, round and reactive to light. ENT: Pharynx normal. Neck: Normal inspection. Neck supple. CVS: Normal heart rate and rhythm. Pulses normal. Respiratory: No respiratory distress. Breath sounds normal. Abdomen: Soft and non-tender. Back: mild R flank pain Skin: Skin warm and dry. Normal skin color. Normal skin turgor. Extremities: No lower extremity edema. No calf ttp Neuro: Oriented X 3. No motor deficit. No sensory deficit. CN2-12 intact Medications Administered Discontinued Medications Generic Name Dose Route Start Last Admin Trade Name Freq PRN Reason Stop Dose Admin Levofloxacin 750 mg 11/06/24 07:26 11/06/24 07:55 Levofloxacin 750 Mg Tablet PO 11/06/24 07:27 750 mg ONCE ONE Administration Medical Decision Making Medical Decision Making [facility] Narrative: 64 yo female with PMH of renal colic, UTI, GERD, PUD, HTN, HLD here with dysuria, nausea and flank pain she is not toxic and well appearing on exam will obtain labs, UA, CT scan likely switch and start on levofloxacin. I do not see prior cultures to select her antibiotics from. She has stable VS and no WBC count at this time Differential Diagnosis Differential Diagnoses: The differential diagnosis associated with the presentation includes renal colic, cystitis Admission/Observation Consideration of admission/observation: Escalation of care including admission/observation considered tolerating PO can follow up with Dr. Walker in office Consult Healthcare Provider Management of the patient was discussed with: Child And Adolescent Psychologist (Dr. Walker aware) Lab Data [facility] Lab Attestation statement: I reviewed the patient's lab results. 11/05/24 22:01 11/05/24 22:01 Labs: Lab Results 11/05/24 11/05/24 Range/Units 22:01 22:02 WBC 7.5 (4.8-10.8) X10*3/uL RBC 4.61 (4.20-5.50) X10*6/uL Hgb 12.8 (12.0-16.0) g/dl Hct 38.4 (37.0-47.0) % MCV 83.3 (80.0-98.0) fL MCH 27.8 (27.0-33.0) pg MCHC 33.3 (31.0-35.0) g/dl RDW 15.7 (11.0-16.0) % Plt Count 280 (160-400) X10*3/uL MPV 9.0 L (9.4-12.3) fL Immature Gran % (Auto) 0.3 (0.0-0.4) % Neut % (Auto) 67.2 (45-73) % Lymph % (Auto) 22.8 (20-40) % [place] % (Auto) 7.2 (2-11) % Eos % (Auto) 2.0 (0-4) % Baso % (Auto) 0.5 (0-2) % Lymph # (Auto) 1.7 (1.2-4.9) X10*3/uL [place] # (Auto) 0.5 (0.1-1.2) X10*3/uL Eos # (Auto) 0.2 (0.0-0.4) X10*3/uL Baso # (Auto) 0.0 (0.0-0.2) X10*3/uL Abs Immat Gran (auto) 0.02 (0.00-0.03) X10*3/uL Absolute Neuts (auto) 5.0 (2.0-8.3) x10*3/uL Absolute Nucleated RBC 0.000 (0.0-0.012) X10*3/uL Nucleated RBC % (auto) 0.0 (0.0-0.2) /100WBC Sodium 142 (135-145) mmol/L Potassium 3.7 (3.3-5.1) mmol/L Chloride 106 (96-108) mmol/L Carbon Dioxide 25 (22-29) mmol/L Anion Gap 15 (12-20) BUN 20 H (9-16) mg/dL Creatinine 1.14 (0.5-1.4) mg/dL Estim Creat Clear Calc 49.3 Estimated GFR 48 Random Glucose 120 H (60-115) mg/dL Calcium 8.5 D (8.4-10.2) mg/dL Total Bilirubin 0.4 (0.0-1.0) mg/dL AST 26 (5-31) U/L ALT 40 H (0-31) U/L Alkaline Phosphatase 143 H (39-117) U/L Total Protein 7.6 (6.5-8.0) g/dL Albumin 4.0 (3.5-5.0) g/dL Lipase 22 (8-78) U/L Urine Color [place] A Urine Appearance Clear Urine pH 5.0 (5.0-9.0) Ur Specific [place] 1.025 (1.005-1.025) Urine Protein Trace (Neg-Trace) mg/dL Urine Glucose (UA) Negative (Negative) mg/dL Urine Ketones Negative (Negative) mg/dL Urine Blood Moderate (2+) H (Negative) Urine Nitrite Positive H (Negative) Ur Leukocyte Esterase Small (1+) H (Negative) Urine RBC >20 H (0-2) /HPF Urine WBC 0-5 (0-5) /HPF Ur Squamous Epith Cells 0-2 (0-2) /HPF Urine Bacteria None Seen (None Seen) Hyaline Casts 0-2 (0-2) /LPF Independent Interpretation I performed an independent interpretation of an: CT Scan (ureteral stone) Radiology Impression Discussion of test interpretation with radiology: I have reviewed the radiologist's reading. Independent Historian Clinical information obtained from an independent historian. History obtained from or confirmed by: Spouse External Record Review External record reviewed: Inpatient record and Outpatient record Prescription Management I considered prescription management with: Pain Medication, Antibiotic and Other Discharge Plan Discharge Clinical Impression: Right distal ureteral calculus Patient Disposition: Home, Self-Care Instructions: Ureteral Stones (ED) Additional Instructions: return for any worsening symptoms such as pain, unable to eat or drink, fevers, or any other concerns CT/CT abdomen pelvis wo IV con IMPRESSION: 1. Mild right hydroureteronephrosis to the level of a 2-3 mm UVJ calculus. Right nephrolithiasis as described. 2. Diverticulosis of the descending and sigmoid colon, without evidence of diverticulitis. Prescriptions: New levofloxacin 500 mg tablet 500 mg PO DAILY Qty: 6 0RF Rx Instructions: 1st dose on 11/07 tamsulosin 0.4 mg capsule 0.4 mg PO DAILY 7 Days Qty: 7 0RF hydrocodone-acetaminophen 5-325 mg tablet 1 tab PO Q6H PRN (Reason: pain) Qty: 10 0RF Rx Instructions: partial fill okay; Partial Fill upon patient request. No Action vitamin B complex [B Complex-Vitamin B12] Tablet 1 tab PO DAILY 90 Days Qty: 90 3RF (DME) rubber bathmat See Rx Instructions .Route .MEDSUPPLY Qty: 1 0RF Rx Instructions: As directed diclofenac sodium 3 % gel 1 appl topical BID Qty: 100 0RF Rx Instructions: apply to most painful area twice daily as needed lidocaine 5 % adhesive patch,medicated 1 patch topical ONCE 30 Days Qty: 30 5RF cholecalciferol (vitamin D3) 25 mcg (1,000 unit) capsule 25 mcg PO DAILY 90 Days Qty: 90 3RF levothyroxine 50 mcg tablet 50 mcg PO DAILY 90 Days Qty: 90 3RF miconazole nitrate [Monistat 7] 2 % cream 1 appful vaginal BEDTIME 7 Days Qty: 45 0RF atorvastatin 20 mg tablet 20 mg PO BEDTIME 90 Days Qty: 90 1RF hydrochlorothiazide 25 mg tablet 25 mg PO DAILY 90 Days Qty: 90 3RF pregabalin [Lyrica] 75 mg capsule 75 mg PO DAILY 30 Days Qty: 30 0RF tramadol 50 mg tablet 50 mg PO DAILY 30 Days Qty: 30 0RF nitrofurantoin monohyd/m-cryst [Macrobid] 100 mg capsule 100 mg PO BID 7 Days Qty: 14 0RF Rx Instructions: must administer with a meal/food lisinopril 40 mg tablet 40 mg PO DAILY 90 Days Qty: 90 1RF celecoxib [Celebrex] 100 mg capsule 100 mg PO BID Qty: 60 2RF aspirin [Adult Low Dose Aspirin] 81 mg tablet,delayed release (DR/EC) 81 mg PO DAILY 90 Days Qty: 90 3RF omeprazole 40 mg capsule,delayed release(DR/EC) 40 mg PO DAILY Qty: 90 1RF sennosides [senna] 8.6 mg tablet 17.2 mg PO BEDTIME Qty: 180 1RF clotrimazole-betamethasone 1-0.05 % cream 1 appl topical BID 7 Days Qty: 45 0RF Rx Instructions: apply externally a thin coat to the area pyridoxine (vitamin B6) 100 mg tablet 100 mg PO DAILY Qty: 90 3RF Referrals: [facility] [place] [facility] [Provider Group] (call to schedule appointment) Print Language: Sudanese
[2024-11-06 09:39] VITALS: BP 145/67; PULSE 51; RESP 15; TEMP 36.4; O2SAT 94
[2024-11-06 09:51] VITALS: BP 145/67; PULSE 51; RESP 15; TEMP 36.4; O2SAT 94
== END 2024-11-06 09:51 | disposition home or self-care (01) ==
PROVIDERS: Emergency Provider Emergency Medicine; PCP Internal Medicine
DX: N20.0 Calculus of kidney (principal); R30.0 Dysuria; R11.0 Nausea; Z79.899 Other long term (current) drug therapy
CPT/HCPCS: 36415; 74176; 80053; 81001; 83690; 85025; 87086; 99283; 99284

== ENCOUNTER → 2024-11-06 07:25 | Outpatient (BNV) | payer OTHER, SELFPAY | PROVIDERS: Emergency Provider Emergency Medicine; PCP Internal Medicine; Visit Provider Radiology Diagnostic Radiology | DX: R10.9 Unspecified abdominal pain (principal) | CPT/HCPCS: 74176 ==

== ENCOUNTER 2024-11-20 14:11 | Outpatient (AMB) | payer OTHER, SELFPAY ==
--- NOTE | 2024-11-20 14:29 | A.OFFPC_ITS ---
Vital Signs 11/20/24 14:30 Height 4 ft 11 in Weight 194 lb 6 oz BMI 39.3 BP 100/62 Blood Pressure Location Lt brachial Position Sitting Pulse 58 Pulse Source Pulse Oximeter Temp 97.5 F Temp Source Temporal Artery Scan Pulse Oximetry (%) 98 Oxygen Delivery Method Room Air Intake Visit Reasons: Annual Exam Intake Note: Patient is here today for a physical. Hospital Laboratory Technician Required: Yes Hospital Laboratory Technician Language: Diamond Die Maker Name: Julia ([id number]) Information Interpreted: non-clinical & clinical Import/Export Analyst: Not Required per policy Accompanied by: Self / Same As Patient Allergies Penicillins [PENICILLINS] Allergy (Intermediate, Verified 11/20/24 14:57) RASH, SWELLING diphenhydramine Allergy (Verified 11/20/24 14:57) Facial Swelling gabapentin Adverse Reaction (Intermediate, Verified 11/20/24 14:57) leg swelling Medication List - Last Reconciled 11/20/24 by Rody Duenas MD aspirin (Adult Low Dose Aspirin) 81 mg PO DAILY 90 days atorvastatin 20 mg PO BEDTIME 90 days celecoxib (Celebrex) 100 mg PO BID cholecalciferol (vitamin D3) 25 mcg PO DAILY 90 days clotrimazole-betamethasone 1-0.05 % 1 appl topical BID 7 days diclofenac sodium 3% 1 appl topical BID hydrochlorothiazide 25 mg PO DAILY 90 days hydrocodone-acetaminophen 5-325 mg 1 tab PO Q6H PRN levothyroxine 50 mcg PO DAILY 90 days lidocaine 5% 1 patch topical ONCE 30 days lisinopril 40 mg PO DAILY 90 days miconazole nitrate 2% (Monistat 7) 1 appful vaginal BEDTIME 7 days omeprazole 40 mg PO DAILY pregabalin (Lyrica) 75 mg PO DAILY 30 days pyridoxine (vitamin B6) 100 mg PO DAILY [rubber bathmat As directed] sennosides (senna) 17.2 mg (2 x 8.6 mg) PO BEDTIME tamsulosin 0.4 mg PO DAILY 7 days tramadol 50 mg PO DAILY 30 days vitamin B complex (B Complex-Vitamin B12 tablet) 1 tab PO DAILY 90 days Tobacco use date assessed: 11/20/24 Dental Screening Dental Screen Date: 11/20/24 Did you have a dental visit in the last 12 months?: Yes Did you have a dental problem in the last 6 months where you did not have access to dental care?: No Was dental information given to patient?: Patient has dentist HPI HPI Comments History of Present Illness Details The patient is a 64-year-old female presenting for an annual physical examination with a focus on managing multiple chronic conditions. She has essential hypertension, managed with prescribed medications, and is awaiting cholesterol evaluation due to previous lab tests excluding it. A history of hypothyroidism and gastroesophageal reflux disease is noted, with consistent medication adherence for symptom control. There is a reported experience of chronic pain syndrome, primarily affecting the arms and legs with a recent increase in severity and frequency of numbness, indicating a potential underlying neuropathy. The patient has a documented history of kidney stones without recent progression of symptoms. Her surgical history is significant for past hysterectomy and spinal tumor excision. Family medical history details prolific cancer occurrences, providing insight into her potential genetic dispositions. - Tetanus vaccination received in 2022. - Colonoscopy completed in 2022; repeat in 2023. - Mammography appointment scheduled. - Bone density scan due potentially this year, as last completed in 2021. - Aimed for cholesterol evaluation due t o exclusion in recent labs. - Discussion regarding weight management and potential surgery, determined as unsuitable with current BMI 39. [facility] Medical History (Updated 11/20/24 @ 20:15 by Rody Duenas MD) Physical exam Pre-op examination Gastric ulcer Allergic reaction Low back pain Lumbar pain Dysphagia VELARDE (nonalcoholic steatohepatitis) Encounter for well woman exam with routine gynecological exam Tendinitis of flexor tendon of right hand Smoker Encounter for annual routine gynecological examination Screen for colon cancer Hematuria History of nicotine use Pure hypercholesterolemia RODY positive Essential hypertension Urge incontinence Disc degeneration, lumbar Chronic idiopathic constipation Thyroid disease Hx of renal calculi H/O coronary angiogram Rectal bleeding Pruritus ani Esophageal candidiasis History of diverticulitis Nephrolithiasis Hypertension Surgical History History of hysterectomy History of salpingo-oophorectomy History of thoracic surgery History of esophagogastroduodenoscopy (EGD) H/O colonoscopy Hx of lithotripsy H/O cerebral aneurysm repair History of hernia repair H/O left breast biopsy H/O section Family History (Updated 11/20/24 @ 15:05 by Rody Duenas MD) Father Skin cancer Prostate cancer Mother CHF (congestive heart failure) Hypertension Diabetes Sister Thyroid cancer Adenomatous polyps Colon cancer Family/Other Mental health disorder Unknown Uterus cancer Family/Other No problems noted. Social History (Updated 11/20/24 @ 15:04 by Rody Duenas MD) Household Members: Spouse Housing: Apartment Alcohol intake: current Alcohol intake frequency: holidays/special occasions only Alcohol type: wine Patient Tobacco Use Status: Former Tobacco user Tobacco use type: Cigarette e-Cigarette/Vaping Use: Never Used Second Hand Smoke Exposure: Yes service: No Current occupational status: unemployed Sexual orientation: Straight/Heterosexual Gender identity: Female Cognitive needs: No Hearing needs: No Vision needs: Yes (Glasses) Female Reproductive History Menstrual Age of Menarche: 14 Questionnaire PHQ-9 Over the last 2 weeks, how often have you been bothered by any of the following problems? 1. Little interest or pleasure in doing things: not at all 2. Feeling down, depressed, or hopeless: not at all 3. Trouble falling or staying asleep, or sleeping too much: not at all 4. Feeling tired or having little energy: not at all 5. Poor appetite or overeating: not at all 6. Feeling bad about yourself - or that you are a failure or have let yourself or your family down: not at all 7. Trouble concentrating on things, such as reading the newspaper or watching television: not at all 8. Moving or speaking so slowly that other people could have noticed. Or the opposite - being so fidgety or restless that you have been moving around a lot more than usual: not at all 9. Thoughts that you would be better off or of hurting yourself in some way: not at all Total score: 0 Depression Screening Interpretation: Negative Depression Screening Done: Yes 61191 - PHQ-9 Billing: Yes Source: Developed by Drs. Musa Castillo, Alexia Szymanski, Keyur Rosa and colleagues, with an educational devyn from [employer]. Thrive Questionnaire Date Thrive assessed: 11/20/24 I am a: Patient What is your living situation today?: I have a steady place to live Within the past 12 months, did the food you bought not last and you didn't have the money to get more?: Never true Within the past 12 months, did you worry whether your food would run out before you got money to buy more?: Never true Do you have trouble paying for medicines?: No Do you have trouble getting transportation to medical appointments?: No Do you have trouble paying your heating and electricity bill?: No Do you have trouble taking care of your child, family member or friend?: No Do you have trouble with day-to-day activities such as bathing, preparing meals, shopping, managing finances, etc.?: No Are you currently unemployed and looking for a job?: No Are you interested in more education?: No Please select the resources that you would like help with: None Currently or been in a relationship where the following occur: No concerns reported THRIVE Score: 0 AUDIT C Alcohol Use Questionnaire (AUDIT-C) 1. How often do you have a drink containing alcohol?: Never Total Score: 0 Score Reviewed/Action Taken: No MERT-7 AMB Questionnaire MERT-7 Date MERT - 7 assessed: 11/20/24 Feeling nervous, anxious, or on edge: 0 = Not at all Not being able to stop or control worryin = Not at all Worrying too much about different things: 0 = Not at all Trouble relaxin = Not at all Being so restless that it is hard to sit still: 0 = Not at all Becoming easily annoyed or irritable: 0 = Not at all Feeling afraid as if something awful might happen: 0 = Not at all Total MERT-7 score (0-4 normal; 5-9 mild; 10-14 moderate; 15-21 severe): 0 Source: Developed by Drs. Musa Castillo, Alexia Szymanski, Keyur Rosa and colleagues, with an educational devyn from [employer]. MERT-7 Assessment Billing MERT-7 Assessment Tool: MERT-7 Assessment 66248 Review of Systems Const All systems reviewed & are unremarkable except as noted in HPI and below Card Denies chest pain at rest, Denies chest pain with activity, Denies edema, Denies irregular heart rhythm, Denies claudication, Denies dyspnea, Denies dyspnea on exertion, Denies orthopnea, Denies paroxysmal nocturnal dyspnea and Denies slow heart rate Resp Denies cough, Denies dyspnea and Denies dyspnea on exertion GI Denies abdominal pain, Denies change in bowel habits, Denies excessive flatus, Denies nausea and Denies vomiting Physical exam (Primary Care) Vital Signs: Last Vital Signs Temp 97.5 F 11/20/24 14:30 Pulse 58 11/20/24 14:30 BP 100/62 11/20/24 14:30 Pulse Ox 98 11/20/24 14:30 Oxygen Delivery Method Room Air 11/20/24 14:30 BMI result Body Mass Index 39.3 BMI Assessment/Plan discussion: High BMI High, discussed plan: lifestyle, weight reduction, dietary and physical activity Tobacco/Smoking Status: Tobacco use Status Tobacco use date assessed 11/20/24 11/20/24 14:40 Patient Tobacco Use Status Former Tobacco user 11/20/24 15:04 Tobacco use type Cigarette 11/20/24 15:04 e-Cigarette/Vaping Use Never Used 11/20/24 15:04 PHQ-9: PHQ-9 Score PHQ-9: Total score 0 11/20/24 14:58 Depression Screening Interpretation: Negative Thrive Assessment: Date of Thrive Assessment Date Thrive assessed 11/20/24 11/20/24 14:40 Currently or been in a relationship where the following occur: No concerns reported Const Orientation/consciousness: patient oriented x3 HENMT Head: Yes normal to inspection, Yes normocephalic and Yes atraumatic Ears: external ears normal Eyes General: appearance normal, both eyes and all related structures Eyelids: Yes eyelids normal Conjunctivae: conjunctivae normal Neck Neck: Yes normal visual inspection and Yes supple Resp Effort & Inspection: normal respiratory effort Auscultation: clear to auscultation bilaterally Cardio Jugular venous distension: no JVD Rate: regular rate Rhythm: regular rhythm Heart sounds: S1 normal heart sound present and S2 normal heart sound present GI Inspection: Yes normal to inspection Palpation (GI): Soft to palpation and nontender Auscultation: normal bowel sounds Skin General skin exam: no rashes or lesions noted Neuro General: patient oriented x3 and no focal motor deficits Extrem General: Yes full ROM Psych Appearance: grossly normal Coding Level of Care Code Est Pt Level 3 (38395) Est Pt Prev Care 18-39y(16031) Diagnoses Physical exam Z00.00 Hand paresthesia R20.2 Additional Codes MERT-7 Assessment Billing - MERT-7 Assessment Tool: MERT-7 Assessment 67387 ([id number]) PHQ-9 - 70080 - PHQ-9 Billing: Yes ([id number]) Time Spent (min) 35 Assessment & Plan Assessment & Plan (1) Physical exam: Code(s): Z00.00 - Encounter for general adult medical examination without abnormal findi ngs Category: Medical (2) Hand paresthesia: Code(s): R20.2 - Paresthesia of skin Category: Medical Plan We will maintain essential hypertension management through current medications and monitor with regular readings. A planned cholesterol test will direct hyperlipidemia treatment adjustments if needed. Consistent levothyroxine use will continue for hypothyroid control while awaiting lab results. Omeprazole remains the treatment course for GERD symptoms. A nerve conduction study is scheduled to further assess chronic pain etiology, with the patient showing concerns of neuropathy. A confirmed rheumatology appointment before April is advised. Chronic kidney disease consideration guides current management strategies. Patient was informed and verbally consented to the use of an ambient scribe for clinic note documentation during this visit. Orders: Orders Vitamin D 25-OH Total Today E55.9 - Vitamin D deficiency, unspecified Vitamin B12 and Folate Today E53.8 - Deficiency of other specified B group vitamins Thyroid Stimulating Hormone Today E03.9 - Hypothyroidism, unspecified Comprehensive Excel. Panel Fast Today E78.00 - Pure hypercholesterolemia, unspecified NE nerve conduction velocity Today R20.2 - Paresthesia of skin Lipid Panel Today E78.5 - Hyperlipidemia, unspecified Referrals Medical Weight Management Referral E66.9 - Obesity, unspecified Medications: Refilled pregabalin (Lyrica) 75 mg PO DAILY 30 days 30 caps 0RF tramadol 50 mg PO DAILY 30 days 30 tabs 0RF M54.16 - Radiculopathy, lumbar region Patient Instructions: - Continue antihypertensive and thyroid medications as prescribed. - Schedule and attend cholesterol evaluation. - Proceed with nerve conduction study and monitor pain. - Maintain omeprazole for reflux control. - Monitor symptoms for any changes and report promptly. - Attend all follow-up appointments and tests, including mammography and rheumatology consult. - Engage in discussed weight management programs.
[2024-11-20 14:30] VITALS: BP 100/62; PULSE 58; TEMP 36.4; O2SAT 98; BMI 39.3
--- OUTSIDE RECORDS SUMMARY | 2024-11-20 17:28 | XMS_ITS | Encounter Summary ---
Author Organization [facility] Address [address] [place] [address] Care Team Providers Care Mold Sheet Cleaner Name Role Phone Unavailable Primary Care Provider Unavailabl e Reason for Visit * Reason Onset Date Comments Appointment 12/15/2022 Encounter Details Date Type Department Care Team ([facility] st Contact Info) Description 12/15/2022 Telephone [facility] ADULT DENTAL [address] [place] [address] Osman Carrizales, DMD [address] [place] [address] Appointment Social History Tobacco Use Types Packs/Day [...] 12/30/2024 1:00 PM EDT Office Visit [facility] ADULT DENTAL [address] [place] [address] Chuyita Jiang documented as of this encounter Visit Diagnoses Not on filedocumented in this encounter
--- OUTSIDE RECORDS SUMMARY | 2024-11-20 17:28 | XMS_ITS | Clinical Summary ---
Author Organization [employer] Address [address] [place] [address] Care Team Providers Care Collar Trimmer Name Role Phone Unavailable Primary Care Provider [...] Description 08/30/2024 1:30 PM EST Office Visit [facility] ADULT DENTAL [address] [facility] [address] Osman Carrizales DMD 08/23/2024 Travel from Last [...] Description 12/30/2024 1:00 PM EDT Office Visit [facility] ADULT DENTAL [address] [address] Chuyita Jiang Health Maintenance Due Date Last [...] :00 PM EDT Dental plaque Dental calculus INTRAORAL - COMPLETE SERIES OF RADIOGRAPHIC IMAGES Routine 05/10/2024 10:00 [...]
--- OUTSIDE RECORDS SUMMARY | 2024-11-20 17:28 | XMS_ITS | Encounter Summary ---
Author Organization [facility] Address [address] [place] [address] Care Team Providers Care Steward/Stewardess Wine Name Role Phone Unavailable Primary Care Provider Unavailabl e Encounter Details Date Type Department Care Team (Latest Contact Info) Description 10/25/2021 Abstract [facility] Dental, Provider, DDS Social History [...] Description 12/30/2024 1:00 PM EDT Office Visit [facility] ADULT DENTAL [address] [place] [address] Chuyita Jiang documented as of this encounter Visit Diagnoses Not on filedocumented in this encounter
--- OUTSIDE RECORDS SUMMARY | 2024-11-20 17:28 | XMS_ITS | Clinical Summary ---
Author Organization [facility] Address [address] [place] [address] Phone Care Team Providers Care Sports Management Intern Name Role Phone Rody Duenas MD Primary Care Provider [phone] Allergies Active Allergy Reactions Criticality Noted Date Comments Diphenhydramine 02/24/2019 Other reaction(s): Tongue swelling Gabapentin Diarrhea,Dizziness 09/14/2020 Other reaction(s): Blurred VIsion, swollen legs Penicillins Rash,Swelling Medium 02/25/2013 throat Medications acetaminophen (TYLENOL) 325 mg tablet Take 2 tablets (650 mg total) by mouth. 9 Active aspirin 81 mg EC tablet Take 1 tablet (81 mg total) by mouth 1 (one) time each day. Active atorvastatin (LIPITOR) 20 mg tablet Take 1 tablet (20 mg total) by mouth. at bedtime. 4 Active celecoxib (CeleBREX) 100 mg capsule Take 1 capsule (100 mg total) by mouth 2 times daily. 4 Active chlorhexidine (PERIDEX) 0.12 % solution RINSE 15 ML IN MOUTH AND SPIT OUT THREE TIMES DAILY IN THE MORNING, AT NOON, AND AT BEDTIME NEEDED FOR UP TO 5 DAYS 4 Active cholecalcifero l (VITAMIN D-3) 50 mcg (2,000 unit) tablet Take by mouth 1 (one) time each day. Active clotrimazole-b etamethasone (LOTRISONE) 1-0.05 % cream APPLY TOPICALLY TO THE AFFECTED AREA(S) TWICE DAILY FOR ITCHING FOR 7 DAYS 4 Active cyanocobalamin (VITAMIN B-12) 2,500 mcg tablet Take 1 tablet (2,500 mcg total) by mouth. Active hydroCHLOROthi azide (HYDRODIURIL) 25 mg tablet Take 1 tablet (25 mg total) by mouth 1 (one) time each day. Active levothyroxine (SYNTHROID, LEVOTHROID) 50 mcg tablet Take 1 tablet (50 mcg total) by mouth 1 (one) time each day. Active lidocaine (LIDODERM) 5 % patch APPLY 1 PATCH TOPICALLY TO SKIN, LEAVE ON FOR 12 HOURS AND OFF FOR 12 HOURS DIRECTED Active lisinopril (PRINIVIL,ZEST RIL) 40 mg tablet Take 1 tablet (40 mg total) by mouth 1 (one) time each day. Active miconazole (MONISTAT 7) 2 % vaginal cream INSERT 1 APPLICATORFUL VAGINALLY EVERY DAY AT BEDTIME FOR 7 DAYS 4 Active Myrbetriq 50 mg tablet extended release 24 hr 24 hr tablet Take 1 tablet (50 mg total) by mouth 1 (one) time each day. 4 Active omeprazole (PriLOSEC) [address] capsule [...] GIVE 10 ML BY MOUTH TWICE DAILY 4 Active traMADoL (ULTRAM) 50 mg tablet Take 1 tablet (50 mg total) by mouth 1 (one) time each day. Active Active Problems Problem Noted Date Diagnosed Date Meningioma, spinal 08/12/2024 Cancer Staging:Clinical:WHO G1(cM0, Modified Wong: M0) - Signed by Jose John MD on 08/12/2024 Sacroiliitis 04/08/2022 Overview (08/09/2024): Last Assessment & Plan: This exam was done in conjunction with [facility] language services fabric coating supervisor Abida #[id number]. Ms. Shoemaker was referred back for ongoing [...] spine MRI with and without gadolinium at [facility] from 03/18/2022 shows a very healthy lumbar spine with no significant degenerative changes and no tumor. There is no apparent source of radiculopathy on the lumbar MRI and I suspect this is really due to sacroiliitis. She is agreed to try a right SI joint injection and we will make the arrangements at [facility]. 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 Cerebral arterial aneurysm 11/26/2018 Immunizations Name Administration Dates Next Due Hepatitis A Adult (Havrix; V aqta) 19yo and older 01/23/2014,04/02/2013 Hepatitis B (Iizntbi-B-Ehgal , Recombivax HB-Adult) 19yo and older 07/08/2014,01/23/2014,04/02/2013 [...] Tobacco: Never Tobacco Cessation:Counseling Given: Not Answered Comments Unknown Sex and Gender Information Value Date Recorded Sex Assigned at Not on file Legal Sex Female 3:57 AM EST Gender Identity Not on file Sexual Orientation Not on file Obstetrics History Last Filed [...] Info) Description 08/15/2025 1:30 PM EST Appointment [facility] Radiation Oncology [address] [id number] Jose John MD [address] [place] [address] Health Maintenance Due Date Last Done Comments Cervical Cancer Screening: Pap Smear 1983 Pneumococcal Vaccine: 50+ Years (1 of 1 - PCV) 2012 Breast Cancer Screening 03/13/2022 03/13/2020 Colorectal Cancer Screening: Colonoscopy 08/28/2022 Depression Screening 08/28/2022 HIV Screening 08/28/2022 Hepatitis C Screening 08/28/2022 Social Influencers of Health Screening 08/28/2022 COVID-19 Vaccine ( season) 2024 11/17/2022, 09/16/2021 Influenza Vaccine (#1) [...] patient's age to complete this topic Meningococcal B Vacine Aged Out No lo nger eligible based on patient's age to complete [...] on patient's age to complete this topic Insurance [facility] Care Teams Sports Management Intern Relationship Specialty Start Date End Date Rody Duenas MD [address] [place] [address] , [address] [facility] D[facility] JASWINDER Romeo PCP - General Internal Medicine 7/15/22
--- OUTSIDE RECORDS SUMMARY | 2024-11-20 17:28 | XMS_ITS | Clinical Summary ---
Author Organization [facility] Address [address] [place] [address] Care Team Providers Care Showroom Consultant Name Role Phone Racheal Sky NP Primary Care Provider [phone] Social History Tobacco Use Types Packs/Day Years [...] age to complete this topic Care Teams Showroom Consultant Relationship Specialty Start Date End Date Racheal Sky NP [address] [facility] JASWINDER Romeo [address] PCP - General Family Medicine 10/24/18
--- OUTSIDE RECORDS SUMMARY | 2024-11-20 17:28 | XMS_ITS | Encounter Summary ---
Author Organization [employer] [facility] Address [address] [place] [address] Care Team Providers Care Net Developer Programmer Name Role Phone Unavailable Primary Care Provider Unavailabl e Encounter Details Date Type Department Care Team (Late Contact Info) Description 11/24/2022 Abstract [facility] ADULT DENTAL [address] [place] [address] Osman Carrizales DMD [address] [place] [address] Social History Tobacco Use Types Packs/Day Years [...] Description 12/30/2024 1:00 PM EDT Office Visit [facility] ADULT DENTAL [address] [place] [address] Jiang, Chuyita documented as of this encounter Visit Diagnoses Not on filedocumented in this encounter
== END 2024-11-20 15:13 | disposition home or self-care (01) ==
PROVIDERS: PCP Internal Medicine; Visit Provider Internal Medicine
DX: Z00.00 Encounter for general adult medical examination without abnormal findings (principal); R20.2 Paresthesia of skin

== ENCOUNTER → 2024-11-20 14:11 | Outpatient (BNVA) | payer OTHER, SELFPAY | PROVIDERS: PCP Internal Medicine; Visit Provider Internal Medicine | DX: Z00.00 Encounter for general adult medical examination without abnormal findings (principal); R20.2 Paresthesia of skin | CPT/HCPCS: 96127; 99212; 99396 ==

== ENCOUNTER 2024-11-26 09:40 | Outpatient (REF) | payer OTHER, SELFPAY ==
--- NOTE | 2024-11-26 09:44 | EMG_ITS ---
Bilateral median and ulnar motor and sensory studies were performed. Bilateral radial sensory study was performed, and paraspinal muscles were tested with a needle. IMPRESSION: Mild right median neuropathy across carpal tunnel. MD ASHWIN Whiting/ALTAGRACIA / [id number]
--- OUTSIDE RECORDS SUMMARY | 2024-11-26 10:58 | XMS_ITS | Encounter Summary ---
Author Organization [employer] [facility] Address [address] [place] [address] Care Team Providers Care Edger Technician Name Role Phone Unavailable Primary Care Provider Unavailabl e Reason for Visit * Reason Onset Date Comments Appointment 12/15/2022 Encounter Details Date Type Department Care Team ([facility] st Contact Info) Description 12/15/2022 Telephone [facility] ADULT DENTAL [address] [place] [address] Osman Carrizales, DMD [address] [place] [address] Appointment Social History Tobacco Use Types Packs/Day [...] Description 12/30/2024 1:00 PM EDT Office Visit [facility] ADULT DENTAL [address] [place] [address] Chuyita Jiang documented as of this encounter Visit Diagnoses Not on filedocumented in this encounter
--- OUTSIDE RECORDS SUMMARY | 2024-11-26 10:58 | XMS_ITS | Clinical Summary ---
Author Organization [facility] Address [address] [place] [address] Care Team Providers Care Marketing Strategy Lead Name Role Phone Racheal Sky NP Primary Care Provider [phone] Social History Tobacco Use Types Packs/Day Years [...] age to complete this topic Care Teams Marketing Strategy Lead Relationship Specialty Start Date End Date Racheal Sky NP [address] [facility] JASWINDER Romeo [address] PCP - General Family Medicine 10/24/18
--- OUTSIDE RECORDS SUMMARY | 2024-11-26 10:58 | XMS_ITS | Encounter Summary ---
Author Organization [employer] [facility] Address [address] [facility] 7t [place] [address] Care Team Providers Care Precision Farming Coordinator Name Role Phone Unavailable Primary Care Provider Unavailabl e Encounter Details Date Type Department Care Team (Late Contact Info) Description 11/24/2022 Abstract [facility]ULT [facility] [address] [place] [address] Osman Carrizales DMD [address] [place] [address] Social History Tobacco Use Types Packs/Day Years [...] Office Visit [facility] [address] [place] [address] Jiang, Chuyita documented as of this encounter Visit Diagnoses Not on filedocumented in this encounter
--- OUTSIDE RECORDS SUMMARY | 2024-11-26 10:58 | XMS_ITS | Encounter Summary ---
Author Organization [facility] [facility] Address [address] 7t [place] [address] Care Team Providers Care Customer Operations Specialist Name Role Phone Unavailable Primary Care Provider Unavailabl e Encounter Details Date Type Department Care Team (Latest Contact Info) Description 10/25/2021 Abstract [facility] CONVERSIONS Dental, Provider, DDS Social History [...] Description 12/30/2024 1:00 PM EDT Office Visit [facility]ULT [facility] [address] [place] [address] Chuyita Jiang documented as of this encounter Visit Diagnoses Not on filedocumented in this encounter
--- OUTSIDE RECORDS SUMMARY | 2024-11-26 10:58 | XMS_ITS | Clinical Summary ---
Author Organization [employer] Address [address] [place] [address] 7t [place] [address] Care Team Providers Care Dumpman Name Role Phone Unavailable Primary Care Provider [...] Description 08/30/2024 1:30 PM EST Office Visit [facility]ULT [facility] [address] [place] [address] Osman Carrizales DMD from Last 3 Months Immunizations Name Administration [...] Description 12/30/2024 1:00 PM EDT Office Visit [facility] AD[facility] [address] [place] [address] Chuyita Jiang Health Maintenance Due Date Last [...]
--- OUTSIDE RECORDS SUMMARY | 2024-11-26 10:58 | XMS_ITS | Clinical Summary ---
Author Organization [facility] Address [address] [place] [address] Phone Care Team Providers Care Balance Wheel Hand Filer Name Role Phone Rody Duenas MD Primary Care Provider [phone] Allergies Active Allergy Reactions Criticality Noted Date [...] with [facility] language services steamfitter supervisor Abida #[id number]. Ms. Shoemaker was referred back for ongoing [...] spine MRI with and without gadolinium at [facility] from 03/18/2022 shows a very healthy lumbar spine with no significant degenerative changes and no tumor. There is no apparent source of radiculopathy on the lumbar MRI and I suspect this is really due to sacroiliitis. She is agreed to try a right SI joint injection and we will make the arrangements at [facility]. 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 Care Teams Balance Wheel Hand Filer Relationship Specialty Start Date End Date Rody Duenas MD [address] [place] [address] , [address] [facility] D/B/A: [facility] JASWINDER Romeo PCP - General Internal Medicine 7/15/22
== END 2024-11-26 09:41 | disposition home or self-care (01) ==
LOC: HO.NEURO 09:40
PROVIDERS: PCP Internal Medicine; Visit Provider Internal Medicine
DX: R20.2 Paresthesia of skin (principal)
CPT/HCPCS: 95886; 95911

== ENCOUNTER 2024-12-03 15:10 | Outpatient (REF) | payer OTHER, SELFPAY ==
--- OUTSIDE RECORDS SUMMARY | 2024-12-03 18:27 | XMS_ITS | Clinical Summary ---
Author Organization [facility] Address [address] [place] [address] Care Team Providers Care Manager Front Office Name Role Phone Racheal Sky NP Primary Care Provider [phone] Social History Tobacco Use Types Packs/Day Years [...] age to complete this topic Care Teams Manager Front Office Relationship Specialty Start Date End Date Racheal Sky NP [address] [facility] J[place]WINDER Romeo [id number] PCP - General Family Medicine 10/24/18
--- OUTSIDE RECORDS SUMMARY | 2024-12-03 18:27 | XMS_ITS | Encounter Summary ---
Author Organization [employer] [facility] Address [address] [facility] 7t [place] [address] Care Team Providers Care Early Morning Babysitter Name Role Phone Unavailable Primary Care Provider Unavailabl e Reason for Visit * Reason Onset Date Comments Appointment 12/15/2022 Encounter Details Date Type Department Care Team ([facility] st Contact Info) Description 12/15/2022 Telephone [facility] D[facility] [address] [place] [address] Osman Carrizales, DMD [address] [place] [address] Appointment Social History Tobacco Use Types Packs/Day [...] Office Visit [facility] [address] [place] [address] Chuyita Jiang documented as of this encounter Visit Diagnoses Not on filedocumented in this encounter
--- OUTSIDE RECORDS SUMMARY | 2024-12-03 18:27 | XMS_ITS | Clinical Summary ---
Author Organization [facility] Address [address] [place] [address] Phone Care Team Providers Care Missile Mechanic Name Role Phone Rody Duenas MD Primary Care Provider [phone] Allergies Active Allergy Reactions Criticality Noted Date [...] Modified Wong: M0) - Signed by Jose oJhn MD on 08/12/2024 Sacroiliitis 04/08/2022 Overview (08/09/2024): Last Assessment & Plan: This exam was done in conjunction with [facility] language services child care centre director Abida #[id number]. Ms. Shoemaker was referred back for ongoing [...] spine MRI with and without gadolinium at [facility] from 03/18/2022 shows a very healthy lumbar spine with no significant degenerative changes and no tumor. There is no apparent source of radiculopathy on the lumbar MRI and I suspect this is really due to sacroiliitis. She is agreed to try a right SI joint injection and we will make the arrangements at [facility]. 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 Cerebral arterial aneurysm 11/26/2018 Immunizations Name Administration Dates Next Due Hepatitis A Adult (Havrix; V aqta) 19yo and older 01/23/2014,04/02/2013 Hepatitis B (Mamehhs-S-Lrwmr , Recombivax HB-Adult) 19yo and older 07/08/2014,01/23/2014,04/02/2013 [...] Info) Description 08/15/2025 1:30 PM EST Appointment [facility] Radiation Oncology [address] [phone] Jose John MD [address] [place] [address] Health Maintenance Due Date Last Done Comments [...] patient's age to complete this topic Insurance [facility] Care Teams Missile Mechanic Relationship Specialty Start Date End Date Rody Duenas MD [address] [place] [address] , [address] [facility]ician Associ D/B/A: [facility] JASWINDER Romeo PCP - General Internal Medicine 7/15/22
--- OUTSIDE RECORDS SUMMARY | 2024-12-03 18:27 | XMS_ITS | Encounter Summary ---
Author Organization [employer] [facility] Address [address] [facility] 7t [place] [address] Care Team Providers Care Business Transformation Manager Name Role Phone Unavailable Primary Care Provider Unavailabl e Encounter Details Date Type Department Care Team (Latest Contact Info) Description 10/25/2021 Abstract [facility] CONVERSIONS Dental, Provider, DDS Social History [...] Description 12/30/2024 1:00 PM EDT Office Visit [facility] ADULT DENTAL [address] [place] [address] Chuyita Jiang documented as of this encounter Visit Diagnoses Not on filedocumented in this encounter
--- OUTSIDE RECORDS SUMMARY | 2024-12-03 18:27 | XMS_ITS | Encounter Summary ---
Author Organization [facility] [facility] Address [address] [facility] 7t [place] [address] Care Team Providers Care Spectacle Truer Name Role Phone Unavailable Primary Care Provider Unavailabl e Encounter Details Date Type Department Care Team (Late Contact Info) Description 11/24/2022 Abstract [facility]ULT D[facility] [address] [place] [address] Osman Carrizales DMD [address] [place] [address] Social History Tobacco Use Types Packs/Day Years [...] Office Visit [facility] ADULT DENT[facility] [address] [place] [address] Jiang, Chuyita documented as of this encounter Visit Diagnoses Not on filedocumented in this encounter
--- OUTSIDE RECORDS SUMMARY | 2024-12-03 18:27 | XMS_ITS | Clinical Summary ---
Author Organization [employer] Address [address] [place] [address] 7t [place] [address] Care Team Providers Care Preflight Inspector Name Role Phone Unavailable Primary Care Provider [...] Active Active Problems No known active problems Immunizations Name Administration Dates Next Due Hep [...] Description 12/30/2024 1:00 PM EDT Office Visit [facility] ADULT DENTAL [address] [place] [address] Chuyita Jiang Health Maintenance Due Date Last [...] Procedure Name Priority Date/Time Associated Diagnosis Comments PROPHYLAXIS - ADULT Routine 07/01/2024 2 :00 PM EDT Dental plaque Dental calculus INTRAORAL - COMPLETE SERIES OF RADIOGRAPHIC IMAGES Routine 05/10/2024 10:00 AM EDT PERIODIC ORAL EVALUATION - ESTABLISHED PATIENT Routine 05/10/2024 10:00 AM EDT BI MAMMOGRAM SCREENING BILATERAL Routine 03/13/2020 2:26 PM EDT from Last 3 Months or Most Recently Relevant to Health Maintenance Results * 3D DIGITAL PPIE SCR MAMMO 1 (03/13/2020 2:26 PM EDT) [...] Most Recently Relevant to Health Maintenance Insurance [facility] STAND ADULT
== END 2024-12-03 15:11 | disposition home or self-care (01) ==
LOC: HO.MAMMO 15:10
PROVIDERS: PCP Internal Medicine; Visit Provider Internal Medicine
DX: Z12.31 Encounter for screening mammogram for malignant neoplasm of breast (principal)
CPT/HCPCS: 77063; 77067

== ENCOUNTER → 2024-12-03 15:15 | Outpatient (BNV) | payer OTHER, SELFPAY | PROVIDERS: PCP Internal Medicine; Visit Provider Internal Medicine | DX: Z12.31 Encounter for screening mammogram for malignant neoplasm of breast (principal) | CPT/HCPCS: 77063; 77067 ==

== ENCOUNTER 2024-12-12 12:01 | Outpatient (REF) | payer OTHER, SELFPAY ==
[2024-12-12 13:33] LABS: Influenza A PCR NEGATIVE (Negative); Influenza B PCR NEGATIVE (Negative); Resp Syncy Virus RNA Qual PCR NEGATIVE (Negative); SARS COV2 PCR INHOUSE NEGATIVE (Negative)
== END 2024-12-12 12:02 | disposition home or self-care (01) ==
LOC: HO.LAB 12:01
PROVIDERS: PCP Internal Medicine; Visit Provider Internal Medicine
DX: R09.89 Other specified symptoms and signs involving the circulatory and respiratory systems (principal); Z03.818 Encounter for observation for suspected exposure to other biological agents ruled out
CPT/HCPCS: 0241U

== ENCOUNTER → 2024-12-19 12:59 | Outpatient (BNVA) | payer OTHER, SELFPAY | PROVIDERS: PCP Internal Medicine; Visit Provider Surgery | DX: N20.0 Calculus of kidney (principal) | CPT/HCPCS: 51798; 81003; 99212 ==

== ENCOUNTER 2024-12-19 15:42 | Outpatient (AMB) | payer OTHER, SELFPAY ==
--- NOTE | 2024-12-19 11:01 | A.OFFVIS_ITS ---
Intake Visit Reasons: kidney stones/recurrent UTI Intake Note: Patient presents today for kidney stones/recurrent UTI Meds- Vitamib B6,VITAMIN B12 Allergies to Antibiotic- Penicillins,GABAPENTIN Blood Thinner- Aspirin PVR:28ml Pug Mill Operator Required: Yes Pug Mill Operator Language: Department Coordinator Name: Matthew--[id number] Information Interpreted: non-clinical & clinical Accompanied by: Self / Same As Patient Allergies Penicillins [PENICILLINS] Allergy (Intermediate, Verified 12/19/24 16:08) RASH, SWELLING diphenhydramine Allergy (Verified 12/19/24 16:08) Facial Swelling gabapentin Adverse Reaction (Intermediate, Verified 12/19/24 16:08) leg swelling HPI Comments Details: 12/19/24-- 64-year-old female presenting with nephrolithiasis. Last month, during an emergency room visit, she was diagnosed with two kidney stones, each measuring around 2 mm. One stone was seen moving toward the bladder. No recent confirmation of the stone?s passage was provided. In past evaluations, her 24- hour urine collection indicated a lower volume than recommended and low citrate levels, prompting recommendations to augment her fluid intake and consume more citrus fruits. Imaging was used during this visit to review the stone positions; emphasis on hydration was given to support stone passage. Discussion Notes During the consultation, I utilized imaging to explain the current status of the kidney stones. I reiterated the importance of increased fluid intake to facilitate the passage of the stones. I also recapped the previous assessment involving urine volume and citrate levels, advising the repetition of the urine collection test. The process for the urine collection kit delivery and usage was explained thoroughly, highlighting the need for consistency in collection timing. I assured the patient that follow-up contact would be made to coordinate this aspect and provided anticipatory guidance regarding the natural passage of the stones and dietary adjustments. Results:CTAP- 11/06/24---2 mm nonobstructing calculus at the upper pole of the right kidney and a 2 mm nonobstructing calculus at the lower pole. There is a partially duplicated right renal collecting system. There is mild right hydronephrosis and mild dilatation of the right ureter to the level of a 2-3 mm UVJ calculus. 09/20/24--Evelia is a 63-year-old female who presents today to the office for a follow-up. Past medical history includes hypertension, chronic low back pain. The patient has been followed for right nephrolithiasis. The patient underwent right ESWL on 03/29/2023. Here for FU had renal US. discussed results. Stable right renal stones. She states she is doing well. She was on Myrbetriq stopped caused headaches problems with glaucoma. kegels, bladder retraining. cont vit b6 fu one year. Evelia is a 63-year-old female who presents today to the office for a follow- up. LV--04/14/2023-- 09/22/23-- Here for FU had KUB prior and 24 hour urine. She states she is doing well. She does complain of urinary urgency she states she was on Myrbetriq in the past prescribed by another urologist, she states it helped with her bladder symptoms. Past medical history includes hypertension, chronic low back pain The patient has been followed for right nephrolithiasis. The patient underwent right ESWL on 03/29/2023. I reviewed KUB 08/15/23--Redemonstration of small stone overlying the right kidney. Discussed 24 hour urine results: 03/22/23--Total volume 1.6 L, Calcium 136 mg; Oxalate 30 mg, Sodium 192, Citrate 298 mg. Instructed on importance of fluid intake, Low oxalate diet, low sodium diet. Increase citrate in diet. Review of chart: Right ESWL on 03/29/23. CTAP results reviewed?02/16/23-- Kidney stones in the right kidney. [facility] Medical History Physical exam Pre-op examination Gastric ulcer Allergic reaction Low back pain Lumbar pain Dysphagia VELARDE (nonalcoholic steatohepatitis) Encounter for well woman exam with routine gynecological exam Tendinitis of flexor tendon of right hand Smoker Encounter for annual routine gynecological examination Screen for colon cancer Hematuria History of nicotine use Pure hypercholesterolemia RUBINA positive Essential hypertension Urge incontinence Disc degeneration, lumbar Chronic idiopathic constipation Thyroid disease Hx of renal calculi H/O coronary angiogram Rectal bleeding Pruritus ani Esophageal candidiasis History of diverticulitis Nephrolithiasis Hypertension Surgical History History of hysterectomy History of salpingo-oophorectomy History of thoracic surgery History of esophagogastroduodenoscopy (EGD) H/O colonoscopy Hx of lithotripsy H/O cerebral aneurysm repair History of hernia repair H/O left breast biopsy H/O section Family History Father Skin cancer Prostate cancer Mother CHF (congestive heart failure) Hypertension Diabetes Sister Thyroid cancer Adenomatous polyps Colon cancer Family/Other Mental health disorder Unknown Uterus cancer Family/Other No problems noted. Social History Household Members: Spouse Housing: Apartment Alcohol intake: current Alcohol intake frequency: holidays/special occasions only Alcohol type: wine Patient Tobacco Use Status: Former Tobacco user Tobacco use type: Cigarette e-Cigarette/Vaping Use: Never Used Second Hand Smoke Exposure: Yes service: No Current occupational status: unemployed Sexual orientation: Straight/Heterosexual Gender identity: Female Cognitive needs: No Hearing needs: No Vision needs: Yes (Glasses) Female Reproductive History Menstrual Age of Menarche: 14 Review of Systems Const All systems reviewed & are unremarkable except as noted in HPI and below Reports no additional complaints Eyes Reports no additional complaints ENT Reports no additional complaints Card Reports no additional complaints Resp Reports no additional complaints GI Reports no additional complaints Reports as per HPI Musc Reports no additional complaints Skin/Breast Reports system reviewed and no additional complaints, except as documented Neuro Reports no additional complaints Psych Reports no additional complaints Endo Reports no additional complaints Solitario/Lymph Reports no additional complaints Aller/Immun Reports no additional complaints Office Procedures Post Void Residual Post Residual Void Post Void Residual (PVR): 28 [id number] Void Residual by ultrasound Results AMB Urinalysis, Automated UA Leukoctes 0 Ariana/uL Last Edit by Steffany Avila on 12/19/24 16:37 UA Nitrite Negative Last Edit by Steffany Avila on 12/19/24 16:37 UA Urobilinogen 3.5 mg/dL Last Edit by Steffany Avila on 12/19/24 16:37 UA Protein 0 mg/dL Last Edit by Steffany Chungtiz on 12/19/24 16:37 UA pH 6.0 Last Edit by Steffany Avila on 12/19/24 16:37 UA Blood 0 Ronen/uL Last Edit by Crystal Avila on 12/19/24 16:37 UA Specific Mcallister 1.020 Last Edit by Crystal Avila on 12/19/24 16:37 UA Ketone Negative Last Edit by Crystal Avila on 12/19/24 16:37 UA Bilirubin 0 mg/dL Last Edit by Crystal Avila on 12/19/24 16:37 UA Glucose 0 mg/dL Last Edit by Setffany Avila on 12/19/24 16:37 Results Reviewed Results Reviewed: Laboratory Last Values Urine pH (Auto) 6.0 12/19/24 16:02 Specific Mcallister (Auto) 1.020 12/19/24 16:02 Urine Protein (Auto) 0 mg/dL 12/19/24 16:02 Glucose (UA)(Auto) 0 mg/dL 12/19/24 16:02 Urine Ketones (Auto) Negative 12/19/24 16:02 Urine Blood (Auto) 0 Ronen/uL 12/19/24 16:02 Urine Nitrite (Auto) Negative 12/19/24 16:02 Urine Bilirubin (Auto) 0 mg/dL 12/19/24 16:02 Urine Urobilinogen (Auto) 3.5 mg/dL 12/19/24 16:02 Leukocyte Esterase (Auto) 0 Ariana/uL 12/19/24 16:02 Date of Service: 11/06/24 EXAMINATION: CT ABDOMEN PELVIS WITHOUT IV CONTRAST HISTORY: R flank pain COMPARISON: Comparison is made with the prior examination dated 02/16/2023. TECHNIQUE: CT scan of the abdomen and pelvis was performed without contrast using standard departmental protocol. Coronal and sagittal reformatted images were generated and reviewed. Oral contrast material was not administered per department protocol. This CT exam was performed with one or more of the following dose reduction techniques: automated exposure control, adjustment of the mA and/or kV according to patient size, use of iterative reconstruction technique. DLP: 741 mGy-cm FINDINGS: LOWER CHEST: The visualized lung bases are clear. There is no pleural effusion. CARDIOVASCULATURE: The heart is normal in size. There is no pericardial effusion. LIVER: The liver is normal in size and contour. The liver has an unremarkable unenhanced appearance. GALLBLADDER / BILE DUCTS: The gallbladder is unremarkable. There is no intra or extrahepatic biliary ductal dilatation. SPLEEN: The spleen is normal in size and has an unremarkable unenhanced appearance. PANCREAS: The pancreas has an unremarkable unenhanced appearance. ADRENAL GLANDS: Unremarkable. KIDNEYS/RETROPERITONEUM: There is a 2 mm nonobstructing calculus at the upper pole of the right kidney and an additional 2 mm nonobstructing calculus at the lower pole. There is a partially duplicated right renal collecting system. There is mild right hydronephrosis and perinephric soft tissue stranding. There is mild dilatation of the right ureter to the level of a 2-3 mm UVJ calculus. No left renal or ureteral calculi are identified. LYMPH NODES: No retroperitoneal lymphadenopathy is identified in the abdomen or pelvis. VASCULATURE: The abdominal aorta demonstrates atherosclerotic calcification, but is normal in caliber. MESENTERY/PERITONEUM: No free fluid. No masses. There is no free intraperitoneal gas. An anterior abdominal wall mesh is again seen in place. STOMACH: The stomach is collapsed, limiting evaluation. SMALL BOWEL: The small bowel is normal in caliber. COLON: There is diverticulosis of the descending and sigmoid colon, without evidence of diverticulitis. APPENDIX: Normal. URINARY BLADDER/PELVIC ORGANS: The urinary bladder is unremarkable. The uterus has an unremarkable unenhanced appearance. BONES / SOFT TISSUES: No suspicious bony or soft tissue abnormalities. IMPRESSION: 1. Mild right hydroureteronephrosis to the level of a 2-3 mm UVJ calculus. Right nephrolithiasis as described. 2. Diverticulosis of the descending and sigmoid colon, without evidence of diverticulitis. Date of Service: 07/23/24 US RETROPERITONEAL LIMITED (RENAL ONLY) CLINICAL INFORMATION: Calculus of kidney. COMPARISON: Ultrasound abdomen complete 03/06/2024. X-ray KUB 08/15/2023 and 03/29/2023. CT abdomen and pelvis 02/16/2023. Renal ultrasound 11/25/2022. TECHNIQUE: Real-time imaging of the kidneys. FINDINGS: RIGHT KIDNEY: 12.7 x 5.5 x 5.0 cm (SAG x AP x TRV). The kidney is normal in size, contour, and echogenicity. Renal cortical thickness is normal. 2 adjacent mid renal echogenic foci present measuring 3 and 4 mm in size with twinkle artifact consistent with nonobstructing calculi. Identical findings can be seen on the prior CT scan (5:268). No hydronephrosis. A benign lower pole 0.6 cm Bosniak class I renal cyst is noted which requires no additional imaging or follow up. No solid renal masses are seen. LEFT KIDNEY: 10.6 x 5.2 x 4.8 cm (SAG x AP x TRV). The kidney is normal in size, contour, and echogenicity. Renal cortical thickness is normal. No renal calculi or hydronephrosis. A benign upper pole 0.6 cm Bosniak class I renal cyst is noted which requires no additional imaging or follow up. No solid renal masses are seen. IMPRESSION: Nonobstructing right renal calculi. Date of Service: 08/15/23 EXAMINATION: XR ABDOMEN KUB CLINICAL INFORMATION: Calculus of kidney. COMPARISON: March 29, 2023 radiograph of the abdomen. February 16, 2023 CT abdomen and pelvis. TECHNIQUE: Two AP views of the abdomen. FINDINGS: Large amount of stool in the colon. Nonobstructive bowel gas pattern. Redemonstration of postsurgical changes characteristic of hernia repair. Redemonstration of small stone overlying the right kidney. Visualization of the bilateral kidneys remains limited due to overlying bowel. IMPRESSION: Redemonstration of small stone overlying right kidney. Visualization of the bilateral kidneys remains limited due to overlying bowel. Assessment & Plan Assessment & Plan Plan Plan - Increase fluid intake to aid stone passage - Use lemon or orange juice to increase citrate intake - Follow instructions for the urine collection kit to ensure accurate testing - Expect a follow-up call to coordinate the urine test procedure - Monitor for signs of stone passage or notable symptoms, and report as necessary Orders: Orders AMB Urinalysis Automated Today Z13.9 - Encounter for screening, unspecified Patient Instructions: The patient had an opportunity to ask questions regarding treatment plan. The patient expressed understanding and agreement with the above treatment plan. The patient is aware they should contact our office by phone for worsening of their current condition or the appearance of new symptoms. Compliance is encouraged with any medications and followup testing that is ordered. It is a privilege to be allowed the opportunity to participate in the urologic care of your patient. If you have any questions or concerns regarding treatment for the above conditions please do not hesitate to contact me. The office telephone contact is [phone]. This note is constructed in part using voice recognition software. While every effort has been made to ensure accuracy cloth examiner machine errors may have been included. Yours sincerely, Camila Gonzalez MD Scribe Plan - Not visible on output: Patient was informed and verbally consented to the use of an ambient scribe for clinic note documentation during this visit. Coding CPT Codes Post Residual Void - PVR CPT Code: 73325-Eehp Void Residual by ultrasound ([id number])
--- OUTSIDE RECORDS SUMMARY | 2024-12-19 19:09 | XMS_ITS | Clinical Summary ---
Author Organization [facility] Address [address] [place] [address] Care Team Providers Care A P Manager Name Role Phone Racheal Sky NP Primary Care Provider [phone] Social History Tobacco Use Types Packs/Day Years [...] age to complete this topic Care Teams A P Manager Relationship Specialty Start Date End Date Racheal Sky NP [address] [facility] [place] [address] PCP - General Family Medicine 10/24/18
--- OUTSIDE RECORDS SUMMARY | 2024-12-19 19:09 | XMS_ITS | Clinical Summary ---
Author Organization [facility] Address [address] [place] [address] Phone Care Team Providers Care Batch Tank Controller Name Role Phone Rody Duenas MD Primary Care Provider [phone] Allergies Active Allergy Reactions Criticality Noted Date [...] exam was done in conjunction with [facility] language services proc tech Abida #[id number]. Ms. Shoemaker was referred back for ongoing [...] spine MRI with and without gadolinium at [facility] from 03/18/2022 shows a very healthy lumbar spine with no significant degenerative changes and no tumor. There is no apparent source of radiculopathy on the lumbar MRI and I suspect this is really due to sacroiliitis. She is agreed to try a right SI joint injection and we will make the arrangements at [facility]. 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 Cerebral arterial aneurysm 11/26/2018 Immunizations Name Administration Dates Next Due Hepatitis A Adult (Havrix; V aqta) 19yo and older 01/23/2014,04/02/2013 Hepatitis B (Yrxubog-W-Ugphk , Recombivax HB-Adult) 19yo and older 07/08/2014,01/23/2014,04/02/2013 [...] Info) Description 08/15/2025 1:30 PM EST Appointment [facility] Radiation Oncology [address] [id number] Jose John MD [address] [place] [address] Health Maintenance Due Date Last Done Comments [...] patient's age to complete this topic Insurance [facility] Care Teams Batch Tank Controller Relationship Specialty Start Date End Date Rody Duenas MD [address] [place] [address] , [address] [facility] D/B/A: [facility] JASWINDER Romeo PCP - General Internal Medicine 7/15/22
--- OUTSIDE RECORDS SUMMARY | 2024-12-19 19:09 | XMS_ITS | Clinical Summary ---
Author Organization [employer] Address [address] [place] [address] 7t [place] [address] Care Team Providers Care Cook Jelly Name Role Phone Unavailable Primary Care Provider [...] Description 12/30/2024 1:00 PM EDT Office Visit [facility] ADULT DENTAL [address] [place] [address] Chuyita Jiang Health Maintenance Due Date Last [...] this topic Meningococcal Vaccine Aged Out No hceryl jesús eligible based on patient's age to [...] Most Recently Relevant to Health Maintenance Insurance [facility] STANDARD
--- OUTSIDE RECORDS SUMMARY | 2024-12-19 19:09 | XMS_ITS | Encounter Summary ---
Author Organization [facility] Address [address] [facility] 7t [place] [address] Care Team Providers Care Proctologist Name Role Phone Unavailable Primary Care Provider Unavailabl e Reason for Visit * Reason Onset Date Comments Appointment 12/15/2022 Encounter Details Date Type Department Care Team ([facility] st Contact Info) Description 12/15/2022 Telephone [facility] ADULT DENTAL [address] [place] [address] Osman Carrizales, DMD [address] [place] [address] Appointment Social History Tobacco Use Types Packs/Day [...] 12/30/2024 1:00 PM EDT Office Visit [facility] ADULT DENTAL [address] [place] [address] Chuyita Jiang documented as of this encounter Visit Diagnoses Not on filedocumented in this encounter
--- OUTSIDE RECORDS SUMMARY | 2024-12-19 19:09 | XMS_ITS | Encounter Summary ---
Author Organization [facility] Address [address] [facility] 7t [place] [address] Care Team Providers Care Dye House Wheel Operator Name Role Phone Unavailable Primary Care Provider Unavailabl e Encounter Details Date Type Department Care Team (Late Contact Info) Description 11/24/2022 Abstract [facility] ADULT DENTAL [address] [place] [address] Osman Carrizales DMD [address] [place] [address] Social History Tobacco Use Types Packs/Day Years [...] 1:00 PM EDT Office Visit [facility] ADULT DENTAL [address] [place] [address] Jiang, Chuyita documented as of this encounter Visit Diagnoses Not on filedocumented in this encounter
--- OUTSIDE RECORDS SUMMARY | 2024-12-19 19:09 | XMS_ITS | Encounter Summary ---
Author Organization [facility] Address [address] [facility] 7t [place] [address] Care Team Providers Care Technology Consultant Name Role Phone Unavailable Primary Care Provider Unavailabl e Encounter Details Date Type Department Care Team (Latest Contact Info) Description 10/25/2021 Abstract [facility] CONVERSIONS Dental, Provider, DDS Social History Tobacco [...] Description 12/30/2024 1:00 PM EDT Office Visit [facility] ADULT DENTAL [address] [place] [address] Chuyita Jiang documented as of this encounter Visit Diagnoses Not on filedocumented in this encounter
== END 2024-12-19 16:38 | disposition home or self-care (01) ==
LOC: HO.HUSH 15:43
PROVIDERS: PCP Internal Medicine; Visit Provider Urology
DX: Z13.9 Encounter for screening, unspecified (principal)

== ENCOUNTER 2025-01-06 07:57 | Outpatient (AMB) | payer OTHER, SELFPAY ==
--- OUTSIDE RECORDS SUMMARY | 2025-01-06 08:02 | XMS_ITS | Encounter Summary ---
Author Organization [facility] Address [address] [facility] 7t [place] [address] Care Team Providers Care Sheet Metal Duct Installer Name Role Phone Unavailable Primary Care Provider Unavailabl e Encounter Details Date Type Department Care Team (Latest Contact Info) Description 10/25/[address] [facility] CONVERSIONS Dental, Provider, DDS Social History [...] Care Team (Late st Contact Info) Description 06/26/2025 3:00 PM EDT Office Visit [facility] ADULT DENTAL [address] [place] [address] Chuyita Jiang documented as of this encounter Visit Diagnoses Not on filedocumented in this encounter
--- OUTSIDE RECORDS SUMMARY | 2025-01-06 08:02 | XMS_ITS | Clinical Summary ---
Author Organization [facility] Address [address] [place] [phone] Phone Care Team Providers Care Corporate Technical Recruiter Name Role Phone Rody Duenas MD Primary Care Provider [phone] Allergies Active Allergy Reactions Criticality Noted Date [...] Problem Noted Date Diagnosed Date Meningioma, spinal ([facility]/HCC V24, CMS/HCC V28) Cancer Staging:Clinical:WHO G1(cM0, Modified Wong: M0) - Signed by Jose John MD on 08/12/2024 Sacroiliitis ([facility] V24) 04/08/2022 Overview (08/09/2024): Last Assessment & Plan: This exam was done in conjunction with [facility] language services assembler installer structures Abida #[id number]. Ms. Shoemaker was referred back for ongoing [...] spine MRI with and without gadolinium at [facility] from 03/18/2022 shows a very healthy lumbar spine with no significant degenerative changes and no tumor. There is no apparent source of radiculopathy on the lumbar MRI and I suspect this is really due to sacroiliitis. She is agreed to try a right SI joint injection and we will make the arrangements at [facility]. 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 Cerebral arterial aneurysm 11/26/2018 Immunizations Name Administration Dates Next Due Hepatitis A Adult (Havrix; V aqta) 19yo and older 01/23/2014,04/02/2013 Hepatitis B (Jjvcmkt-Y-Oiyfr , Recombivax HB-Adult) 19yo and older 07/08/2014,01/23/2014,04/02/2013 [...] Info) Description 08/15/2025 1:30 PM EST Appointment [facility] Radiation Oncology [address] [phone] Jose John MD [address] [place] [address] Health Maintenance Due Date Last Done Comments Cervical Cancer Screening: Pap Smear 1983 Pneumococcal Vaccine: 50+ Years (1 of 1 - PCV) 2012 Breast Cancer Screening 03/13/2022 03/13/2020 Colorectal Cancer Screening: Colonoscopy 08/28/2022 Depression Screening 08/28/2022 HIV Screening 08/28/2022 Hepatitis C Screening 08/28/2022 Social Influencers of Health Screening 08/28/2022 COVID-19 Vaccine ( season) 2024 11/17/2022, 09/16/2021 Influenza Vaccine (Season Ended) 2025 08/31/2021, 10/08/2019, 06/26/2018, Additional history exists DTaP,Tdap,and Td Vaccines (3 - Td or Tdap) 03/07/2033 03/07/2023, 06/11/2012 RSV Immunization Adult Patients (1 - 1-dose 75+ series) 2037 Hepatitis [...] age to complete this topic Meningococcal B Vaccine Aged Out No l onger eligible based on patient's age to complete [...] patient's age to complete this topic Insurance [facility] Care Teams Corporate Technical Recruiter Relationship Specialty Start Date End Date Rody Duenas MD [address] [place] [address] , [address] [facility] D/B/A: [facility] [place] PCP - General Internal Medicine 04/08/22
--- OUTSIDE RECORDS SUMMARY | 2025-01-06 08:02 | XMS_ITS | Encounter Summary ---
Author Organization [facility] Address [address] [place] [address] 7t [place] [address] Care Team Providers Care Microbiology Analyst Name Role Phone Unavailable Primary Care Provider Unavailabl e Encounter Details Date Type Department Care Team (Late Contact Info) Description 11/24/2022 Abstract [facility] ADULT DENTAL [address] [place] [address] Osman Carrizales DMD [address] [place] [address] Social History Tobacco Use Types Packs/Day Years [...] Description 06/26/2025 3:00 PM EDT Office Visit [facility] ADULT DENTAL [address] [place] [address] Jiang, Chuyita documented as of this encounter Visit Diagnoses Not on filedocumented in this encounter
--- OUTSIDE RECORDS SUMMARY | 2025-01-06 08:02 | XMS_ITS | Encounter Summary ---
Author Organization [employer] [facility] Address [address] [facility] 7t [place] [address] Care Team Providers Care Pick Up Worker Name Role Phone Unavailable Primary Care Provider Unavailabl e Reason for Visit * Reason Onset Date Comments Appointment 12/15/2022 Encounter Details Date Type Department Care Team ([facility] st Contact Info) Description 12/15/2022 Telephone [facility] ADULT DENTAL [address] [place] [address] Osman Carrizales, DMD [address] [place] [address] Appointment Social History Tobacco Use Types Packs/Day [...] Description 06/26/2025 3:00 PM EDT Office Visit [facility] ADULT DENTAL [address] [place] [address] Chuyita Jiang documented as of this encounter Visit Diagnoses Not on filedocumented in this encounter
--- OUTSIDE RECORDS SUMMARY | 2025-01-06 08:02 | XMS_ITS | Clinical Summary ---
Author Organization [facility] Address [address] [place] [address] Care Team Providers Care Manager Of Pharmacy Name Role Phone Racheal Sky NP Primary Care Provider [phone] Social History Tobacco Use Types Packs/Day Years [...] to complete this topic Care Teams Manager Of Pharmacy Relationship Specialty Start Date End Date Racheal Sky NP [address] [facility] [place] [address] PCP - General Family Medicine 10/24/18
--- OUTSIDE RECORDS SUMMARY | 2025-01-06 08:02 | XMS_ITS | Clinical Summary ---
Author Organization [employer] Address [address] [place] [address] 7t [place] [address] Care Team Providers Care Cutter Apprentice Hand Name Role Phone Unavailable Primary Care Provider [...] Description 06/26/2025 3:00 PM EDT Office Visit [facility] ADULT DENTAL [address] [place] [address] Chuyita Jiang Health Maintenance Due Date Last [...] Most Recently Relevant to Health Maintenance Insurance [facility] STANDARD
--- NOTE | 2025-01-06 09:42 | MHC.OFFVISWM ---
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* Allergies Penicillins [PENICILLINS] Allergy (Intermediate, Verified 01/06/25 09:43) RASH, SWELLING diphenhydramine Allergy (Verified 01/06/25 09:43) Facial Swelling gabapentin Adverse Reaction (Intermediate, Verified 01/06/25 09:43) leg swelling Medication List - Last Reconciled 01/06/25 by Nikolas Rodriguez MD aspirin (Adult Low Dose Aspirin) 81 mg PO DAILY 90 days atorvastatin 20 mg PO BEDTIME 90 days celecoxib (Celebrex) 100 mg PO BID cholecalciferol (vitamin D3) 25 mcg PO DAILY 90 days clotrimazole-betamethasone 1-0.05 % 1 appl topical BID 7 days hydrochlorothiazide 25 mg PO DAILY 90 days levothyroxine 50 mcg PO DAILY 90 days lidocaine 5% 1 patch topical ONCE 30 days lisinopril 40 mg PO DAILY 90 days omeprazole 40 mg PO DAILY pregabalin (Lyrica) 75 mg PO DAILY 30 days pyridoxine (vitamin B6) 100 mg PO DAILY sennosides (senna) 17.2 mg (2 x 8.6 mg) PO BEDTIME tramadol 50 mg PO DAILY 30 days vitamin B complex (B Complex-Vitamin B12 tablet) 1 tab PO DAILY 90 days HPI HPI [employer]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*: Details: Start time: 9.35am, End time: 10.35am ?I spent 55 minutes speaking with the patient on the phone plus an additional 5 minutes reviewing and updating records for a total of 60 minutes HPI Comments Details: Previous weight loss efforts: saw a boarding mother (lost 10-15lbs which she regained) Wakes up: 10am, Sleeps: 11pm Breakfast: 11am (sandwich, eggs) Lunch: 1pm (tuna) Dinner: 7pm (chicken, rice) Snacks: 4pm (cookie or fruit), 10pm (cereal, fruit, ice cream) Exercise: none Beverages: Coffee (2 cups/d with sugar), tea: none, soda: diet, juice: daily, ETOH: none PFSH Medical History (Updated 01/06/25 @ 11:10 by Nikolas Rodriguez MD) Physical exam Pre-op examination Gastric ulcer Allergic reaction Low back pain Lumbar pain Dysphagia VELARDE (nonalcoholic steatohepatitis) Encounter for well woman exam with routine gynecological exam Tendinitis of flexor tendon of right hand Smoker Encounter for annual routine gynecological examination Screen for colon cancer Hematuria History of nicotine use Pure hypercholesterolemia RUBINA positive Essential hypertension Urge incontinence Disc degeneration, lumbar Chronic idiopathic constipation Thyroid disease Hx of renal calculi H/O coronary angiogram Rectal bleeding Pruritus ani Esophageal candidiasis History of diverticulitis Nephrolithiasis Hypertension Surgical History History of hysterectomy History of salpingo-oophorectomy History of thoracic surgery History of esophagogastroduodenoscopy (EGD) H/O colonoscopy Hx of lithotripsy H/O cerebral aneurysm repair History of hernia repair H/O left breast biopsy H/O section Family History Father Skin cancer Prostate cancer Mother CHF (congestive heart failure) Hypertension Diabetes Sister Thyroid cancer Adenomatous polyps Colon cancer Family/Other Mental health disorder Unknown Uterus cancer Family/Other No problems noted. Social History Household Members: Spouse Housing: Apartment Alcohol intake: current Alcohol intake frequency: holidays/special occasions only Alcohol type: wine Patient Tobacco Use Status: Former Tobacco user Tobacco use type: Cigarette e-Cigarette/Vaping Use: Never Used Second Hand Smoke Exposure: Yes service: No Current occupational status: unemployed Sexual orientation: Straight/Heterosexual Gender identity: Female Cognitive needs: No Hearing needs: No Vision needs: Yes (Glasses) Female Reproductive History Menstrual Age of Menarche: 14 Telehealth Telehealth Telehealth Platform: Telephone Location of provider rendering services: practice address Location of patient: address on file Patient Identification confirmed using: Name, : Yes Telehealth method: voice only Patient verbally consented to treatment: Yes Patient verbally consented to billing insurance company: Yes Patient informed of any privacy concerns related to visit: Yes Minutes spent on Phone/Video with Pt.: 60 Assessment & Plan Assessment & Plan (1) Obesity: Code(s): E66.9 - Obesity, unspecified Category: Medical Qualifiers: Obesity type: due to excess calories Obesity classification: adult class 2 (BMI 35 - 39.9) Serious obesity comorbidity presence: with serious comorbidity Body mass index: BMI 38.0-38.9 Qualified Code(s): E66.812 - Obesity, class 2; E66.01 - Morbid (severe) obesity due to excess calories; Z68.38 - Body mass index [BMI] 38.0-38.9, adult Plan: 1. We discussed in detail the available therapeutic options: 1) our lifestyle intervention program that has an average weight loss of 10% in 3 months.? 2) Weight loss medications. 3) We also discussed about the lap sleeve gastrectomy. I emphasized the importance of close follow-up, adherence to instructions and good communication. The surgery does not replace the need to change your lifestlyle which is the cause of the obesity problem. The surgery provides the motivation to try again to change your lifestyle, it reduces the appetite and make the transition to a better lifestyle easier and doubles the amount of weight you would lose compared to doing the lifestyle change without the surgery. You will need to be on a liquid diet with protein shakes for 2 weeks before surgery to maximize weight loss and boost your nutritional status to recover better from surgery and also for the first two weeks after surgery to let the stomach heal before we introduce other foods. After the first 2 weeks we will introduce protein bars and soft foods like scrambled eggs, cottage cheese and yogurt and after the 6th week will introduce meat, fish and cooked vegetables in small amounts. Over time you should be able to eat everything in small amounts. Side effects like nausea, vomiting, heartburn or abdominal pain are not common in the practice unless you are not following in the practice. This operation requires lifetime commitment to following in our practice and communication with me. You will much less weight and experience side effects if you don?t communicate or not following in the practice. Complications are rare and in our practice is about 1/10 of the national average. The patient will consider her options and she will get back to me with her decision. Orders: Orders H Pylori Breath Test Today E03.9 - Hypothyroidism, unspecified, E66.9 - Obesity, unspecified, E78.00 - Pure hypercholesterolemia, unspecified, I10 - Essential (primary) hypertension, K21.9 - Gastro-esophageal reflux disease without esophagitis Complete Blood Count Auto Diff Today E03.9 - Hypothyroidism, unspecified, E66.9 - Obesity, unspecified, E78.00 - Pure hypercholesterolemia, unspecified, I10 - Essential (primary) hypertension, K21.9 - Gastro-esophageal reflux disease without esophagitis Vitamin B12 and Folate Today E03.9 - Hypothyroidism, unspecified, E66.9 - Obesity, unspecified, E78.00 - Pure hypercholesterolemia, unspecified, I10 - Essential (primary) hypertension, K21.9 - Gastro-esophageal reflux disease without esophagitis C Reactive Protein Today E03.9 - Hypothyroidism, unspecified, E66.9 - Obesity, unspecified, E78.00 - Pure hypercholesterolemia, unspecified, I10 - Essential (primary) hypertension, K21.9 - Gastro-esophageal reflux disease without esophagitis Vitamin B1 Today E03.9 - Hypothyroidism, unspecified, E66.9 - Obesity, unspecified, E78.00 - Pure hypercholesterolemia, unspecified, I10 - Essential (primary) hypertension, K21.9 - Gastro-esophageal reflux disease without esophagitis Vitamin A Today E03.9 - Hypothyroidism, unspecified, E66.9 - Obesity, unspecified, E78.00 - Pure hypercholesterolemia, unspecified, I10 - Essential (primary) hypertension, K21.9 - Gastro-esophageal reflux disease without esophagitis TSH reflex Free T4 Today E03.9 - Hypothyroidism, unspecified, E66.9 - Obesity, unspecified, E78.00 - Pure hypercholesterolemia, unspecified, I10 - Essential (primary) hypertension, K21.9 - Gastro-esophageal reflux disease without esophagitis Ferritin Today E03.9 - Hypothyroidism, unspecified, E66.9 - Obesity, unspecified, E78.00 - Pure hypercholesterolemia, unspecified, I10 - Essential (primary) hypertension, K21.9 - Gastro-esophageal reflux disease without esophagitis Vitamin D 25-OH Total Today E03.9 - Hypothyroidism, unspecified, E66.9 - Obesity, unspecified, E78.00 - Pure hypercholesterolemia, unspecified, I10 - Essential (primary) hypertension, K21.9 - Gastro-esophageal reflux disease without esophagitis XR chest 2V Today E03.9 - Hypothyroidism, unspecified, E66.9 - Obesity, unspecified, E78.00 - Pure hypercholesterolemia, unspecified, I10 - Essential (primary) hypertension, K21.9 - Gastro-esophageal reflux disease without esophagitis ECG 12 lead EKG Today E03.9 - Hypothyroidism, unspecified, E66.9 - Obesity, unspecified, E78.00 - Pure hypercholesterolemia, unspecified, I10 - Essential (primary) hypertension, K21.9 - Gastro-esophageal reflux disease without esophagitis FL upper GI w air Today E03.9 - Hypothyroidism, unspecified, E66.9 - Obesity, unspecified, E78.00 - Pure hypercholesterolemia, unspecified, I10 - Essential (primary) hypertension, K21.9 - Gastro-esophageal reflux disease without esophagitis Insulin Today E03.9 - Hypothyroidism, unspecified, E66.9 - Obesity, unspecified, E78.00 - Pure hypercholesterolemia, unspecified, I10 - Essential (primary) hypertension, K21.9 - Gastro-esophageal reflux disease without esophagitis Hemoglobin A1c Today E03.9 - Hypothyroidism, unspecified, E66.9 - Obesity, unspecified, E78.00 - Pure hypercholesterolemia, unspecified, I10 - Essential (primary) hypertension, K21.9 - Gastro-esophageal reflux disease without esophagitis Lipid Panel Today E03.9 - Hypothyroidism, unspecified, E66.9 - Obesity, unspecified, E78.00 - Pure hypercholesterolemia, unspecified, I10 - Essential (primary) hypertension, K21.9 - Gastro-esophageal reflux disease without esophagitis IRON PROFILE Today E03.9 - Hypothyroidism, unspecified, E66.9 - Obesity, unspecified, E78.00 - Pure hypercholesterolemia, unspecified, I10 - Essential (primary) hypertension, K21.9 - Gastro-esophageal reflux disease without esophagitis Comprehensive Met. Panel Today E03.9 - Hypothyroidism, unspecified, E66.9 - Obesity, unspecified, E78.00 - Pure hypercholesterolemia, unspecified, I10 - Essential (primary) hypertension, K21.9 - Gastro-esophageal reflux disease without esophagitis Zinc Today E03.9 - Hypothyroidism, unspecified, E66.9 - Obesity, unspecified, E78.00 - Pure hypercholesterolemia, unspecified, I10 - Essential (primary) hypertension, K21.9 - Gastro-esophageal reflux disease without esophagitis US abdomen comp w elastography Today E03.9 - Hypothyroidism, unspecified, E66.9 - Obesity, unspecified, E78.00 - Pure hypercholesterolemia, unspecified, I10 - Essential (primary) hypertension, K21.9 - Gastro-esophageal reflux disease without esophagitis Referrals Behavioral Health Referral E03.9 - Hypothyroidism, unspecified, E66.9 - Obesity, unspecified, E78.00 - Pure hypercholesterolemia, unspecified, I10 - Essential (primary) hypertension, K21.9 - Gastro-esophageal reflux disease without esophagitis Nutrition/Dietitian Referral E03.9 - Hypothyroidism, unspecified, E66.9 - Obesity, unspecified, E78.00 - Pure hypercholesterolemia, unspecified, I10 - Essential (primary) hypertension, K21.9 - Gastro-esophageal reflux disease without esophagitis
[2025-01-06 11:08] VITALS: BMI 38.2
== END 2025-01-06 11:12 | disposition home or self-care (01) ==
LOC: HO.HBS 07:57
PROVIDERS: PCP Internal Medicine; Visit Provider Surgery
DX: E66.812 Obesity, class 2 (principal); Z68.38 Body mass index [BMI] 38.0-38.9, adult
CPT/HCPCS: 99205

== ENCOUNTER 2025-01-07 08:44 | Outpatient (REF) | payer OTHER, SELFPAY ==
[2025-01-07 08:54] LABS: MANUAL DIFF FLAG NO
--- OUTSIDE RECORDS SUMMARY | 2025-01-07 09:08 | XMS_ITS | Clinical Summary ---
Author Organization [facility] Address [address] [place] [address] Phone Care Team Providers Care Engraver Machine Name Role Phone Rody Duenas MD Primary Care Provider [phone] Allergies Active Allergy Reactions Criticality Noted Date [...] Problem Noted Date Diagnosed Date Meningioma, spinal ([facility]/HCC V24, CMS/HCC V28) Cancer Staging:Clinical:WHO G1(cM0, Modified Wong: M0) - Signed by Jose John MD on 08/12/2024 Sacroiliitis ([facility] V24) 04/08/2022 Overview (08/09/2024): Last Assessment & Plan: This exam was done in conjunction with [facility] language services quality assurance/r&d lab technician Abida #[id number]. Ms. Shoemaker was referred back for ongoing [...] spine MRI with and without gadolinium at [facility] from 03/18/2022 shows a very healthy lumbar spine with no significant degenerative changes and no tumor. There is no apparent source of radiculopathy on the lumbar MRI and I suspect this is really due to sacroiliitis. She is agreed to try a right SI joint injection and we will make the arrangements at [facility]. 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 Cerebral arterial aneurysm 11/26/2018 Immunizations Name Administration Dates Next Due Hepatitis A Adult (Havrix; V aqta) 19yo and older 01/23/2014,04/02/2013 Hepatitis B (Igsbcll-X-Tjlzp , Recombivax HB-Adult) 19yo and older 07/08/2014,01/23/2014,04/02/2013 [...] Info) Description 08/15/2025 1:30 PM EST Appointment [facility] Radiation Oncology [address] [address] Jose John MD [address] [place] [address] Health Maintenance Due Date Last Done Comments [...] patient's age to complete this topic Insurance [facility] PLAN Care Teams Engraver Machine Relationship Specialty Start Date End Date Rody Duenas MD [address] [place] [address] , [address] [facility]ician [facility] D/B/A: [facility] [place] PCP - General Internal Medicine 04/08/22
--- OUTSIDE RECORDS SUMMARY | 2025-01-07 09:08 | XMS_ITS | Clinical Summary ---
Author Organization [facility] Address [address] [place] [address] Care Team Providers Care Parachute Inspector Name Role Phone Racheal Sky NP Primary Care Provider [phone] Social History Tobacco Use Types Packs/Day Years [...] age to complete this topic Care Teams Parachute Inspector Relationship Specialty Start Date End Date Racheal Sky NP [address] [facility] [place] [address] PCP - General Family Medicine 10/24/18
[2025-01-07 09:36] LABS: Basophils Percent Auto 0.5 % (0-2); Eosinophils Absolute Auto 0.2 X10*3/uL (0.0-0.4); Eosinophils Percent Auto 2.6 % (0-4); Hematocrit 37.8 % (37.0-47.0); Hemoglobin 12.3 g/dl (12.0-16.0); Imm Gran Abs Auto 0.02 X10*3/uL (0.00-0.03); Imm Gran Pct Auto 0.3 % (0.0-0.4); Lymphocytes Percent Auto 34.8 % (20-40); Mean Corpuscular HGB Conc 32.5 g/dl (31.0-35.0); Mean Corpuscular Hemoglobin 27.3 pg (27.0-33.0); Mean Platelet Volume 9.1 fL (9.4-12.3); Monocytes Absolute Auto 0.4 X10*3/uL (0.1-1.2); Monocytes Percent Auto 7.2 % (2-11); Neutrophils Absolute Auto 3.2 x10*3/uL (2.0-8.3); Neutrophils Percent Auto 54.6 % (45-73); Platelet Count 298 X10*3/uL (160-400); Red Cell Distribution Width 15.9 % (11.0-16.0); White Blood Count 5.9 X10*3/uL (4.8-10.8)
[2025-01-07 10:27] LABS: Estimated Average Glucose 143 mg/dL; Hemoglobin A1C 154.0585 umol/L; Hemoglobin A1c % 6.6 % (<6.0); Total Hemoglobin (HGBA1C) 3180.6704 umol/L
[2025-01-07 10:34] LABS: Alanine Aminotransferase 18 U/L (0-31); Albumin Level 3.8 g/dL (3.5-5.0); Alkaline Phosphatase 122 U/L (39-117); Anion Gap 10 (12-20); Aspartate Amino Transferase 19 U/L (5-31); Bilirubin Total 0.7 mg/dL (0.0-1.0); Blood Urea Nitrogen 22 mg/dL (9-16); C Reactive Protein 0.76 mg/dL (< or = 0.50); Calcium 9.1 mg/dL (8.4-10.2); Carbon Dioxide 29 mmol/L (22-29); Chloride 109 mmol/L (96-108); Cholesterol 105 mg/dL (<200); Estimated Glomerular Filt Rate > 60; Glucose Random 112 mg/dL (60-115); HDL Cholesterol 34 mg/dL (>40); Iron 61 mcg/dL (30-160); LDL Cholesterol Calculated 58 mg/dL (<100); Percent Iron Saturation 23 % (15-50); Potassium 3.8 mmol/L (3.3-5.1); Sodium 144 mmol/L (135-145); Total Iron Binding Capacity 268 mcg/dL (228-428); Total Protein 6.7 g/dL (6.5-8.0); Triglycerides 66 mg/dL (<150); Unsaturated Iron Binding 207 ug/dL
[2025-01-07 10:51] LABS: Ferritin 101 ng/mL (10-250); TSH reflex Free T4 2.61 uIU/mL (0.32-4.0); Vitamin D 25-OH Total 35.9 ng/mL (>30)
[2025-01-07 10:57] LABS: Folate 12.4 ng/mL (> or = 4.0); Vitamin B12 1091 pg/mL (200-900)
[2025-01-07 11:16] LABS: Insulin 6 uU/mL (2-29)
[2025-01-10 09:34] LABS: Zinc 71 mcg/dL (60-130)
[2025-01-11 15:08] LABS: Vitamin A 33 mcg/dL (38-98)
[2025-01-17 18:29] LABS: Vitamin B1 9 nmol/L (8-30)
== END 2025-01-07 08:45 | disposition home or self-care (01) ==
LOC: HO.LAB 08:44
PROVIDERS: Absent Provider Surgery; PCP Internal Medicine; Visit Provider Internal Medicine
DX: E66.9 Obesity, unspecified (principal); K21.9 Gastro-esophageal reflux disease without esophagitis; E78.00 Pure hypercholesterolemia, unspecified; I10 Essential (primary) hypertension; E03.9 Hypothyroidism, unspecified
CPT/HCPCS: 36415; 80053; 80061; 82306; 82607; 82728; 82746; 83036; 83525; 83540; 84425; 84443; 84590; 84630; 85025; 86140

== ENCOUNTER 2025-02-20 08:27 | Outpatient (REF) | payer OTHER, SELFPAY ==
--- NOTE | ~2025-02-20 | US_ITS ---
EXAMINATION: US COMPLETE ABDOMEN WITH LIVER ELASTOGRAPHY CLINICAL INFORMATION: Obesity, unspecified COMPARISON: 03/06/2024. No prior elastography. TECHNIQUE: Real-time imaging of the abdominal viscera. Noninvasive ultrasound liver fibrosis assessment is performed using Rickie ElastPQ point quantification shear wave elastography (pSWE) with a C5-2 MHz transducer. Multiple elastography samples are obtained. FINDINGS: PANCREAS: The visualized pancreatic head and body are normal in appearance. The remainder of the pancreas is obscured from visualization by the overlying bowel gas. ABDOMINAL AORTA: No aortic aneurysm is seen. INFERIOR VENA CAVA: Visualized portions are normal. LIVER: Liver is normal in size. No contour abnormality. Diffusely increased hepatic echogenicity. The right lobe measures 15.0 cm in length. The left lobe measures 10.6 cm in length. Portal flow is towards the liver (hepatopetal). Shear wave liver elastography median stiffness is 1.89 m/s (reference: normal median stiffness is 1.3 m/s or less). IQR/median stiffness to assess sampling precision is 0.19 (reference: good quality data set is IQR/median stiffness of 0.15 or less). GALLBLADDER: The gallbladder is physiologically distended without evidence of stones, sludge, polyps, wall thickening or pericholecystic fluid. COMMON BILE DUCT: Normal in caliber measuring 0.3 cm in diameter. RIGHT KIDNEY: No hydronephrosis. No suspicious focal parenchymal lesions. Probable duplicated collecting system. The kidney measures 13.2 cm in maximum dimension. There is a 0.4 cm calculus in the upper pole and a 0.4 cm calculus in the lower pole. There is a 1.0 cm cyst in the lower pole. LEFT KIDNEY: No hydronephrosis. No renal calculi or focal parenchymal lesions. The kidney measures 10.4 cm in maximum dimension. There is an upper pole simple cyst measuring 1.1 cm. SPLEEN: Unremarkable. The spleen measures 8.3 cm in maximum dimension. FREE FLUID: None seen. US/US abdomen comp w elastography IMPRESSION: 1. Diffusely increased hepatic echogenicity, likely on the basis of steatosis. No focal lesions seen. 2. Liver elastography: Although measurements are suggestive of compensated advanced chronic liver disease, there is statistical variability of the sampling which decreases accuracy. 3. Nonobstructing right nephrolithiasis. Tiny bilateral simple renal cysts. REFERENCE: Society of Radiologists in Ultrasound Liver Stiffness Thresholds (2020): LIVER STIFFNESS THRESHOLDS: *Liver Stiffness equal or less than 1.3 m/s: High probability of being normal. *Liver Stiffness less than 1.7 m/s: In the absence of other known clinical signs, rules out compensated advanced chronic liver disease. *Liver Stiffness 1.7-2.1 m/s: Suggestive of compensated advanced chronic liver disease but need further test for confirmation. *Liver Stiffness over 2.1 m/s: Rules in compensated advanced chronic liver disease. *Liver Stiffness over 2.4 m/s: Suggestive of clinically significant portal hypertension. QUALITY OF DATA SET: *IQR/Median value equal or less than 0.15 implies a quality data set. *IQR/Median value over 0.15 implies a poor quality data set. SIGNIFICANT CHANGE FROM PRIOR EXAM: Significant change if liver stiffness measurement is 10% or greater from prior exam. OTHER CONSIDERATIONS: The stage of liver fibrosis may be overestimated in the setting of acute hepatitis, liver inflammation, elevated liver function tests, hepatic vascular congestion, obstructive cholestasis, non-fasting state, and infiltrative diseases such as amyloidosis and lymphoma. In some patients with NAFLD, the liver stiffness thresholds for compensated advanced chronic liver disease may be lower. In causes other than viral hepatitis and NAFLD, liver stiffness thresholds are not well established. Electronically signed by: Ernesto Anne MD 02/20/2025 09:27 AM EDT
--- OUTSIDE RECORDS SUMMARY | 2025-02-20 08:39 | XMS_ITS | Clinical Summary ---
Author Organization [facility] Address [address] [place] [address] Phone Care Team Providers Care Best Worker Name Role Phone Rody Duenas MD Primary Care Provider [phone] Allergies Active Allergy Reactions Criticality Noted Date [...] Problem Noted Date Diagnosed Date Meningioma, spinal ([facility]/HCC V24, CMS/HCC V28) Cancer Staging:Clinical:WHO G1(cM0, Modified Wong: M0) - Signed by Jose John MD on 08/12/2024 Sacroiliitis ([facility] V24) 04/08/2022 Overview (08/09/2024): Last Assessment & Plan: This exam was done in conjunction with [facility] language services chip mucker Abida #[id number]. Ms. Shoemaker was referred back for ongoing [...] spine MRI with and without gadolinium at [facility] from 03/18/2022 shows a very healthy lumbar spine with no significant degenerative changes and no tumor. There is no apparent source of radiculopathy on the lumbar MRI and I suspect this is really due to sacroiliitis. She is agreed to try a right SI joint injection and we will make the arrangements at [facility]. 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 Radiation Oncology [address] [place] [address] Jose John MD [address] [place] [address] Health Maintenance Due Date Last Done Comments [...] patient's age to complete this topic Insurance [facility] PLAN Care Teams Best Worker Relationship Specialty Start Date End Date Rody Duenas MD [address] [place] [address] , [address] [facility] D/B/A: [facility] [place] PCP - General Internal Medicine 04/08/22
== END 2025-02-20 08:28 | disposition home or self-care (01) ==
LOC: HO.US 08:27
PROVIDERS: PCP Internal Medicine; Visit Provider Surgery
DX: E66.9 Obesity, unspecified (principal); K21.9 Gastro-esophageal reflux disease without esophagitis; E03.9 Hypothyroidism, unspecified; I10 Essential (primary) hypertension; E78.00 Pure hypercholesterolemia, unspecified
CPT/HCPCS: 76700; 76981

== ENCOUNTER → 2025-02-20 08:31 | Outpatient (BNV) | payer OTHER, SELFPAY | PROVIDERS: PCP Internal Medicine; Visit Provider Radiology Diagnostic Radiology | DX: N20.0 Calculus of kidney (principal) | CPT/HCPCS: 76700; 76981 ==

== ENCOUNTER 2025-02-27 06:24 | Day surgery (SDC) | payer OTHER, SELFPAY ==
--- OUTSIDE RECORDS SUMMARY | 2025-02-11 14:58 | XMS_ITS | Clinical Summary ---
Author Organization [employer] Address [address] [facility] 7t [place] [address] Care Team Providers Care Silk Opener Name Role Phone Unavailable Primary Care Provider [...] Active Problems No known active problems Immunizations Immunization Administration Dates Next Due Hep A, Adult [...] Description 06/26/2025 3:00 PM EDT Office Visit [facility] ADULT DENTAL [address] [place] [address] Chuyita Jiang Health Maintenance Due Date Last Done Comments CT Colonography 1962 Colonoscopy 1962 Colorectal Cancer Screening 1962 Depression Screening 1962 FIT DNA/Cologuard 1962 FIT 1962 FOBT 1962 HIV Screening 1962 Lipid Panel 1962 SDOH Screening 1962 Sigmoidoscopy 1962 Disability Screening 1962 Alcohol/Substance Use Screening 1974 Hepatitis C [...] Most Recently Relevant to Health Maintenance Insurance [facility] STANDARD * Guarantor: Evelia Thomason Account Type Relation to Patient Date of Phone Billing Address Personal/Family Self [address] [place]
--- OUTSIDE RECORDS SUMMARY | 2025-02-11 14:58 | XMS_ITS | Encounter Summary ---
Author Organization [email or web address] [facility] Address [address] [facility] 7t [place] [address] Care Team Providers Care Single End Sewer Name Role Phone Unavailable Primary Care Provider Unavailabl e Encounter Details Date Type Department Care Team (Latest Contact Info) Description 10/25/2021 Abstract [facility] Dental, Provider, DDS Social History [...] Description 06/26/2025 3:00 PM EDT Office Visit [facility] ADULT DENTAL [address] [place] [address] Chuyita Jiang documented as of this encounter Visit Diagnoses Not on filedocumented in this encounter
--- OUTSIDE RECORDS SUMMARY | 2025-02-11 14:58 | XMS_ITS | Encounter Summary ---
Author Organization [facility] Address [address] [facility] 7t [place] [address] Care Team Providers Care Bordereau Clerk Name Role Phone Unavailable Primary Care Provider Unavailabl e Reason for Visit * Reason Onset Date Comments Appointment 12/15/2022 Encounter Details Date Type Department Care Team ([facility] st Contact Info) Description 12/15/2022 Telephone [facility] ADULT DENTAL [address] [place] [address] Osman Carrizales, JIMMY [address] [place] [address] Appointment Social History Tobacco Use Types Packs/Day [...] Description 06/26/2025 3:00 PM EDT Office Visit [facility] ADULT DENTAL [address] [place] [address] Chuyita Jiang documented as of this encounter Visit Diagnoses Not on filedocumented in this encounter
--- OUTSIDE RECORDS SUMMARY | 2025-02-11 14:58 | XMS_ITS | Clinical Summary ---
Author Organization [facility] Address [address] [place] [address] Care Team Providers Care Theatrical Variety Agent Name Role Phone Racheal Sky NP Primary Care Provider [phone] Social History Tobacco Use Types Packs/Day Years [...] age to complete this topic Care Teams Theatrical Variety Agent Relationship Specialty Start Date End Date Racheal Sky NP [address] [facility] [place] [address] PCP - General Family Medicine 10/24/18
--- OUTSIDE RECORDS SUMMARY | 2025-02-11 14:58 | XMS_ITS | Clinical Summary ---
Author Organization [facility] Address [address] [place] [address] Phone Care Team Providers Care Hose Sprayer Name Role Phone Rody Duenas MD Primary Care Provider [phone] Allergies Active Allergy Reactions Criticality Noted Date [...] Problem Noted Date Diagnosed Date Meningioma, spinal ([facility]/HCC V24, CMS/HCC V28) Cancer Staging:Clinical:WHO G1(cM0, Modified Wong: M0) - Signed by Jose John MD on 08/12/2024 Sacroiliitis ([facility] V24) 04/08/2022 Overview (08/09/2024): Last Assessment & Plan: This exam was done in conjunction with [facility] language services paraprofessional interpreter Abida #[id number]. Ms. Shoemaker was referred back for ongoing [...] spine MRI with and without gadolinium at [facility] from 03/18/2022 shows a very healthy lumbar spine with no significant degenerative changes and no tumor. There is no apparent source of radiculopathy on the lumbar MRI and I suspect this is really due to sacroiliitis. She is agreed to try a right SI joint injection and we will make the arrangements at [facility]. 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 Cerebral arterial aneurysm 11/26/2018 Immunizations Name Administration Dates Next Due Hepatitis A Adult (Havrix; V aqta) 19yo and older 01/23/2014,04/02/2013 Hepatitis B (Cynhxrr-V-Cyuen , Recombivax HB-Adult) 19yo and older 07/08/2014,01/23/2014,04/02/2013 [...] Info) Description 08/15/2025 1:30 PM EST Appointment [facility] Radiation Oncology [address] [place] [address] Jose John MD [address] [place] [address] Health Maintenance Due Date Last Done Comments [...] patient's age to complete this topic Insurance [facility] PLAN Care Teams Hose Sprayer Relationship Specialty Start Date End Date Rody Duenas MD [address] [place] [address] , [address] [facility] Physician Associ D/B/A: [facility] [place] PCP - General Internal Medicine 04/08/22
--- OUTSIDE RECORDS SUMMARY | 2025-02-11 14:58 | XMS_ITS | Encounter Summary ---
Author Organization [facility] Address [address] [facility] 7t [place] [address] Care Team Providers Care Tube Trailer Filler Name Role Phone Unavailable Primary Care Provider Unavailabl e Encounter Details Date Type Department Care Team (Late Contact Info) Description 11/24/2022 Abstract [facility] ADULT DENTAL [address] [place] [address] Osman Carrizales DMD [address] [place] [address] Social History Tobacco Use Types Packs/Day Years [...] Description 06/26/2025 3:00 PM EDT Office Visit [facility] ADULT DENTAL [address] [place] [address] Jiang, Chuyita documented as of this encounter Visit Diagnoses Not on filedocumented in this encounter
[2025-02-25 11:05] VITALS: BMI 38.2
--- NOTE | 2025-02-26 10:15 | HO.ANESPROP2 ---
Documented by User: Rayna Dupont NP 02/26/25 10:16 HPI - Anesthesia Eval Consult details Narrative: 64yo F for Upper Endoscopy with Balloon Dilitation PMFSH Active Problems Active Problems: All Active Problems Hand paresthesia (Acute) Right renal stone (Acute) Elevated alkaline phosphatase level (Acute) OAB (overactive bladder) (Acute) Sacroiliac joint dysfunction of right side (Acute) Pre-op examination (Acute) Oropharyngeal dysphagia (Acute) Gross hematuria (Acute) Physical exam (Acute) Hypovitaminosis D (Acute) Complex cyst of right ovary (Acute) Hemorrhoids (Acute) Chronic idiopathic constipation (Acute) GERD (gastroesophageal reflux disease) (Acute) Hypothyroid (Acute) Obesity (Acute) Gastric ulcer (Acute) Tendinitis of flexor tendon of right hand (Acute) Nephrolithiasis (Acute) Pure hypercholesterolemia (Acute) RUBINA positive (Acute) Essential hypertension (Acute) Urge incontinence (Acute) Disc degeneration, lumbar (Acute) Past Medical History Medical History Tendinitis of flexor tendon of right hand Hematuria History of nicotine use Lumbar pain Dysphagia Pure hypercholesterolemia RUBINA positive Low back pain Essential hypertension Urge incontinence Disc degeneration, lumbar Chronic idiopathic constipation Gastric ulcer Thyroid disease Hx of renal calculi VELARDE (nonalcoholic steatohepatitis) H/O coronary angiogram Rectal bleeding Pruritus ani Esophageal candidiasis History of diverticulitis Nephrolithiasis Smoker Hypertension Family History Family History Father Skin cancer Prostate cancer Mother CHF (congestive heart failure) Hypertension Diabetes Sister Thyroid cancer Adenomatous polyps Colon cancer Family/Other Mental health disorder Unknown Uterus cancer Family/Other No problems noted. Family history of problems with anesthesia: No Surgical History Surgical History History of hysterectomy History of salpingo-oophorectomy History of thoracic surgery History of esophagogastroduodenoscopy (EGD) H/O colonoscopy Hx of lithotripsy H/O cerebral aneurysm repair History of hernia repair H/O left breast biopsy H/O section History of Problems with Anesthesia: No Social History Social History Household Members: Spouse Housing: Apartment Alcohol intake: current Alcohol intake frequency: holidays/special occasions only Alcohol type: wine Patient Tobacco Use Status: Former Tobacco user Tobacco use type: Cigarette e-Cigarette/Vaping Use: Never Used Second Hand Smoke Exposure: Yes Use of substances other than those prescribed or required for medical reasons: No Are you DNR?: No Advance Directives: No Advance Directives Information Provided: Yes Patient : No : No Poor oral hygiene: No service: No Current occupational status: unemployed Sexual orientation: Straight/Heterosexual Gender identity: Female Cognitive needs: No Hearing needs: No Vision needs: Yes (Glasses) Meds Allergies Allergy/AdvReac Type Severity Reaction Status Date / Time Penicillins [PENICILLINS] Allergy Intermediate RASH, Verified 01/06/25 09:43 SWELLING diphenhydramine Allergy Facial Verified 01/06/25 09:43 Swelling gabapentin AdvReac Intermediate leg Verified 01/06/25 09:43 swelling Exam Height,Weight and Vital Signs: Height 4 ft 11 in Weight 85.729 kg Pertinent Lab Results Pertinent Lab Results: Laboratory Tests 01/07/25 08:52 WBC 5.9 Hgb 12.3 Hct 37.8 Plt Count 298 Sodium 144 Potassium 3.8 Chloride 109 H Carbon Dioxide 29 BUN 22 H Creatinine 0.77 Assessment and Plan Assessment Anesthesia Assessment: Chart Reviewed Final Anesthetic Review Family History of Problems with Anesthesia: No History of Problems with Anesthesia: No Documented by User: Willie Mcpherson MD 02/27/25 06:59 PENDING SALE TO [facility] Past Medical History Medical History Tendinitis of flexor tendon of right hand Hematuria History of nicotine use Lumbar pain Dysphagia Pure hypercholesterolemia RUBINA positive Low back pain Essential hypertension Urge incontinence Disc degeneration, lumbar Chronic idiopathic constipation Gastric ulcer Thyroid disease Hx of renal calculi VELARDE (nonalcoholic steatohepatitis) H/O coronary angiogram Rectal bleeding Pruritus ani Esophageal candidiasis History of diverticulitis Nephrolithiasis Smoker Hypertension Cognitive capacity: normal Functional capacity: independent ambulation Family History Family History Father Skin cancer Prostate cancer Mother CHF (congestive heart failure) Hypertension Diabetes Sister Thyroid cancer Adenomatous polyps Colon cancer Family/Other Mental health disorder Unknown Uterus cancer Family/Other No problems noted. Surgical History Surgical History History of hysterectomy History of salpingo-oophorectomy History of thoracic surgery History of esophagogastroduodenoscopy (EGD) H/O colonoscopy Hx of lithotripsy H/O cerebral aneurysm repair History of hernia repair H/O left breast biopsy H/O section Social History Social History Household Members: Spouse Housing: Apartment Alcohol intake: current Alcohol intake frequency: holidays/special occasions only Alcohol type: wine Patient Tobacco Use Status: Former Tobacco user Tobacco use type: Cigarette e-Cigarette/Vaping Use: Never Used Second Hand Smoke Exposure: Yes Use of substances other than those prescribed or required for medical reasons: No Are you DNR?: No Advance Directives: No Advance Directives Information Provided: Yes Patient : No : No Poor oral hygiene: No service: No Current occupational status: unemployed Sexual orientation: Straight/Heterosexual Gender identity: Female Cognitive needs: No Hearing needs: No Vision needs: Yes (Glasses) Meds Allergies Allergy/AdvReac Type Severity Reaction Status Date / Time Penicillins [PENICILLINS] Allergy Intermediate RASH, Verified 01/06/25 09:43 SWELLING diphenhydramine Allergy Facial Verified 01/06/25 09:43 Swelling gabapentin AdvReac Intermediate leg Verified 01/06/25 09:43 swelling Active Medications: patient takes many medications Plwase refer to the list Exam Airway Mallampati Class: II TM Dist: >3cm Partial: Upper and Lower Loose/Missing/Broken Teeth: Yes Heart: rrr Lungs: cta Assessment and Plan Assessment Anesthesia Assessment: Anesthesia Plan Discussed Final Anesthetic Review NPO: Yes ASA Class: III Final Preanesthetic Review: No Changes in Pt Med Stat, Consent Obtained/Reviewed and Anes Risks/Benef Reviewed Patient Risk: Intermediate Procedure Risk: Low Anesthetic Plan Anesthetic Plan: MAC: Disposition: Standard PACU
[2025-02-27 06:36] VITALS: BMI 38.5
[2025-02-27 07:01] VITALS: BP 131/64; PULSE 64; RESP 16; TEMP 36.2; O2SAT 98
[2025-02-27] MEDS: Lactated Ringers 1,000 ML 100 ML IVCONT (07:11)
--- NOTE | 2025-02-27 07:47 | MHC.SHP ---
Pre-Procedural Eval Section A - 24 Hr Update-Section A only Date of Service: 02/27/25 Section B - Complete if H&P > 30 days Chief Complaint: Gastric ulcer, unspecified as acute or chronic,jesús Details of Present Illness: Pre-op examination Gastric ulcer Allergic reaction Low back pain Lumbar pain Dysphagia VELARDE (nonalcoholic steatohepatitis) Encounter for well woman exam with routine gynecological exam Tendinitis of flexor tendon of right hand Smoker Encounter for annual routine gynecological examination Physical exam Screen for colon cancer Hematuria History of nicotine use Pure hypercholesterolemia RUBINA positive Essential hypertension Urge incontinence Disc degeneration, lumbar Chronic idiopathic constipation Thyroid disease Hx of renal calculi H/O coronary angiogram Rectal bleeding Pruritus ani Esophageal candidiasis History of diverticulitis Nephrolithiasis Hypertension Surgical History History of hysterectomy History of salpingo-oophorectomy History of thoracic surgery History of esophagogastroduodenoscopy (EGD) H/O colonoscopy Hx of lithotripsy H/O cerebral aneurysm repair History of hernia repair H/O left breast biopsy H/O section Present Medications: see Short Stay Collaborative assessment Allergies: Allergies Allergy/AdvReac Type Severity Reaction Status Date / Time Penicillins [PENICILLINS] Allergy Intermediate RASH, Verified 01/06/25 09:43 SWELLING diphenhydramine Allergy Facial Verified 01/06/25 09:43 Swelling gabapentin AdvReac Intermediate leg Verified 01/06/25 09:43 swelling Review of Systems Review of Systems Comment: 10 point ROS negative Exam Exam Comment: Gen appear: No acute distress HEENT: no icterus Chest: No overt resp distress Abd: soft, nontender, nondistended Psych: Stable affect, answering questions appropriately Neuro: A/Ox3 noted to move all extremities spontaneously Ext: no peripheral edema Plan Diagnosis/Plan: Unchanged I have reviewed the history and physical and performed a pertinent physical examination on my patient. No changes have occurred unless specified. Time Spent With Patient Time: Total time managing care of this patient today ____ minutes.
--- NOTE | 2025-02-27 07:51 | P.OP_ITS ---
Operative Note Operative Note Date of Service: 02/27/25 Narrative: Procedure: Esophagogastroduodenoscopy Endoscopist: Izabel Coppola MD Indication: Hx of gastric ulcer Anesthesia Provider: Dr Mcpherson Anesthesia Type: MAC ?? EGD Procedure:?? The procedure, indications, preparation and potential complications were reviewed with the patient, who indicated understanding and gave written informed consent to proceed. A physical exam was performed. The endoscope was introduced through the mouth, and advanced to the second part of duodenum. The mucosa was carefully examined on slow withdrawal of the endoscope. The patient tolerated the procedure well. There were no immediate complications.? ? EGD Findings:? * Esophagus:? Normal mucosa noted in the entire esophagus. The Z line was at 35 cm. * Stomach:? Solid food in stomach covering most of the gastric body along the greater curvature and in antrum. Retroflexion was performed in the cardia. * Duodenum:? Solid food noted in duodenal bulb. ? EGD Impressions:? * Normal esophagus * Food in stomach * Food in duodenum ?? Recommendations:?? * Unable to assess for antral ulcer today due to food in stomach * Recommend repeat EGD with at least 12h of fasting * Continue PPI * Avoid NSAIDs. Above has been reviewed with the patient.
[2025-02-27 08:10] VITALS: BP 90/33; PULSE 65; RESP 16; TEMP 36.1; O2SAT 98
[2025-02-27 08:25] VITALS: BP 103/43; PULSE 54; RESP 16; TEMP 36.1; O2SAT 96
== END 2025-02-27 08:45 | disposition home or self-care (01) ==
PROVIDERS: PCP Internal Medicine; Visit Provider Internal Medicine
PROC: 0DJ08ZZ Inspection of Upper Intestinal Tract, Via Natural or Artificial Opening Endoscopic (ICD-10-PCS; CPT 43235; principal; 2025-02-27 07:30)
DX: K25.9 Gastric ulcer, unspecified as acute or chronic, without hemorrhage or perforation (principal); K21.9 Gastro-esophageal reflux disease without esophagitis; K31.89 Other diseases of stomach and duodenum; K75.81 Nonalcoholic steatohepatitis (NASH); K59.04 Chronic idiopathic constipation; Z87.19 Personal history of other diseases of the digestive system; I10 Essential (primary) hypertension; E78.00 Pure hypercholesterolemia, unspecified; E03.9 Hypothyroidism, unspecified; R76.0 Raised antibody titer; Z87.442 Personal history of urinary calculi; Z79.899 Other long term (current) drug therapy; Z88.0 Allergy status to penicillin; Z88.8 Allergy status to other drugs, medicaments and biological substances; Z98.890 Other specified postprocedural states; Z87.891 Personal history of nicotine dependence; Z56.0 Unemployment, unspecified
CPT/HCPCS: 43235; J2003; J2704; J3010

== ENCOUNTER → 2025-02-27 06:24 | Outpatient (BNV) | payer OTHER, SELFPAY | PROVIDERS: PCP Internal Medicine; Visit Provider Internal Medicine | DX: Z87.11 Personal history of peptic ulcer disease (principal); Z91.199 Patient's noncompliance with other medical treatment and regimen due to unspecified reason | CPT/HCPCS: 43235 ==

== ENCOUNTER 2025-04-22 08:43 | Day surgery (SDC) | payer OTHER, SELFPAY ==
--- OUTSIDE RECORDS SUMMARY | 2025-04-10 14:32 | XMS_ITS | Clinical Summary ---
Author Organization [facility] Address [address] [place] [address] Phone Care Team Providers Care Clay Molder Name Role Phone Rody Duenas MD Primary Care Provider [phone] Allergies Active Allergy Reactions Criticality Noted Date [...] Problem Noted Date Diagnosed Date Meningioma, spinal ([facility]/HCC V24, CMS/HCC V28) Cancer Staging:Clinical:WHO G1(cM0, Modified Wong: M0) - Signed by Jose John MD on 08/12/2024 Sacroiliitis ([facility] V24) 04/08/2022 Overview (08/09/2024): Last Assessment & Plan: This exam was done in conjunction with [facility] language services site interpreter Abida #[id number]. Ms. Shoemaker was referred back for ongoing [...] spine MRI with and without gadolinium at [facility] from 03/18/2022 shows a very healthy lumbar spine with no significant degenerative changes and no tumor. There is no apparent source of radiculopathy on the lumbar MRI and I suspect this is really due to sacroiliitis. She is agreed to try a right SI joint injection and we will make the arrangements at [facility]. 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 Cerebral arterial aneurysm 11/26/2018 Immunizations Name Administration Dates Next Due Hepatitis A Adult (Havrix; V aqta) 19yo and older 01/23/2014,04/02/2013 Hepatitis B (Tkaqryp-W-Ugbit , Recombivax HB-Adult) 19yo and older 07/08/2014,01/23/2014,04/02/2013 [...] Info) Description 08/15/2025 1:30 PM EST Appointment [facility] Radiation Oncology [address] [place] [address] Jose John MD [address] [place] [address] Health Maintenance Due Date Last Done Comments Cervical Cancer Screening: Pap Smear 1983 Pneumococcal Vaccine: 50+ Years (1 of 1 - PCV) 2012 Breast Cancer Screening 03/13/2022 03/13/2020 Colorectal Cancer Screening: Colonoscopy 08/28/2022 Depression Screening 08/28/2022 HIV Screening 08/28/2022 Hepatitis C Screening 08/28/2022 Social Influencers of Health Screening 08/28/2022 COVID-19 Vaccine ( season) 2024 11/17/2022, 09/16/2021 Influenza Vaccine (#1) 2025 , 10/08/2019, 06/26/2018, Additional history exists DTaP,Tdap,and [...] patient's age to complete this topic Insurance [facility] [employer] Care Teams Clay Molder Relationship Specialty Start Date End Date Rody Duenas MD [address] [place] [address] , [address] Physician Associ D/B/A: [facility] JASWINDER Romeo PCP - General Internal Medicine 04/08/22
--- OUTSIDE RECORDS SUMMARY | 2025-04-10 14:32 | XMS_ITS | Encounter Summary ---
Author Organization [facility] [facility] Address [address] [place] [address] Care Team Providers Care Director Foundation Name Role Phone Unavailable Primary Care Provider Unavailabl e Encounter Details Date Type Department Care Team (Latest Contact Info) Description 10/25/2021 Abstract [facility] CONVERSIONS Dental, Provider, DDS Social History Tobacco [...] Description 06/26/2025 3:00 PM EDT Office Visit [facility] ADULT DENTAL [address] [place] [address] Chuyita Jiang documented as of this encounter Visit Diagnoses Not on filedocumented in this encounter
--- OUTSIDE RECORDS SUMMARY | 2025-04-10 14:32 | XMS_ITS | Clinical Summary ---
Author Organization [facility] Address [address] [place] [address] Care Team Providers Care Patient Day Coordinator Name Role Phone Racheal Sky NP Primary Care Provider [phone] Social History Tobacco Use Types Packs/Day Years [...] (1 of 2) 2012 Influenza Vaccine (#1) 2025 RSV Adult > 60+ Yrs or Pregn [...] age to complete this topic Care Teams Patient Day Coordinator Relationship Specialty Start Date End Date Racheal Sky NP [address] [facility] [place] [address] PCP - General Family Medicine 10/24/18
--- NOTE | 2025-04-21 12:08 | HO.ANESPROP2 ---
HPI - Anesthesia Eval Consult details Narrative: 65yo F for Upper Endoscopy PMF Active Problems Active Problems: All Active Problems Hand paresthesia (Acute) Right renal stone (Acute) Elevated alkaline phosphatase level (Acute) OAB (overactive bladder) (Acute) Sacroiliac joint dysfunction of right side (Acute) Pre-op examination (Acute) Oropharyngeal dysphagia (Acute) Gross hematuria (Acute) Physical exam (Acute) Hypovitaminosis D (Acute) Complex cyst of right ovary (Acute) Hemorrhoids (Acute) Chronic idiopathic constipation (Acute) GERD (gastroesophageal reflux disease) (Acute) Hypothyroid (Acute) Obesity (Acute) Gastric ulcer (Acute) Tendinitis of flexor tendon of right hand (Acute) Nephrolithiasis (Acute) Pure hypercholesterolemia (Acute) RUBINA positive (Acute) Essential hypertension (Acute) Urge incontinence (Acute) Disc degeneration, lumbar (Acute) Past Medical History Medical History Tendinitis of flexor tendon of right hand Hematuria History of nicotine use Lumbar pain Dysphagia Pure hypercholesterolemia RUBINA positive Low back pain Essential hypertension Urge incontinence Disc degeneration, lumbar Chronic idiopathic constipation Gastric ulcer Thyroid disease Hx of renal calculi VELARDE (nonalcoholic steatohepatitis) H/O coronary angiogram Rectal bleeding Pruritus ani Esophageal candidiasis History of diverticulitis Nephrolithiasis Smoker Hypertension Family History Family History Father Skin cancer Prostate cancer Mother CHF (congestive heart failure) Hypertension Diabetes Sister Thyroid cancer Adenomatous polyps Colon cancer Family/Other Mental health disorder Unknown Uterus cancer Family/Other No problems noted. Family history of problems with anesthesia: No Surgical History Surgical History History of hysterectomy History of salpingo-oophorectomy History of thoracic surgery History of esophagogastroduodenoscopy (EGD) H/O colonoscopy Hx of lithotripsy H/O cerebral aneurysm repair History of hernia repair H/O left breast biopsy H/O section History of Problems with Anesthesia: No Social History Social History Household Members: Spouse Housing: Apartment Alcohol intake: current Alcohol intake frequency: holidays/special occasions only Alcohol type: wine Patient Tobacco Use Status: Former Tobacco user Tobacco use type: Cigarette e-Cigarette/Vaping Use: Never Used Second Hand Smoke Exposure: Yes Use of substances other than those prescribed or required for medical reasons: No Are you DNR?: No Advance Directives: No Advance Directives Information Provided: Yes Patient : No : No Poor oral hygiene: No service: No Current occupational status: unemployed Sexual orientation: Straight/Heterosexual Gender identity: Female Cognitive needs: No Hearing needs: No Vision needs: Yes (Glasses) Meds Allergies Allergy/AdvReac Type Severity Reaction Status Date / Time Penicillins (PENICILLINS) Allergy Intermediate RASH, Verified 01/06/25 09:43 SWELLING diphenhydramine Allergy Facial Verified 01/06/25 09:43 Swelling gabapentin AdvReac Intermediate leg Verified 01/06/25 09:43 swelling Assessment and Plan Assessment Anesthesia Assessment: Chart Reviewed Final Anesthetic Review Family History of Problems with Anesthesia: No History of Problems with Anesthesia: No
--- NOTE | 2025-04-22 09:27 | MHC.SHP ---
Pre-Procedural Eval Section A - 24 Hr Update-Section A only Date of Service: 04/22/25 The patient is an INPATIENT: No The patient has been examined within 24 hours of the surgical procedure. The History & Physical has been completed within 30 days and I have reviewed it.: No Section B - Complete if H&P > 30 days Chief Complaint: Follow-up of gastric ulcer Relevant Family History (Specify if Yes): Yes Relevant Social History: Tobacco Use (Former smoker) Present Medications: see Short Stay Collaborative assessment Medical History: Significant History (Gastric ulcer Allergic reaction Low back pain Lumbar pain Dysphagia VELARDE (nonalcoholic steatohepatitis)) History of Previous Operations: Relevant previous surgery/procedure and date(s) (History of hysterectomy History of salpingo-oophorectomy History of thoracic surgery History of esophagogastroduodenoscopy (EGD) H/O colonoscopy Hx of lithotripsy H/O cerebral aneurysm repair History of hernia repair H/O left breast biopsy H/O section) Allergies: Allergies Allergy/AdvReac Type Severity Reaction Status Date / Time Penicillins (PENICILLINS) Allergy Intermediate RASH, Verified 01/06/25 09:43 SWELLING diphenhydramine Allergy Facial Verified 01/06/25 09:43 Swelling gabapentin AdvReac Intermediate leg Verified 01/06/25 09:43 swelling Review of Systems Sugical H&P ROS: Negative: Constitution, Cardiovascular, Respiratory and Gastrointestinal Exam Surgical H&P Exam: Normal: Heart, Normal: Lungs and Normal: Extremities Plan Diagnosis/Plan: Change (Proceed with EGD) I have reviewed the history and physical and performed a pertinent physical examination on my patient. No changes have occurred unless specified. Time Spent With Patient Time: Total time managing care of this patient today ____ minutes.
--- NOTE | 2025-04-22 09:42 | P.CONAN_ITS ---
[facility] Active Problems Active Problems: All Active Problems (Updated 02/25/25 @ 11:01 by Brisa Myers RN) Hand paresthesia (Acute) Right renal stone (Acute) Elevated alkaline phosphatase level (Acute) OAB (overactive bladder) (Acute) Sacroiliac joint dysfunction of right side (Acute) Pre-op examination (Acute) Oropharyngeal dysphagia (Acute) Gross hematuria (Acute) Physical exam (Acute) Hypovitaminosis D (Acute) Complex cyst of right ovary (Acute) Hemorrhoids (Acute) Chronic idiopathic constipation (Acute) GERD (gastroesophageal reflux disease) (Acute) Hypothyroid (Acute) Obesity (Acute) Gastric ulcer (Acute) Tendinitis of flexor tendon of right hand (Acute) Nephrolithiasis (Acute) Pure hypercholesterolemia (Acute) RUBINA positive (Acute) Essential hypertension (Acute) Urge incontinence (Acute) Disc degeneration, lumbar (Acute) Past Medical History Medical History Tendinitis of flexor tendon of right hand Hematuria History of nicotine use Lumbar pain Dysphagia Pure hypercholesterolemia RUBINA positive Low back pain Essential hypertension Urge incontinence Disc degeneration, lumbar Chronic idiopathic constipation Gastric ulcer Thyroid disease Hx of renal calculi VELARDE (nonalcoholic steatohepatitis) H/O coronary angiogram Rectal bleeding Pruritus ani Esophageal candidiasis History of diverticulitis Nephrolithiasis Smoker Hypertension Functional capacity: independent ambulation Patient : No Family History Family History Father Skin cancer Prostate cancer Mother CHF (congestive heart failure) Hypertension Diabetes Sister Thyroid cancer Adenomatous polyps Colon cancer Family/Other Mental health disorder Unknown Uterus cancer Family/Other No problems noted. Family history of problems with anesthesia: No Surgical History Surgical History History of hysterectomy History of salpingo-oophorectomy History of thoracic surgery History of esophagogastroduodenoscopy (EGD) H/O colonoscopy Hx of lithotripsy H/O cerebral aneurysm repair History of hernia repair H/O left breast biopsy H/O section History of Problems with Anesthesia: No Social History Social History Household Members: Spouse Housing: Apartment Alcohol intake: current Alcohol intake frequency: holidays/special occasions only Alcohol type: wine Patient Tobacco Use Status: Former Tobacco user Tobacco use type: Cigarette e-Cigarette/Vaping Use: Never Used Second Hand Smoke Exposure: Yes service: No Current occupational status: unemployed Sexual orientation: Straight/Heterosexual Gender identity: Female Cognitive needs: No Hearing needs: No Vision needs: Yes (Glasses) Meds Allergies Allergy/AdvReac Type Severity Reaction Status Date / Time Penicillins (PENICILLINS) Allergy Intermediate RASH, Verified 01/06/25 09:43 SWELLING diphenhydramine Allergy Facial Verified 01/06/25 09:43 Swelling gabapentin AdvReac Intermediate leg Verified 01/06/25 09:43 swelling Active Medications: Current Medications Albuterol Sulfate (Albuterol Sulfate (0.083%) 2.5 Mg/3 Ml Vial.Neb) 2.5 mg INHALE ONCE PRN PRN Reason: Shortness of Breath/Wheezing Lactated Ringer's (Lr) 1,000 mls @ 100 mls/hr IVCONT .Q10H MICHELLE Exam Airway Mallampati Class: III TM Dist: >3cm Neck ROM: Full Heart: RRR Lungs: CTA Assessment and Plan Assessment Anesthesia Assessment: Anesthesia Plan Discussed Final Anesthetic Review Family History of Problems with Anesthesia: No History of Problems with Anesthesia: No NPO: Yes ASA Class: III Final Preanesthetic Review: Meds/Allgs Chart Reviewed, Consent Obtained/Reviewed and Anes Risks/Benef Reviewed Patient Risk: Intermediate Procedure Risk: Low Anesthetic Plan Anesthetic Plan: GA Disposition: Standard PACU
[2025-04-22 09:44] VITALS: BP 124/75; PULSE 51; RESP 17; TEMP 36.6; O2SAT 97; BMI 38.4
[2025-04-22 11:18] VITALS: BP 138/66; PULSE 60; RESP 13; TEMP 36.4; O2SAT 100
[2025-04-22 11:23] VITALS: BP 147/75; PULSE 62; RESP 16; O2SAT 95
[2025-04-22 11:28] VITALS: BP 139/73; PULSE 60; RESP 16; O2SAT 95
--- NOTE | 2025-04-22 11:30 | W.PM.OPN ---
Operative Note Operative Note Date of Service: 04/22/25 Narrative: FLEXIBLE TRANSORAL UPPER GASTROINTESTINAL ENDOSCOPY WITH BIOPSIES Pre-op diagnosis: GERD, FU of gastric ulcer Post-op diagnosis: GERD, Gastritis, gastric ulcer Endoscopist:? Louise Velez MD Anesthesia:?MAC UPPER ENDOSCOPY Consent: Indications for the procedure and potential complications of bleeding, perforation, reaction to medications and missed diagnosis were discussed with the patient and informed consent was obtained. Instrument: Olympus GIF H 190 mid size upper endoscope Monitoring: Vital signs and clinical assessment, continuous EKG monitoring, Pulse oximetry, Carbon Dioxide monitoring and blood pressure monitoring were done throughout the procedure. Procedure: The patient was placed in the left lateral decubitis position and pre-procedure medications were administered and a bite block was placed. The endoscope was inserted into the mouth and advanced under direct vision to the third part of duodenum. A careful inspection was made as the upper endoscope was withdrawn including a retroflexed examination of the proximal stomach; Findings and interventions are described below. Findings: Larynx: Normal Esophagus: GE junction at 35 cms. No esophagitis or Crowley's Stomach: A 7-8 mm chronic appearing ulcer in the antrum with white exudate and surrounding edematous folds - biopsies were obtained. A few 2-3 mm benign appearing polyps in the gastric body and fundus - biopsied. Moderate diffuse gastric erythema - biopsies were obtained from the gastric body and antrum. Grade 2 flap valve on retroflexed examination of the cardia. Duodenum: Normal bulb and descending duodenum Intervention: Biopsies as noted above Impression and Post Procedure Diagnosis: Endoscopy Findings: ESOPHAGUS: Normal STOMACH: Gastric ulcer, gastritis and gastric polyps Recurrent gastric ulcer - likely associated with aspirin use. DUODENUM: Normal Plan: Pt has a FU appointment on 05/02/25 with Frances Jaramillo NP. Continue Omeprazole 40 mg daily. Consider decreasing aspirin to 2-3 times a week instead of daily Above findings were reviewed with the patient and relevant handouts were given and the discharge area. BIOPSIES SHOWED: A. Gastric ulcer, biopsy: Gastric antral mucosa with marked reactive changes, consistent with tissue adjacent to ulcer, with minimal chronic active gastritis; negative for H. pylori, intestinal metaplasia and dysplasia. B. Gastric antrum, biopsy: Gastric antral mucosa with mild reactive changes and focal minimal chronic inactive inflammation; negative for H. pylori, intestinal metaplasia and dysplasia. C. Gastric body, biopsy: Gastric body mucosa with focal minimal chronic inactive inflammation; negative for H. pylori, intestinal metaplasia and dysplasia. D. Gastric polyp, biopsy: Gastric body mucosa with focal minimal changes suggesting incipient fundic gland polyp, with focal minimal chronic inactive inflammation; negative for H. pylori, intestinal metaplasia and dysplasia
[2025-04-22 11:33] VITALS: BP 141/74; PULSE 57; RESP 15; O2SAT 96
[2025-04-22 11:47] VITALS: BP 130/55; PULSE 56; RESP 16; TEMP 36.1; O2SAT 97
--- NOTE | 2025-04-22 14:27 | HO.POSTANES ---
Post Anesthesia Evaluation Post Anesthesia Evaluation Date of Service: 04/22/25 Vital Signs: Vital Signs Temp Pulse Resp BP Pulse Ox O2 Del Method O2 Flow Rate 04/22/25 11:47 97 F 56 16 130/55 L 97 Room Air 04/22/25 11:33 57 15 141/74 H 96 Room Air 04/22/25 11:28 60 16 139/73 95 Room Air 04/22/25 11:23 62 16 147/75 H 95 Room Air 04/22/25 11:18 97.6 F 60 13 138/66 100 Simple Mask 6 04/22/25 09:44 97.9 F 51 17 124/75 97 Room Air Anesthesia: General Endotracheal-GETA and General Mental Status: Awake Pain Control: Satisfactory Nausea/Vomiting: None Hydration: Adequate Anesthesia-Related Issues: No Anes. Related Issues
== END 2025-04-22 12:12 | disposition home or self-care (01) ==
PROVIDERS: PCP Internal Medicine; Visit Provider Internal Medicine Gastroenterology
PROC: 0DJ08ZZ Inspection of Upper Intestinal Tract, Via Natural or Artificial Opening Endoscopic (ICD-10-PCS; CPT 43235; principal; 2025-04-22 09:20)
DX: K25.9 Gastric ulcer, unspecified as acute or chronic, without hemorrhage or perforation (principal); K21.9 Gastro-esophageal reflux disease without esophagitis; K31.7 Polyp of stomach and duodenum; K29.50 Unspecified chronic gastritis without bleeding; K59.04 Chronic idiopathic constipation; K75.81 Nonalcoholic steatohepatitis (NASH); R13.12 Dysphagia, oropharyngeal phase; I10 Essential (primary) hypertension; E78.00 Pure hypercholesterolemia, unspecified; M54.50 Low back pain, unspecified; M51.369 Other intervertebral disc degeneration, lumbar region without mention of lumbar back pain or lower extremity pain; Z79.82 Long term (current) use of aspirin; Z79.899 Other long term (current) drug therapy; Z88.0 Allergy status to penicillin; Z88.8 Allergy status to other drugs, medicaments and biological substances; Z87.891 Personal history of nicotine dependence; Z98.890 Other specified postprocedural states
CPT/HCPCS: 43239; 88305; 88342; J2003; J2250; J2704

== ENCOUNTER → 2025-04-22 08:43 | Outpatient (BNV) | payer OTHER, SELFPAY | PROVIDERS: PCP Internal Medicine; Visit Provider Internal Medicine Gastroenterology | DX: K25.9 Gastric ulcer, unspecified as acute or chronic, without hemorrhage or perforation (principal); K21.9 Gastro-esophageal reflux disease without esophagitis; K29.70 Gastritis, unspecified, without bleeding | CPT/HCPCS: 43239 ==

== ENCOUNTER 2025-05-02 14:23 | Outpatient (AMB) | payer OTHER, SELFPAY ==
--- OUTSIDE RECORDS SUMMARY | 2025-05-02 14:25 | XMS_ITS | Clinical Summary ---
Author Organization [facility] Address [address] [place] [address] Phone Care Team Providers Care Machine Steak Tenderizer Name Role Phone Rody Duenas MD Primary Care Provider [phone] Allergies Active Allergy Reactions Criticality Noted Date [...] Problem Noted Date Diagnosed Date Meningioma, spinal ([facility]/HCC V24, CMS/HCC V28) Cancer Staging:Clinical:WHO G1(cM0, Modified Wong: M0) - Signed by Jose John MD on 08/12/2024 Sacroiliitis ([facility] V24) 04/08/2022 Overview (08/09/2024): Last Assessment & Plan: This exam was done in conjunction with [facility] language services parts interpreter Abida #[id number]. Ms. Shoemaker was referred back for ongoing [...] spine MRI with and without gadolinium at [facility] from 03/18/2022 shows a very healthy lumbar spine with no significant degenerative changes and no tumor. There is no apparent source of radiculopathy on the lumbar MRI and I suspect this is really due to sacroiliitis. She is agreed to try a right SI joint injection and we will make the arrangements at [facility]. 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 Radiation Oncology [address] [place] [address] Jose John MD [address] [place] [address] Health Maintenance Due Date Last Done Comments Cervical Cancer Screening: Pap Smear 1983 Pneumococcal Vaccine: 50+ Years (1 of 1 - PCV) 2012 Breast Cancer Screening 03/13/2022 03/13/2020 Colorectal Cancer Screening: Colonoscopy 08/28/2022 HIV Screening 08/28/2022 Hepatitis C Screening 08/28/2022 Social Influencers of Health Screening 08/28/2022 COVID-19 Vaccine (3 - season) 2024 11/17/2022, 09/16/2021 Depression Screening 09/25/2024 Influenza Vaccine (#1) 2025 , 10/08/2019, 06/26/2018, [...] patient's age to complete this topic Insurance [facility] [place] [place] [address] Care Teams Machine Steak Tenderizer Relationship Specialty Start Date End Date Rody Duenas MD [address] [place] [address] , [address] Physician Associ D/B/A: [facility] JASWINDER Romeo PCP - General Internal Medicine 04/08/22
--- OUTSIDE RECORDS SUMMARY | 2025-05-02 14:25 | XMS_ITS | Clinical Summary ---
Author Organization [facility] Address [address] [place] [address] Care Team Providers Care Button Grader Name Role Phone Racheal Sky NP Primary Care Provider [phone] Social History Tobacco Use Types Packs/Day Years [...] age to complete this topic Care Teams Button Grader Relationship Specialty Start Date End Date Racheal Sky NP [address] [facility] [place] [address] PCP - General Family Medicine 10/24/18
--- OUTSIDE RECORDS SUMMARY | 2025-05-02 14:25 | XMS_ITS | Encounter Summary ---
Author Organization [facility] Address [address] [address] [place] [address] Care Team Providers Care Radiation Control Worker Name Role Phone Unavailable Primary Care Provider Unavailabl e Encounter Details Date Type Department Care Team (Latest Contact Info) Description 10/25/2021 Abstract [facility] CONVERSIONS Dental, Provider, DDS Social [...] Description 06/26/2025 3:00 PM EDT Office Visit [facility] ADULT DENTAL [address] [place] [address] Chuyita Jiang documented as of this encounter Visit Diagnoses Not on filedocumented in this encounter
[2025-05-02 14:31] VITALS: BP 130/70; PULSE 54; BMI 38.5
--- NOTE | 2025-05-02 14:31 | A.OFFVIS_ITS ---
Vital Signs 05/02/25 14:31 Height 4 ft 11 in Weight 190 lb 7.67 oz BMI 38.5 BP 130/70 Blood Pressure Location Lt brachial Position Sitting Pulse 54 Intake Visit Reasons: egd clemencia Intake Note: Patient in office today in follow up s/p EGD. CC: Patient reports having an upset stomach after eating for the last few days. She also reports trouble swalling only sometimes. Fluorescent Lighting Model Maker Required: Yes Accompanied by: Self / Same As Patient Allergies Penicillins (PENICILLINS) Allergy (Intermediate, Verified 05/02/25 14:35) RASH, SWELLING diphenhydramine Allergy (Verified 05/02/25 14:35) Facial Swelling gabapentin Adverse Reaction (Intermediate, Verified 05/02/25 14:35) leg swelling HPI HPI egd clemencia: Details: Assessment & Plan (1) GERD (gastroesophageal reflux disease): Code(s): K21.9 - Gastro-esophageal reflux disease without esophagitis Category: Medical Qualifiers: Esophagitis presence: esophagitis presence not specified Qualified Code(s): K21.9 - Gastro-esophageal reflux disease without esophagitis (2) Chronic idiopathic constipation: Code(s): K59.04 - Chronic idiopathic constipation Category: Medical (3) Gastric ulcer: Comment: 07/2023 also an EGD again inactive by biopsy; 06/2020 EGD, no HP, ulcer non active on biopsy Code(s): K25.9 - Gastric ulcer, unspecified as acute or chronic, without hemorrhage or perforation Category: Medical (4) Pre-op examination: Code(s): Z01.818 - Encounter for other preprocedural examination Category: Medical (5) Elevated alkaline phosphatase level: Comment: Laboratory Tests 03/06/2406 09:2215:4514:03 Total Bilirubin 0.7 0.6 GGT 23 AST 22 20 ALT 27 23 Alkaline Phosphatase 143 H 130 H Alpha Fetoprotein 1.9 TSH 2.00 Laboratory Tests 03/15/1906/19/24 14:4015:45 RODY Screen NEGATIVE Anti-Smooth Muscle Ab <20 AMA ALSO NEGATIVE US OF ABD FINDINGS: PANCREAS: Limited visualization of pancreatic tail and head. Imaged portion of pancreatic body is unremarkable. ABDOMINAL AORTA: Limited visualization with poor visualization of the distal abdominal aorta. INFERIOR VENA CAVA: Unremarkable. LIVER: Right hepatic lobe measures 13.8 cm in sagittal dimension. Increased hepatic parenchymal heterogeneity and echogenicity could be associated with hepatocellular disease/hepatic steatosis and substantially limits visualization. Correlation with liver function tests and clinical exam recommended to determine further management. GALLBLADDER: No gallstones. No gallbladder wall thickening. COMMON BILE DUCT: Normal in caliber measuring 0.2 cm in diameter. RIGHT KIDNEY: 0.7 cm right renal lower pole cyst with benign features. There is no indication for follow-up imaging. Limited visualization. No hydronephrosis or renal calculi. The kidney measures 12.7 cm in maximum dimension. LEFT KIDNEY: 1.0 cm upper pole cyst with benign features. There is no indication for follow-up imaging. Limited visualization. No hydronephrosis or renal calculi. The kidney measures 11.3 cm in maximum dimension. SPLEEN: Normal. The spleen measures 8.5 cm in maximum dimension. FREE FLUID: None. US/US abdomen complete IMPRESSION: Increased hepatic parenchymal heterogeneity and echogenicity could be associated with hepatocellular disease/hepatic steatosis and substantially limits visualization. Correlation with liver function tests and clinical exam recommended to determine further management. Code(s): R74.8 - Abnormal levels of other serum enzymes Category: Medical Plan Norwegian #Rody We reviewed the labs and despite her elevated alk-phos with a negative SMA RODY and mitochondrial antibody it is very unlikely that this is anything other than a normal variant. Because she has no transaminitis or elevated bilirubin I think this does not need to be followed by Gastroenterology and I will turn this back over to her primary care provider to follow with normal monitoring. Should there be any other concerning symptoms were rise in her transaminases then she can consider referring back to our services. Certainly her primary care provider should consider whether the alk-phos is a bone elevation and could be a sign of Paget's disease. She DID stop the carafate which was for healing of her PUD. She continues on o2o and is using senna for CIC with good success. She is agreeable to scheduling the repeat EGD to assess healing. She denies any current cardiac or respiratory problems. There are no prior problems with anesthesia or sedation. There are no infectious disease problems. ROV 6 mos. Orders: Orders EGD - GI Use Only Today K25.9 - Gastric ulcer, unspecified as acute or chronic, without hemorrhage or perforation Medications: Refilled omeprazole 40 mg PO DAILY 90 caps 1RF K25.9 - Gastric ulcer, unspecified as acute or chronic, without hemorrhage or perforation sennosides (senna) 17.2 mg (2 x 8.6 mg) PO BEDTIME 180 tabs 1RF K59.04 - Chronic idiopathic constipation EGD 02/2025 EGD Findings:? * Esophagus:? Normal mucosa noted in the entire esophagus. The Z line was at 35 cm. * Stomach:? Solid food in stomach covering most of the gastric body along the greater curvature and in antrum. Retroflexion was performed in the cardia. * Duodenum:? Solid food noted in duodenal bulb. ? EGD Impressions:? * Normal esophagus * Food in stomach * Food in duodenum ?? Recommendations:?? * Unable to assess for antral ulcer today due to food in stomach * Recommend repeat EGD with at least 12h of fasting * Continue PPI * Avoid NSAIDs. EGD 04/22/2025 Findings: Larynx: Normal Esophagus: GE junction at 35 cms. No esophagitis or Crowley's Stomach: A 7-8 mm chronic appearing ulcer in the antrum with white exudate and surrounding edematous folds - biopsies were obtained. A few 2-3 mm benign appearing polyps in the gastric body and fundus - biopsied. Moderate diffuse gastric erythema - biopsies were obtained from the gastric body and antrum. Grade 2 flap valve on retroflexed examination of the cardia. Duodenum: Normal bulb and descending duodenum Intervention: Biopsies as noted above Impression and Post Procedure Diagnosis: Endoscopy Findings: ESOPHAGUS: Normal STOMACH: Gastric ulcer, gastritis and gastric polyps Recurrent gastric ulcer - likely associated with aspirin use. DUODENUM: Normal Plan: Pt has a FU appointment on 05/02/25 with Frances Jaramillo NP. Continue Omeprazole 40 mg daily. Consider decreasing aspirin to 2-3 times a week instead of daily Above findings were reviewed with the patient and relevant handouts were given and the discharge area. BIOPSIES SHOWED: A. Gastric ulcer, biopsy: Gastric antral mucosa with marked reactive changes, consistent with tissue adjacent to ulcer, with minimal chronic active gastritis; negative for H. pylori, intestinal metaplasia and dysplasia. B. Gastric antrum, biopsy: Gastric antral mucosa with mild reactive changes and focal minimal chronic inactive inflammation; negative for H. pylori, intestinal metaplasia and dysplasia. C. Gastric body, biopsy: Gastric body mucosa with focal minimal chronic inactive inflammation; negative for H. pylori, intestinal metaplasia and dysplasia. D. Gastric polyp, biopsy: Gastric body mucosa with focal minimal changes suggesting incipient fundic gland polyp, with focal minimal chronic inactive inflammation; negative for H. pylori, intestinal metaplasia and dysplasia TODAY'S VISIT Norwegian #Norberto Live SHe takes asa r/t an aneurism of the brain which was rx'ed by a neurologist in [place]. We may need to consult with them - they are at [facility] in [place]. [phone], HEr PCP is Dr. Ferrara. It had been suggested that she decrease her aspirin to 2 to 3 times a week however we may want to involve her neurologist in his decision-making. She was told she needs to be on lifelong asa therapy for the aneurism. Her situation is complicated by the fact that she has a lot of musculoskeletal problems for which she says Tylenol is not helpful. She takes lot of ibuprofen. In the past she was put on Celebrex which certainly would be preferable to ibuprofen but also is damaging along with aspirin use to the stomach. Fortunately she does not have much in terms of gastric pain, but she does have intermittent nausea. To give her some additional protection I am going to put her on omeprazole in the morning and add famotidine at night. Return office visit in 6 months [facility] Medical History Tendinitis of flexor tendon of right hand Hematuria History of nicotine use Lumbar pain Dysphagia Pure hypercholesterolemia RODY positive Low back pain Essential hypertension Urge incontinence Disc degeneration, lumbar Chronic idiopathic constipation Gastric ulcer Thyroid disease Hx of renal calculi VELARDE (nonalcoholic steatohepatitis) H/O coronary angiogram Rectal bleeding Pruritus ani Esophageal candidiasis History of diverticulitis Nephrolithiasis Smoker Hypertension Surgical History History of hysterectomy History of salpingo-oophorectomy History of thoracic surgery History of esophagogastroduodenoscopy (EGD) H/O colonoscopy Hx of lithotripsy H/O cerebral aneurysm repair History of hernia repair H/O left breast biopsy H/O section Family History Father Skin cancer Prostate cancer Mother CHF (congestive heart failure) Hypertension Diabetes Sister Thyroid cancer Adenomatous polyps Colon cancer Family/Other Mental health disorder Unknown Uterus cancer Family/Other No problems noted. Social History Household Members: Spouse Housing: Apartment Alcohol intake: current Alcohol intake frequency: holidays/special occasions only Alcohol type: wine Patient Tobacco Use Status: Former Tobacco user Tobacco use type: Cigarette e-Cigarette/Vaping Use: Never Used Second Hand Smoke Exposure: Yes service: No Current occupational status: unemployed Sexual orientation: Straight/Heterosexual Gender identity: Female Cognitive needs: No Hearing needs: No Vision needs: Yes (Glasses) Female Reproductive History Menstrual Age of Menarche: 14 Review of Systems Const Denies fatigue, Denies fever(s), Denies night sweats, Denies poor appetite and Denies weight loss Eyes Details: glasses ENT Reports Normal hearing present, Denies dental pain, Denies dysphagia, Denies hearing loss, Denies mouth pain, Denies odynophagia, Denies throat swelling, Denies tongue swelling and Reports other (Dentition adequate) Card Reports no additional complaints Resp Reports no additional complaints GI Details: Denies abdominal pain, Denies melena, Denies bloating, Denies hematochezia, Reports constipation, Denies GI cramping, Denies dysphagia, Denies excessive flatus, Denies early satiety, Reports heartburn, Denies diarrhea, Denies nausea, Denies odynophagia, Denies vomiting and Denies hematemesis Musc Reports back pain, Reports myalgias and Reports arthralgias Skin/Breast Denies pruritus, Denies lesions, Denies rash and Denies jaundice Neuro Reports Normal hearing present and Denies Abnormal speech present Endo Denies fatigue Aller/Immun Denies throat swelling and Denies tongue swelling Physical Exam Vital Signs: Last Vital Signs Pulse 54 08/08/25 14:31 BP 130/70 05/02/25 14:31 BMI result Body Mass Index 38.5 Const General: cooperative, no acute distress, well developed and well groomed Nutritional Appearance: well nourished and obese Orientation/consciousness: oriented to person, oriented to place and oriented to time Limitations: language barrier HEENT Head: Yes normocephalic and Yes atraumatic Eyes General: appearance normal, both eyes and all related structures Pupils: Equal, round and reactive pupils present Neck Neck: Yes normal visual inspection and Yes no lymphadenopathy Thyroid: Thyroid normal Resp Effort & Inspection: normal respiratory effort and able to speak in complete sentences Auscultation: clear to auscultation bilaterally Cardio Rate: regular rate Rhythm: regular rhythm Heart sounds: Normal, physiologic split S2 sound present Peripheral pulses: radial pulses present and posterior tibial pulses present GI Inspection: No distended, Yes Abdominal panniculus present and Yes obesity Palpation (GI): Soft to palpation, nontender, no guarding, not rigid and No hepatosplenomegaly present Percussion: Yes normal to percussion Auscultation: normal bowel sounds Rectal Exam - Female: deferred Skin General skin exam: no rashes or lesions noted, turgor normal, skin not dry, no jaundice, No spider nevi and no striae Rashes: no rashes Nails: normal Neuro General: oriented to person, oriented to place and oriented to time Cranial nerves: Yes Equal, round and reactive pupils present and Yes Normal h earing present Speech: No Abnormal speech present Extrem General: Yes normal to inspection, No clubbing, No cyanosis and No edema Psych Appearance: grossly normal and well kempt Mental Status: mental status grossly normal Speech and movement: Normal speech and movement present Affect: normal affect Attitude: cooperative Thought process: Circumstantial thought process present and not confabulating Thought content: Normal thought content present Insight: Limited insight present (Psych) Judgement: Limited judgement present (Psych) Assessment & Plan Assessment & Plan (1) Gastric ulcer: Comment: 07/2023 also an EGD again inactive by biopsy; 06/2020 EGD, no HP, ulcer non active on biopsy Code(s): K25.9 - Gastric ulcer, unspecified as acute or chronic, without hemorrhage or perforation Category: Medical Plan Norwegian #Rody and Abena Live SHe takes asa r/t an aneurism of the brain which was rx'ed by a neurologist in [place]. We may need to consult with them - they are at [facility] in [place]. [phone], HEr PCP is Dr. Ferrara. It had been suggested that she decrease her aspirin to 2 to 3 times a week however we may want to involve her neurologist in his decision-making. She was told she needs to be on lifelong asa therapy for the aneurism. Her situation is complicated by the fact that she has a lot of musculoskeletal problems for which she says Tylenol is not helpful. She takes lot of ibuprofen. In the past she was put on Celebrex which certainly would be preferable to ibuprofen but also is damaging along with aspirin use to the stomach. Fortunately she does not have much in terms of gastric pain, but she does have intermittent nausea. To give her some additional protection I am going to put her on omeprazole in the morning and add famotidine at night. Return office visit in 6 months Medications: New famotidine (Pepcid) 40 mg PO BEDTIME 30 tabs 6RF K25.9 - Gastric ulcer, unspecified as acute or chronic, without hemorrhage or perforation Refilled omeprazole 40 mg PO DAILY 90 caps 1RF K25.9 - Gastric ulcer, unspecified as acute or chronic, without hemorrhage or perforation sennosides (senna) 17.2 mg (2 x 8.6 mg) PO BEDTIME 180 tabs 1RF K59.04 - Chronic idiopathic constipation Coding Level of Care Code Est Pt Level 3 (78798) Diagnoses Gastric ulcer K25.9
== END 2025-05-02 16:50 | disposition home or self-care (01) ==
LOC: HO.HGI 14:23
PROVIDERS: PCP Internal Medicine; Visit Provider Nurse Practitioner
DX: K25.9 Gastric ulcer, unspecified as acute or chronic, without hemorrhage or perforation (principal)
CPT/HCPCS: 99213

== ENCOUNTER → 2025-05-02 14:23 | Outpatient (BNVA) | payer OTHER, SELFPAY | PROVIDERS: PCP Internal Medicine; Visit Provider Nurse Practitioner | DX: K59.04 Chronic idiopathic constipation (principal); R74.8 Abnormal levels of other serum enzymes; K52.9 Noninfective gastroenteritis and colitis, unspecified | CPT/HCPCS: 99212 ==

== ENCOUNTER 2025-05-09 13:02 | Outpatient (AMB) | payer OTHER, SELFPAY ==
--- OUTSIDE RECORDS SUMMARY | 2025-05-09 13:04 | XMS_ITS | Clinical Summary ---
Author Organization [facility] Address [address] [place] [address] Care Team Providers Care Unhairing Machine Operator Name Role Phone Racheal Sky NP Primary Care Provider Social History Tobacco Use Types Packs/Day Years [...] age to complete this topic Care Teams Unhairing Machine Operator Relationship Specialty Start Date End Date Racheal Sky NP [address] [facility] J[place]WINDER Romeo [address] PCP - General Family Medicine 10/24/18
--- OUTSIDE RECORDS SUMMARY | 2025-05-09 13:04 | XMS_ITS | Clinical Summary ---
Author Organization [facility] Address [address] [facility] [address] [place] [address] Phone Care Team Providers Care Information Broker Name Role Phone Rody Kirby MD Primary Care Provid er Allergies Active Allergy Reactions Criticality Noted Date Comments Diphenhydramine Medium 02/24/2019 Other Reaction(s): generalized swelling facial swelling Other reaction(s): Tongue swelling Gabapentin Diarrhea 09/14/2020 Other Reaction(s): Dizziness Other reaction(s): Blurred VIsion, swollen legs Penicillins Rash,Swelling Medium 02/25/2013 Other Reaction(s): rash and swelling rash, swelling throat Medications aspirin 81 MG EC tablet Take 81 mg by mouth daily. Active atorvastatin (LIPITOR) 20 MG tablet Take 20 mg by mouth nightly at bedtime. at bedtime. Active celecoxib (CELEBREX) 100 MG capsule Take 100 mg by mouth. 02/01/2024 Active chlorhexidine (PERIDEX) 0.12 % solution RINSE 15 ML IN MOUTH AND SPIT OUT THREE TIMES DAILY IN THE MORNING, AT NOON, AND AT BEDTIME NEEDED FOR UP TO 5 DAYS 05/10/2024 Active cholecalciferol (VITAMIN D3) 2,000 unit tablet Take by mouth. Active cyanocobalamin, vitamin B-12, 2,500 mcg Tab Take 2,500 mcg by mouth. Active hydroCHLOROthia zide 25 MG tablet Take 25 mg by mouth. Active levothyroxine (SYNTHROID, LEVOTHROID) 50 MCG tablet Take 50 mcg by mouth daily. Active lisinopril (PRINIVIL,ZESTR IL) 40 MG tablet Take 40 mg by mouth. Active omeprazole (PRILOSEC) 40 MG capsule Take 40 mg by mouth daily. Active pregabalin (LYRICA) 75 MG capsule Take by mouth daily. Active pyridoxine, vitamin B6, (B-6) 100 MG tablet Take 100 mg by mouth. 05/06/2024 Active SENNA 8.6 mg tablet Take 17.2 mg by mouth. Active traMADoL (ULTRAM) 50 mg tablet Take 50 mg by mouth daily. Active nitrofurantoin (MACROBID) 100 MG capsule Take 100 mg by mouth 2 (two) times a day. Active Active Problems Problem Noted Date Diagnosed Date Varicose veins of bilateral lower extremities with other complications 10/29/2024 Assessment & Plan (10/29/2024 11:25 AM EST): As mentioned she has significant reflux in the left great saphenous vein and minor reflux in the right great saphenous vein am going to try conservative management and follow-up with the patient in 6 months time if symptoms worsen significantly more than likely we will then strongly consider ablation. Obesity 10/29/2024 Assessment & Plan (10/29/2024 11:25 AM EST): We did speak about this I will reevaluate in 6 months Benign essential hypertension 10/29/2024 Assessment & Plan (10/29/2024 11:25 AM EST): Mildly elevated today risk factor modification including diet and exercise would take care of this Social History Tobacco Use Types Packs/Day Years Used Date Smoking Tobacco: Former Cigarettes Smokeless Tobacco: Never Education Answer Date Recorded Are you interested in more education? Not on david e 09/02/2024 Are you concerned about learning? Not on file 09/02/2024 No 09/02/2024 No 09/02/2024 Digital Access Answer Date Recorded No 09/02/2024 No 09/02/2024 Reliable internet access at home? Not on file 09/02/2024 Device with a working camera? Not on file Comments Unknown Sex and Gender Information Value Date Recorded Sex Assigned at Not on file Legal Sex Female 2:35 PM EST Gender Identity Not on file Sexual Orientation Not on file Last Filed Vital Signs Vital Sign Reading Time Taken Comments Blood Pressure 142/84 10/29/2024 11:08 AM EST Pulse 51 10/29/2024 11:08 AM EST Temperature - - Respiratory Rate - - Oxygen Saturation 98% 10/29/2024 11:08 AM EST Inhaled Oxygen Concentration - - Weight - - Height 149.9 cm (4' 11 ) 10/29/2024 11:08 AM EST Body Mass Index - - Plan of Treatment Upcoming Encounters Date Type Department Care Team (Late st Contact Info) Description 06/17/2025 10:45 AM EDT Office Visit [facility] [address] [facility] [address], [address] [place] [address] Andrew Padron DO [address] [facility] [address] [place] [id number] [email or web address] Maintenance Due Date Last Done Comments CREATININE LEVEL 1962 LIPID PANEL 1962 POTASSIUM LEVEL 1962 TSH LEVEL 1962 DEPRESSION SCREENING 1974 SMOKING Hx and SMOKELESS TOBACCO SCREENING 1975 HEPATITIS C SCREENING 1980 HIV ONE-TIME SCREENING (18-6 5 YEARS) 1980 PAP SMEAR 1983 COLOGUARD 2007 COLONOSCOPY 2007 COLORECTAL CANCER SCREENING 2007 FIT TEST 2007 FOBT 2007 SIGMOIDOSCOPY 2007 VIRTUAL COLONOSCOPY 2007 PNEUMOCOCCAL VACCINES (50+ years) (1 of 1 - PCV) 2012 ZOSTER VACCINES (1 of 2) 2012 MAMMOGRAM 03/13/2022 03/13/2020, 03/13/2020, 02/01/2019 Adult Td,Tdap Booster 06/11/2022 06/11/2012 COVID-19 VACCINE ( - 2023-2 5 season) 2024 BLOOD PRESSURE 04/28/2025 10/29/2024 RSV VACCINE (1 - 1-dose 75+ series) 2037 HEPATITIS A VACCINES Aged Out No long er eligible based on patient's age to complete this topic HIB VACCINES Aged Out No longer eligi ble based on patient's age to complete this topic MENINGOCOCCAL VACCINES (ACWY) Aged Out No longer eligible based on patient's age to complete this topic MENINGOCOCCAL VACCINES (B) Aged Out N o longer eligible based on patient's age to complete this topic Medical Devices Not on file Insurance [facility] [address] [place], [place] [address] [facility] Care Teams Information Broker Relationship Specialty Start Date End Date Rody Kirby MD [address] [place] [address] PCP - General Internal Medicine 09/02/24 Additional Source Comments The information contained in this document represents components of the legal health record. It is not the complete legal health record.[facility]
--- OUTSIDE RECORDS SUMMARY | 2025-05-09 13:04 | XMS_ITS | Clinical Summary ---
Author Organization [facility] Address [address] [place] [address] Phone Care Team Providers Care Search Lead Name Role Phone Rody Duenas MD Primary Care Provider [phone] Allergies Active Allergy Reactions Criticality Noted Date [...] Problem Noted Date Diagnosed Date Meningioma, spinal ([facility]/HCC V24, CMS/HCC V28) Cancer Staging:Clinical:WHO G1(cM0, Modified Wong: M0) - Signed by Jose John MD on 08/12/2024 Sacroiliitis ([facility] V24) 04/08/2022 Overview (08/09/2024): Last Assessment & Plan: This exam was done in conjunction with [facility] language services diabetes territory manager Abida #[id number]. Ms. Shoemaker was referred back for ongoing [...] spine MRI with and without gadolinium at [facility] from 03/18/2022 shows a very healthy lumbar spine with no significant degenerative changes and no tumor. There is no apparent source of radiculopathy on the lumbar MRI and I suspect this is really due to sacroiliitis. She is agreed to try a right SI joint injection and we will make the arrangements at [facility]. 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 Cerebral arterial aneurysm 11/26/2018 Immunizations Name Administration Dates Next Due Hepatitis A Adult (Havrix; V aqta) 19yo and older 01/23/2014,04/02/2013 Hepatitis B (Mrshczn-U-Glhxk , Recombivax HB-Adult) 19yo and older 07/08/2014,01/23/2014,04/02/2013 [...] 1:30 PM EST Appointment Radiation Oncology [address] [place] [id number] Jose John MD [address] [place] [address] Health Maintenance Due Date Last Done Comments [...] patient's age to complete this topic Insurance [facility] Narrative Science PLAN Care Teams Search Lead Relationship Specialty Start Date End Date Rody Duenas MD [address] [place] [address] , [address] Physician Associ D/B/A: [facility] JASWINDER Romeo PCP - General Internal Medicine 04/08/22
--- OUTSIDE RECORDS SUMMARY | 2025-05-09 13:04 | XMS_ITS | Encounter Summary ---
Author Organization [facility] Address [address] [facility] [address] [place] [address] Care Team Providers Care Composite Layup Worker Name Role Phone Unavailable Primary Care Provider Unavailabl e Encounter Details Date Type Department Care Team (Latest Contact Info) Description 10/25/2021 Abstract [facility] Dental, Provider, DDS Social History [...] Description 06/26/2025 3:00 PM EDT Office Visit [facility] [address] [place] [address] Chuyita Jiang documented as of this encounter Visit Diagnoses Not on filedocumented in this encounter
[2025-05-09 13:21] VITALS: BP 130/78; PULSE 55; O2SAT 99; BMI 38.9
--- NOTE | 2025-05-09 13:21 | MHC.OFFVIS ---
Vital Signs 05/09/25 13:21 Height 4 ft 11 in Weight 192 lb 10.944 oz BMI 38.9 BP 130/78 Blood Pressure Location Lt brachial Position Sitting Pulse 55 Pulse Source Pulse Oximeter Pulse Oximetry (%) 99 Oxygen Delivery Method Room Air Intake Visit Reasons: ++SSa Intake Note: Patient presents for follow up on +RUBINA. Patient complains of right hand and finger pain, and she feels as if her fingers lock. Centralized Traffic Control Operator Services: Centralized Traffic Control Operator Offered & Declined Accompanied by: Family/Other Allergies Penicillins (PENICILLINS) Allergy (Intermediate, Verified 05/09/25 13:27) RASH, SWELLING diphenhydramine Allergy (Verified 05/09/25 13:27) Facial Swelling gabapentin Adverse Reaction (Intermediate, Verified 05/09/25 13:27) leg swelling Medication List - Last Reconciled 05/09/25 by Damaris Sky MD aspirin (Adult Low Dose Aspirin) 81 mg PO DAILY 90 days atorvastatin 20 mg PO BEDTIME 90 days [Carpal tunnel splint (right hand) As directed] celecoxib (Celebrex) 100 mg PO BID cholecalciferol (vitamin D3) 25 mcg PO DAILY 90 days clotrimazole-betamethasone 1-0.05 % 1 appl topical BID 7 days famotidine (Pepcid) 40 mg PO BEDTIME hydrochlorothiazide 25 mg PO DAILY 90 days levothyroxine 50 mcg PO DAILY 90 days lidocaine 5% 1 patch topical ONCE 30 days lisinopril 40 mg PO DAILY 90 days omeprazole 40 mg PO DAILY pregabalin (Lyrica) 75 mg PO DAILY 30 days pyridoxine (vitamin B6) 100 mg PO DAILY sennosides (senna) 17.2 mg (2 x 8.6 mg) PO BEDTIME tramadol 50 mg PO DAILY 30 days vitamin B complex (B Complex-Vitamin B12 tablet) 1 tab PO DAILY 90 days HPI Comments Details: Patient is a 65 y.o. female with HLD, HTN, GERD, Hypothyroidism, and polyarticular OA here today for follow up Interval History: Patient last seen 04/30/[address] Hurley - Not on any rheum medications - Evaluated for her OA - No specific interventions recommended Today, - Not on any rheum medications - Complaining of right 3rd finger trigger finger today Rheumatologic History: OA - Trigger finger injection 02/2024. successful Initial History: The patient returns to Rheumatology for evaluation of her positive RUBINA. The visit is facilitated with the use of the telephone electrolysis operator. She had last seen rheumatology here back in 2019. At that time there was back pain and knee pain. She was thought to have degenerative arthritis. There were no significant signs to suggest an active autoimmune disease. However the back pain became more problematic in the thoracic region. This was accompanied by weakness and numbness in the legs. 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 This was treated with surgery and radiation. She had great difficulty walking for a number of months and had to be cared for in a bed. However after surgery and RT she said she was sent to rehab and has improved considerably for walking strength and stamina. She has noted a bit more knee pain than usual in the past few months. The knees are occasionally swollen. She gets lower back pain at this point. She did have a recent MRI apparently and plans to see her radiation therapist tomorrow. I was I not able to find much documentation of her surgery for the tumor and the radiation since it was done at [facility]. Current Rheumatology Medication(s): [facility] Medical History Tendinitis of flexor tendon of right hand Hematuria History of nicotine use Lumbar pain Dysphagia Pure hypercholesterolemia RUBINA positive Low back pain Essential hypertension Urge incontinence Disc degeneration, lumbar Chronic idiopathic constipation Gastric ulcer Thyroid disease Hx of renal calculi VELARDE (nonalcoholic steatohepatitis) H/O coronary angiogram Rectal bleeding Pruritus ani Esophageal candidiasis History of diverticulitis Nephrolithiasis Smoker Hypertension Surgical History History of hysterectomy History of salpingo-oophorectomy History of thoracic surgery History of esophagogastroduodenoscopy (EGD) H/O colonoscopy Hx of lithotripsy H/O cerebral aneurysm repair History of hernia repair H/O left breast biopsy H/O section Family History Father Skin cancer Prostate cancer Mother CHF (congestive heart failure) Hypertension Diabetes Sister Thyroid cancer Adenomatous polyps Colon cancer Family/Other Mental health disorder Unknown Uterus cancer Family/Other No problems noted. Social History Household Members: Spouse Housing: Apartment Alcohol intake: current Alcohol intake frequency: holidays/special occasions only Alcohol type: wine Patient Tobacco Use Status: Former Tobacco user Tobacco use type: Cigarette e-Cigarette/Vaping Use: Never Used Second Hand Smoke Exposure: Yes service: No Current occupational status: unemployed Sexual orientation: Straight/Heterosexual Gender identity: Female Cognitive needs: No Hearing needs: No Vision needs: Yes (Glasses) Female Reproductive History Menstrual Age of Menarche: 14 Review of Systems Const All systems reviewed & are unremarkable except as noted in HPI and below Physical Exam Exam Exam: Vital signs reviewed Physical Examination CONSTITUITIONAL Patient alert and cooperative. Well appearing and in no apparent painful distress MSK Hands Right Hand: TTP of the [id number] of the 3rd digit Vital Signs: Last Vital Signs Pulse 55 05/09/25 13:21 BP 130/78 05/09/25 13:21 Pulse Ox 99 05/09/25 13:21 Oxygen Delivery Method Room Air 05/09/25 13:21 BMI result Body Mass Index 38.9 Office Procedures AMB Joint Injection/Aspiration Joint Injection/Aspiration Details: Procedure was explained to the patient and informed consent was obtained. ? Risks associated with the procedure were discussed with the patient including but not limited to bleeding, infection, drug reactions and reactions to the topical anesthetic. Patient made aware of signs to look out for infectious complications. The area of interest was identified and confirmed with patient. ?This was subsequently cleaned with chlorhexidine x 2. ? The area was then anesthetized using ethyl chloride spray. 20 mg Kenalog with 0.1 cc 1% lidocaine was injected without issue. ?Minimal to no bleeding. ?Patient tolerated procedure. Primary Site: right trigger finger Prep: site was prepped using aseptic technique and ethochloride spray was applied Injected: 20 mg of, Kenalog and 1% plain lidocaine Procedure: The patient tolerated the procedure well Coding 56278 - Bicipital Groove Injection (Trigger finger injection ) Procedure code (CPT) selection complete Office Meds lidocaine (PF) 10 mg/mL (1 %) injection solution Performing Provider: Damaris Sky MD Performing Location: [facility] [place] Rheumatology[facility] Administered by: Arminda De León RN on 05/09/25 14:03 Dose Route Admin Location Dispensed Lot Number Expiration Date [facility] [employer] Advisor 0.1 mL Infiltration 2 mL [id number] 02/22/27 91264-068-74 FRESENIUS KABI Total Dispensed Waste 2 mL 95 % Kenalog 40 mg/mL suspension for injection Performing Provider: Damaris Sky MD Performing Location: [facility] [place] [facility]ology[facility] Administered by: Arminda De León RN on 05/09/25 14:03 Dose Route Admin Location Dispensed Lot Number Expiration Date [facility] [employer] 20 mg intra-articular 1 mL [id number] 08/24/26 8191-1188-90 HIKMA PHARMACEU Total Dispensed Waste 1 mL 50 % Assessment & Plan Assessment & Plan (1) Trigger finger of right hand: Code(s): M65.30 - Trigger finger, unspecified finger Qualifiers: Trigger finger location: middle finger Qualified Code(s): M65.331 - Trigger finger, right middle finger Plan: #Trigger finger Patient is a 65 y.o. female with polyarticular OA here today for follow up. C/o triggering of the right 3rd digit. Received steroid injection today This is the second administration If this recurs we will send to hand surgeon Plan - s/p steroid injection - Hadn surgery referral if recurrent - RTC prn Plan I spent 20 minutes reviewing the record and labs, taking a history, examining the patient, discussing the treatment plan, and documenting in the medical record Orders: Orders AMB Joint Injection/Aspiration Today M65.331 - Trigger finger, right middle finger Medications: New [Carpal tunnel splint (right hand)] As directed 1 ea 0RF G56.00 - Carpal tunnel syndrome, unspecified upper limb Coding Level of Care Code Est Pt Level 3 (87764) Diagnoses Trigger middle finger of right hand M65.331 Trigger finger location: middle finger CPT Codes Coding - Joint 1: 05843 - Bicipital Groove Injection ([id number])
== END 2025-05-09 14:06 | disposition home or self-care (01) ==
LOC: HO.RHES 13:02
PROVIDERS: PCP Internal Medicine; Visit Provider Student in an Organized Health Care Education/Training Program
DX: M65.331 Trigger finger, right middle finger (principal)
CPT/HCPCS: 20550; 99213

== ENCOUNTER → 2025-05-09 13:02 | Outpatient (BNVA) | payer OTHER, SELFPAY | PROVIDERS: PCP Internal Medicine; Visit Provider Student in an Organized Health Care Education/Training Program | DX: M65.331 Trigger finger, right middle finger (principal) | CPT/HCPCS: 20550; 99212; J2003; J3300 ==

== ENCOUNTER 2025-05-20 14:49 | Outpatient (AMB) | payer OTHER, SELFPAY ==
[2025-05-20 14:52] VITALS: BP 124/82; PULSE 62; O2SAT 98; BMI 38.6
--- NOTE | 2025-05-20 14:52 | A.OFFPC_ITS ---
Vital Signs 05/20/25 14:52 Height 4 ft 11 in Weight 191 lb BMI 38.6 BP 124/82 Blood Pressure Location Lt brachial Position Sitting Pulse 62 Pulse Source Pulse Oximeter Pulse Oximetry (%) 98 Oxygen Delivery Method Room Air Intake Visit Reasons: bp Slitter And Rewinder Required: No Accompanied by: Self / Same As Patient Allergies Penicillins (PENICILLINS) Allergy (Intermediate, Verified 05/20/25 15:18) RASH, SWELLING diphenhydramine Allergy (Verified 05/20/25 15:18) Facial Swelling gabapentin Adverse Reaction (Intermediate, Verified 05/20/25 15:18) leg swelling Medication List - Last Reconciled 05/20/25 by Rody Duenas MD aspirin (Adult Low Dose Aspirin) 81 mg PO DAILY 90 days atorvastatin 20 mg PO BEDTIME 90 days [Carpal tunnel splint (right hand) As directed] celecoxib (Celebrex) 100 mg PO BID cholecalciferol (vitamin D3) 25 mcg PO DAILY 90 days clotrimazole-betamethasone 1-0.05 % 1 appl topical BID 7 days famotidine (Pepcid) 40 mg PO BEDTIME hydrochlorothiazide 25 mg PO DAILY 90 days levothyroxine 50 mcg PO DAILY 90 days lidocaine 5% 1 patch topical ONCE 30 days lisinopril 40 mg PO DAILY 90 days omeprazole 40 mg PO DAILY pregabalin (Lyrica) 75 mg PO DAILY 30 days pyridoxine (vitamin B6) 100 mg PO DAILY sennosides (senna) 17.2 mg (2 x 8.6 mg) PO BEDTIME tramadol 50 mg PO DAILY 30 days vitamin B complex (B Complex-Vitamin B12 tablet) 1 tab PO DAILY 90 days Tobacco use date assessed: 11/20/24 Dental Screening Dental Screen Date: 05/20/25 Did you have a dental visit in the last 12 months?: Yes Did you have a dental problem in the last 6 months where you did not have access to dental care?: No Was dental information given to patient?: Patient has dentist HPI HPI Comments History of Present Illness Details The patient is a 65-year-old female presenting for management of prediabetes and neuropathy. The patient has a history of prediabetes, with a recent hemoglobin A1c of 6.6%. She monitors her blood glucose levels regularly, which range from 109 to 130 mg/dL. She is considering lifestyle modifications and possibly starting metformin to manage her condition. The patient also reports neuropathy, for which she is currently taking Lyrica 75 mg. She experiences peripheral edema as a side effect of gabapentin, which she previously used for neuropathy management. The patient has been advised to take Lyrica twice daily to improve symptom control. She has a history of hypertension, hyperlipidemia, and gastroesophageal reflux disease, managed with lisinopril, atorvastatin, and omeprazole, respectively. Her recent laboratory results showed normal renal function and liver enzymes, with an LDL cholesterol level of 58 mg/dL. The patient also has a history of vitamin A deficiency and elevated vitamin B12 levels. A1c of 6.6% today making the diagnosis of diabetes mellitus type 2 and she declines to start metformin or any other medication and would like to start diet and exercise and see how it goes. She is allergic to penicillin, which causes facial swelling, and has experienced leg swelling with gabapentin use. The patient has a history of cervical radiculopathy, which affects her sleep and comfort. [facility] Medical History Tendinitis of flexor tendon of right hand Hematuria History of nicotine use Lumbar pain Dysphagia Pure hypercholesterolemia RODY positive Low back pain Essential hypertension Urge incontinence Disc degeneration, lumbar Chronic idiopathic constipation Gastric ulcer Thyroid disease Hx of renal calculi VELARDE (nonalcoholic steatohepatitis) H/O coronary angiogram Rectal bleeding Pruritus ani Esophageal candidiasis History of diverticulitis Nephrolithiasis Smoker Hypertension Surgical History History of hysterectomy History of salpingo-oophorectomy History of thoracic surgery History of esophagogastroduodenoscopy (EGD) H/O colonoscopy Hx of lithotripsy H/O cerebral aneurysm repair History of hernia repair H/O left breast biopsy H/O section Family History Father Skin cancer Prostate cancer Mother CHF (congestive heart failure) Hypertension Diabetes Sister Thyroid cancer Adenomatous polyps Colon cancer Family/Other Mental health disorder Unknown Uterus cancer Family/Other No problems noted. Social History Household Members: Spouse Housing: Apartment Alcohol intake: current Alcohol intake frequency: holidays/special occasions only Alcohol type: wine Patient Tobacco Use Status: Former Tobacco user Tobacco use type: Cigarette e-Cigarette/Vaping Use: Never Used Second Hand Smoke Exposure: Yes service: No Current occupational status: unemployed Sexual orientation: Straight/Heterosexual Gender identity: Female Cognitive needs: No Hearing needs: No Vision needs: Yes (Glasses) Female Reproductive History Menstrual Age of Menarche: 14 Questionnaire PHQ-9 Over the last 2 weeks, how often have you been bothered by any of the following problems? 1. Little interest or pleasure in doing things: not at all 2. Feeling down, depressed, or hopeless: not at all 3. Trouble falling or staying asleep, or sleeping too much: not at all 4. Feeling tired or having little energy: not at all 5. Poor appetite or overeating: not at all 6. Feeling bad about yourself - or that you are a failure or have let yourself or your family down: not at all 7. Trouble concentrating on things, such as reading the newspaper or watching television: not at all 8. Moving or speaking so slowly that other people could have noticed. Or the opposite - being so fidgety or restless that you have been moving around a lot more than usual: not at all 9. Thoughts that you would be better off or of hurting yourself in some way: not at all Total score: 0 Depression Screening Interpretation: Negative Depression Screening Done: Yes 21259 - PHQ-9 Billing: Yes Source: Developed by Drs. Musa Castillo, Alexia Szymanski, Keyur Rosa and colleagues, with an educational devyn from [employer]. Thrive Questionnaire Date Thrive assessed: 05/20/25 I am a: Patient What is your living situation today?: I have a steady place to live Within the past 12 months, did the food you bought not last and you didn't have the money to get more?: I choose not to answer this question Within the past 12 months, did you worry whether your food would run out before you got money to buy more?: I choose not to answer this question Do you have trouble paying for medicines?: No Do you have trouble getting transportation to medical appointments?: No Do you have trouble paying your heating and electricity bill?: No Do you have trouble taking care of your child, family member or friend?: I choose not to answer this question Do you have trouble with day-to-day activities such as bathing, preparing meals, shopping, managing finances, etc.?: I choose not to answer this question Are you currently unemployed and looking for a job?: I choose not to answer this question Are you interested in more education?: I choose not to answer this question Please select the resources that you would like help with: None Currently or been in a relationship where the following occur: I choose not to answer THRIVE Score: 0 AUDIT C Alcohol Use Questionnaire (AUDIT-C) 1. How often do you have a drink containing alcohol?: Never 3. How often do you have six or more drinks on one occasion?: Never Total Score: 0 Score Reviewed/Action Taken: No MERT-7 AMB Questionnaire MERT-7 Date MERT - 7 assessed: 05/20/25 Feeling nervous, anxious, or on edge: 0 = Not at all Not being able to stop or control worryin = Not at all Worrying too much about different things: 0 = Not at all Trouble relaxin = Not at all Being so restless that it is hard to sit still: 0 = Not at all Becoming easily annoyed or irritable: 0 = Not at all Feeling afraid as if something awful might happen: 0 = Not at all Total MERT-7 score (0-4 normal; 5-9 mild; 10-14 moderate; 15-21 severe): 0 Source: Developed by Drs. Musa Castillo, Alexia Szymanski, Keyur Rosa and colleagues, with an educational devyn from [employer]. MERT-7 Assessment Billing MERT-7 Assessment Tool: MERT-7 Assessment 08227 Review of Systems Const All systems reviewed & are unremarkable except as noted in HPI and below Card Denies chest pain at rest, Denies chest pain with activity, Denies edema, Denies irregular heart rhythm, Denies claudication, Denies dyspnea, Denies dyspnea on exertion, Denies orthopnea, Denies paroxysmal nocturnal dyspnea and Denies slow heart rate Resp Denies cough, Denies dyspnea and Denies dyspnea on exertion GI Denies abdominal pain, Denies change in bowel habits, Denies excessive flatus, Denies nausea and Denies vomiting Denies urinary incontinence, Denies urinary hesitancy and Denies urinary urgency Musc Denies abnormal gait, Denies atrophy, Denies deformity and Denies limited range of motion Skin/Breast Denies bleeding lesions, Denies changing lesions and Denies rash Neuro Denies abnormal gait, Denies behavioral changes and Denies lack of coordination Psych Denies behavioral changes Physical exam (Primary Care) Vital Signs: Last Vital Signs Pulse 62 05/20/25 14:52 BP 124/82 05/20/25 14:52 Pulse Ox 98 05/20/25 14:52 Oxygen Delivery Method Room Air 05/20/25 14:52 BMI result Body Mass Index 38.6 Tobacco/Smoking Status: Tobacco use Status Tobacco use date assessed 11/20/24 05/20/25 14:58 Patient Tobacco Use Status Former Tobacco user 05/20/25 14:58 Tobacco use type Cigarette 05/20/25 14:58 e-Cigarette/Vaping Use Never Used 05/20/25 14:58 PHQ-9: PHQ-9 Score PHQ-9: Total score 0 05/20/25 15:31 Depression Screening Interpretation: Negative Thrive Assessment: Date of Thrive Assessment Date Thrive assessed 05/20/25 05/20/25 14:58 Currently or been in a relationship where the following occur: I choose not to answer Resp Effort & Inspection: normal respiratory effort Auscultation: clear to auscultation bilaterally Cardio Jugular venous distension: no JVD Rate: regular rate Rhythm: regular rhythm Heart sounds: S1 normal heart sound present and S2 normal heart sound present Extrem General: Yes full ROM Results AMB Hemoglobin A1c AMB Hemoglobin A1c 6.7 % Last Edit by JANNETTE Cavazos on 05/20/25 15 :33 Results Reviewed Results Reviewed: Laboratory Last Values Hgb A1c (Clinic) 6.7 % (4.0-6.0) H 05/20/25 15:31 Coding Level of Care Code Est Pt Level 4 (44465) Complex EM visit Add On G2211 Diagnoses Essential hypertension I10 Pure hypercholesterolemia E78.00 Hypothyroidism, unspecified type E03.9 Hypothyroidism type: unspecified Diabetes mellitus E11.9 Additional Codes MERT-7 Assessment Billing - MERT-7 Assessment Tool: MERT-7 Assessment 26311 ([id number]) PHQ-9 - 56403 - PHQ-9 Billing: Yes ([id number]) Time Spent (min) 23 Assessment & Plan Assessment & Plan (1) Essential hypertension: Code(s): I10 - Essential (primary) hypertension Category: Medical (2) Pure hypercholesterolemia: Code(s): E78.00 - Pure hypercholesterolemia, unspecified Category: Medical (3) Hypothyroid: Code(s): E03.9 - Hypothyroidism, unspecified Category: Medical Qualifiers: Hypothyroidism type: unspecified Qualified Code(s): E03.9 - Hypothyroidism, unspecified (4) Diabetes mellitus: Code(s): E11.9 - Type 2 diabetes mellitus without complications Category: Medical Plan Plan Patient was informed and verbally consented to the use of an ambient scribe for clinic note documentation during this visit. 1. Polyneuropathy, unspecified G62.9 The patient is currently taking Lyrica 75 mg for neuropathy and has been advised to increase the dosage to twice daily for better symptom control. 2. Essential (primary) hypertension I10 Hypertension is managed with lisinopril. 3. Hyperlipidemia, unspecified E78.5 Hyperlipidemia is managed with atorvastatin, with recent LDL levels at 58 mg/dL. 4. Gastro-esophageal reflux disease without esophagitis K21.9 Gastroesophageal reflux disease is managed with omeprazole. 5. Radiculopathy, cervical region M54.12 The patient experiences cervical radiculopathy, which affects her sleep and comfort. 6. Type 2 diabetes mellitus without complications E11.9 HCC 19 Orders: Orders Vitamin D 25-OH Total 4 Months E55.9 - Vitamin D deficiency, unspecified Comprehensive [place]. Panel Fast 4 Months I10 - Essential (primary) hypertension Lipid Panel 4 Months E78.5 - Hyperlipidemia, unspecified Thyroid Stimulating Hormone 4 Months E03.9 - Hypothyroidism, unspecified AMB Hemoglobin A1c Today Z13.9 - Encounter for screening, unspecified Medications: New [flip pillow 10 in 1] As directed 1 ea 0RF M54.12 - Radiculopathy, cervical region Changed From pregabalin (Lyrica) 75 mg PO DAILY 30 days 30 caps 0RF To pregabalin (Lyrica) 75 mg PO BID 60 caps 0RF 30 days Discontinued celecoxib (Celebrex) Discontinued Reason: Patient Completed Course 100 mg PO BID 60 caps 2RF
--- OUTSIDE RECORDS SUMMARY | 2025-05-20 15:44 | XMS_ITS | Clinical Summary ---
Author Organization [facility] Address [address] [place] [address] Care Team Providers Care Track Greaser Name Role Phone Racheal Sky NP Primary [...] age to complete this topic Care Teams Track Greaser Relationship Specialty Start Date End Date Racheal Sky NP [address] [facility] [place] Romeo [id number] PCP - General Family Medicine 10/24/18
--- OUTSIDE RECORDS SUMMARY | 2025-05-20 15:44 | XMS_ITS | Clinical Summary ---
Author Organization [facility] Address [address] [place] [address] Phone Care Team Providers Care Imaging Services Director Name Role Phone Rody Duenas MD Primary Care Provider Allergies Active Allergy Reactions Criticality Noted Date [...] Problem Noted Date Diagnosed Date Meningioma, spinal ([facility]/HCC V24, CMS/HCC V28) Cancer Staging:Clinical:WHO G1(cM0, Modified Wong: M0) - Signed by Jose John MD on 08/12/2024 Sacroiliitis ([facility] V24) 04/08/2022 Overview (08/09/2024): Last Assessment & Plan: This exam was done in conjunction with [facility] language services timekeeper Abida #[id number]. Ms. Shoemaker was referred back for ongoing [...] spine MRI with and without gadolinium at [facility] from 03/18/2022 shows a very healthy lumbar spine with no significant degenerative changes and no tumor. There is no apparent source of radiculopathy on the lumbar MRI and I suspect this is really due to sacroiliitis. She is agreed to try a right SI joint injection and we will make the arrangements at [facility]. 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 Cerebral arterial aneurysm 11/26/2018 Immunizations Name Administration Dates Next Due Hepatitis A Adult (Havrix; V aqta) 19yo and older 01/23/2014,04/02/2013 Hepatitis B (Mwngjxa-A-Dsapf , Recombivax HB-Adult) 19yo and older 07/08/2014,01/23/2014,04/02/2013 [...] Description 08/15/2025 1:30 PM EST Appointment [facility] Radiation Oncology [address] [place] [id number] Jose John MD [address] [place] [address] Health Maintenance Due Date Last Done Comments [...] patient's age to complete this topic Insurance [facility] [employer] Care Teams Imaging Services Director Relationship Specialty Start Date End Date Rody Duenas MD [address] [place] [address] , [address] Physician Associ D/B/A: [facility] JASWINDER Romeo PCP - General Internal Medicine 04/08/22
--- OUTSIDE RECORDS SUMMARY | 2025-05-20 15:44 | XMS_ITS | Clinical Summary ---
Author Organization [facility] Address [address] [facility] [address] [place] [phone] Phone Care Team Providers Care Supervisor Policy Change Clerks Name Role Phone Rody Kirby MD Primary [...] Description 06/17/2025 10:45 AM EDT Office Visit [facility] [address] [facility] 3rd Floor, [address] [place] [address] Andrew Padron DO [address] [facility] [address] [place] [address] [email or web address] Health Maintenance Due Date Last Done Comments [...] topic Medical Devices Not on file Insurance [facility] [address] [place], [place] [id number] [facility] Care Teams Supervisor Policy Change Clerks Relationship Specialty Start Date End Date Rdoy Kirby MD [address] [place] [address] PCP - General Internal Medicine 09/02/24 Additional Source Comments The information contained in this document represents components of the legal health record. It is not the complete legal health record.[facility]
--- OUTSIDE RECORDS SUMMARY | 2025-05-20 15:44 | XMS_ITS | Encounter Summary ---
Author Organization [facility] [facility] Address [address] [facility] 7t [place] [address] Care Team Providers Care Financial Services Agent Name Role Phone Unavailable Primary Care Provider Unavailabl e Encounter Details Date Type Department Care Team (Late Contact Info) Description 11/24/2022 Abstract [facility] [address] [place] [address] Osman Carrizales DMD [address] [place] [address] Social History Tobacco Use Types Packs/Day Years [...] Description 06/26/2025 3:00 PM EDT Office Visit [facility] [address] [place] [address] Jiang, Chuyita documented as of this encounter Visit Diagnoses Not on filedocumented in this encounter
--- OUTSIDE RECORDS SUMMARY | 2025-05-20 15:44 | XMS_ITS | Clinical Summary ---
Author Organization [employer] Address [address] [facility] 7t [place] [address] Care Team Providers Care Customer Strategy Manager Name Role Phone Unavailable Primary Care [...] Description 06/26/2025 3:00 PM EDT Office Visit [facility] [address] [place] [address] Chuyita Jiang Health Maintenance Due Date Last [...] Vaccine (2023- season) 2024 11/17/2022, 09/16/2021, 12/30/2020 Dental Oral Exam 11/11/2024 05/10/2024 Dental Prophylaxis 12/31/2024 07/01/2024 Dental X-Ray: Bitewings 05/11/2025 05/10/2024 Influenza Vaccine (#1) 2025 , 10/08/2019, 06/26/2018, Additional history exists Tobacco Screening 08/30/2025 08/30/2024 Dental X-Ray: Full [...] Most Recently Relevant to Health Maintenance Insurance [facility] * Guarantor: Evelia Thomason Account Type Relation to Patient Date of Phone Billing Address Personal/Family Self [address] [place]
--- OUTSIDE RECORDS SUMMARY | 2025-05-20 15:44 | XMS_ITS | Encounter Summary ---
Author Organization [employer] [facility] Address [address] [facility] 7t [place] [address] Care Team Providers Care Engineering Drawings Checker Name Role Phone Unavailable Primary Care Provider Unavailabl e Reason for Visit * Reason Onset Date Comments Appointment 12/15/2022 Encounter Details Date Type Department Care Team ([facility] st Contact Info) Description 12/15/2022 Telephone [facility] [address] [place] [address] Osman Carrizales, JIMMY [address] [place] [address] Appointment Social History Tobacco Use Types Packs/Day [...] Description 06/26/2025 3:00 PM EDT Office Visit [facility] [address] [place] [address] Chuyita Jiang documented as of this encounter Visit Diagnoses Not on filedocumented in this encounter
--- OUTSIDE RECORDS SUMMARY | 2025-05-20 15:44 | XMS_ITS | Encounter Summary ---
Author Organization [facility] Address [address] [facility] 7t [place] [address] Care Team Providers Care Distribution A Class Lineman Name Role Phone Unavailable Primary Care Provider Unavailabl e Encounter Details Date Type Department Care Team (Latest Contact Info) Description 10/25/2021 Abstract [facility] CON[facility] Dental, Provider, DDS Social History [...] Description 06/26/2025 3:00 PM EDT Office Visit [facility] [address] [place] [address] Chuyita Jiang documented as of this encounter Visit Diagnoses Not on filedocumented in this encounter
== END 2025-05-20 15:39 | disposition home or self-care (01) ==
LOC: HO.HMCH 14:49
PROVIDERS: PCP Internal Medicine; Visit Provider Internal Medicine
DX: I10 Essential (primary) hypertension (principal); E78.00 Pure hypercholesterolemia, unspecified; E03.9 Hypothyroidism, unspecified; E11.9 Type 2 diabetes mellitus without complications; Z13.9 Encounter for screening, unspecified

== ENCOUNTER → 2025-05-20 14:49 | Outpatient (BNVA) | payer OTHER, SELFPAY | PROVIDERS: PCP Internal Medicine; Visit Provider Internal Medicine | DX: E11.40 Type 2 diabetes mellitus with diabetic neuropathy, unspecified (principal); I10 Essential (primary) hypertension; K21.9 Gastro-esophageal reflux disease without esophagitis; E78.00 Pure hypercholesterolemia, unspecified; E03.9 Hypothyroidism, unspecified; M54.12 Radiculopathy, cervical region; Z79.899 Other long term (current) drug therapy | CPT/HCPCS: 83036; 96127; 99212 ==

== ENCOUNTER 2025-08-14 13:59 | Outpatient (REF) | payer OTHER, SELFPAY ==
--- NOTE | ~2025-08-14 | US_ITS ---
EXAMINATION: US RETROPERITONEAL LIMITED (RENAL ONLY) CLINICAL INFORMATION: N20.0. COMPARISON: Correlated to ultrasound abdomen dated February 20, 2025] non-IV contrast CT abdomen dated November 06, 2024. TECHNIQUE: Real-time ultrasound of the kidneys using grayscale technique. FINDINGS: RIGHT KIDNEY: 13 x 5 x 6 cm (SAG x AP x TRV). Volume: 121 cc. Normal echotexture. Renal cortical thickness is normal. No hydronephrosis. 3 mm hyperechoic abnormality. No gross solid or cystic lesion. Duplicated urinary collecting system.. LEFT KIDNEY: 10 x 6 x 5 cm (SAG x AP x TRV). Volume: 129 cc. Normal echotexture. Renal cortical thickness is normal. No hydronephrosis. No solid or cystic lesion. US/US renal BI IMPRESSION: 3 mm nonobstructing calculus, right kidney. No hydronephrosis. Duplicated collecting system, right kidney.. Electronically signed by: Eric Mccullough MD 08/15/2025 07:00 AM DK
--- OUTSIDE RECORDS SUMMARY | 2025-08-14 19:24 | XMS_ITS | Encounter Summary ---
Author Organization [email or web address] [facility] Address [address] [facility] 7t [place] [address] Care Team Providers Care Manager [place] Name Role Phone Unavailable Primary Care Provider Unavailabl e Reason for Visit * Reason Onset Date Comments Appointment 12/15/2022 Encounter Details Date Type Department Care Team ([facility] st Contact Info) Description 12/15/2022 Telephone [facility] [address] [place] [address] Osman Carrizales, JIMMY [address] [place] [address] Appointment Social History Tobacco Use Types Packs/Day [...] Care Team (Late st Contact Info) Description 01/01/2026 1:30 PM EDT Office Visit [facility] [address] [place] [address] Chuyita Jiang documented as of this encounter Visit Diagnoses Not on filedocumented in this encounter
--- OUTSIDE RECORDS SUMMARY | 2025-08-14 19:24 | XMS_ITS | Clinical Summary ---
Author Organization [facility] Address [address] [facility] [address] [place] [phone] Phone Care Team Providers Care Lace Machine Operator Name Role Phone Rody Kirby MD Primary [...] mouth 2 (two) times a day. Active famotidine (PEPCID) 40 MG tablet Take 40 mg by mouth nightly at bedtime. 05/15/2025 Active Active Problems Problem Noted Date Diagnosed Date Varicose veins of bilateral lower extremities with other complications 10/29/2024 Assessment & Plan (06/17/2025 10:41 AM EDT): She does have varicose veins but her symptoms are very minor and treated with conservative management I will follow-up and reevaluate in 9 months Assessment & Plan (10/29/2024 11:25 AM EST): As mentioned she has significant reflux in the left great saphenous vein and minor reflux in the right great saphenous vein am going to try conservative management and follow-up with the patient in 6 months time if symptoms worsen significantly more than likely we will then strongly consider ablation. Obesity 10/29/2024 Assessment & Plan (06/17/2025 10:41 AM EDT): She is overweight but trying to lose weight with diet and exercise. Assessment & Plan (10/29/2024 11:25 AM EST): We did speak about this I will reevaluate in 6 months Benign essential hypertension 10/29/2024 Assessment & Plan (06/17/2025 10:41 AM EDT): Well-controlled at this time Assessment & Plan (10/29/2024 11:25 AM EST): Mildly elevated today risk factor modification including diet and exercise would take care of this Encounters Date Type Department Care Team Description 06/17/2025 10:45 AM EDT Office Visit [facility] [address], [address] [place] [address] Andrew Padron DO Dimitri Fagano Severe obesity due to excess calories with serious comorbidity and body mass index (BMI) 120% of 95th percentile to less than 140% of 95th percentile for age in pediatric patient (Primary Dx); Benign essential hypertension; Varicose veins of bilateral lower extremities with other complications from Last 3 Months Social History Tobacco Use Types Packs/Day Years Used Date Smoking Tobacco: Former Cigarettes Smokeless Tobacco: Never Tobacco Cessation:Counseling Given: Not Answered Education Answer Date Recorded Are you interested [...] Sign Reading Time Taken Comments Blood Pressure 130/78 06/17/2025 10:21 AM EDT Pulse 58 06/17/2025 10:21 AM EDT Temperature - - Respiratory Rate - - Oxygen Saturation 97% 06/17/2025 10:21 AM EDT Inhaled Oxygen Concentration - - Weight 86.2 kg (190 lb) 06/17/2025 10:21 AM EDT Height 149.9 cm (4' 11 ) 06/17/2025 10:21 AM EDT Body Mass Index 38.38 06/17/2025 10:21 AM EDT Plan of Treatment Upcoming Encounters Date Type Department Care Team (Late st Contact Info) Description 02/17/2026 10:30 AM EDT Office Visit [facility] [address] [facility] 3rd Floor, [address] [place] [id number] Andrew Padron DO [address] [place] [address] [place] [address] Health Maintenance Due Date Last Done Comments CREATININE LEVEL 1962 LIPID PANEL 1962 POTASSIUM LEVEL 1962 TSH LEVEL 1962 DEPRESSION SCREENING 1974 SMOKING Hx and SMOKELESS TOBACCO SCREENING 1975 HEPATITIS C SCREENING 1980 HIV ONE-TIME SCREENING (18-6 5 YEARS) 1980 PAP SMEAR 1983 SCREENING FOR DIABETES 1997 COLOGUARD 2007 COLONOSCOPY 2007 COLORECTAL CANCER SCREENING 2007 FIT TEST 2007 FOBT 2007 SIGMOIDOSCOPY 2007 VIRTUAL COLONOSCOPY 2007 PNEUMOCOCCAL VACCINES (50+ years) (1 of 1 - PCV) 2012 ZOSTER VACCINES (1 of 2) 2012 MAMMOGRAM 03/13/2022 03/13/2020, 03/13/2020, 02/01/2019 Adult Td,Tdap Booster 06/11/2022 06/11/2012 INFLUENZA VACCINE (#1) 2025 COVID-19 VACCINE (1 - 2024-2 6 season) 2025 BLOOD PRESSURE 12/15/2025 06/17/2025 RSV VACCINE (1 - 1-dose 75+ series) 2037 HEPATITIS A VACCINES Aged Out No long er eligible based on patient's age to complete this topic HIB VACCINES Aged Out No longer eligi ble based on patient's age to complete this topic IPV VACCINES Aged Out No longer eligi ble based on patient's age to complete this topic MENINGOCOCCAL VACCINES (ACWY) Aged Out No longer eligible based on patient's age to complete this topic MENINGOCOCCAL VACCINES (B) Aged Out N o longer eligible based on patient's age to complete this topic Medical Devices Not on file Insurance [facility] Care Teams Lace Machine Operator Relationship Specialty Start Date End Date Rody Kirby MD [address] [place] [address] PCP - General Internal Medicine 09/02/24 Additional Source Comments The information contained in this document represents components of the legal health record. It is not the complete legal health record.[facility]
--- OUTSIDE RECORDS SUMMARY | 2025-08-14 19:24 | XMS_ITS | Encounter Summary ---
Author Organization [employer] [facility] Address [address] [facility] 7t [place] [address] Care Team Providers Care Host Name Role Phone Unavailable Primary Care Provider Unavailabl e Encounter Details Date Type Department Care Team (Late Contact Info) Description 11/24/[address] [facility] [address] [place] [address] Osman Carrizales DMD [address] [place] [address] Social History Tobacco Use Types Packs/Day Years [...] Description 01/01/2026 1:30 PM EDT Office Visit [facility] [address] [place] [address] Jiang, Chuyita documented as of this encounter Visit Diagnoses Not on filedocumented in this encounter
--- OUTSIDE RECORDS SUMMARY | 2025-08-14 19:24 | XMS_ITS | Clinical Summary ---
Author Organization [employer] Address [address] [facility] 7t [place] [address] Care Team Providers Care Valet Service Attendant Name Role Phone Unavailable Primary Care Provider [...] Once per day. 05/26/2020 Active Active Problems Problem Noted Date Diagnosed Date Complex cyst of right ovary 06/26/2025 Gastric ulcer 06/26/2025 History of 2019 novel coronavirus disease (COVID -19) 06/26/2025 History of radiation therapy 06/26/2025 Legal blindness [place] 06/26/2025 Pruritus ani 06/26/2025 Rectal hemorrhage 06/26/2025 Surgical follow-up care 06/26/2025 Urge incontinence of urine 06/26/2025 Uterine leiomyoma 06/26/2025 Dental plaque 06/26/2025 Missing teeth, acquired 06/26/2025 Obesity 10/29/2024 Meningioma, spinal (CMS/HCC) 08/12/2024 Sacroiliitis 04/08/2022 Overview (06/26/2025): Last Assessment & Plan: This exam was done in conjunction with [facility] language services auto overhauler Abida #[id number]. Ms. Shoemaker was referred back for ongoing [...] spine MRI with and without gadolinium at [facility] from 03/18/2022 shows a very healthy lumbar spine with no significant degenerative changes and no tumor. There is no apparent source of radiculopathy on the lumbar MRI and I suspect this is really due to sacroiliitis. She is agreed to try a right SI joint injection and we will make the arrangements at [facility]. 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 Cerebral arterial aneurysm 11/26/2018 Steatosis of liver 10/25/2016 Benign essential hypertension 12/25/2015 Duplicated right renal collecting system 016 Hypothyroidism 12/25/2015 Kidney stone 12/25/2015 Primary osteoarthritis of both knees 12/25/2015 Varicose veins of bilateral lower extremities with other complications 12/25/2015 Encounters Date Type Department Care Team Description 06/26/2025 3:00 PM EDT Office Visit [facility] [address] [facility], [place] [phone] Chuyita Jiang Dental calculus (Primary Dx); Dental plaque; Missing teeth, acquired 06/25/2025 Travel from Last 3 Months Immunizations Immunization Administration Dates Next Due Hep [...] Description 01/01/2026 1:30 PM EDT Office Visit [facility] [address] [place] [address] Chuyita Jiang Health Maintenance Due Date Last [...] Years (1 of 1 - PCV) 2012 RSV Patients and Patients Aged 60 years or older (1 - Risk 50-74 years 1-dose series) 2012 Mammogram 03/13/2022 03/13/2020, 01/23, 01/18/2018 COVID-19 Vaccine ( season) 2025 11/17/2022, 09/16/2021, 12/30/2020 Influenza Vaccine (#1) 2025 , 10/08/2019, 06/26/2018, Additional history exists Tobacco Screening 08/30/2025 08/30/2024 Dental Oral Exam 12/26/2025 06/26/2025, 05/10/2024 Dental Prophylaxis 12/26/2025 06/26/2025, 07/01/2024 Dental X-Ray: Bitewings 06/27/2026 06/26/2025, 05/10 Dental X-Ray: Full Mouth 05/11/2027 05/10/2024 DTaP/Tdap/Td [...] Procedure Name Priority Date/Time Associated Diagnosis Comments PERIODIC ORAL EVALUATION - ESTABLISHED PATIENT Routine 06/26/2025 3:00 PM EDT CASE PRESENTATION, DETAILED AND EXTENSIVE TREATMENT PLANNING Routine 06/26/2025 3:00 PM EDT ORAL HYGIENE INSTRUCTIONS Routine 06/26/2025 3:00 PM EDT Dental calculus Dental plaque PROPHYLAXIS - ADULT Routine 06/26/2025 3 :00 PM EDT Dental calculus Dental plaque BITEWINGS - 2 RADIOGRAPHIC IMAGES Routine 06/26/2025 3:00 PM EDT INTRAORAL - COMPLETE SERIES OF RADIOGRAPHIC IMAGES Routine 05/10/2024 10:00 AM EDT BI MAMMOGRAM [...]
--- OUTSIDE RECORDS SUMMARY | 2025-08-14 19:24 | XMS_ITS | Encounter Summary ---
Author Organization [employer] Address [address] [facility] 7t [place] [address] Care Team Providers Care Internet Media Planner Name Role Phone Unavailable Primary Care Provider Unavailabl e Encounter Details Date Type Department Care Team (Latest Contact Info) Description 10/25/2021 Abstract [facility] CONVERSION[facility] Dental, Provider, DDS Social History [...] Description 01/01/2026 1:30 PM EDT Office Visit [facility] [address] [place] [address] Chuyita Jiang documented as of this encounter Visit Diagnoses Not on filedocumented in this encounter
--- OUTSIDE RECORDS SUMMARY | 2025-08-14 19:24 | XMS_ITS | Clinical Summary ---
Author Organization [facility] Address [address] [place] [address] Care Team Providers Care Recorder Gravity Prospecting Name Role Phone Racheal Sky NP Primary Care Provider [phone] Social History Tobacco Use Types Packs/Day Years [...] age to complete this topic Care Teams Recorder Gravity Prospecting Relationship Specialty Start Date End Date Racheal Sky NP [address] [facility] [place] [address] PCP - General Family Medicine 10/24/18
== END 2025-08-14 14:00 | disposition home or self-care (01) ==
LOC: HO.US 13:59
PROVIDERS: PCP Internal Medicine; Visit Provider Urology
DX: N20.0 Calculus of kidney (principal)
CPT/HCPCS: 76775

== ENCOUNTER → 2025-08-14 14:01 | Outpatient (BNV) | payer OTHER, SELFPAY | PROVIDERS: PCP Internal Medicine; Visit Provider Radiology Diagnostic Radiology | DX: N20.0 Calculus of kidney (principal) | CPT/HCPCS: 76775 ==

== ENCOUNTER 2025-09-19 12:56 | Outpatient (AMB) | payer OTHER, SELFPAY ==
--- NOTE | 2025-09-19 13:09 | MHC.OFFVIS ---
Intake Visit Reasons: 1Y Ultrasound/UA/PVR(Set) Intake Note: Reason for Visit: 1Y Ultrasound/UA/PVR Follow Up Urology Meds: Vitamin B6 Blood Thinners: Aspirin Labs: None Imaging: Renal Ultrasound 08/14/2025 Last PVR: 28ML PVR: 30ml [employer] Sales Associate Required: Yes Fine Jewelry Sales Associate Language: Tumbling Machine Operator Services: Fine Jewelry Sales Associate Present Fine Jewelry Sales Associate Name: [id number] Information Interpreted: non-clinical & clinical Accompanied by: Self / Same As Patient Allergies Penicillins (PENICILLINS) Allergy (Intermediate, Verified 09/19/25 13:11) RASH, SWELLING diphenhydramine Allergy (Verified 09/19/25 13:11) Facial Swelling gabapentin Adverse Reaction (Intermediate, Verified 09/19/25 13:11) leg swelling HPI Comments Details: 09/19/25--Evelia is a 65-year-old female who is followed for kidney stones she had a renal ultrasound 08/14/25. Last shockwave lithotripsy procedure was in March of 202312/19/24-- 64-year-old female presenting with nephrolithiasis. Last month, during an emergency room visit, she was diagnosed with two kidney stones, each measuring around 2 mm. One stone was seen moving toward the bladder. No recent confirmation of the stone?s passage was provided. In past evaluations, her 24-hour urine collection indicated a lower volume than recommended and low citrate levels, prompting recommendations to augment her fluid intake and consume more citrus fruits. Imaging was used during this visit to review the stone positions; emphasis on hydration was given to support stone passage. Discussion Notes During the consultation, I utilized imaging to explain the current status of the kidney stones. I reiterated the importance of increased fluid intake to facilitate the passage of the stones. I also recapped the previous assessment involving urine volume and citrate levels, advising the repetition of the urine collection test. The process for the urine collection kit delivery and usage was explained thoroughly, highlighting the need for consistency in collection timing. I assured the patient that follow-up contact would be made to coordinate this aspect and provided anticipatory guidance regarding the natural passage of the stones and dietary adjustments. Results:CTAP- 2/09/18---2 mm nonobstructing calculus at the upper pole of the right kidney and a 2 mm nonobstructing calculus at the lower pole. There is a partially duplicated right renal collecting system. There is mild right hydronephrosis and mild dilatation of the right ureter to the level of a 2-3 mm UVJ calculus. 09/20/24--Evelia is a 63-year-old female who presents today to the office for a follow-up. Past medical history includes hypertension, chronic low back pain. The patient has been followed for right nephrolithiasis. The patient underwent right ESWL on 03/29/2023. Here for FU had renal US. discussed results. Stable right renal stones. She states she is doing well. She was on Myrbetriq stopped caused headaches problems with glaucoma. kegels, bladder retraining. cont vit b6 fu one year. Evelia is a 63-year-old female who presents today to the office for a follow-up. LV--04/14/2023-- 09/22/23-- Here for FU had KUB prior and 24 hour urine. She states she is doing well. She does complain of urinary urgency she states she was on Myrbetriq in the past prescribed by another urologist, she states it helped with her bladder symptoms. Past medical history includes hypertension, chronic low back pain The patient has been followed for right nephrolithiasis. The patient underwent right ESWL on 03/29/2023. I reviewed KUB 08/15/23--Redemonstration of small stone overlying the right kidney. Discussed 24 hour urine results: 03/22/23--Total volume 1.6 L, Calcium 136 mg; Oxalate 30 mg, Sodium 192, Citrate 298 mg. Instructed on importance of fluid intake, Low oxalate diet, low sodium diet. Increase citrate in diet. Review of chart: Right ESWL on 03/29/23. CTAP results reviewed?02/16/23-- Kidney stones in the right kidney. [facility] Medical History Tendinitis of flexor tendon of right hand Hematuria History of nicotine use Lumbar pain Dysphagia Pure hypercholesterolemia RODY positive Low back pain Essential hypertension Urge incontinence Disc degeneration, lumbar Chronic idiopathic constipation Gastric ulcer Thyroid disease Hx of renal calculi VELARDE (nonalcoholic steatohepatitis) H/O coronary angiogram Rectal bleeding Pruritus ani Esophageal candidiasis History of diverticulitis Nephrolithiasis Smoker Hypertension Surgical History History of hysterectomy History of salpingo-oophorectomy History of thoracic surgery History of esophagogastroduodenoscopy (EGD) H/O colonoscopy Hx of lithotripsy H/O cerebral aneurysm repair History of hernia repair H/O left breast biopsy H/O section Family History Father Skin cancer Prostate cancer Mother CHF (congestive heart failure) Hypertension Diabetes Sister Thyroid cancer Adenomatous polyps Colon cancer Family/Other Mental health disorder Unknown Uterus cancer Family/Other No problems noted. Social History Household Members: Spouse Housing: Apartment Alcohol intake: current Alcohol intake frequency: holidays/special occasions only Alcohol type: wine Patient Tobacco Use Status: Former Tobacco user Tobacco use type: Cigarette e-Cigarette/Vaping Use: Never Used Second Hand Smoke Exposure: Yes service: No Current occupational status: unemployed Sexual orientation: Straight/Heterosexual Gender identity: Female Cognitive needs: No Hearing needs: No Vision needs: Yes (Glasses) Female Reproductive History Menstrual Age of Menarche: 14 Review of Systems Const All systems reviewed & are unremarkable except as noted in HPI and below Reports no additional complaints Eyes Reports no additional complaints ENT Reports no additional complaints Card Reports no additional complaints Resp Reports no additional complaints GI Reports no additional complaints Reports as per HPI Musc Reports no additional complaints Skin/Breast Reports system reviewed and no additional complaints, except as documented Neuro Reports no additional complaints Psych Reports no additional complaints Endo Reports no additional complaints Solitario/Lymph Reports no additional complaints Aller/Immun Reports no additional complaints Office Procedures Post Void Residual Post Residual Void Post Void Residual (PVR): 30 [id number] Void Residual by ultrasound Results AMB Urinalysis, Automated UA Leukoctes 0 Ariana/uL Last Edit by JANNETTE You on 09/19/25 13:20 UA Nitrite Negative Last Edit by JANNETTE You on 09/19/25 13:20 UA Urobilinogen 0.2 mg/dL Last Edit by JANNETTE You on 09/19/25 13:20 UA Protein 15 mg/dL Last Edit by Lianne Brooks RMA on 09/19/25 13:20 UA pH 6.0 Last Edit by Lianne Brooks, RMA on 09/19/25 13:20 UA Blood 0 Ronen/uL Last Edit by Lianne Brooks, RMA on 09/19/25 13:20 UA Specific [place] 1.020 Last Edit by Liannevaleriano Brooks, RMA on 09/19/25 13:20 UA Ketone Negative Last Edit by Lianne Brooks, RMA on 09/19/25 13:20 UA Bilirubin 0 mg/dL Last Edit by Lianne Brooks, RMA on 09/19/25 13:20 UA Glucose 0 mg/dL Last Edit by Lianne Brooks, RMA on 09/19/25 13:20 Results Reviewed Results Reviewed: Laboratory Last Values Urine pH (Auto) 6.0 09/19/25 13:20 Specific [place] (Auto) 1.020 09/19/25 13:20 Urine Protein (Auto) 15 mg/dL 09/19/25 13:20 Glucose (UA)(Auto) 0 mg/dL 09/19/25 13:20 Urine Ketones (Auto) Negative 09/19/25 13:20 Urine Blood (Auto) 0 Ronen/uL 09/19/25 13:20 Urine Nitrite (Auto) Negative 09/19/25 13:20 Urine Bilirubin (Auto) 0 mg/dL 09/19/25 13:20 Urine Urobilinogen (Auto) 0.2 mg/dL 09/19/25 13:20 Leukocyte Esterase (Auto) 0 Ariana/uL 09/19/25 13:20 Date of Service: 08/14/25 Procedure(s): US renal BI Accession Number(s): [id number] cc: Camila Gonzalez MD; Rody Kirby MD~ Reason for Exam: N20.0 - Calculus of kidney EXAMINATION: US RETROPERITONEAL LIMITED (RENAL ONLY) CLINICAL INFORMATION: N20.0. COMPARISON: Correlated to ultrasound abdomen dated February 20, 2025] non-IV contrast CT abdomen dated November 06, 2024. TECHNIQUE: Real-time ultrasound of the kidneys using grayscale technique. FINDINGS: RIGHT KIDNEY: 13 x 5 x 6 cm (SAG x AP x TRV). Volume: 121 cc. Normal echotexture. Renal cortical thickness is normal. No hydronephrosis. 3 mm hyperechoic abnormality. No gross solid or cystic lesion. Duplicated urinary collecting system.. LEFT KIDNEY: 10 x 6 x 5 cm (SAG x AP x TRV). Volume: 129 cc. Normal echotexture. Renal cortical thickness is normal. No hydronephrosis. No solid or cystic lesion. US/US renal BI IMPRESSION: 3 mm nonobstructing calculus, right kidney. No hydronephrosis. Duplicated collecting system, right kidney.. Date of Service: 11/06/24 EXAMINATION: CT ABDOMEN PELVIS WITHOUT IV CONTRAST HISTORY: R flank pain COMPARISON: Comparison is made with the prior examination dated 02/16/2023. TECHNIQUE: CT scan of the abdomen and pelvis was performed without contrast using standard departmental protocol. Coronal and sagittal reformatted images were generated and reviewed. Oral contrast material was not administered per department protocol. This CT exam was performed with one or more of the following dose reduction techniques: automated exposure control, adjustment of the mA and/or kV according to patient size, use of iterative reconstruction technique. DLP: 741 mGy-cm FINDINGS: LOWER CHEST: The visualized lung bases are clear. There is no pleural effusion. CARDIOVASCULATURE: The heart is normal in size. There is no pericardial effusion. LIVER: The liver is normal in size and contour. The liver has an unremarkable unenhanced appearance. GALLBLADDER / BILE DUCTS: The gallbladder is unremarkable. There is no intra or extrahepatic biliary ductal dilatation. SPLEEN: The spleen is normal in size and has an unremarkable unenhanced appearance. PANCREAS: The pancreas has an unremarkable unenhanced appearance. ADRENAL GLANDS: Unremarkable. KIDNEYS/RETROPERITONEUM: There is a 2 mm nonobstructing calculus at the upper pole of the right kidney and an additional 2 mm nonobstructing calculus at the lower pole. There is a partially duplicated right renal collecting system. There is mild right hydronephrosis and perinephric soft tissue stranding. There is mild dilatation of the right ureter to the level of a 2-3 mm UVJ calculus. No left renal or ureteral calculi are identified. LYMPH NODES: No retroperitoneal lymphadenopathy is identified in the abdomen or pelvis. VASCULATURE: The abdominal aorta demonstrates atherosclerotic calcification, but is normal in caliber. MESENTERY/PERITONEUM: No free fluid. No masses. There is no free intraperitoneal gas. An anterior abdominal wall mesh is again seen in place. STOMACH: The stomach is collapsed, limiting evaluation. SMALL BOWEL: The small bowel is normal in caliber. COLON: There is diverticulosis of the descending and sigmoid colon, without evidence of diverticulitis. APPENDIX: Normal. URINARY BLADDER/PELVIC ORGANS: The urinary bladder is unremarkable. The uterus has an unremarkable unenhanced appearance. BONES / SOFT TISSUES: No suspicious bony or soft tissue abnormalities. IMPRESSION: 1. Mild right hydroureteronephrosis to the level of a 2-3 mm UVJ calculus. Right nephrolithiasis as described. 2. Diverticulosis of the descending and sigmoid colon, without evidence of diverticulitis. Date of Service: 07/23/24 US RETROPERITONEAL LIMITED (RENAL ONLY) CLINICAL INFORMATION: Calculus of kidney. COMPARISON: Ultrasound abdomen complete 03/06/2024. X-ray KUB 08/15/2023 and 03/29/2023. CT abdomen and pelvis 02/16/2023. Renal ultrasound 11/25/2022. TECHNIQUE: Real-time imaging of the kidneys. FINDINGS: RIGHT KIDNEY: 12.7 x 5.5 x 5.0 cm (SAG x AP x TRV). The kidney is normal in size, contour, and echogenicity. Renal cortical thickness is normal. 2 adjacent mid renal echogenic foci present measuring 3 and 4 mm in size with twinkle artifact consistent with nonobstructing calculi. Identical findings can be seen on the prior CT scan (5:268). No hydronephrosis. A benign lower pole 0.6 cm Bosniak class I renal cyst is noted which requires no additional imaging or follow up. No solid renal masses are seen. LEFT KIDNEY: 10.6 x 5.2 x 4.8 cm (SAG x AP x TRV). The kidney is normal in size, contour, and echogenicity. Renal cortical thickness is normal. No renal calculi or hydronephrosis. A benign upper pole 0.6 cm Bosniak class I renal cyst is noted which requires no additional imaging or follow up. No solid renal masses are seen. IMPRESSION: Nonobstructing right renal calculi. Date of Service: 08/15/23 EXAMINATION: XR ABDOMEN KUB CLINICAL INFORMATION: Calculus of kidney. COMPARISON: March 29, 2023 radiograph of the abdomen. February 16, 2023 CT abdomen and pelvis. TECHNIQUE: Two AP views of the abdomen. FINDINGS: Large amount of stool in the colon. Nonobstructive bowel gas pattern. Redemonstration of postsurgical changes characteristic of hernia repair. Redemonstration of small stone overlying the right kidney. Visualization of the bilateral kidneys remains limited due to overlying bowel. IMPRESSION: Redemonstration of small stone overlying right kidney. Visualization of the bilateral kidneys remains limited due to overlying bowel. Assessment & Plan Assessment & Plan Orders: Orders AMB Post Void Residual by ultrasound Today N32.81 - Overactive bladder AMB Urinalysis Automated Today Z13.9 - Encounter for screening, unspecified Coding CPT Codes Post Residual Void - PVR CPT Code: 80117-[id number] Void Residual by ultrasound ([id number])
== END 2025-09-19 13:51 | disposition home or self-care (01) ==
LOC: HO.HUSH 12:57
PROVIDERS: PCP Internal Medicine; Visit Provider Urology
DX: Z13.9 Encounter for screening, unspecified (principal)

== ENCOUNTER 2025-09-24 13:31 | Outpatient (AMB) | payer OTHER, SELFPAY ==
--- NOTE | 2025-09-24 13:37 | MHC.PC.OV ---
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 Studio Setup Worker Required: No Accompanied by: Self / Same As Patient Allergies Penicillins (PENICILLINS) Allergy (Intermediate, Verified 09/24/25 13:54) RASH, SWELLING diphenhydramine Allergy (Verified 09/24/25 13:54) Facial Swelling gabapentin Adverse Reaction (Intermediate, Verified 09/24/25 13:54) leg swelling Medication List - Last Reconciled 09/24/25 by Rody Duenas MD aspirin (Adult Low Dose Aspirin) 81 mg PO DAILY 90 days atorvastatin 20 mg PO BEDTIME 90 days [Carpal tunnel splint (right hand) As directed] cholecalciferol (vitamin D3) 25 mcg PO DAILY 90 days clotrimazole-betamethasone 1-0.05 % 1 appl topical BID 7 days famotidine (Pepcid) 40 mg PO BEDTIME [flip pillow 10 in 1 As directed] hydrochlorothiazide 25 mg PO DAILY 90 days levothyroxine 50 mcg PO DAILY 90 days lidocaine 5% 1 patch topical ONCE 30 days lisinopril 40 mg PO DAILY 90 days omeprazole 40 mg PO DAILY pregabalin (Lyrica) 75 mg PO BID 30 days pyridoxine (vitamin B6) 100 mg PO DAILY sennosides (senna) 17.2 mg (2 x 8.6 mg) PO BEDTIME tramadol 50 mg PO DAILY 30 days vitamin B complex (B Complex-Vitamin B12 tablet) 1 tab PO DAILY 90 days Tobacco use date assessed: 11/20/24 Dental Screening Dental Screen Date: 05/20/25 HPI HPI Comments History of Present Illness Details The patient is a 65 year old female presenting for follow-up on several issues, including knee pain, a skin lesion, and chronic pain. She reports falling about one month ago, which resulted in pain in both knees, with the left being more symptomatic. She experiences difficulty extending the leg and rising from a seated position. The patient also complains of chronic pain at a prior injection site, which occurs nightly and for which she previously used diclofenac 3% cream. She expresses a desire for an MRI to evaluate the area and reports that her legs feel numb at times. Her past medical history is significant for a small right kidney stone, for which she takes vitamin B6 and drinks water with lemon. She has known allergies to penicillin, Benadryl, and gabapentin. Recent laboratory results, including thyroid studies, vitamin B12, vitamin D, and folic acid, were all within normal limits. Diabetes mellitus type 2 controlled with diet with an A1c of 6.4% today. Flu vaccine given today. Her current medications include aspirin 81 mg, atorvastatin 20 mg, vitamin D, famotidine, hydrochlorothiazide 25 mg, levothyroxine 50 mcg, lisinopril 40 mg, omeprazole 40 mg, pregabalin twice daily, vitamin B6, docusate for constipation, and tramadol. She is not currently taking the vitamin B complex. She has not yet received her influenza vaccine for the season. [facility] Medical History Tendinitis of flexor tendon of right hand Hematuria History of nicotine use Lumbar pain Dysphagia Pure hypercholesterolemia RODY positive Low back pain Essential hypertension Urge incontinence Disc degeneration, lumbar Chronic idiopathic constipation Gastric ulcer Thyroid disease Hx of renal calculi VELARDE (nonalcoholic steatohepatitis) H/O coronary angiogram Rectal bleeding Pruritus ani Esophageal candidiasis History of diverticulitis Nephrolithiasis Smoker Hypertension Surgical History History of hysterectomy History of salpingo-oophorectomy History of thoracic surgery History of esophagogastroduodenoscopy (EGD) H/O colonoscopy Hx of lithotripsy H/O cerebral aneurysm repair History of hernia repair H/O left breast biopsy H/O section Family History Father Skin cancer Prostate cancer Mother CHF (congestive heart failure) Hypertension Diabetes Sister Thyroid cancer Adenomatous polyps Colon cancer Family/Other Mental health disorder Unknown Uterus cancer Family/Other No problems noted. Social History Household Members: Spouse Housing: Apartment Alcohol intake: current Alcohol intake frequency: holidays/special occasions only Alcohol type: wine Patient Tobacco Use Status: Former Tobacco user Tobacco use type: Cigarette e-Cigarette/Vaping Use: Never Used Second Hand Smoke Exposure: Yes service: No Current occupational status: unemployed Sexual orientation: Straight/Heterosexual Gender identity: Female Cognitive needs: No Hearing needs: No Vision needs: Yes (Glasses) Female Reproductive History Menstrual Age of Menarche: 14 Questionnaire Thrive Questionnaire Date Thrive assessed: 05/20/25 I am a: Patient What is your living situation today?: I have a steady place to live Within the past 12 months, did the food you bought not last and you didn't have the money to get more?: I choose not to answer this question Within the past 12 months, did you worry whether your food would run out before you got money to buy more?: I choose not to answer this question Do you have trouble paying for medicines?: No Do you have trouble getting transportation to medical appointments?: No Do you have trouble paying your heating and electricity bill?: No Do you have trouble taking care of your child, family member or friend?: I choose not to answer this question Do you have trouble with day-to-day activities such as bathing, preparing meals, shopping, managing finances, etc.?: I choose not to answer this question Are you currently unemployed and looking for a job?: I choose not to answer this question Are you interested in more education?: I choose not to answer this question Currently or been in a relationship where the following occur: I choose not to answer THRIVE Score: 0 MERT-7 AMB Questionnaire MERT-7 Date MERT - 7 assessed: 05/20/25 Source: Developed by Drs. Musa Castillo, Alexia Szymanski, Keyur Rosa and colleagues, with an educational devyn from [employer]. Review of Systems Const All systems reviewed & are unremarkable except as noted in HPI and below Card Denies chest pain at rest, Denies chest pain with activity, Denies edema, Denies irregular heart rhythm, Denies claudication, Denies dyspnea, Denies dyspnea on exertion, Denies orthopnea, Denies paroxysmal nocturnal dyspnea and Denies slow heart rate Resp Denies cough, Denies dyspnea and Denies dyspnea on exertion Physical exam (Primary Care) Vital Signs: Last Vital Signs BP 130/82 09/24/25 13:40 BMI result Body Mass Index 38.0 BMI Assessment/Plan discussion: High BMI High, discussed plan: lifestyle, weight reduction, dietary and physical activity Tobacco/Smoking Status: Tobacco use Status Tobacco use date assessed 11/20/24 09/24/25 13:38 Patient Tobacco Use Status Former Tobacco user 09/24/25 13:38 Tobacco use type Cigarette 09/24/25 13:38 e-Cigarette/Vaping Use Never Used 09/24/25 13:38 Thrive Assessment: Date of Thrive Assessment Date Thrive assessed 05/20/25 09/24/25 13:38 Currently or been in a relationship where the following occur: I choose not to answer Resp Effort & Inspection: normal respiratory effort Auscultation: clear to auscultation bilaterally Cardio Jugular venous distension: no JVD Rate: regular rate Rhythm: regular rhythm Heart sounds: S1 normal heart sound present and S2 normal heart sound present Extrem General: Yes full ROM Results AMB Hemoglobin A1c AMB Hemoglobin A1c 6.4 % Last Edit by JANNETTE Hamilton on 09/24/25 13:47 Results Reviewed Results Reviewed: Laboratory Last Values Hgb A1c (Clinic) 6.4 % (4.0-6.0) H 09/24/25 13:43 Coding Level of Care Code Add On Preventative Visit Only Diagnoses Diabetes mellitus E11.9 Essential hypertension I10 Pure hypercholesterolemia E78.00 Hypothyroidism, unspecified type E03.9 Hypothyroidism type: unspecified Right renal stone N20.0 Left knee pain M25.562 Right knee pain M25.561 Disc degeneration, lumbar M51.36 Tinea corporis B35.4 Assessment & Plan Assessment & Plan (1) Diabetes mellitus: Code(s): E11.9 - Type 2 diabetes mellitus without complications Category: Medical (2) Essential hypertension: Code(s): I10 - Essential (primary) hypertension Category: Medical (3) Pure hypercholesterolemia: Code(s): E78.00 - Pure hypercholesterolemia, unspecified Category: Medical (4) Hypothyroid: Code(s): E03.9 - Hypothyroidism, unspecified Category: Medical Qualifiers: Hypothyroidism type: unspecified Qualified Code(s): E03.9 - Hypothyroidism, unspecified (5) Right renal stone: Code(s): N20.0 - Calculus of kidney Category: Medical (6) Left knee pain: Code(s): M25.562 - Pain in left knee Category: Medical (7) Right knee pain: Code(s): M25.561 - Pain in right knee Category: Medical (8) Disc degeneration, lumbar: Code(s): M51.36 - Other intervertebral disc degeneration, lumbar region Category: Medical (9) Tinea corporis: Code(s): B35.4 - Tinea corporis Category: Medical Plan Plan 1. Knee Pain The patient reports bilateral knee pain, worse on the left, with difficulty extending the leg following a fall one month ago. An X-ray of the knee will be ordered, and a referral will be placed to Orthopedics for further evaluation and management. 2. Tinea Corporis The patient presents with an itchy lesion consistent with ringworm. A topical antifungal cream will be prescribed. 3. Chronic Pain The patient complains of nightly pain at a prior injection site with associated leg numbness, for which she has previously used diclofenac 3% cream. A referral will be made back to her pain specialist for re-evaluation, with a note to consider an MRI as requested by the patient. 4. Hypertension Continue lisinopril and hydrochlorothiazide. Blood pressure goal is equal or less than 130/80. 5. Pure hypercholesterolemia Continue statins. 6. Diabetes mellitus Controlled with diet. A1c goal is equal or less than 7% and today was 6.4 therefore no medication will be added. 7. Hypothyroidism Continue levothyroxine. Monitor TSH. Orders: Orders XR knee LT 2V Today M25.562 - Pain in left knee Vitamin D 25-OH Total 4 Months E55.9 - Vitamin D deficiency, unspecified Comprehensive [place]. Panel Fast 4 Months K21.9 - Gastro-esophageal reflux disease without esophagitis XR knee RT 2V Today M25.562 - Pain in left knee Lipid Panel 4 Months E78.5 - Hyperlipidemia, unspecified Microalbumin, Random (w Creat) 4 Months R80.9 - Proteinuria, unspecified Thyroid Stimulating Hormone 4 Months E03.9 - Hypothyroidism, unspecified AMB Hemoglobin A1c Today E11.9 - Type 2 diabetes mellitus without complications Influenza [id number] Immunization Today Z23 - Encounter for immunization Referrals Orthopedics Referral M25.561 - Pain in right knee, M25.562 - Pain in left knee Pain Management Referral M53.3 - Sacrococcygeal disorders, not elsewhere classified Medications: New clotrimazole-betamethasone 1-0.05 % 1 appl topical BID 45 grams 0RF 2 weeks Fluarix [id number] (PF) (flu vac ts 2024-(6mos up)-PF) 0.5 mL IM ONCE 0.5 mL 0RF NS Z23 - Encounter for immunization
[2025-09-24 13:40] VITALS: BP 130/82; BMI 38.0
--- OUTSIDE RECORDS SUMMARY | 2025-09-24 14:58 | XMS_ITS | Encounter Summary ---
Author Organization [employer] [facility] Address [address] [facility] [address]t [place] [address] Care Team Providers Care Certified Alcohol Counselor Name Role Phone Unavailable Primary Care Provider Unavailabl e Reason for Visit * Reason Onset Date Comments Appointment 12/15/2022 Encounter Details Date Type Department Care Team ([facility] st Contact Info) Description 12/15/2022 Telephone [facility] [address] [place] [address] Osman Carrizales, JIMMY [address] [place] [address] Appointment Social History Tobacco Use Types Packs/Day [...] Description 01/01/2026 1:30 PM EDT Office Visit [facility] [address] [place] [address] hCuyita Jiang documented as of this encounter Visit Diagnoses Not on filedocumented in this encounter
--- OUTSIDE RECORDS SUMMARY | 2025-09-24 14:58 | XMS_ITS | Clinical Summary ---
Author Organization [facility] Address [address] [facility] [address] [place] [address] Phone Care Team Providers Care Machine Loader Name Role Phone Rody Kirby MD Primary [...] Description 02/17/2026 10:30 AM EDT Office Visit [facility] [address] [place] [address] [address] [place] [address] Andrew Padron DO [address] [place] [address] [place] [address] [email or web address] Health Maintenance Due Date Last Done Comments [...] topic Medical Devices Not on file Insurance [facility] Care Teams Machine Loader Relationship Specialty Start Date End Date Rody Kirby MD [address] [place] [address] PCP - General Internal Medicine 09/02/24 Additional Source Comments The information contained in this document represents components of the legal health record. It is not the complete legal health record.[facility]
--- OUTSIDE RECORDS SUMMARY | 2025-09-24 14:58 | XMS_ITS | Encounter Summary ---
Author Organization [employer] [facility] Address [address] [facility] [address] [place] [address] Care Team Providers Care Alcoholism Worker Name Role Phone Unavailable Primary Care Provider Unavailabl e Encounter Details Date Type Department Care Team (Late Contact Info) Description 11/24/2022 Abstract [facility] [address] [place] [address] Osman Carrizales DMD [address] [place] [address] Social History Tobacco Use Types Packs/Day Years [...] Description 01/01/2026 1:30 PM EDT Office Visit [facility] [address] [place] [address] Jiang, Chuyita documented as of this encounter Visit Diagnoses Not on filedocumented in this encounter
--- OUTSIDE RECORDS SUMMARY | 2025-09-24 14:58 | XMS_ITS | Clinical Summary ---
Author Organization [facility] Prior to 02/22/25 Address [address] [place] [address] Care Team Providers Care Game Designer/Creative Director Name Role Phone Racheal Sky NP Primary Care Provider [phone] Social History Tobacco Use Types Packs/Day Years [...] age to complete this topic Care Teams Game Designer/Creative Director Relationship Specialty Start Date End Date Racheal Sky NP [address] [facility] [place] [address] PCP - General Family Medicine 10/24/18
--- OUTSIDE RECORDS SUMMARY | 2025-09-24 14:58 | XMS_ITS | Encounter Summary ---
Author Organization [email or web address] [facility] Address [address] [facility] 7t [place] [address] Care Team Providers Care Train Inspector Name Role Phone Unavailable Primary Care Provider Unavailabl e Encounter Details Date Type Department Care Team (Latest Contact Info) Description 10/25/2021 Abstract [facility] CONVERSIONS Dental, Provider, DDS Social History [...] Description 01/01/2026 1:30 PM EDT Office Visit [facility] [address] [place] [address] Chuyita Jiang documented as of this encounter Visit Diagnoses Not on filedocumented in this encounter
--- OUTSIDE RECORDS SUMMARY | 2025-09-24 14:58 | XMS_ITS | Clinical Summary ---
Author Organization [facility] Address [address] [place] [address] Care Team Providers Care Computational Mathematician Name Role Phone Rody Antonio Unavailable [phone] Rody Antonio Primary Care Provider [phone] Allergies Active Allergy Reactions Criticality Noted Date Comments Penicillins Swelling 11/08/2018 throat Medications levothyroxine (SYNTHROID, LEVOXYL) 50 MCG tablet Take 50 mcg by mouth every morning. Active lisinopril (PRINIVIL,ZESTR IL) 40 MG tablet Take 40 mg by mouth daily. Active hydroCHLOROthia zide (HYDRODIURIL) 25 MG tablet Take 12.5 mg by mouth daily. Active cholecalciferol (VITAMIN D3) 2,000 unit Tab tablet Take by mouth daily. Active acetaminophen (TYLENOL) 325 MG tablet Take 2 tablets (650 mg total) by mouth every 6 hours as needed (mild headache or knee pain). 240 tablet 02/20/2019 Active aspirin 81 MG EC tablet TAKE 1 TABLET EVERY DAY 30 tablet 12 03/11/2020 Active omeprazole (PriLOSEC) [address] Capsule Take 40 mg by mouth daily. Active pregabalin (LYRICA) 75 MG capsule Take 75 mg by mouth every morning & every evening. Active sennosides (SENOKOT) 8.6 mg tablet Take 2 tablets by mouth daily. Active Active Problems Problem Noted Date Diagnosed Date Cerebral aneurysm 08/05/2019 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 Cerebral arterial aneurysm 11/26/2018 Social History Tobacco Use Types Packs/Day Years Used Date Smoking Tobacco: Former Cigarettes 0.1 40 0 09/2015 - 08/2016 Smokeless Tobacco: Never Comments No Sex and Gender Information Value Date Recorded Sex Assigned at Female 02/19/2019 6:38 AM EDT Legal Sex Female 1:30 PM EST Gender Identity Female 02/19/2019 6:38 AM EDT Sexual Orientation Not on file Last Filed Vital Signs Vital Sign Reading Time Taken Comments Blood Pressure 108/62 04/14/2021 5:00 PM EDT Pulse 62 04/14/2021 5:00 PM EDT Temperature 36.8 C (98.2 F) 04/14/2021 3:00 PM EDT Respiratory Rate 18 04/14/2021 5:00 PM EDT Oxygen Saturation 95% 04/14/2021 5:00 PM EDT Inhaled Oxygen Concentration - - Weight 88.9 kg (196 lb) 08/05/2019 12:56 PM EST Height 149.9 cm (4' 11 ) 08/05/2019 12:56 PM EST Body Mass Index 39.59 08/05/2019 12:56 PM EST Plan of Treatment Health Maintenance Due Date Last Done Comments Blood Pressure 1962 Lipid Panel 1962 Depression Screening 1974 Hepatitis C Screening 1980 Pap Smear 1983 Cervical Cancer Screening 1992 HPV/Cotest 1992 CT Colonography 2007 Colonoscopy 2007 Colorectal Cancer Screening 2007 FIT 2007 FOBT 2007 Multitarget Stool DNA (Cologuard) 2007 Sigmoidoscopy 2007 Pneumococcal Vaccine: 50+ Years (1 of 1 - PCV) 2012 Breast Cancer Screening 03/13/2022 03/13/2020 COVID-19 Vaccine (4 - 2024- season) 2025 11/17/2022, 09/16/2021, 12/30/2020 Influenza Vaccine (#1) 2025 , 10/08/2019, 06/26/2018, Additional history exists DTaP,Tdap,and Td Vaccines (3 - Td or Tdap) 03/07/2033 03/07/2023, 06/11/2012 Zoster Vaccine Completed 02/09/2023, 05/05/2020 Meningococcal B Vaccines Aged Out No longer eligible based on patient's age to complete this topic Meningococcal Vaccines Aged Out No lo nger eligible based on patient's age to complete this topic Medical Devices Implanted Type Area Parachute Marker Device Identifier Shelf Expiration Date Model / Serial / Lot Surpass Streamline Flow Divert [id number] Implanted:Qty: 1 on 02/19/2019 by Calin Guzman MD Stent [employer] [facility] DIV [facility] [id number] / / [id number] 6f-02/19/2019 Implanted:Qty: 1 on 02/19/2019 by Calin Guzman MD [facility] Advance Directives Documents on File Type Date Recorded Patient Community Development Coordinator Expl anation Health Care Proxy 02/22/2019 10:39 AM Heal th Care Proxy Health Care Proxy 02/19/2019 7:36 AM * Full Code (Latest Code Status on File) Date Activated Date Inactivated Comments 02/19/2019 11:29 AM Care Teams Computational Mathematician Relationship Specialty Start Date End Date Rody Antonio [address] [place] [address] [place] [address] PCP - Insurance Assigned PCP 01/31/24 Rody Antonio [address] [place] [address] [place] [address] PCP - General 02/16/24
--- OUTSIDE RECORDS SUMMARY | 2025-09-24 14:58 | XMS_ITS | Clinical Summary ---
Author Organization [employer] Address [address] [facility] 7t [place] [address] Care Team Providers Care Pie Maker Machine Name Role Phone Unavailable Primary Care Provider [...] This exam was done in conjunction with [facility] language services bilingual trainer Abida #[id number]. Ms. Shoemaker was referred back for ongoing [...] spine MRI with and without gadolinium at [facility] from 03/18/2022 shows a very healthy lumbar spine with no significant degenerative changes and no tumor. There is no apparent source of radiculopathy on the lumbar MRI and I suspect this is really due to sacroiliitis. She is agreed to try a right SI joint injection and we will make the arrangements at [facility]. Aneurysm of left internal carotid [...] Office Visit [facility] [address] [facility], [place] [id number] Chuyita Jiang Dental calculus (Primary Dx); Dental [...] Description 01/01/2026 1:30 PM EDT Office Visit [facility] [address] [place] [address] Chuyita Jiang Health Maintenance Due Date Last [...] 2025 , 10/08/2019, 06/26/2018, Additional history exists Dental Oral Exam 12/26/2025 06/26/2025, 05/10/2024 Dental Prophylaxis 12/26/2025 06/26/2025, 07/01/2024 Tobacco Screening 06/26/2026 06/26/2025 Dental X-Ray: Bitewings 06/27/2026 06/26/2025, 05/10 Dental [...]
--- OUTSIDE RECORDS SUMMARY | 2025-09-24 14:58 | XMS_ITS | Encounter Summary ---
Author Organization [facility] Address [address] [place] [address] Care Team Providers Care Reference Library Assistant Name Role Phone Racheal Sky Primary Care Provider Courtney Howard Reagan MD Primary Care Provider + Rody Antonio Unavailable [phone] Rody Antonio Primary Care Provider [phone] Reason for Visit * Reason Comments Medication Refill Encounter Details Date Type Department Care Team (Late st Contact Info) Description 06/02/2020 Refill [facility] [address] [address] Kina Ba NP Social History Tobacco Use Types Packs/Day Years Used Date Smoking Tobacco: Former Cigarettes 0.1 40 0 09/2015 - 08/2016 Smokeless Tobacco: Never Comments No Sex and Gender Information Value Date Recorded Sex Assigned at Female 02/19/2019 6:38 AM EDT Legal Sex Female 1:30 PM EST Gender Identity Female 02/19/2019 6:38 AM EDT Sexual Orientation Not on file documented as of this encounter Miscellaneous Notes * Telephone Encounter - Kina Ba NP - 06/03/2020 1:32 PM EDT Oxycodone was prescribed for pt as headache management after endovascular treatment of a brain aneurysm. If she continues to have headaches, management and prescriptions should come from her PCP. documented in this encounter Plan of Treatment Not on file documented as of this encounter Visit Diagnoses Not on filedocumented in this encounter Care Teams Reference Library Assistant Relationship Specialty Start Date End Date Jose Daniel Racheal Lillian [address] [phone] PCP - General 10/29/18 03/11/21 Howard Phillips MD [address] [facility] [address] [place] [address] PCP - General 03/12/21 02/15/24 Rody Antonio [address] [address] PCP - Insurance Assigned PCP 01/31/24 Rody Antonio [address] [address] PCP - General 02/16/24 documented as of this encounter
--- OUTSIDE RECORDS SUMMARY | 2025-09-24 14:58 | XMS_ITS | Clinical Summary ---
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 Ms. Shoemaker was referred back for ongoing [...] spine MRI with and without gadolinium at [facility] from 03/18/2022 shows a very healthy lumbar spine with no significant degenerative changes and no tumor. There is no apparent source of radiculopathy on the lumbar MRI and I suspect this is really due to sacroiliitis. She is agreed to try a right SI joint injection and we will make the arrangements at [facility]. 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 Cerebral arterial aneurysm 11/26/2018 Encounters Date Type Department Care Team Description 08/15/2025 12:36 PM EST - 08/15/2025 11:59 PM EST Hospital Encounter [facility] Radiation Oncology [address] [place] [address] Harmony Anne, PRISCILLA Meningioma, spinal ([facility] V24, [facility] V28) (Primary Dx) Discharge Disposition: Home or Self Care 07/18/2025 [facility] [address] [place] [id number] Yoshi Dillon PA 07/09/2025 2:14 PM EDT - 07/09/2025 11:59 PM EDT Hospital Encounter [facility] MRI [address] [place] [address] Meningioma, spinal ([facility] V24, [facility] V28) Discharge Disposition: Home or Self Care from Last 3 Months Immunizations Immunization Administration Dates Next Due Hepatitis A Adult (Havrix; V aqta) 19yo and older 01/23/2014,04/02/2013 Hepatitis B (Vmwiymh-S-Tgejq , Recombivax HB-Adult) 19yo and older 07/08/2014,01/23/2014,04/02/2013 [...] DX:Renal calculi Essential hypertension DX:Essent ial hypertension Diabetes ([facility] V24, [facility] V28) Social History Tobacco Use Types Packs/Day Years Used Date Smoking Tobacco: Never Smokeless Tobacco: Never Tobacco Cessation:Counseling Given: Not Answered Comments Unknown Sex and Gender Information Value Date Recorded Sex Assigned at Not on file Legal Sex Female 3:57 AM EST Gender Identity Not on file Sexual Orientation Not on file Last Filed Vital Signs Vital Sign Reading Time Taken Comments Blood Pressure 145/59 08/15/2025 12:56 PM EST Pulse 60 08/15/2025 12:56 PM EST Temperature 35.9 C (96.7 F) 08/15/2025 12:56 PM EST Respiratory Rate 18 08/15/2025 12:56 PM EST Oxygen Saturation 97% 08/15/2025 12:56 PM EST Inhaled Oxygen Concentration - - Weight 86.9 kg (191 lb 9.6 oz) 08/15/2025 12:56 PM EST Height 149.9 cm (4' 11 ) 08/15/2025 12:56 PM EST Body Mass Index 38.7 08/15/2025 12:56 PM EST Plan of Treatment Upcoming Encounters Date Type Department Care Team (Late st Contact Info) Description 08/13/2026 1:30 PM EST Appointment [facility] Radiation Oncology [address] [place] [phone] Harmony Anne NP [address] [place] [address] Health Maintenance Due Date Last Done Comments Colorectal Cancer Screening: Colonoscopy 1962 Cervical Cancer Screening: Pap Smear 1983 Pneumococcal Vaccine: 50+ Years (1 of 1 - PCV) 2012 RSV Immunization Adult Patients (1 - Risk 50-74 years 1-dose series) 2012 Breast Cancer Screening 03/13/2022 03/13/2020 Cholesterol Screening (Lipid Panel) 08/28/2022 HIV Screening 08/28/2022 Hepatitis C Screening 08/28/2022 Social Influencers of Health Screening 08/28/2022 Depression Screening 09/25/2024 COVID-19 Vaccine ( season) 2025 11/17/2022, 09/16/2021, 12/30/2020 Influenza Vaccine (#1) 2025 , 10/08/2019, 06/26/2018, Additional history exists Hypertension/CHF/CAD Annual BMP Blood Test 07/09/2025 08/01/2019, 02/12/2019 DTaP,Tdap,and Td Vaccines (3 - Td or [...] THORACIC SPINE WO AND W CONTRAST Routine 07/09/2025 3:55 PM EDT Meningioma, spinal (CMS/HCC V24, CMS/HCC V28) from Last 3 Months Results * MR Thoracic Spine wo and w Contrast (07/09/2025 3:55 PM EDT) Anatomical Region Laterality Modality T-spine, Spine Magnetic Resonan ce 07/15/2025 12:2 1 PM EDT Impressions 07/15/2025 1:55 PM EDT Stable postsurgical changes in the upper thoracic spine, presumably at the site of a meningioma resection. No evidence of a residual or recurrent mass. -------- FINAL REPORT -------- Dictated By: Isaias Decker Dictated Date: 07/15/2025 12:21 ET Assigned Physician: Isiaas Decker Reviewed and Electronically Signed By: Isaias Decker Signed Date: 07/15/2025 13:55 ET Workstation ID: [id number] Transcribed By: Self Edit Transcribed Date: 07/15/2025 12:21 ET Narrative 07/15/2025 1:55 PM EDT PROCEDURE: MRI of the thoracic spine with intravenous contrast. HISTORY: thoracic meningioma. COMPARISON: 08/09/2024. TECHNIQUE: Sagittal and axial multisequence MRI of the thoracic spine with and without intravenous contrast. IV contrast dose: 18 mL intravenous Dotarem from a 20 mL vial with 2 mL discarded. FINDINGS: Tractor Engine Mechanic images demonstrates sigmoid diverticulosis, a mucous retention cyst along the floor of the left maxillary antrum, and degenerative changes of the cervical and lumbar spine which are incompletely evaluated on this study. Small foci of metallic susceptibility artifact in mild postsurgical scarring in the midline soft tissues from T1 through T5. The posterior elements are absent from T2 through T4. This presumably represents the site of a meningioma resection. There is no evidence of a residual or recurrent mass. Normal alignment. There is a hemangioma in the right posterior T11 vertebral body. No concerning marrow infiltrative lesion. No compression deformity. Mild diffuse degenerative irregularity of the vertebral endplates with small endplate osteophytes. Hypertrophic changes of the posterior elements at C5-6 results in slight flattening of the posterior cord without significant spinal stenosis. Normal position of the conus at L1. Procedure Note Isaias Decker MD - 07/15/2025 PROCEDURE: MRI of the thoracic spine with intravenous contrast. HISTORY: thoracic meningioma. COMPARISON: 08/09/2024. TECHNIQUE: Sagittal and axial multisequence MRI of the thoracic spine withand without intravenous contrast. IV contrast dose: 18 mL intravenous Dotarem from a 20 mL vial with 2 mLdiscarded. FINDINGS: Tractor Engine Mechanic images demonstrates sigmoid diverticulosis, a mucous retention cystalong the floor of the left maxillary antrum, and degenerative changes ofthe cervical and lumbar spine which are incompletely evaluated on thisstudy. Small foci of metallic susceptibility artifact in mild postsurgicalscarring in the midline soft tissues from T1 through T5. The posteriorelements are absent from T2 through T4. This presumably represents thesite of a meningioma resection. There is no evidence of a residual orrecurrent mass. Normal alignment. There is a hemangioma in the right posterior [id number] body. No concerning marrow infiltrative lesion. No compressiondeformity. Mild diffuse degenerative irregularity of the vertebral endplates withsmall endplate osteophytes. Hypertrophic changes of the posteriorelements at C5-6 results in slight flattening of the posterior cordwithout significant spinal stenosis. Normal position of the conus at L1. IMPRESSION: Stable postsurgical changes in the upper thoracic spine, presumably at thesite of a meningioma resection. No evidence of a residual or recurrentmass. -------- FINAL REPORT -------- Dictated By: Isaias Decker Dictated Date: 07/15/2025 12:21 ET Assigned Physician: Isaias Decker Reviewed and Electronically Signed By: Isaias Decker Signed Date: 07/15/2025 13:55 ET Workstation ID: [id number] Transcribed By: Self Edit Transcribed Date: 07/15/2025 12:21 ET Yoshi RAMIREZ IMG MRI PROCEDURES Final Resu lt from Last 3 Months Insurance [facility] [employer] Care Teams Trouble Clerk Relationship Specialty Start Date End Date Rody Duenas MD 2 [facility] , [address] Physician Associ D/B/A: [facility] JASWINDER Romeo PCP - General Internal Medicine 04/08/22
== END 2025-09-24 14:19 | disposition home or self-care (01) ==
LOC: HO.HMCH 13:31
PROVIDERS: PCP Internal Medicine; Visit Provider Internal Medicine
DX: E11.9 Type 2 diabetes mellitus without complications (principal); I10 Essential (primary) hypertension; E78.00 Pure hypercholesterolemia, unspecified; E03.9 Hypothyroidism, unspecified; N20.0 Calculus of kidney; M25.562 Pain in left knee; M25.561 Pain in right knee; M51.369 Other intervertebral disc degeneration, lumbar region without mention of lumbar back pain or lower extremity pain; B35.4 Tinea corporis; Z23 Encounter for immunization

== ENCOUNTER → 2025-09-24 13:31 | Outpatient (BNVA) | payer OTHER, SELFPAY | PROVIDERS: PCP Internal Medicine; Visit Provider Internal Medicine | DX: E11.9 Type 2 diabetes mellitus without complications (principal); M25.561 Pain in right knee; M25.562 Pain in left knee; B35.4 Tinea corporis; G89.29 Other chronic pain; E03.9 Hypothyroidism, unspecified; Z23 Encounter for immunization; Z79.82 Long term (current) use of aspirin; Z79.899 Other long term (current) drug therapy | CPT/HCPCS: 83036; 90471; 90656; 99212 ==